=== PATIENT | female | born 1990 | race Hispanic/Latino ===

== ENCOUNTER 2022-02-09 13:13 | Emergency (ER) | payer BC ==
--- OUTSIDE RECORDS SUMMARY | 2022-02-09 13:30 | XMS REPORT | Continuity of Care Document ---
:1990 Author Organization [facility] t Address [address] [place] [address] Care Team Providers Name Role Phone PCP, PATIENT DOES NOT HAVE A Primary Care Physician UnavailNINO Gimenez Attending Clinician Unavailable REGINALD DUKE Attending Clinician Unavailable DANE GARCÍA Attending Clinician Unavailable Bhavya Marsh Attending Clinician Unknown, Attending Attending Clinician Unavailable BHAVYA LINDSEY Attending Clinician Unavailable Doctor Unassigned, [place] Attending Clinician Unavailable Dane Golden Attending Clinician Lab, Ang - Db Attending Clinician Unavailable BRENNEN CHANDLER Attending Clinician Unavailable Brennen Chandler MD Attending Clinician MARLA HOFFMANN Attending Clinician Unavailable Marla Hoffmann DO Attending Clinician PHYLLIS STILES Attending Clinician Unavailable Phyllis Stiles PA-C Attending Clinician CALLI FROST Attending Clinician Unavailable Calli Kelsey Attending Clinician JORDYN ADAMS Attending Clinician Unavailable Drever RESPIRATORY THERAPIST, Jordyn G Attending Clinician LINDA CORREA Attending Clinician Unavailable Linda Bowden Attending Clinician MELLY WILSON Attending Clinician Unavailable Andrea Preston PA-C Attending Clinician Steve RUIZ, Melly Attending Clinician Only, Ilya Db Test Attending Clinician Unavailable Tushar Shah Attending Clinician TUSHAR HIGUERA Attending Clinician Unavailable Gerardo BLANCA, Cass Perez Attending Clinician Unavailable JOHNIE WEST Attending Clinician Unavailable Mohamud Vallejo DO Attending Clinician Nichelle RUIZ, Nino Fuentes Attending Clinician Pob, [facility] Main Attending Clinician Unavailable Only, Adc Test Attending Clinician Unavailable 2, [facility] Attending Clinician Unavailable Johnie West PA-C Attending Clinician Faculty, Ilya [facility] Attending Clinician Unavailable Ger RUIZ, Raymundo Barker Attending Clinician Nayeli Coronado MD Attending Clinician NAYELI CORONADO Attending Clinician Unavailable ANETA ALTMAN Attending Clinician Unavailable 1, [facility] Attending Clinician Unavailable Miles Mojica MD Attending Clinician Alton RUIZ, Lance Anthony Attending Clinician Aneta Altman MD Attending Clinician [facility] Attending Clinician Unavailable Clinic, [facility] Neurology Continuity Attending Clinician Unavail able 5, [facility] Attending Clinician Unavailable Harlan Delaney MD, Tamia Attending Clinician [phone] Minerva Suárez Attending Clinician KEVYN CERVANTES Attending Clinician Unavailable Kevyn Cervantes MD Attending Clinician BRANDON HOFFMANN Attending Clinician Unavailable Risk, Ufb-Pyrjh-Up/High Attending Clinician Unavailable Kimberly Samantha DOUGLAS Attending Clinician SAMANTHA CORREA Attending Clinician Unavailable Remedios Perez Attending Clinician Brandon Peng Attending Clinician NINO STEWARD Admitting Clinician Unavailable MARLA HOFFMANN Admitting Clinician Unavailable Nino Steward MD Admitting Clinician Payers Payer Name Policy Type Policy Number Effective Date Expiration Date [facility] [id number] 2019 CHOICE MEDICAID 00:00:00 [employer] [place] - [id number] 2021 OUT OF STATE 00:00:00 Problems Condition Condition Condition Status Onset Resolution Last Treating Co mments Source Name Details Category Date Date Treatment Clinician Date Fatigue, Fatigue, Disease Active 2021-03 Unive rs unspecifie unspecifie 0-05 it y of d type d type 00:00: [place] [address] Medical Branch Lumbar Lumbar Disease Active 2021-03 Univers pain pain 0-05 ity of 00:00: [address] Branch 39 weeks 39 weeks Disease Active 2020-0 Unive rs gestation gestation 9-14 ity of of of 00:00: [place] 00 [facility] Preoperati Preoperati Disease Active 2020-0 U nivers ve ve 8-24 [place] evaluation [place]al 00 [facility] ligation ligation Branch Excessive Excessive Disease Active 2020- Uni vers weight weight 8-24 ity of gain gain 00:00: [place] during during 00 Medical , , Br anch antepartum antepartum High blood High blood Disease Active 2020-0 U nivers copper copper 7-24 ity of level level 00:00: [place] 00 Medical Branch Round Round Disease Active 2020-0 Univers ligament ligament 6-04 ity of pain pain 00:00: [place] 00 Medical Branch Low-lying Low-lying Disease Active 2020-0 Last Uni vers placenta placenta 5-05 Assessmen ity of 00:00: t & Plan: [place] [address] Resolved Medical on Branch 09/29/2019 [facility] Pain in Pain in Disease Active 2020-0 Univers both upper both upper 3-05 it y of extremitie extremitie 00:[place] Obesity Obesity Disease Active 2020-0 Univers (BMI (BMI 1-30 ity of 30-39.9) 30-39.9) 00:00: [place] [facility] Anxiety Anxiety Disease Active Univers during during 1-30 [place] 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 rs drug drug 1-30 ity of exposure exposure 00:00: Medical Branch Nexplanon Nexplanon Disease Active Uni vers in place in place 7-19 ity of 00:00: [place] [facility] Branch Liveborn Liveborn Disease Active Unive rs infant, of , of 6-06 it y of mark mark 00:[place] , , 00 [place] dical born in born in [facility] hospital by vaginal by vaginal delivery delivery High risk High risk Disease Active Uni vers , , 4-12 it y of antepartum antepartum [place] [facility] Obesity Obesity Disease Active Univers during during 4-12 ity of third third 00:00: [place] trimester, trimester, 00 Me dical antepartum antepartum Br anch Obesity Obesity Disease Active Univers affecting affecting 4-12 it[place] of 00:[place] in first in first 00 Medica l trimester trimester Bran ch Rubella Rubella Disease Active Univers immune immune 3-08 ity of 00:00: [place] [facility] Immune to Immune to Disease Active Uni vers varicella varicella 3-08 ity of 00:00: [place] [facility] Sterilizat Sterilizat Disease Active U nivers ion ion 1-11 ity of consult consult 00:00: [place] [facility] Nausea Nausea Disease Active 2015-03 Univers 1-30 ity of 00:00: [place] [facility] Nausea/vom Nausea/vom Disease Active 2015-03 U nivers iting in iting in 1-30 it[place] of 00:[place] [facility] [place] Multiparit Multiparit Disease Active 2015-03 U nivers y y 0-25 ity of 00:00: [place] [facility] Obesity, Obesity, Disease Active 2015-03 Unive rs unspecifie unspecifie 0-25 it y of d d 00:00: [place] [facility] Needs flu Needs flu Disease Active 2015-03 Uni vers shot shot 0-25 ity of 00:00: [place] 00 [facility] Branch Supervisio Supervisio Disease Active 2015-03 U nivers n of high n of high 0-25 ity of risk risk 00:00: [place] 00 [facility] in third in third Branch trimester trimester Cervical Cervical Disease Active Unive rs high risk high risk 9-22 ity of human human 00:00: [place] papillomav papillomav 00 Me dical irus (HPV) irus (HPV) Br anch DNA test DNA test positive positive History of History of Disease Active U nivers abnormal abnormal 9- ity of cervical cervical 00:00: [place] Pap smear Pap smear 00 [facility] Branch Irregular Irregular Disease Active Uni vers menstrual menstrual 9-22 ity of cycle cycle 00:00: [place] 00 [facility] Overweight Overweight Disease Active Overview : Univers - ICD10 ity of 00:00: Diagnosis [place] [facility] [employer] Branch Utility Allergies, Adverse Reactions, Alerts Allergy Allergy Status Severity Reaction(s) Onset Inactive Treating Comm ents Source Name Type Date Date Clinician NO KNOWN Drug Active Univers ALLERGIE Class ity of S [facility] Social History Social Habit Start Date Stop Date Quantity Comments Source ASSERTION 2019-02-25 University 00:00:00 [facility] Exposure to 2021-12-01 2021-12-11 Not sure [facility] SARS-CoV-2 00:00:00 17:25:00 [facility] (event) Branch Alcohol intake 2021-12-02 2021-12-02 0 /d University 00:00:00 00:00:00 [facility] Tobacco use and 2021-12-02 2021-12-02 Smokeless tobacco Un iversity of exposure 00:00:00 00:00:00 non-user [facility] Tobacco Comment 2014-07-11 2014-07-11 smokes 1 x per Unive rsity of 00:00:00 00:00:00 day-trying to [place] Medic [facility] quit Branch History of 2014-07-09 Cigarette Smoker Universi ty of tobacco use 00:00:00 [facility] [birth year] Universit y of 00:00:00 00:00:00 [facility] Smoking Status Start Date Stop Date Source Ex-smoker 2021-12-02 00:00:00 2021-12-02 00:00:[address] [facility], [facility] [place] [facility] Medications Ordered Filled Start Stop Current Ordering Indication Dosage Frequency Signature Comments Components Source Medication Medication Date Date Medication? Clinician (SIG) Name Name oseltamivir 2021-03- Yes [id number] 75mg Take 1 Univers (TAMIFLU) 0-13 10-19 capsule by ity of 75 mg 00:00: 04:59 mouth in [place] capsule 00 :00 the Medical morning Branch and 1 capsule in the evening. Do all this for 5 days. oseltamivir 2021-03- Yes [id number] 75mg Take 1 Univers (TAMIFLU) 0-13 10-19 capsule by ity of 75 mg 00:00: 04:59 mouth in [place] capsule 00 :00 the Medical morning Branch and 1 capsule in the evening. Do all this for 5 days. ibuprofen 2021-03- Yes [id number] 600mg Take 1 Univers 600 mg 0-04 10-19 tablet by ity of tablet 00:00: 04:59 mouth [place] 00 :00 every 6 Medical (six) Branch hours as needed for Temp > 38.5 C for up to 14 days. ibuprofen 2021-03- Yes [id number] 600mg Take 1 Univers 600 mg 0-04 10-19 tablet by ity of tablet 00:00: 04:59 mouth [place] 00 :00 every 6 Medical (six) Branch hours as needed for Temp > 38.5 C for up to 14 days. ibuprofen 2021-03- Yes [id number] 600mg Take 1 Univers 600 mg 0-04 10-19 tablet by ity of tablet 00:00: 04:59 mouth [place] 00 :00 every 6 Medical (six) Branch hours as needed for Temp > 38.5 C for up to 14 days. ibuprofen 2021-03- Yes [id number] 600mg Take 1 Univers 600 mg 0-04 10-19 tablet by ity of tablet 00:00: 04:59 mouth [place] 00 :00 every 6 Medical (six) Branch hours as needed for Temp > 38.5 C for up to 14 days. ibuprofen 2021-03- Yes [id number] 600mg Take 1 Univers 600 mg 0-04 10-19 tablet by ity of tablet 00:00: 04:59 mouth [place] 00 :00 every 6 Medical (six) Branch hours as needed for Temp > 38.5 C for up to 14 days. ibuprofen 2021-03- Yes [id number] 600mg Take 1 Univers 600 mg 0-04 10-19 tablet by ity of tablet 00:00: 04:59 mouth [place] 00 :00 every 6 Medical (six) Branch hours as needed for Temp > 38.5 C for up to 14 days. ibuprofen 2021-03- Yes [id number] 600mg Take 1 Univers 600 mg 0-04 10-19 tablet by ity of tablet 00:00: 04:59 mouth [place] 00 :00 every 6 Medical (six) Branch hours as needed for Temp > 38.5 C for up to 14 days. ibuprofen 2021-03- Yes [id number] 600mg Take 1 Univers 600 mg 0-04 10-19 tablet by ity of tablet 00:00: 04:59 mouth [place] 00 :00 every 6 Medical (six) Branch hours as needed for Temp > 38.5 C for up to 14 days. ibuprofen 2021-03- Yes [id number] 600mg Take 1 Univers 600 mg 0-04 10-19 tablet by ity of tablet 00:00: 04:59 mouth [place] 00 :00 every 6 Medical (six) Branch hours as needed for Temp > 38.5 C for up to 14 days. ibuprofen 2021-03- Yes [id number] 600mg Take 1 Univers 600 mg 0-04 10-19 tablet by ity of tablet 00:00: 04:59 mouth [place] 00 :00 every 6 Medical (six) Branch hours as needed for Temp > 38.5 C for up to 14 days. ibuprofen 2021-03- Yes [id number] 600mg Take 1 Univers 600 mg 0-04 10-19 tablet by ity of tablet 00:00: 04:59 mouth [place] 00 :00 every 6 Medical (six) Branch hours as needed for Temp > 38.5 C for up to 14 days. ibuprofen 2021-03- Yes [id number] 600mg Take 1 Univers 600 mg 0-04 10-19 tablet by ity of tablet 00:00: 04:59 mouth [place] 00 :00 every 6 Medical (six) Branch hours as needed for Temp > 38.5 C for up to 14 days. ibuprofen 2021-03- Yes [id number] 600mg Take 1 Univers 600 mg 0-04 10-19 tablet by ity of tablet 00:00: 04:59 mouth [place] 00 :00 every 6 Medical (six) Branch hours as needed for Temp > 38.5 C for up to 14 days. ibuprofen 2021-03- Yes [id number] 600mg Take 1 Univers 600 mg 0-04 10-19 tablet by ity of tablet 00:00: 04:59 mouth [place] 00 :00 every 6 Medical (six) Branch hours as needed for Temp > 38.5 C for up to 14 days. ibuprofen 2021-03- Yes [id number] 600mg Take 1 Univers 600 mg 0-04 10-19 tablet by ity of tablet 00:00: 04:59 mouth [place] 00 :00 every 6 Medical (six) Branch hours as needed for Temp > 38.5 C for up to 14 days. FENTanyl PF 2021- No 75ug 75 mcg, Un tj (SUBLIMAZE 08-04-06 Intramuscu it y of (PF)) 06:00: 04:56 lar, ONCE, [place] injection 00 :00 1 dose, On Medi srinivas 75 mcg 08/04/21 Branch at 0100, Routine traMADoL Yes [id number] 50mg Take 1 Univers (ULTRAM) 50 6-06 tablet by ity of mg tablet 00:00: mouth [place] 00 every 6 Medical (six) Branch hours as needed for Pain (scale 7-10). Indication s: acute pain traMADoL Yes [id number] 50mg Take 1 Univers (ULTRAM) 50 6-06 tablet by ity of mg tablet 00:00: mouth [place] 00 every 6 Medical (six) Branch hours as needed for Pain (scale 7-10). Indication s: acute pain traMADoL 0 Yes [id number] 50mg Take 1 Univers (ULTRAM) 50 6-06 tablet by ity of mg tablet 00:00: mouth [place] 00 every 6 Medical (six) Branch hours as needed for Pain (scale 7-10). Indication s: acute pain traMADoL 2021-0 Yes [id number] 50mg Take 1 Univers (ULTRAM) 50 6-06 tablet by ity of mg tablet 00:00: mouth [place] 00 every 6 Medical (six) Branch hours as needed for Pain (scale 7-10). Indication s: acute pain traMADoL 2021-0 Yes [id number] 50mg Take 1 Univers (ULTRAM) 50 6-06 tablet by ity of mg tablet 00:00: mouth [place] 00 every 6 Medical (six) Branch hours as needed for Pain (scale 7-10). Indication s: acute pain traMADoL 2021-0 Yes [id number] 50mg Take 1 Univers (ULTRAM) 50 6-06 tablet by ity of mg tablet 00:00: mouth [place] 00 every 6 Medical (six) Branch hours as needed for Pain (scale 7-10). Indication s: acute pain traMADoL 2021-0 Yes [id number] 50mg Take 1 Univers (ULTRAM) 50 6-06 tablet by ity of mg tablet 00:00: mouth [place] 00 every 6 Medical (six) Branch hours as needed for Pain (scale 7-10). Indication s: acute pain traMADoL 2021-0 Yes [id number] 50mg Take 1 Univers (ULTRAM) 50 6-06 tablet by ity of mg tablet 00:00: mouth [place] 00 every 6 Medical (six) Branch hours as needed for Pain (scale 7-10). Indication s: acute pain traMADoL 2021-0 Yes [id number] 50mg Take 1 Univers (ULTRAM) 50 6-06 tablet by ity of mg tablet 00:00: mouth [place] 00 every 6 Medical (six) Branch hours as needed for Pain (scale 7-10). Indication s: acute pain traMADoL 2021-0 Yes [id number] 50mg Take 1 Univers (ULTRAM) 50 6-06 tablet by ity of mg tablet 00:00: mouth [place] 00 every 6 Medical (six) Branch hours as needed for Pain (scale 7-10). Indication s: acute pain traMADoL 2-0 Yes [id number] 50mg Take 1 Univers (ULTRAM) 50 6-06 tablet by ity of mg tablet 00:00: mouth [place] 00 every 6 Medical (six) Branch hours as needed for Pain (scale 7-10). Indication s: acute pain traMADoL 2-0 Yes [id number] 50mg Take 1 Univers (ULTRAM) 50 6-06 tablet by ity of mg tablet 00:00: mouth [place] 00 every 6 Medical (six) Branch hours as needed for Pain (scale 7-10). Indication s: acute pain traMADoL Yes [id number] 50mg Take 1 Univers (ULTRAM) 50 6-06 tablet by ity of mg tablet 00:00: mouth [place] 00 every 6 Medical (six) Branch hours as needed for Pain (scale 7-10). Indication s: acute pain traMADoL Yes [id number] 50mg Take 1 Univers (ULTRAM) 50 6-06 tablet by ity of mg tablet 00:00: mouth [place] 00 every 6 Medical (six) Branch hours as needed for Pain (scale 7-10). Indication s: acute pain traMADoL Yes [id number] 50mg Take 1 Univers (ULTRAM) 50 6-06 tablet by ity of mg tablet 00:00: mouth [place] 00 every 6 Medical (six) Branch hours as needed for Pain (scale 7-10). Indication s: acute pain traMADoL Yes [id number] 50mg Take 1 Univers (ULTRAM) 50 6-06 tablet by ity of mg tablet 00:00: mouth [place] 00 every 6 Medical (six) Branch hours as needed for Pain (scale 7-10). Indication s: acute pain traMADoL Yes [id number] 50mg Take 1 Univers (ULTRAM) 50 6-06 tablet by ity of mg tablet 00:00: mouth [place] 00 every 6 Medical (six) Branch hours as needed for Pain (scale 7-10). Indication s: acute pain ciprofloxac 2021- No [id number] 3[drp] Place 3 Univers in-hydrocor 08-04 [id number] Drops in it y of tisone 00:00: 04:59 [place] ear 2 [place] (CIPRO HC) 00 :00 (two) Medical otic times Branch suspension daily for 7 days. FENTanyl PF 2021- No 50ug 50 mcg, Un jt (SUBLIMAZE 07-27 Intramuscu it y of (PF)) 22:00: 21:00 lar, ONCE, [place] injection 00 :00 1 dose, On Medi srinivas 50 mcg Sun Branch 07/27/21 at 1700, Routine HYDROcodone 2021- No 1{tbl} 1 tablet, Univers -acetaminop 07-27 Oral, ity of hen (NORCO 19:15: 18:54 ONCE, 1 Nikhil as 5) 5-325 mg 00 :00 dose, On Medi srinivas tablet 1 Sun Branch tablet 07/27/21 at 1415, MIRIAM cefTRIAXone 2021- No [id number] 1000mg Univers (ROCEPHIN) 03-09 ity of injection 23:15: 22:06 [place] 1,000 mg 00 :00 Medical Branch cefTRIAXone 2021- No [id number] 1000mg 1,000 mg, Univers (ROCEPHIN) 03-09 Intramuscu it y of injection 23:15: 22:06 lar, ONCE, [place] 1,000 mg 00 :00 1 dose, On Medic al 03/09/21 Branch at 1715, MIRIAM
Re ason for Anti-Infec tive: Empiric Therapy for Suspected Infection< br>Empiric Therapy Site: HEENT
D uration of therapy: 72 hours dexamethaso 2021- No [id number] 8mg Univers ne 03-09 ity of (DECADRON 23:00: 22:08 [place] PHOSPHATE) 00 :00 Medical injection 8 Branch mg dexamethaso 2021- No [id number] 8mg 8 mg, Univers ne 03-09 Intramuscu ity of (DECADRON 23:00: 22:08 lar, ONCE, [place] PHOSPHATE) 00 :00 1 dose, On Med ical injection 8 03/09/21 Br anch mg at 1700, Routine amoxicillin 2021- No [id number] 1{tbl} Take 1 Univers -clavulanat 03-09 tablet by it y of e 875-125 00:00: 05:59 mouth 2 [place] mg per 00 :00 (two) Medical tablet times Branch daily for 7 days. amoxicillin 2021- No [id number] 1{tbl} Take 1 Univers -clavulanat 03-09 tablet by it y of e 875-125 00:00: 05:59 mouth 2 [place] mg per 00 :00 (two) Medical tablet times Branch daily for 7 days. ondansetron 2021- No 4mg 4 mg, Univ ers (ZOFRAN-ODT 03-08 Oral, ity of ) 22:45: 22:00 ONCE, 1 [place] disintegrat 00 :00 dose, On Medi srinivas ing tablet 03/08/21 Bra nch 4 mg at 1645, Routine HYDROcodone 2021- No 1{tbl} 1 tablet, Univers -acetaminop 03-08 Oral, ity of hen (NORCO) 21:42: 22:00 ONCE, 1 [place] 10-325 mg 00 :00 dose, On Medica l tablet 1 03/08/21 Branc h tablet at 1545, Routine ciprofloxac 2021- No [id number] 750mg Take 1 Univers in HCl 750 03-08 22593 tablet by it y of mg tablet 00:00: 05:59 mouth [place] 00 :00 every 12 Medical (twelve) Branch hours for 7 days. traMADoL 50 2021- No [id number] 50mg Take 1 Uni vers mg tablet 03-08 tablet by ity of 00:00: 05:59 mouth [place] 00 :00 every 6 Medical (six) Branch hours as needed for Pain (scale 4-6) or Pain (scale 7-10) for up to 7 days. Indication s: acute pain ciprofloxac 2021- No [id number] 750mg Take 1 Univers in HCl 750 03-08 23715 tablet by it y of mg tablet 00:00: 05:59 mouth [place] 00 :00 every 12 Medical (twelve) Branch hours for 7 days. traMADoL 50 2021- No [id number] 50mg Take 1 Uni vers mg tablet 03-08 tablet by ity of 00:00: 05:59 mouth [place] 00 :00 every 6 Medical (six) Branch hours as needed for Pain (scale 4-6) or Pain (scale 7-10) for up to 7 days. Indication s: acute pain ciprofloxac No [id number] 750mg Take 1 Univers in HCl 750 03-08 [id number] tablet by it y of mg tablet 00:00: 05:59 mouth [place] 00 :00 every 12 Medical (twelve) Branch hours for 7 days. traMADoL 50 2021- No [id number] 50mg Take 1 Uni vers mg tablet 03-08 01-16 tablet by ity of 00:00: 05:59 mouth [place] 00 :00 every 6 Medical (six) Branch hours as needed for Pain (scale 4-6) or Pain (scale 7-10) for up to 7 days. Indication s: acute pain ibuprofen 2021-0 Yes [id number] 600mg Take 1 Univers 600 mg 1-07 [id number] tablet by ity of tablet 00:00: mouth [place] 00 every 6 Medical (six) Branch hours as needed for Pain (scale 4-6). ibuprofen 2021-0 Yes [id number] 600mg Take 1 Univers 600 mg 1-07 [id number] tablet by ity of tablet 00:00: mouth [place] 00 every 6 Medical (six) Branch hours as needed for Pain (scale 4-6). ibuprofen 2021-0 Yes [id number] 600mg Take 1 Univers 600 mg 1- 32811 tablet by ity of tablet 00:00: mouth [place] 00 every 6 Medical (six) Branch hours as needed for Pain (scale 4-6). ibuprofen 2021-0 Yes [id number] 600mg Take 1 Univers 600 mg 1-07 [id number] tablet by ity of tablet 00:00: mouth [place] 00 every 6 Medical (six) Branch hours as needed for Pain (scale 4-6). ibuprofen 2021-0 Yes [id number] 600mg Take 1 Univers 600 mg 1-07 04345 tablet by ity of tablet 00:00: mouth [place] 00 every 6 Medical (six) Branch hours as needed for Pain (scale 4-6). ibuprofen 2021-0 Yes [id number] 600mg Take 1 Univers 600 mg 1-07 [id number] tablet by ity of tablet 00:00: mouth [place] 00 every 6 Medical (six) Branch hours as needed for Pain (scale 4-6). ibuprofen 2021-0 Yes [id number] 600mg Take 1 Univers 600 mg 1-07 [id number] tablet by ity of tablet 00:00: mouth [place] 00 every 6 Medical (six) Branch hours as needed for Pain (scale 4-6). ibuprofen 2021-0 Yes [id number] 600mg Take 1 Univers 600 mg 1-07 [id number] tablet by ity of tablet 00:00: mouth [place] 00 every 6 Medical (six) Branch hours as needed for Pain (scale 4-6). ibuprofen 2022-0 Yes [id number] 600mg Take 1 Univers 600 mg 1-07 [id number] tablet by ity of tablet 00:00: mouth [place] 00 every 6 Medical (six) Branch hours as needed for Pain (scale 4-6). ibuprofen 2022-0 Yes [id number] 600mg Take 1 Univers 600 mg 1-07 [id number] tablet by ity of tablet 00:00: mouth [place] 00 every 6 Medical (six) Branch hours as needed for Pain (scale 4-6). ibuprofen 2022-0 Yes [id number] 600mg Take 1 Univers 600 mg 1-07 [id number] tablet by ity of tablet 00:00: mouth [place] 00 every 6 Medical (six) Branch hours as needed for Pain (scale 4-6). ibuprofen 2-0 Yes [id number] 600mg Take 1 Univers 600 mg 1-07 [id number] tablet by ity of tablet 00:00: mouth [place] 00 every 6 Medical (six) Branch hours as needed for Pain (scale 4-6). ibuprofen 2-0 Yes [id number] 600mg Take 1 Univers 600 mg 1-07 [id number] tablet by ity of tablet 00:00: mouth [place] 00 every 6 Medical (six) Branch hours as needed for Pain (scale 4-6). ibuprofen 2-0 Yes [id number] 600mg Take 1 Univers 600 mg 1-07 [id number] tablet by ity of tablet 00:00: mouth [place] 00 every 6 Medical (six) Branch hours as needed for Pain (scale 4-6). ibuprofen 2022-0 Yes [id number] 600mg Take 1 Univers 600 mg 1-07 [id number] tablet by ity of tablet 00:00: mouth [place] 00 every 6 Medical (six) Branch hours as needed for Pain (scale 4-6). ibuprofen 2022-0 Yes [id number] 600mg Take 1 Univers 600 mg 1-07 [id number] tablet by ity of tablet 00:00: mouth [place] 00 every 6 Medical (six) Branch hours as needed for Pain (scale 4-6). ibuprofen 2022-0 Yes [id number] 600mg Take 1 Univers 600 mg 1-07 [id number] tablet by ity of tablet 00:00: mouth [place] 00 every 6 Medical (six) Branch hours as needed for Pain (scale 4-6). ibuprofen 2021-0 Yes [id number] 600mg Take 1 Univers 600 mg 1-07 [id number] tablet by ity of tablet 00:00: mouth [place] 00 every 6 Medical (six) Branch hours as needed for Pain (scale 4-6). ibuprofen 2021-0 Yes [id number] 600mg Take 1 Univers 600 mg 1-07 [id number] tablet by ity of tablet 00:00: mouth [place] 00 every 6 Medical (six) Branch hours as needed for Pain (scale 4-6). ibuprofen 2021-0 Yes [id number] 600mg Take 1 Univers 600 mg 1-07 11425 tablet by ity of tablet 00:00: mouth [place] 00 every 6 Medical (six) Branch hours as needed for Pain (scale 4-6). ibuprofen 2021-0 Yes [id number] 600mg Take 1 Univers 600 mg 1-07 [id number] tablet by ity of tablet 00:00: mouth [place] 00 every 6 Medical (six) Branch hours as needed for Pain (scale 4-6). ibuprofen 2021-0 Yes [id number] 600mg Take 1 Univers 600 mg 1- 08215 tablet by ity of tablet 00:00: mouth [place] 00 every 6 Medical (six) Branch hours as needed for Pain (scale 4-6). neomycin-po 2021- No [id number] 3[drp] Place 3 Univers lymyxin-hyd 03-07 [id number] Drops in it y of rocortisone 00:00: 05:59 right ear [place] 3.5-10,000- 00 :00 4 (four) Medi srinivas 1 times Branch mg/mL-unit/ daily for mL-% otic 7 days. susp neomycin-po 2021- No [id number] 3[drp] Place 3 Univers lymyxin-hyd 03-07 [id number] Drops in it y of rocortisone 00:00: 05:59 right ear [place] 3.5-10,000- 00 :00 4 (four) Medi srinivas 1 times Branch mg/mL-unit/ daily for mL-% otic 7 days. susp neomycin-po 2021- No [id number] 3[drp] Place 3 [facility] lymyxin-hyd 03-07 22726 Drops in it y of rocortisone 00:00: 05:59 right ear [place] 3.5-10,000- 00 :00 4 (four) Medi srinivas 1 times Branch mg/mL-unit/ daily for mL-% otic 7 days. susp neomycin-po 2021- No [id number] 3[drp] Place 3 [facility] lymyxin-hyd 03-07 [id number] Drops in it y of rocortisone 00:00: 05:59 right ear [place] 3.5-10,000- 00 :00 4 (four) Medi srinivas 1 times Branch mg/mL-unit/ daily for mL-% otic 7 days. susp bromphenira 2021- No [id number] 10mL Take 10 mL [facility] mine-pseudo 03-03 by mouth 4 i ty of ephedrine-D 00:00: 05:59 (four) Nikhil as M 2-30-10 00 :00 times Medical mg/5 mL daily as Branch syrup needed for Congestion /Allergies for up to 7 days. bromphenira 2021-0 2021- No [id number] 10mL Take 10 mL [facility] mine-pseudo 03-03 by mouth 4 i ty of ephedrine-D 00:00: 05:59 (four) Nikhil as M 2-30-10 00 :00 times Medical mg/5 mL daily as Branch syrup needed for Congestion /Allergies for up to 7 days. bromphenira 2021-0 2021- No [id number] 10mL Take 10 mL [facility] mine-pseudo 03-03 by mouth 4 i ty of ephedrine-D 00:00: 05:59 (four) Nikhil as M 2-30-10 00 :00 times Medical mg/5 mL daily as Branch syrup needed for Congestion /Allergies for up to 7 days. bromphenira 2021-0 2021- No [id number] 10mL Take 10 mL [facility] mine-pseudo 03-03 by mouth 4 i ty of ephedrine-D 00:00: 05:59 (four) Nikhil as M 2-30-10 00 :00 times Medical mg/5 mL daily as Branch syrup needed for Congestion /Allergies for up to 7 days. lactated 2019-03 Yes 1000mL at 75 [facility] s ringers IV 1-03 mL/hr, it[facility] of infusion 17:00: 1,000 [place] 1[place]000 [place] 00 IV Medical Infusion, Branch CONTINUOUS , Starting Wed01/02/20 at 1100, Until Discontinu ed, Routine, PACU FENTanyl PF 2019-03 Yes 25ug 25 mcg, Uni vers (SUBLIMAZE 1-03 Slow IV ity of (PF)) 16:50: Push, [place] injection 26 Q5MIN PRN, Medi srinivas 25 mcg 4 doses, Branch Starting Wed01/02/20 at 1050, Until Discontinu ed, Routine, Pain (scale 4-6), PACU ondansetron 2019-03 Yes 4mg 4 mg, Slow [facility] (ZOFRAN 03-03 IV Push, ity of (PF)) 16:50: PRN, 1 [place] injection 4 26 dose, Medical mg Starting Branch Wed01/02/20 at 1050, Until Discontinu ed, Routine, Nausea and Vomiting (N/V), PACU bupivacaine 2019-03 Yes PRN, [facility] s -epinephrin 03 Starting ity of e-pf 16:10: Wed [place] (SENSORCAIN 01/02/20 at Ia dical E 1010, Branch W/EPINEPHRI Until NE) 0.5 Discontinu %-1:200,000 ed, injection Routine, Intra-op sodium 2019-03 Yes PRN, [facility] chloride -03 Starting ity of 0.9 % 15:35: Wed [place] irrigation 01/02/20 at Med ical solution 0935, Branch Until Discontinu ed, Intra-op lactated 2019-03 2020- No 1000mL at 42 [facility] rs ringers IV 03-03 11-03 mL/hr, ity of infusion 15:30: 15:23 1,000 mL, Nikhil as 1,000 mL 00 :00 IV Medical Infusion, Branch ONCE, 1 dose, Wed01/02/20 at 0930, Routine, DSU Pre-op acetaminoph 2019-03 Yes [id number] 650mg Take 2 [facility] en 1-03 tablets by ity of (TYLENOL) 00:00: mouth [place] 325 mg 00 every 6 Medical tablet (six) Branch hours as needed for Pain (scale 1-3) or Pain (scale 4-6). ibuprofen 2019-03 Yes [id number] 600mg Take 1 [facility] 600 mg 1-03 tablet by ity of tablet 00:00: mouth [place] 00 every 6 Medical (six) Branch hours as needed for Pain (scale 1-3) or Pain (scale 4-6). simethicone 2020- Yes [id number] 80mg Take 1 [facility] 80 mg 1-03 tablet by ity of chewable 00:00: mouth [place] tablet 00 after Medical meals and Branch at bedtime. acetaminoph 2020 Yes [id number] 650mg Take 2 [facility] en 1-03 tablets by ity of (TYLENOL) 00:00: mouth [place] 325 mg 00 every 6 Medical tablet (six) Branch hours as needed for Pain (scale 1-3) or Pain (scale 4-6). ibuprofen 2019-03 Yes [id number] 600mg Take 1 [facility] 600 mg 1-03 tablet by ity of tablet 00:00: mouth [place] 00 every 6 Medical (six) Branch hours as needed for Pain (scale 1-3) or Pain (scale 4-6). simethicone 2019-03 Yes [id number] 80mg Take 1 [facility] 80 mg 1-03 tablet by ity of chewable 00:00: mouth [place] tablet 00 after Medical meals and Branch at bedtime. acetaminoph 2019-03 Yes [id number] 650mg Take 2 [facility] en 1-03 tablets by ity of (TYLENOL) 00:00: mouth [place] 325 mg 00 every 6 Medical tablet (six) Branch hours as needed for Pain (scale 1-3) or Pain (scale 4-6). ibuprofen 2019-03 Yes [id number] 600mg Take 1 [facility] 600 mg 1-03 tablet by ity of tablet 00:00: mouth [place] 00 every 6 Medical (six) Branch hours as needed for Pain (scale 1-3) or Pain (scale 4-6). simethicone 2019-03 Yes [id number] 80mg Take 1 [facility] 80 mg 1-03 tablet by ity of chewable 00:00: mouth [place] tablet 00 after Medical meals and Branch at bedtime. acetaminoph 2020 Yes [id number] 650mg Take 2 [facility] en 1-03 tablets by ity of (TYLENOL) 00:00: mouth [place] 325 mg 00 every 6 Medical tablet (six) Branch hours as needed for Pain (scale 1-3) or Pain (scale 4-6). ibuprofen 2019-03 Yes [id number] 600mg Take 1 [facility] 600 mg 1-03 tablet by ity of tablet 00:00: mouth [place] 00 every 6 Medical (six) Branch hours as needed for Pain (scale 1-3) or Pain (scale 4-6). simethicone 2020- Yes [id number] 80mg Take 1 [facility] 80 mg 1-03 tablet by ity of chewable 00:00: mouth [place] tablet 00 after Medical meals and Branch at bedtime. acetaminoph 2019- Yes [id number] 650mg Take 2 [facility] en 1-03 tablets by ity of (TYLENOL) 00:00: mouth [place] 325 mg 00 every 6 Medical tablet (six) Branch hours as needed for Pain (scale 1-3) or Pain (scale 4-6). ibuprofen 2019-03 Yes [id number] 600mg Take 1 [facility] 600 mg 1-03 tablet by ity of tablet 00:00: mouth [place] 00 every 6 Medical (six) Branch hours as needed for Pain (scale 1-3) or Pain (scale 4-6). simethicone 2019-03 Yes [id number] 80mg Take 1 [facility] 80 mg 1-03 tablet by ity of chewable 00:00: mouth [place] tablet 00 after Medical meals and Branch at bedtime. acetaminoph 2019-03 Yes [id number] 650mg Take 2 [facility] en 1-03 tablets by ity of (TYLENOL) 00:00: mouth [place] 325 mg 00 every 6 Medical tablet (six) Branch hours as needed for Pain (scale 1-3) or Pain (scale 4-6). ibuprofen 2019-03 Yes [id number] 600mg Take 1 [facility] 600 mg 1-03 tablet by ity of tablet 00:00: mouth [place] 00 every 6 Medical (six) Branch hours as needed for Pain (scale 1-3) or Pain (scale 4-6). simethicone 2020 Yes [id number] 80mg Take 1 [facility] 80 mg 1-03 tablet by ity of chewable 00:00: mouth [place] tablet 00 after Medical meals and Branch at bedtime. acetaminoph 2020- Yes [id number] 650mg Take 2 [facility] en 1-03 tablets by ity of (TYLENOL) 00:00: mouth [place] 325 mg 00 every 6 Medical tablet (six) Branch hours as needed for Pain (scale 1-3) or Pain (scale 4-6). ibuprofen 2019-03 Yes [id number] 600mg Take 1 [facility] 600 mg 1-03 tablet by ity of tablet 00:00: mouth [place] 00 every 6 Medical (six) Branch hours as needed for Pain (scale 1-3) or Pain (scale 4-6). simethicone 2020 Yes [id number] 80mg Take 1 [facility] 80 mg 1-03 tablet by ity of chewable 00:00: mouth [place] tablet 00 after Medical meals and Branch at bedtime. acetaminoph 2019-03 Yes [id number] 650mg Take 2 [facility] en 1-03 tablets by ity of (TYLENOL) 00:00: mouth [place] 325 mg 00 every 6 Medical tablet (six) Branch hours as needed for Pain (scale 1-3) or Pain (scale 4-6). ibuprofen 2019-03 Yes [id number] 600mg Take 1 [facility] 600 mg 1-03 tablet by ity of tablet 00:00: mouth [place] 00 every 6 Medical (six) Branch hours as needed for Pain (scale 1-3) or Pain (scale 4-6). simethicone 2019-03 Yes [id number] 80mg Take 1 [facility] 80 mg 1-03 tablet by ity of chewable 00:00: mouth [place] tablet 00 after Medical meals and Branch at bedtime. acetaminoph 2019-03 Yes [id number] 650mg Take 2 [facility] en 1-03 tablets by ity of (TYLENOL) 00:00: mouth [place] 325 mg 00 every 6 Medical tablet (six) Branch hours as needed for Pain (scale 1-3) or Pain (scale 4-6). ibuprofen 2019-03 Yes [id number] 600mg Take 1 [facility] 600 mg 1-03 tablet by ity of tablet 00:00: mouth [place] 00 every 6 Medical (six) Branch hours as needed for Pain (scale 1-3) or Pain (scale 4-6). simethicone 2019-03 Yes [id number] 80mg Take 1 [facility] 80 mg 1-03 tablet by ity of chewable 00:00: mouth [place] tablet 00 after Medical meals and Branch at bedtime. acetaminoph 2019-03 Yes [id number] 650mg Take 2 [facility] en 1-03 tablets by ity of (TYLENOL) 00:00: mouth [place] 325 mg 00 every 6 Medical tablet (six) Branch hours as needed for Pain (scale 1-3) or Pain (scale 4-6). ibuprofen 2019-03 Yes [id number] 600mg Take 1 [facility] 600 mg 1-03 tablet by ity of tablet 00:00: mouth [place] 00 every 6 Medical (six) Branch hours as needed for Pain (scale 1-3) or Pain (scale 4-6). simethicone 2020 Yes [id number] 80mg Take 1 [facility] 80 mg 1-03 tablet by ity of chewable 00:00: mouth [place] tablet 00 after Medical meals and Branch at bedtime. acetaminoph 2019-03 Yes [id number] 650mg Take 2 [facility] en 1-03 tablets by ity of (TYLENOL) 00:00: mouth [place] 325 mg 00 every 6 Medical tablet (six) Branch hours as needed for Pain (scale 1-3) or Pain (scale 4-6). ibuprofen 2019-03 Yes [id number] 600mg Take 1 [facility] 600 mg 1-03 tablet by ity of tablet 00:00: mouth [place] 00 every 6 Medical (six) Branch hours as needed for Pain (scale 1-3) or Pain (scale 4-6). simethicone 2019-03 Yes [id number] 80mg Take 1 [facility] 80 mg 1-03 tablet by ity of chewable 00:00: mouth [place] tablet 00 after Medical meals and Branch at bedtime. acetaminoph 2019-03 Yes [id number] 650mg Take 2 [facility] en 1-03 tablets by ity of (TYLENOL) 00:00: mouth [place] 325 mg 00 every 6 Medical tablet (six) Branch hours as needed for Pain (scale 1-3) or Pain (scale 4-6). ibuprofen 2019-03 Yes [id number] 600mg Take 1 [facility] 600 mg 1-03 tablet by ity of tablet 00:00: mouth [place] 00 every 6 Medical (six) Branch hours as needed for Pain (scale 1-3) or Pain (scale 4-6). simethicone 2019-03 Yes [id number] 80mg Take 1 [facility] 80 mg 1-03 tablet by ity of chewable 00:00: mouth [place] tablet 00 after Medical meals and Branch at bedtime. acetaminoph 2019-03 Yes [id number] 650mg Take 2 [facility] en 1-03 tablets by ity of (TYLENOL) 00:00: mouth [place] 325 mg 00 every 6 Medical tablet (six) Branch hours as needed for Pain (scale 1-3) or Pain (scale 4-6). ibuprofen 2019-03 Yes [id number] 600mg Take 1 [facility] 600 mg 1-03 tablet by ity of tablet 00:00: mouth [place] 00 every 6 Medical (six) Branch hours as needed for Pain (scale 1-3) or Pain (scale 4-6). simethicone 2020- Yes [id number] 80mg Take 1 [facility] 80 mg 1-03 tablet by ity of chewable 00:00: mouth [place] tablet 00 after Medical meals and Branch at bedtime. acetaminoph 2019-03 Yes [id number] 650mg Take 2 [facility] en 1-03 tablets by ity of (TYLENOL) 00:00: mouth [place] 325 mg 00 every 6 Medical tablet (six) Branch hours as needed for Pain (scale 1-3) or Pain (scale 4-6). ibuprofen 2019-03 Yes [id number] 600mg Take 1 [facility] 600 mg 1-03 tablet by ity of tablet 00:00: mouth [place] 00 every 6 Medical (six) Branch hours as needed for Pain (scale 1-3) or Pain (scale 4-6). simethicone 2019-03 Yes [id number] 80mg Take 1 [facility] 80 mg 1-03 tablet by ity of chewable 00:00: mouth [place] tablet 00 after Medical meals and Branch at bedtime. acetaminoph 2019-03 Yes [id number] 650mg Take 2 [facility] en 1-03 tablets by ity of (TYLENOL) 00:00: mouth [place] 325 mg 00 every 6 Medical tablet (six) Branch hours as needed for Pain (scale 1-3) or Pain (scale 4-6). ibuprofen 2019-03 Yes [id number] 600mg Take 1 [facility] 600 mg 1-03 tablet by ity of tablet 00:00: mouth [place] 00 every 6 Medical (six) Branch hours as needed for Pain (scale 1-3) or Pain (scale 4-6). simethicone 2020 Yes [id number] 80mg Take 1 [facility] 80 mg 1-03 tablet by ity of chewable 00:00: mouth [place] tablet 00 after Medical meals and Branch at bedtime. acetaminoph 2020- Yes [id number] 650mg Take 2 [facility] en 1-03 tablets by ity of (TYLENOL) 00:00: mouth [place] 325 mg 00 every 6 Medical tablet (six) Branch hours as needed for Pain (scale 1-3) or Pain (scale 4-6). ibuprofen 2019-03 Yes [id number] 600mg Take 1 [facility] 600 mg 1-03 tablet by ity of tablet 00:00: mouth [place] 00 every 6 Medical (six) Branch hours as needed for Pain (scale 1-3) or Pain (scale 4-6). simethicone 2020 Yes [id number] 80mg Take 1 [facility] 80 mg 1-03 tablet by ity of chewable 00:00: mouth [place] tablet 00 after Medical meals and Branch at bedtime. acetaminoph 2019-03 Yes [id number] 650mg Take 2 [facility] en 1-03 tablets by ity of (TYLENOL) 00:00: mouth [place] 325 mg 00 every 6 Medical tablet (six) Branch hours as needed for Pain (scale 1-3) or Pain (scale 4-6). ibuprofen 2019-03 Yes [id number] 600mg Take 1 [facility] 600 mg 1-03 tablet by ity of tablet 00:00: mouth [place] 00 every 6 Medical (six) Branch hours as needed for Pain (scale 1-3) or Pain (scale 4-6). simethicone 2019-03 Yes [id number] 80mg Take 1 [facility] 80 mg 1-03 tablet by ity of chewable 00:00: mouth [place] tablet 00 after Medical meals and Branch at bedtime. acetaminoph 2019-03 Yes [id number] 650mg Take 2 [facility] en 1-03 tablets by ity of (TYLENOL) 00:00: mouth [place] 325 mg 00 every 6 Medical tablet (six) Branch hours as needed for Pain (scale 1-3) or Pain (scale 4-6). ibuprofen 2019-03 Yes [id number] 600mg Take 1 [facility] 600 mg 1-03 tablet by ity of tablet 00:00: mouth [place] 00 every 6 Medical (six) Branch hours as needed for Pain (scale 1-3) or Pain (scale 4-6). simethicone 2019-03 Yes [id number] 80mg Take 1 [facility] 80 mg 1-03 tablet by ity of chewable 00:00: mouth [place] tablet 00 after Medical meals and Branch at bedtime. acetaminoph 2019-03 Yes [id number] 650mg Take 2 [facility] en 1-03 tablets by ity of (TYLENOL) 00:00: mouth [place] 325 mg 00 every 6 Medical tablet (six) Branch hours as needed for Pain (scale 1-3) or Pain (scale 4-6). ibuprofen 2019-03 Yes [id number] 600mg Take 1 [facility] 600 mg 1-03 tablet by ity of tablet 00:00: mouth [place] 00 every 6 Medical (six) Branch hours as needed for Pain (scale 1-3) or Pain (scale 4-6). simethicone 2020 Yes [id number] 80mg Take 1 [facility] 80 mg 1-03 tablet by ity of chewable 00:00: mouth [place] tablet 00 after Medical meals and Branch at bedtime. acetaminoph 2019-03 Yes [id number] 650mg Take 2 [facility] en 1-03 tablets by ity of (TYLENOL) 00:00: mouth [place] 325 mg 00 every 6 Medical tablet (six) Branch hours as needed for Pain (scale 1-3) or Pain (scale 4-6). ibuprofen 2019-03 Yes [id number] 600mg Take 1 [facility] 600 mg 1-03 tablet by ity of tablet 00:00: mouth [place] 00 every 6 Medical (six) Branch hours as needed for Pain (scale 1-3) or Pain (scale 4-6). simethicone 2019-03 Yes [id number] 80mg Take 1 [facility] 80 mg 1-03 tablet by ity of chewable 00:00: mouth [place] tablet 00 after Medical meals and Branch at bedtime. acetaminoph 2019-03 Yes [id number] 650mg Take 2 [facility] en 1-03 tablets by ity of (TYLENOL) 00:00: mouth [place] 325 mg 00 every 6 Medical tablet (six) Branch hours as needed for Pain (scale 1-3) or Pain (scale 4-6). ibuprofen 2019-03 Yes [id number] 600mg Take 1 [facility] 600 mg 1-03 tablet by ity of tablet 00:00: mouth [place] 00 every 6 Medical (six) Branch hours as needed for Pain (scale 1-3) or Pain (scale 4-6). simethicone 2019-03 Yes [id number] 80mg Take 1 [facility] 80 mg 1-03 tablet by ity of chewable 00:00: mouth [place] tablet 00 after Medical meals and Branch at bedtime. acetaminoph 2019-03 Yes [id number] 650mg Take 2 [facility] en 1-03 tablets by ity of (TYLENOL) 00:00: mouth [place] 325 mg 00 every 6 Medical tablet (six) Branch hours as needed for Pain (scale 1-3) or Pain (scale 4-6). ibuprofen 2019-03 Yes [id number] 600mg Take 1 [facility] 600 mg 1-03 tablet by ity of tablet 00:00: mouth [place] 00 every 6 Medical (six) Branch hours as needed for Pain (scale 1-3) or Pain (scale 4-6). simethicone 2019-03 Yes [id number] 80mg Take 1 [facility] 80 mg 1-03 tablet by ity of chewable 00:00: mouth [place] tablet 00 after Medical meals and Branch at bedtime. acetaminoph 2019-03 Yes [id number] 650mg Take 2 [facility] en 1-03 tablets by ity of (TYLENOL) 00:00: mouth [place] 325 mg 00 every 6 Medical tablet (six) Branch hours as needed for Pain (scale 1-3) or Pain (scale 4-6). ibuprofen 2019-03 Yes [id number] 600mg Take 1 [facility] 600 mg 1-03 tablet by ity of tablet 00:00: mouth [place] 00 every 6 Medical (six) Branch hours as needed for Pain (scale 1-3) or Pain (scale 4-6). simethicone 2019-03 Yes [id number] 80mg Take 1 [facility] 80 mg 1-03 tablet by ity of chewable 00:00: mouth [place] tablet 00 after Medical meals and Branch at bedtime. acetaminoph 2019-03 Yes [id number] 650mg Take 2 [facility] en 1-03 tablets by ity of (TYLENOL) 00:00: mouth [place] 325 mg 00 every 6 Medical tablet (six) Branch hours as needed for Pain (scale 1-3) or Pain (scale 4-6). ibuprofen 2019-03 Yes [id number] 600mg Take 1 [facility] 600 mg 1-03 tablet by ity of tablet 00:00: mouth [place] 00 every 6 Medical (six) Branch hours as needed for Pain (scale 1-3) or Pain (scale 4-6). simethicone 2019-03 Yes [id number] 80mg Take 1 [facility] 80 mg 1-03 tablet by ity of chewable 00:00: mouth [place] tablet 00 after Medical meals and Branch at bedtime. acetaminoph 2019-03 Yes [id number] 650mg Take 2 [facility] en 1-03 tablets by ity of (TYLENOL) 00:00: mouth [place] 325 mg 00 every 6 Medical tablet (six) Branch hours as needed for Pain (scale 1-3) or Pain (scale 4-6). ibuprofen 2019-03 Yes [id number] 600mg Take 1 [facility] 600 mg 1-03 tablet by ity of tablet 00:00: mouth [place] 00 every 6 Medical (six) Branch hours as needed for Pain (scale 1-3) or Pain (scale 4-6). simethicone 2019-03 Yes [id number] 80mg Take 1 [facility] 80 mg 1-03 tablet by ity of chewable 00:00: mouth [place] tablet 00 after Medical meals and Branch at bedtime. acetaminoph 2019-03 Yes [id number] 650mg Take 2 [facility] en 1-03 tablets by ity of (TYLENOL) 00:00: mouth [place] 325 mg 00 every 6 Medical tablet (six) Branch hours as needed for Pain (scale 1-3) or Pain (scale 4-6). ibuprofen 2019-03 Yes [id number] 600mg Take 1 [facility] 600 mg 1-03 tablet by ity of tablet 00:00: mouth [place] 00 every 6 Medical (six) Branch hours as needed for Pain (scale 1-3) or Pain (scale 4-6). simethicone 2019-03 Yes [id number] 80mg Take 1 [facility] 80 mg 1-03 tablet by ity of chewable 00:00: mouth [place] tablet 00 after Medical meals and Branch at bedtime. acetaminoph 2019-03 Yes [id number] 650mg Take 2 [facility] en 1-03 tablets by ity of (TYLENOL) 00:00: mouth [place] 325 mg 00 every 6 Medical tablet (six) Branch hours as needed for Pain (scale 1-3) or Pain (scale 4-6). ibuprofen 2019-03 Yes [id number] 600mg Take 1 [facility] 600 mg 1-03 tablet by ity of tablet 00:00: mouth [place] 00 every 6 Medical (six) Branch hours as needed for Pain (scale 1-3) or Pain (scale 4-6). simethicone 2019-03 Yes [id number] 80mg Take 1 [facility] 80 mg 1-03 tablet by ity of chewable 00:00: mouth [place] tablet 00 after Medical meals and Branch at bedtime. acetaminoph 2019-03 Yes [id number] 650mg Take 2 [facility] en 1-03 tablets by ity of (TYLENOL) 00:00: mouth [place] 325 mg 00 every 6 Medical tablet (six) Branch hours as needed for Pain (scale 1-3) or Pain (scale 4-6). ibuprofen 2019-03 Yes [id number] 600mg Take 1 [facility] 600 mg 1-03 tablet by ity of tablet 00:00: mouth [place] 00 every 6 Medical (six) Branch hours as needed for Pain (scale 1-3) or Pain (scale 4-6). simethicone 2019-03 Yes [id number] 80mg Take 1 [facility] 80 mg 1-03 tablet by ity of chewable 00:00: mouth [place] tablet 00 after Medical meals and Branch at bedtime. HYDROcodone 2019-03- No [id number] 1{tbl} Take 1 U nivers -acetaminop 1-03 11-11 tablet by it y of hen 5-325 00:00: 05:59 mouth [place] mg tablet 00 :00 every 6 Medical (six) Branch hours as needed for Pain (scale 7-10) for up to 7 days. Indication s: acute pain acetaminoph 2019- No 650mg Take 650 [facility] en (TYLENOL 9-15 09-15 mg by ity of ARTHRITIS 13:02: 00:00 mouth [place] PAIN) 650 55 :00 every 8 Medical mg CR (eight) Branch tablet hours as needed for Pain. diphenhydrA 2019- No 25mg Take 25 mg [facility] MINE 9-15 09-15 by mouth ity of (BENADRYL 13:02: 00:00 every 4 [place] ALLERGY) 25 55 :00 (four) Medica l mg tablet hours as Branch needed for Allergies. acetaminoph 2019- No 650mg Take 650 [facility] en (TYLENOL 9-15 09-15 mg by ity of ARTHRITIS 13:02: 00:00 mouth [place] PAIN) 650 55 :00 every 8 Medical mg CR (eight) Branch tablet hours as needed for Pain. diphenhydrA 2020- No 25mg Take 25 mg [facility] MINE 9-15 09-15 by mouth ity of (BENADRYL 13:02: 00:00 every 4 [place] ALLERGY) 25 55 :00 (four) Medica l mg tablet hours as Branch needed for Allergies. acetaminoph 2019- No 650mg Take 650 [facility] en (TYLENOL -15 09-15 mg by ity of ARTHRITIS 13:02: 00:00 mouth [place] PAIN) 650 55 :00 every 8 Medical mg CR (eight) Branch tablet hours as needed for Pain. diphenhydrA 2019- No 25mg Take 25 mg [facility] MINE 15 -15 by mouth ity of (BENADRYL 13:02: 00:00 every 4 [place] ALLERGY) 25 55 :00 (four) Medica l mg tablet hours as Branch needed for Allergies. 2019-0 Yes [id number] 1{tbl} Take 1 U nivers vitamin 9-15 tablet by ity of w/FA tablet 00:00: mouth [place] 00 daily. Medical Branch docusate 2019-0 Yes [id number] 240mg Take 1 Un tj calcium 240 9-15 capsule by it y of mg capsule 00:00: mouth once [place] 00 daily as Medical needed for Branch Constipati on. ferrous 2020-0 Yes [id number] 325mg Take 1 Uni vers sulfate 325 9-15 tablet by ity of mg (65 mg 00:00: mouth 2 [place] iron) 00 (two) Medical tablet times Branch daily. ibuprofen 2019-0 Yes [id number] 600mg Take 1 U nivers 600 mg 9-15 tablet by ity of tablet 00:00: mouth [place] 00 every 6 Medical (six) Branch hours as needed (Pain). Take with food or milk. 2019-0 Yes [id number] 1{tbl} Take 1 U nivers vitamin 9-15 tablet by ity of w/FA tablet 00:00: mouth [place] 00 daily. Medical Branch docusate 2019-0 Yes [id number] 240mg Take 1 Un tj calcium 240 9-15 capsule by it y of mg capsule 00:00: mouth once [place] 00 daily as Medical needed for Branch Constipati on. ferrous 2020-0 Yes [id number] 325mg Take 1 Uni vers sulfate 325 9-15 tablet by ity of mg (65 mg 00:00: mouth 2 [place] iron) 00 (two) Medical tablet times Branch daily. ibuprofen 2020-0 Yes [id number] 600mg Take 1 U nivers 600 mg 9-15 tablet by ity of tablet 00:00: mouth [place] 00 every 6 Medical (six) Branch hours as needed (Pain). Take with food or milk. 2020-0 Yes [id number] 1{tbl} Take 1 U nivers vitamin 9-15 tablet by ity of w/FA tablet 00:00: mouth [place] 00 daily. Medical Branch docusate 2020-0 Yes [id number] 240mg Take 1 Un tj calcium 240 9-15 capsule by it y of mg capsule 00:00: mouth once [place] 00 daily as Medical needed for Branch Constipati on. ferrous 2020-0 Yes [id number] 325mg Take 1 Uni vers sulfate 325 9-15 tablet by ity of mg (65 mg 00:00: mouth 2 [place] iron) 00 (two) Medical tablet times Branch daily. ibuprofen 2020-0 Yes [id number] 600mg Take 1 U nivers 600 mg 9-15 tablet by ity of tablet 00:00: mouth [place] 00 every 6 Medical (six) Branch hours as needed (Pain). Take with food or milk. 2020-0 Yes [id number] 1{tbl} Take 1 U nivers vitamin 9-15 tablet by ity of w/FA tablet 00:00: mouth [place] 00 daily. Medical Branch docusate 2020-0 Yes [id number] 240mg Take 1 Un tj calcium 240 9-15 capsule by it y of mg capsule 00:00: mouth once [place] 00 daily as Medical needed for Branch Constipati on. ferrous 2020-0 Yes [id number] 325mg Take 1 Uni vers sulfate 325 9-15 tablet by ity of mg (65 mg 00:00: mouth 2 [place] iron) 00 (two) Medical tablet times Branch daily. ibuprofen 2020-0 Yes [id number] 600mg Take 1 U nivers 600 mg 9-15 tablet by ity of tablet 00:00: mouth [place] 00 every 6 Medical (six) Branch hours as needed (Pain). Take with food or milk. 2020-0 Yes [id number] 1{tbl} Take 1 U nivers vitamin 9-15 tablet by ity of w/FA tablet 00:00: mouth [place] 00 daily. Medical Branch docusate 2020-0 Yes [id number] 240mg Take 1 Un tj calcium 240 9-15 capsule by it y of mg capsule 00:00: mouth once [place] 00 daily as Medical needed for Branch Constipati on. ferrous 2020-0 Yes [id number] 325mg Take 1 [facility] vers sulfate 325 9-15 tablet by ity of mg (65 mg 00:00: mouth 2 [place] iron) 00 (two) Medical tablet times Branch daily. ibuprofen 2020-0 Yes [id number] 600mg Take 1 U nivers 600 mg 9-15 tablet by ity of tablet 00:00: mouth [place] 00 every 6 Medical (six) Branch hours as needed (Pain). Take with food or milk. 2020-0 Yes [id number] 1{tbl} Take 1 U nivers vitamin 9-15 tablet by ity of w/FA tablet 00:00: mouth [place] 00 daily. Medical Branch docusate 2020-0 Yes [id number] 240mg Take 1 Un tj calcium 240 9-15 capsule by it y of mg capsule 00:00: mouth once [place] daily as Medical needed for Branch Constipati on. ferrous 2020-0 Yes [id number] 325mg Take 1 [facility] vers sulfate 325 9-15 tablet by ity of mg (65 mg 00:00: mouth 2 [place] iron) 00 (two) Medical tablet times Branch daily. ibuprofen 2020-0 Yes [id number] 600mg Take 1 U nivers 600 mg 9-15 tablet by ity of tablet 00:00: mouth [place] 00 every 6 Medical (six) Branch hours as needed (Pain). Take with food or milk. 2020-0 Yes [id number] 1{tbl} Take 1 [facility] nivers vitamin 9-15 tablet by ity of w/FA tablet 00:00: mouth [place] 00 daily. Medical Branch docusate 2020-0 Yes [id number] 240mg Take 1 Un tj calcium 240 9-15 capsule by it y of mg capsule 00:00: mouth once [place] 00 daily as Medical needed for Branch Constipati on. ferrous 2020-0 Yes [id number] 325mg Take 1 [facility] vers sulfate 325 9-15 tablet by ity of mg (65 mg 00:00: mouth 2 [place] iron) 00 (two) Medical tablet times Branch daily. ibuprofen 2020-0 Yes [id number] 600mg Take 1 U nivers 600 mg 9-15 tablet by ity of tablet 00:00: mouth [place] 00 every 6 Medical (six) Branch hours as needed (Pain). Take with food or milk. 2020-0 Yes [id number] 1{tbl} Take 1 [facility] nivers vitamin 9-15 tablet by ity of w/FA tablet 00:00: mouth [place] 00 daily. Medical Branch docusate 2020-0 Yes [id number] 240mg Take 1 Un tj calcium 240 9-15 capsule by it y of mg capsule 00:00: mouth once [place] 00 daily as Medical needed for Branch Constipati on. ferrous 2020-0 Yes [id number] 325mg Take 1 [facility] vers sulfate 325 9-15 tablet by ity of mg (65 mg 00:00: mouth 2 [place] iron) 00 (two) Medical tablet times Branch daily. ibuprofen 2020-0 Yes [id number] 600mg Take 1 U nivers 600 mg 9-15 tablet by ity of tablet 00:00: mouth [place] 00 every 6 Medical (six) Branch hours as needed (Pain). Take with food or milk. 2020-0 Yes [id number] 1{tbl} Take 1 [facility] nivers vitamin 9-15 tablet by ity of w/FA tablet 00:00: mouth [place] 00 daily. Medical Branch docusate 2019-0 Yes [id number] 240mg Take 1 Un tj calcium 240 9-15 capsule by it y of mg capsule 00:00: mouth once [place] 00 daily as Medical needed for Branch Constipati on. ferrous 2020-0 Yes [id number] 325mg Take 1 [facility] vers sulfate 325 9-15 tablet by ity of mg (65 mg 00:00: mouth 2 [place] iron) 00 (two) Medical tablet times Branch daily. ibuprofen 2020-0 Yes [id number] 600mg Take 1 U nivers 600 mg 9-15 tablet by ity of tablet 00:00: mouth [place] 00 every 6 Medical (six) Branch hours as needed (Pain). Take with food or milk. 2020-0 Yes [id number] 1{tbl} Take 1 [facility] nivers vitamin 9-15 tablet by ity of w/FA tablet 00:00: mouth [place] 00 daily. Medical Branch docusate 2020-0 Yes [id number] 240mg Take 1 Un tj calcium 240 9-15 capsule by it y of mg capsule 00:00: mouth once [place] 00 daily as Medical needed for Branch Constipati on. ferrous 2020-0 Yes [id number] 325mg Take 1 [facility] vers sulfate 325 9-15 tablet by ity of mg (65 mg 00:00: mouth 2 [place] iron) 00 (two) Medical tablet times Branch daily. ibuprofen 2020-0 Yes [id number] 600mg Take 1 [facility] nivers 600 mg 9-15 tablet by ity of tablet 00:00: mouth [place] 00 every 6 Medical (six) Branch hours as needed (Pain). Take with food or milk. 2020-0 Yes [id number] 1{tbl} Take 1 U nivers vitamin 9-15 tablet by ity of w/FA tablet 00:00: mouth [place] 00 daily. Medical Branch docusate 2020-0 Yes [id number] 240mg Take 1 Un tj calcium 240 9-15 capsule by it y of mg capsule 00:00: mouth once [place] 00 daily as Medical needed for Branch Constipati on. ferrous 2020-0 Yes [id number] 325mg Take 1 [facility] vers sulfate 325 9-15 tablet by ity of mg (65 mg 00:00: mouth 2 [place] iron) 00 (two) Medical tablet times Branch daily. ibuprofen 2020-0 Yes [id number] 600mg Take 1 U nivers 600 mg 9-15 tablet by ity of tablet 00:00: mouth [place] 00 every 6 Medical (six) Branch hours as needed (Pain). Take with food or milk. 2020-0 Yes [id number] 1{tbl} Take 1 [facility] nivers vitamin 9-15 tablet by ity of w/FA tablet 00:00: mouth [place] 00 daily. Medical Branch docusate 2020-0 Yes [id number] 240mg Take 1 Un tj calcium 240 9-15 capsule by it y of mg capsule 00:00: mouth once [place] 00 daily as Medical needed for Branch Constipati on. ferrous 2020-0 Yes [id number] 325mg Take 1 [facility] vers sulfate 325 9-15 tablet by ity of mg (65 mg 00:00: mouth 2 [place] iron) 00 (two) Medical tablet times Branch daily. ibuprofen 2020-0 Yes [id number] 600mg Take 1 [facility] nivers 600 mg 9-15 tablet by ity of tablet 00:00: mouth [place] 00 every 6 Medical (six) Branch hours as needed (Pain). Take with food or milk. 2020-0 Yes [id number] 1{tbl} Take 1 [facility] nivers vitamin 9-15 tablet by ity of w/FA tablet 00:00: mouth [place] 00 daily. Medical Branch docusate 2020-0 Yes [id number] 240mg Take 1 Un tj calcium 240 9-15 capsule by it y of mg capsule 00:00: mouth once [place] 00 daily as Medical needed for Branch Constipati on. ferrous 2020-0 Yes [id number] 325mg Take 1 [facility] vers sulfate 325 9-15 tablet by ity of mg (65 mg 00:00: mouth 2 [place] iron) 00 (two) Medical tablet times Branch daily. ibuprofen 2020-0 Yes [id number] 600mg Take 1 U nivers 600 mg 9-15 tablet by ity of tablet 00:00: mouth [place] 00 every 6 Medical (six) Branch hours as needed (Pain). Take with food or milk. 2019-0 Yes [id number] 1{tbl} Take 1 [facility] nivers vitamin 9-15 tablet by ity of w/FA tablet 00:00: mouth [place] 00 daily. Medical Branch docusate 2020-0 Yes [id number] 240mg Take 1 Un tj calcium 240 9-15 capsule by it y of mg capsule 00:00: mouth once [place] 00 daily as Medical needed for Branch Constipati on. ferrous 2020-0 Yes [id number] 325mg Take 1 [facility] vers sulfate 325 9-15 tablet by ity of mg (65 mg 00:00: mouth 2 [place] iron) 00 (two) Medical tablet times Branch daily. ibuprofen 2020-0 Yes [id number] 600mg Take 1 [facility] nivers 600 mg 9-15 tablet by ity of tablet 00:00: mouth [place] 00 every 6 Medical (six) Branch hours as needed (Pain). Take with food or milk. 2020-0 Yes [id number] 1{tbl} Take 1 [facility] nivers vitamin 9-15 tablet by ity of w/FA tablet 00:00: mouth [place] 00 daily. Medical Branch docusate 2020-0 Yes [id number] 240mg Take 1 Un tj calcium 240 9-15 capsule by it y of mg capsule 00:00: mouth once [place] 00 daily as Medical needed for Branch Constipati on. ferrous 2020-0 Yes [id number] 325mg Take 1 [facility] vers sulfate 325 9-15 tablet by ity of mg (65 mg 00:00: mouth 2 [place] iron) 00 (two) Medical tablet times Branch daily. ibuprofen 2020-0 Yes [id number] 600mg Take 1 [facility] nivers 600 mg 9-15 tablet by ity of tablet 00:00: mouth [place] 00 every 6 Medical (six) Branch hours as needed (Pain). Take with food or milk. 2020-0 Yes [id number] 1{tbl} Take 1 [facility] nivers vitamin 9-15 tablet by ity of w/FA tablet 00:00: mouth [place] 00 daily. Medical Branch docusate 2020-0 Yes [id number] 240mg Take 1 Un tj calcium 240 9-15 capsule by it y of mg capsule 00:00: mouth once [place] 00 daily as Medical needed for Branch Constipati on. ferrous 2020-0 Yes [id number] 325mg Take 1 [facility] vers sulfate 325 9-15 tablet by ity of mg (65 mg 00:00: mouth 2 [place] iron) 00 (two) Medical tablet times Branch daily. ibuprofen 2020-0 Yes [id number] 600mg Take 1 [facility] nivers 600 mg 9-15 tablet by ity of tablet 00:00: mouth [place] 00 every 6 Medical (six) Branch hours as needed (Pain). Take with food or milk. 2020-0 Yes [id number] 1{tbl} Take 1 [facility] nivers vitamin 9-15 tablet by ity of w/FA tablet 00:00: mouth [place] 00 daily. Medical Branch docusate 2020-0 Yes [id number] 240mg Take 1 Un tj calcium 240 9-15 capsule by it y of mg capsule 00:00: mouth once [place] 00 daily as Medical needed for Branch Constipati on. ferrous 2020-0 Yes [id number] 325mg Take 1 [facility] vers sulfate 325 9-15 tablet by ity of mg (65 mg 00:00: mouth 2 [place] iron) 00 (two) Medical tablet times Branch daily. ibuprofen 2020-0 Yes [id number] 600mg Take 1 [facility] nivers 600 mg 9-15 tablet by ity of tablet 00:00: mouth [place] 00 every 6 Medical (six) Branch hours as needed (Pain). Take with food or milk. 2020-0 Yes [id number] 1{tbl} Take 1 [facility] nivers vitamin 9-15 tablet by ity of w/FA tablet 00:00: mouth [place] 00 daily. Medical Branch docusate 2020-0 Yes [id number] 240mg Take 1 Un tj calcium 240 9-15 capsule by it y of mg capsule 00:00: mouth once [place] 00 daily as Medical needed for Branch Constipati on. ferrous 2020-0 Yes [id number] 325mg Take 1 [facility] vers sulfate 325 9-15 tablet by ity of mg (65 mg 00:00: mouth 2 [place] iron) 00 (two) Medical tablet times Branch daily. ibuprofen 2020-0 Yes [id number] 600mg Take 1 [facility] nivers 600 mg 9-15 tablet by ity of tablet 00:00: mouth [place] 00 every 6 Medical (six) Branch hours as needed (Pain). Take with food or milk. 2019-0 Yes [id number] 1{tbl} Take 1 [facility] nivers vitamin 9-15 tablet by ity of w/FA tablet 00:00: mouth [place] 00 daily. Medical Branch docusate 2020-0 Yes [id number] 240mg Take 1 Un tj calcium 240 9-15 capsule by it y of mg capsule 00:00: mouth once [place] 00 daily as Medical needed for Branch Constipati on. ferrous 2020-0 Yes [id number] 325mg Take 1 [facility] vers sulfate 325 9-15 tablet by ity of mg (65 mg 00:00: mouth 2 [place] iron) 00 (two) Medical tablet times Branch daily. ibuprofen 2020-0 Yes [id number] 600mg Take 1 [facility] nivers 600 mg 9-15 tablet by ity of tablet 00:00: mouth [place] 00 every 6 Medical (six) Branch hours as needed (Pain). Take with food or milk. 2020-0 Yes [id number] 1{tbl} Take 1 [facility] nivers vitamin 9-15 tablet by ity of w/FA tablet 00:00: mouth [place] 00 daily. Medical Branch docusate 2020-0 Yes [id number] 240mg Take 1 Un tj calcium 240 9-15 capsule by it y of mg capsule 00:00: mouth once [place] 00 daily as Medical needed for Branch Constipati on. ferrous 2020-0 Yes [id number] 325mg Take 1 [facility] vers sulfate 325 9-15 tablet by ity of mg (65 mg 00:00: mouth 2 [place] iron) 00 (two) Medical tablet times Branch daily. ibuprofen 2020-0 Yes [id number] 600mg Take 1 U nivers 600 mg 9-15 tablet by ity of tablet 00:00: mouth [place] 00 every 6 Medical (six) Branch hours as needed (Pain). Take with food or milk. 2020-0 Yes [id number] 1{tbl} Take 1 U nivers vitamin 9-15 tablet by ity of w/FA tablet 00:00: mouth [place] 00 daily. Medical Branch docusate 2020-0 Yes [id number] 240mg Take 1 Un tj calcium 240 9-15 capsule by it y of mg capsule 00:00: mouth once [place] 00 daily as Medical needed for Branch Constipati on. ferrous 2020-0 Yes [id number] 325mg Take 1 [facility] vers sulfate 325 9-15 tablet by ity of mg (65 mg 00:00: mouth 2 [place] iron) 00 (two) Medical tablet times Branch daily. ibuprofen 2020-0 Yes [id number] 600mg Take 1 U nivers 600 mg 9-15 tablet by ity of tablet 00:00: mouth [place] 00 every 6 Medical (six) Branch hours as needed (Pain). Take with food or milk. 2020-0 Yes [id number] 1{tbl} Take 1 U nivers vitamin 9-15 tablet by ity of w/FA tablet 00:00: mouth [place] 00 daily. Medical Branch docusate 2020-0 Yes [id number] 240mg Take 1 Un tj calcium 240 9-15 capsule by it y of mg capsule 00:00: mouth once [place] 00 daily as Medical needed for Branch Constipati on. ferrous 2020-0 Yes [id number] 325mg Take 1 [facility] vers sulfate 325 9-15 tablet by ity of mg (65 mg 00:00: mouth 2 [place] iron) 00 (two) Medical tablet times Branch daily. ibuprofen 2020-0 Yes [id number] 600mg Take 1 U nivers 600 mg 9-15 tablet by ity of tablet 00:00: mouth [place] 00 every 6 Medical (six) Branch hours as needed (Pain). Take with food or milk. 2020-0 Yes [id number] 1{tbl} Take 1 U nivers vitamin 9-15 tablet by ity of w/FA tablet 00:00: mouth [place] 00 daily. Medical Branch docusate 2020-0 Yes [id number] 240mg Take 1 Un tj calcium 240 9-15 capsule by it y of mg capsule 00:00: mouth once [place] 00 daily as Medical needed for Branch Constipati on. ferrous 2020-0 Yes [id number] 325mg Take 1 [facility] vers sulfate 325 9-15 tablet by ity of mg (65 mg 00:00: mouth 2 [place] iron) 00 (two) Medical tablet times Branch daily. ibuprofen 2020-0 Yes [id number] 600mg Take 1 U nivers 600 mg 9-15 tablet by ity of tablet 00:00: mouth [place] 00 every 6 Medical (six) Branch hours as needed (Pain). Take with food or milk. 2019-0 Yes [id number] 1{tbl} Take 1 U nivers vitamin 9-15 tablet by ity of w/FA tablet 00:00: mouth [place] 00 daily. Medical Branch docusate 2019-0 Yes [id number] 240mg Take 1 Un tj calcium 240 9-15 capsule by it y of mg capsule 00:00: mouth once [place] 00 daily as Medical needed for Branch Constipati on. ferrous 2020-0 Yes [id number] 325mg Take 1 [facility] vers sulfate 325 9-15 tablet by ity of mg (65 mg 00:00: mouth 2 [place] iron) 00 (two) Medical tablet times Branch daily. 2019-0 Yes [id number] 1{tbl} Take 1 U nivers vitamin 9-15 tablet by ity of w/FA tablet 00:00: mouth [place] 00 daily. Medical Branch docusate 2019-0 Yes [id number] 240mg Take 1 Un tj calcium 240 9-15 capsule by it y of mg capsule 00:00: mouth once [place] 00 daily as Medical needed for Branch Constipati on. ferrous 2020-0 Yes [id number] 325mg Take 1 [facility] vers sulfate 325 9-15 tablet by ity of mg (65 mg 00:00: mouth 2 [place] iron) 00 (two) Medical tablet times Branch daily. 2019-0 Yes [id number] 1{tbl} Take 1 U nivers vitamin 9-15 tablet by ity of w/FA tablet 00:00: mouth [place] 00 daily. Medical Branch docusate 2019-0 Yes [id number] 240mg Take 1 Un tj calcium 240 9-15 capsule by it y of mg capsule 00:00: mouth once [place] 00 daily as Medical needed for Branch Constipati on. ferrous 2020-0 Yes [id number] 325mg Take 1 [facility] vers sulfate 325 9-15 tablet by ity of mg (65 mg 00:00: mouth 2 [place] iron) 00 (two) Medical tablet times Branch daily. 2020-0 Yes [id number] 1{tbl} Take 1 U nivers vitamin 9-15 tablet by ity of w/FA tablet 00:00: mouth [place] 00 daily. Medical Branch docusate 2020-0 Yes [id number] 240mg Take 1 Un tj calcium 240 9-15 capsule by it y of mg capsule 00:00: mouth once [place] 00 daily as Medical needed for Branch Constipati on. ferrous 2020-0 Yes [id number] 325mg Take 1 [facility] vers sulfate 325 9-15 tablet by ity of mg (65 mg 00:00: mouth 2 [place] iron) 00 (two) Medical tablet times Branch daily. 2020-0 Yes [id number] 1{tbl} Take 1 [facility] nivers vitamin 9-15 tablet by ity of w/FA tablet 00:00: mouth [place] 00 daily. Medical Branch docusate 2020-0 Yes [id number] 240mg Take 1 Un tj calcium 240 9-15 capsule by it y of mg capsule 00:00: mouth once [place] 00 daily as Medical needed for Branch Constipati on. ferrous 2020-0 Yes [id number] 325mg Take 1 [facility] vers sulfate 325 9-15 tablet by ity of mg (65 mg 00:00: mouth 2 [place] iron) 00 (two) Medical tablet times Branch daily. 2020-0 Yes [id number] 1{tbl} Take 1 U nivers vitamin 9-15 tablet by ity of w/FA tablet 00:00: mouth [place] 00 daily. Medical Branch docusate 2020-0 Yes [id number] 240mg Take 1 Un tj calcium 240 9-15 capsule by it y of mg capsule 00:00: mouth once [place] 00 daily as Medical needed for Branch Constipati on. ferrous 2020-0 Yes [id number] 325mg Take 1 [facility] vers sulfate 325 9-15 tablet by ity of mg (65 mg 00:00: mouth 2 [place] iron) 00 (two) Medical tablet times Branch daily. 2020-0 Yes [id number] 1{tbl} Take 1 U nivers vitamin 9-15 tablet by ity of w/FA tablet 00:00: mouth [place] 00 daily. Medical Branch docusate 2020-0 Yes [id number] 240mg Take 1 Un tj calcium 240 9-15 capsule by it y of mg capsule 00:00: mouth once [place] 00 daily as Medical needed for Branch Constipati on. ferrous 2020-0 Yes [id number] 325mg Take 1 [facility] vers sulfate 325 9-15 tablet by ity of mg (65 mg 00:00: mouth 2 [place] iron) 00 (two) Medical tablet times Branch daily. 2019-0 Yes [id number] 1{tbl} Take 1 U nivers vitamin 9-15 tablet by ity of w/FA tablet 00:00: mouth [place] 00 daily. Medical Branch docusate 2020-0 Yes [id number] 240mg Take 1 Un tj calcium 240 9-15 capsule by it y of mg capsule 00:00: mouth once [place] 00 daily as Medical needed for Branch Constipati on. ferrous 2020-0 Yes [id number] 325mg Take 1 [facility] vers sulfate 325 9-15 tablet by ity of mg (65 mg 00:00: mouth 2 [place] iron) 00 (two) Medical tablet times Branch daily. 2019-0 Yes [id number] 1{tbl} Take 1 U nivers vitamin 9-15 tablet by ity of w/FA tablet 00:00: mouth [place] 00 daily. Medical Branch docusate 2020-0 Yes [id number] 240mg Take 1 Un tj calcium 240 9-15 capsule by it y of mg capsule 00:00: mouth once [place] 00 daily as Medical needed for Branch Constipati on. ferrous 2020-0 Yes [id number] 325mg Take 1 [facility] vers sulfate 325 9-15 tablet by ity of mg (65 mg 00:00: mouth 2 [place] iron) 00 (two) Medical tablet times Branch daily. 2020-0 Yes [id number] 1{tbl} Take 1 U nivers vitamin 9-15 tablet by ity of w/FA tablet 00:00: mouth [place] 00 daily. Medical Branch docusate 2020-0 Yes [id number] 240mg Take 1 Un tj calcium 240 9-15 capsule by it y of mg capsule 00:00: mouth once [place] 00 daily as Medical needed for Branch Constipati on. ferrous 2020-0 Yes [id number] 325mg Take 1 [facility] vers sulfate 325 9-15 tablet by ity of mg (65 mg 00:00: mouth 2 [place] iron) 00 (two) Medical tablet times Branch daily. 2020-0 Yes [id number] 1{tbl} Take 1 U nivers vitamin 9-15 tablet by ity of w/FA tablet 00:00: mouth [place] 00 daily. Medical Branch docusate 2020-0 Yes [id number] 240mg Take 1 Un tj calcium 240 9-15 capsule by it y of mg capsule 00:00: mouth once [place] 00 daily as Medical needed for Branch Constipati on. ferrous 2020-0 Yes [id number] 325mg Take 1 [facility] vers sulfate 325 9-15 tablet by ity of mg (65 mg 00:00: mouth 2 [place] iron) 00 (two) Medical tablet times Branch daily. 2020-0 Yes [id number] 1{tbl} Take 1 U nivers vitamin 9-15 tablet by ity of w/FA tablet 00:00: mouth [place] 00 daily. Medical Branch docusate 2020-0 Yes [id number] 240mg Take 1 Un tj calcium 240 9-15 capsule by it y of mg capsule 00:00: mouth once [place] 00 daily as Medical needed for Branch Constipati on. ferrous 2020-0 Yes [id number] 325mg Take 1 [facility] vers sulfate 325 9-15 tablet by ity of mg (65 mg 00:00: mouth 2 [place] iron) 00 (two) Medical tablet times Branch daily. 2020-0 Yes [id number] 1{tbl} Take 1 U nivers vitamin 9-15 tablet by ity of w/FA tablet 00:00: mouth [place] 00 daily. Medical Branch docusate 2020-0 Yes [id number] 240mg Take 1 Un tj calcium 240 9-15 capsule by it y of mg capsule 00:00: mouth once [place] 00 daily as Medical needed for Branch Constipati on. ferrous 2020-0 Yes [id number] 325mg Take 1 [facility] vers sulfate 325 9-15 tablet by ity of mg (65 mg 00:00: mouth 2 [place] iron) 00 (two) Medical tablet times Branch daily. 2020-0 Yes [id number] 1{tbl} Take 1 U nivers vitamin 9-15 tablet by ity of w/FA tablet 00:00: mouth [place] 00 daily. Medical Branch docusate Yes [id number] 240mg Take 1 Un tj calcium 240 9-15 capsule by it y of mg capsule 00:00: mouth once [place] 00 daily as Medical needed for Branch Constipati on. ferrous Yes [id number] 325mg Take 1 Uni vers sulfate 325 9-15 tablet by ity of mg (65 mg 00:00: mouth 2 [place] iron) 00 (two) Medical tablet times Branch daily. Yes [id number] 1{tbl} Take 1 U nivers vitamin 9-15 tablet by ity of w/FA tablet 00:00: mouth [place] 00 daily. Medical Branch docusate Yes [id number] 240mg Take 1 Un tj calcium 240 9-15 capsule by it y of mg capsule 00:00: mouth once [place] 00 daily as Medical needed for Branch Constipati on. ferrous Yes [id number] 325mg Take 1 [facility] vers sulfate 325 9-15 tablet by ity of mg (65 mg 00:00: mouth 2 [place] iron) 00 (two) Medical tablet times Branch daily. ibuprofen 2021- No [id number] 600mg Take 1 [facility] 600 mg 9-15 10-04 tablet by ity of tablet 00:00: 00:00 mouth [place] 00 :00 every 6 Medical (six) Branch hours as needed (Pain). Take with food or milk. ibuprofen 2021- No [id number] 600mg Take 1 [facility] 600 mg 9-15 10-04 tablet by ity of tablet 00:00: 00:00 mouth [place] 00 :00 every 6 Medical (six) Branch hours as needed (Pain). Take with food or milk. rho(D) Yes 300ug 300 mcg, Univer s immune -14 Intramuscu ity of globulin 19:35: lar, ONCE, [place] (RHOGAM) 44 For 1 Medical syringe 300 dose, Branch mcg Conditiona l, Routine ondansetron Yes 4mg 4 mg, Slow [facility] (ZOFRAN -14 IV Push, ity of (PF)) 19:35: Q8HPRN, [place] injection 4 38 Starting Medi srinivas mg Mon Branch 11/13/19 at 1435, Until Discontinu ed, Routine, Nausea and Vomiting (N/V) simethicone 2020-0 Yes 160mg 160 mg, Un tj (GAS RELIEF 11-12 Oral, ity of (SIMETHICON 19:35: PC+HSPRN, [place] E)) 38 Starting Medical chewable Mon Branch tablet 160 11/13/19 at mg 1435, Until Discontinu ed, Routine, Gas magnesium 2020-0 Yes 30mL 30 mL, Univer s hydroxide 11-12 Oral, ity of (MILK OF 19:35: QDAILYPRN, [place] MAGNESIA) 38 Starting Medica l 400 mg/5 mL Mon Branch suspension 11/13/19 at 30 mL 1435, Until Discontinu ed, Routine, Constipati on HYDROcodone 2020-0 Yes 1{tbl} 1 tablet, Univers -acetaminop 11-12 Oral, ity of hen (NORCO 19:35: Q6HPRN, [place] 5) 5-325 mg 37 Starting Medi srinivas tablet 1 Mon Branch tablet 11/13/19 at 1435, Until Discontinu ed, Routine, Pain (scale 7-10) ibuprofen 2020-0 Yes 600mg 600 mg, Univ ers (IBU) 11-12 Oral, ity of tablet 600 19:35: Q6HPRN, [place] mg 37 Starting Medical Mon Branch 11/13/19 at 1435, Until Discontinu ed, Routine, Pain (scale 4-6) acetaminoph 2020-0 Yes 650mg 650 mg, Un tj en 11-12 Oral, ity of (TYLENOL) 19:35: Q6HPRN, [place] tablet 650 37 Starting Medic al mg Mon Branch 11/13/19 at 1435, Until Discontinu ed, Routine, Pain (scale 1-3) diphenhydrA 2020-0 Yes 25mg 25 mg, Univ ers MINE 11-12 Oral, ity of (BENADRYL) 19:35: Q6HPRN, [place] tablet 25 37 Starting Medica l mg Mon Branch 11/13/19 at 1435, Until Discontinu ed, Routine, Sleep, Itching docusate 2020-0 Yes 240mg 240 mg, Unive rs calcium 11-12 Oral, ity of (SURFAK) 19:35: QDAILYPRN, [place] capsule 240 37 Starting Medi srinivas mg Mon [place] 11/13/19 at 1435, Until Discontinu ed, Routine, Constipati on benzocaine- 2019-0 Yes Topical, Un tj menthol 11-12 PRN, ity of (DERMOPLAST 19:35: Starting [place] ) 20-0.5 % 37 Mon Medical topical 11/13/19 at Branch spray 1435, Until Discontinu ed, Routine, Perineum discomfort LR 1000 mL 2020- No at 125 Univ ers + oxytocin 11-12 mL/hr, IV ity of 20 units IV 18:45: 19:30 Infusion, [place] Solution 00 :00 ONCE, 1 Medical dose, [facility] 11/13/19 at 1345, Routine D5W-LR IV 2019- No 1000mL at 125 Uni vers infusion 11-12 mL/hr, IV ity o f 1,000 mL 09:30: 19:35 Infusion, [place] 00 :44 CONTINUOUS Medical , Starting Branch [facility] 11/13/19 at 0430, Until [facility] 11/13/19 at 1435, Routine FENTanyl PF 2019- No 100ug 100 mcg, Univers (SUBLIMAZE 11-12 Slow IV ity o f (PF)) 09:24: 19:35 Push, [place] injection 33 :44 Q1HPRN, Medical 100 mcg Starting Branch [facility] 11/13/19 at 0424, Until 11/13/19 at 1435, Routine, contractio n pain without an epidural and SVE < 8 cm and Cat I strip proMETHazin 2019- No 25mg 25 mg, IV Univers e 11-12 Piggyback, ity of (PHENERGAN) 09:24: 19:35 Q4HPRN, [place] 25 mg in 33 :44 Starting Medical NaCl 0.9% [facility] (NS) 50 mL 11/13/19 at IV 0424, piggyback Until [facility] 11/13/19 at 1435, Routine, Nausea and Vomiting (N/V) LR 1000 mL 0 2020- No 2mU/min at 6-120 Univers + oxytocin 11-12 mL/hr, IV ity of 20 units IV 09:24: 19:35 Infusion, [place] Solution 33 :44 TITRATE, Medical Starting Branch 11/13/19 at 0424, Until 11/13/19 at 1435, MIRIAM sodium 2020-0 2020- No 30mL 30 mL, [facility] citrate-cit 11-12 Oral, ity of jaye acid 09:24: 13:42 PRE-PROCED [place] (BICITRA) 33 :00 URE ONCE, Medic al 500-334 1 dose, Branch mg/5 mL Starting solution 30 Mon mL 11/13/19 at 0424, Until Discontinu ed, Routine, Surgery/Pr ocedure lactated 2019-0 2020- No 500mL at 999 Unive rs ringers IV 11-12 mL/hr, 500 it y of infusion 09:24: 19:35 mL, IV [place] 500 mL 33 :44 Infusion, Medical PRN - SEE Branch INSTRUCTIO NS, Starting 11/13/19 at 0424, Until 11/13/19 at 1435, Routine acetaminoph 0 2020- No Take by Un tj en/diphenhy 8-03 08-03 mouth. ity o f dramine 22:39: 00:00 [place] (TYLENOL PM 35 :00 Medical ORAL) Branch acetaminoph 2019-0 2020- No Take by Un tj en/diphenhy 8-03 08-03 mouth. ity o f dramine 22:39: 00:00 [place] (TYLENOL PM 35 :00 Medical ORAL) Branch acetaminoph 2019-0 2020- No Take by Un tj en/diphenhy 8-03 08-03 mouth. ity o f dramine 22:39: 00:00 [place] (TYLENOL PM 35 :00 Medical ORAL) Branch proMETHazin 2020-0 Yes [id number] 25mg Take 1 [facility] e 25 mg 7-16 tablet by ity of tablet 00:00: mouth [place] 00 every 6 Medical (six) Branch hours as needed for Nausea and Vomiting (N/V). proMETHazin 2020-0 Yes [id number] 25mg Take 1 [facility] e 25 mg 7-16 tablet by ity of tablet 00:00: mouth [place] 00 every 6 Medical (six) Branch hours as needed for Nausea and Vomiting (N/V). proMETHazin 2020-0 Yes [id number] 25mg Take 1 Univers e 25 mg 7-16 tablet by ity of tablet 00:00: mouth [place] 00 every 6 Medical (six) Branch hours as needed for Nausea and Vomiting (N/V). proMETHazin 2020-0 Yes [id number] 25mg Take 1 [facility] e 25 mg 7-16 tablet by ity of tablet 00:00: mouth [place] 00 every 6 Medical (six) Branch hours as needed for Nausea and Vomiting (N/V). proMETHazin 2020-0 Yes [id number] 25mg Take 1 [facility] 25 mg 7-16 tablet by [facility] of tablet 00:00: mouth [place] 00 every 6 Medical (six) Branch hours as needed for Nausea and Vomiting (N/V). proMETHazin 2020-0 Yes [id number] 25mg Take 1 [facility] 25 mg 7-16 tablet by [facility] of tablet 00:00: mouth [place] 00 every 6 Medical (six) Branch hours as needed for Nausea and Vomiting (N/V). proMETHazin 2020-0 Yes [id number] 25mg Take 1 [facility] 25 mg 7-16 tablet by [facility] of tablet 00:00: mouth [place] 00 every 6 Medical (six) Branch hours as needed for Nausea and Vomiting (N/V). proMETHazin 2020-0 Yes [id number] 25mg Take 1 [facility] 25 mg 7-16 tablet by [facility] of tablet 00:00: mouth [place] 00 every 6 Medical (six) Branch hours as needed for Nausea and Vomiting (N/V). proMETHazin 2020-0 Yes [id number] 25mg Take 1 [facility] 25 mg 7-16 tablet by [facility] of tablet 00:00: mouth [place] 00 every 6 Medical (six) Branch hours as needed for Nausea and Vomiting (N/V). proMETHazin 2020-0 Yes [id number] 25mg Take 1 [facility] 25 mg 7-16 tablet by [facility] of tablet 00:00: mouth [place] 00 every 6 Medical (six) Branch hours as needed for Nausea and Vomiting (N/V). proMETHazin 2020-0 Yes [id number] 25mg Take 1 [facility] 25 mg 7-16 tablet by [facility] of tablet 00:00: mouth [place] 00 every 6 Medical (six) Branch hours as needed for Nausea and Vomiting (N/V). proMETHazin 2020-0 Yes [id number] 25mg Take 1 [facility] 25 mg 7-16 tablet by [facility] of tablet 00:00: mouth [place] 00 every 6 Medical (six) Branch hours as needed for Nausea and Vomiting (N/V). proMETHazin 2020-0 Yes [id number] 25mg Take 1 [facility] 25 mg 7-16 tablet by [facility] of tablet 00:00: mouth [place] 00 every 6 Medical (six) Branch hours as needed for Nausea and Vomiting (N/V). proMETHazin 2020-0 Yes [id number] 25mg Take 1 [facility] 25 mg 7-16 tablet by [facility] of tablet 00:00: mouth [place] 00 every 6 Medical (six) Branch hours as needed for Nausea and Vomiting (N/V). proMETHazin 2020-0 Yes [id number] 25mg Take 1 [facility] 25 mg 7-16 tablet by [facility] of tablet 00:00: mouth [place] 00 every 6 Medical (six) Branch hours as needed for Nausea and Vomiting (N/V). proMETHazin 2020-0 Yes [id number] 25mg Take 1 [facility] 25 mg 7-16 tablet by [facility] of tablet 00:00: mouth [place] 00 every 6 Medical (six) Branch hours as needed for Nausea and Vomiting (N/V). proMETHazin 2020-0 Yes [id number] 25mg Take 1 [facility] 25 mg 7-16 tablet by [facility] of tablet 00:00: mouth [place] 00 every 6 Medical (six) Branch hours as needed for Nausea and Vomiting (N/V). proMETHazin 2020-0 Yes [id number] 25mg Take 1 [facility] 25 mg 7-16 tablet by [facility] of tablet 00:00: mouth [place] 00 every 6 Medical (six) Branch hours as needed for Nausea and Vomiting (N/V). proMETHazin 2020-0 Yes [id number] 25mg Take 1 [facility] 25 mg 7-16 tablet by [facility] of tablet 00:00: mouth [place] 00 every 6 Medical (six) Branch hours as needed for Nausea and Vomiting (N/V). proMETHazin 2020-0 Yes [id number] 25mg Take 1 [facility] 25 mg 7-16 tablet by it[facility] of tablet 00:00: mouth [place] 00 every 6 Medical (six) Branch hours as needed for Nausea and Vomiting (N/V). proMETHazin 2020-0 2020- No [id number] 25mg Take 1 [facility] 25 mg 7-16 09-15 tablet by it[facility] of tablet 00:00: 00:00 mouth [place] 00 :00 every 6 Medical (six) Branch hours as needed for Nausea and Vomiting (N/V). magnesium 2020-0 Yes [id number] 400mg Take 400 [facility] oxide 400 7-02 mg by ity of mg 00:00: mouth [place] magnesium 00 daily. Medical Tab Branch magnesium 2020-0 Yes [id number] 400mg Take 400 [facility] oxide 400 7-02 mg by ity of mg 00:00: mouth [place] magnesium 00 daily. Medical Tab Branch magnesium 2020-0 Yes [id number] 400mg Take 400 [facility] oxide 400 7-02 mg by ity of mg 00:00: mouth [place] magnesium 00 daily. Medical Tab Branch magnesium 2020-0 Yes [id number] 400mg Take 400 [facility] oxide 400 7-02 mg by ity of mg 00:00: mouth [place] magnesium 00 daily. Medical Tab Branch magnesium 2020-0 Yes [id number] 400mg Take 400 [facility] oxide 400 7-02 mg by ity of mg 00:00: mouth [place] magnesium 00 daily. Medical Tab Branch magnesium 2020-0 Yes [id number] 400mg Take 400 [facility] oxide 400 7-02 mg by ity of mg 00:00: mouth [place] magnesium 00 daily. Medical Tab Branch magnesium 2020-0 Yes [id number] 400mg Take 400 [facility] oxide 400 7-02 mg by ity of mg 00:00: mouth [place] magnesium 00 daily. Medical Tab Branch magnesium 2020-0 Yes [id number] 400mg Take 400 [facility] oxide 400 7-02 mg by ity of mg 00:00: mouth [place] magnesium 00 daily. Medical Tab Branch magnesium 2020-0 Yes [id number] 400mg Take 400 [facility] oxide 400 7-02 mg by ity of mg 00:00: mouth [place] magnesium 00 daily. Medical Tab Branch magnesium 2020-0 Yes [id number] 400mg Take 400 [facility] oxide 400 7-02 mg by ity of mg 00:00: mouth [place] magnesium 00 daily. Medical Tab Branch magnesium 2020-0 Yes [id number] 400mg Take 400 [facility] oxide 400 7-02 mg by ity of mg 00:00: mouth [place] magnesium 00 daily. Medical Tab Branch magnesium 2020-0 Yes [id number] 400mg Take 400 [facility] oxide 400 7-02 mg by ity of mg 00:00: mouth [place] magnesium 00 daily. Medical Tab Branch magnesium 2020-0 Yes [id number] 400mg Take 400 [facility] oxide 400 7-02 mg by ity of mg 00:00: mouth [place] magnesium 00 daily. Medical Tab Branch magnesium 2020-0 Yes [id number] 400mg Take 400 [facility] oxide 400 7-02 mg by ity of mg 00:00: mouth [place] magnesium 00 daily. Medical Tab Branch magnesium 2020-0 Yes [id number] 400mg Take 400 [facility] oxide 400 7-02 mg by ity of mg 00:00: mouth [place] magnesium 00 daily. Medical Tab Branch magnesium 2020-0 Yes [id number] 400mg Take 400 [facility] oxide 400 7-02 mg by ity of mg 00:00: mouth [place] magnesium 00 daily. Medical Tab Branch magnesium 2020-0 Yes [id number] 400mg Take 400 [facility] oxide 400 7-02 mg by ity of mg 00:00: mouth [place] magnesium 00 daily. Medical Tab Branch magnesium 2020-0 Yes [id number] 400mg Take 400 [facility] oxide 400 7-02 mg by ity of mg 00:00: mouth [place] magnesium 00 daily. Medical Tab Branch magnesium 2020-0 Yes [id number] 400mg Take 400 [facility] oxide 400 7-02 mg by ity of mg 00:00: mouth [place] magnesium 00 daily. Medical Tab Branch magnesium 2020-0 Yes [id number] 400mg Take 400 [facility] oxide 400 7-02 mg by ity of mg 00:00: mouth [place] magnesium 00 daily. Medical Tab Branch magnesium 2020-0 Yes [id number] 400mg Take 400 [facility] oxide 400 7-02 mg by ity of mg 00:00: mouth [place] magnesium 00 daily. Medical Tab Branch magnesium 2020-0 Yes [id number] 400mg Take 400 [facility] oxide 400 7-02 mg by ity of mg 00:00: mouth [place] magnesium 00 daily. Medical Tab Branch magnesium 2020-0 Yes [id number] 400mg Take 400 [facility] oxide 400 7-02 mg by ity of mg 00:00: mouth [place] magnesium 00 daily. Medical Tab Branch magnesium 2020-0 Yes [id number] 400mg Take 400 [facility] oxide 400 7-02 mg by ity of mg 00:00: mouth [place] magnesium 00 daily. Medical Tab Branch magnesium 2020-0 Yes [id number] 400mg Take 400 [facility] oxide 400 7-02 mg by ity of mg 00:00: mouth [place] magnesium 00 daily. Medical Tab Branch magnesium 2020-0 Yes [id number] 400mg Take 400 [facility] oxide 400 7-02 mg by ity of mg 00:00: mouth [place] magnesium 00 daily. Medical Tab Branch magnesium 2020-0 Yes [id number] 400mg Take 400 [facility] oxide 400 7-02 mg by ity of mg 00:00: mouth [place] magnesium 00 daily. Medical Tab Branch magnesium 2020-0 Yes [id number] 400mg Take 400 [facility] oxide 400 7-02 mg by ity of mg 00:00: mouth [place] magnesium 00 daily. Medical Tab Branch magnesium 2020-0 Yes [id number] 400mg Take 400 [facility] oxide 400 7-02 mg by ity of mg 00:00: mouth [place] magnesium 00 daily. Medical Tab Branch magnesium 2020-0 Yes [id number] 400mg Take 400 [facility] oxide 400 7-02 mg by ity of mg 00:00: mouth [place] magnesium 00 daily. Medical Tab Branch magnesium 2020-0 Yes [id number] 400mg Take 400 [facility] oxide 400 7-02 mg by ity of mg 00:00: mouth [place] magnesium 00 daily. Medical Tab Branch magnesium 2020-0 Yes [id number] 400mg Take 400 [facility] oxide 400 7-02 mg by ity of mg 00:00: mouth [place] magnesium 00 daily. Medical Tab Branch magnesium 2020-0 Yes [id number] 400mg Take 400 [facility] oxide 400 7-02 mg by ity of mg 00:00: mouth [place] magnesium 00 daily. Medical Tab Branch magnesium 2020-0 Yes [id number] 400mg Take 400 [facility] oxide 400 7-02 mg by ity of mg 00:00: mouth [place] magnesium 00 daily. Medical Tab Branch magnesium 2020-0 Yes [id number] 400mg Take 400 [facility] oxide 400 7-02 mg by ity of mg 00:00: mouth [place] magnesium 00 daily. Medical Tab Branch magnesium 2020-0 Yes [id number] 400mg Take 400 [facility] oxide 400 7-02 mg by ity of mg 00:00: mouth [place] magnesium 00 daily. Medical Tab Branch magnesium 2020-0 Yes [id number] 400mg Take 400 [facility] oxide 400 7-02 mg by ity of mg 00:00: mouth [place] magnesium 00 daily. Medical Tab Branch magnesium 2020-0 Yes [id number] 400mg Take 400 [facility] oxide 400 7-02 mg by ity of mg 00:00: mouth [place] magnesium 00 daily. Medical Tab Branch magnesium 2020-0 Yes [id number] 400mg Take 400 [facility] oxide 400 7-02 mg by ity of mg 00:00: mouth [place] magnesium 00 daily. Medical Tab Branch magnesium 2020-0 2020- No [id number] 400mg Take 400 [facility] oxide 400 7-02 11-03 mg by ity of mg 00:00: 00:00 mouth [place] magnesium 00 :00 daily. Medical Tab Branch magnesium 2020-0 2020- No [id number] 400mg Take 400 [facility] oxide 400 7-02 11-03 mg by ity of mg 00:00: 00:00 mouth [place] magnesium 00 :00 daily. Medical Tab Branch magnesium 2020-0 2020- No [id number] 400mg Take 400 [facility] oxide 400 7-02 11-03 mg by ity of mg 00:00: 00:00 mouth [place] magnesium 00 :00 daily. Medical Tab Branch diphenhydrA 2020-0 Yes 25mg Take 25 mg [facility] MINE 6-04 by mouth ity of (BENADRYL 20:41: every 4 [place] ALLERGY) 25 08 (four) Medica l mg tablet hours as Branch needed for Allergies. diphenhydrA 2020-0 Yes 25mg Take 25 mg [facility] MINE 6-04 by mouth ity of (BENADRYL 20:41: every 4 [place] ALLERGY) 25 08 (four) Medica l mg tablet hours as Branch needed for Allergies. diphenhydrA 2020-0 Yes 25mg Take 25 mg [facility] MINE 6-04 by mouth ity of (BENADRYL 20:41: every 4 [place] ALLERGY) 25 08 (four) Medica l mg tablet hours as Branch needed for Allergies. diphenhydrA 2020-0 Yes 25mg Take 25 mg [facility] MINE 6-04 by mouth ity of (BENADRYL 20:41: every 4 [place] ALLERGY) 25 08 (four) Medica l mg tablet hours as Branch needed for Allergies. diphenhydrA 2020-0 Yes 25mg Take 25 mg [facility] MINE 6-04 by mouth ity of (BENADRYL 20:41: every 4 [place] ALLERGY) 25 08 (four) Medica l mg tablet hours as Branch needed for Allergies. diphenhydrA 2020-0 Yes 25mg Take 25 mg [facility] MINE 6-04 by mouth ity of (BENADRYL 20:41: every 4 [place] ALLERGY) 25 08 (four) Medica l mg tablet hours as Branch needed for Allergies. diphenhydrA 2020-0 Yes 25mg Take 25 mg [facility] MINE 6-04 by mouth ity of (BENADRYL 20:41: every 4 [place] ALLERGY) 25 08 (four) Medica l mg tablet hours as Branch needed for Allergies. diphenhydrA 2020-0 Yes 25mg Take 25 mg [facility] MINE 6-04 by mouth ity of (BENADRYL 20:41: every 4 [place] ALLERGY) 25 08 (four) Medica l mg tablet hours as Branch needed for Allergies. diphenhydrA 2020-0 Yes 25mg Take 25 mg [facility] MINE 6-04 by mouth ity of (BENADRYL 20:41: every 4 [place] ALLERGY) 25 08 (four) Medica l mg tablet hours as Branch needed for Allergies. diphenhydrA 2020-0 Yes 25mg Take 25 mg [facility] MINE 6-04 by mouth ity of (BENADRYL 20:41: every 4 [place] ALLERGY) 25 08 (four) Medica l mg tablet hours as Branch needed for Allergies. diphenhydrA 2020-0 Yes 25mg Take 25 mg [facility] MINE 6-04 by mouth ity of (BENADRYL 20:41: every 4 [place] ALLERGY) 25 08 (four) Medica l mg tablet hours as Branch needed for Allergies. diphenhydrA 2020-0 Yes 25mg Take 25 mg [facility] MINE 6-04 by mouth ity of (BENADRYL 20:41: every 4 [place] ALLERGY) 25 08 (four) Medica l mg tablet hours as Branch needed for Allergies. diphenhydrA 2020-0 Yes 25mg Take 25 mg [facility] MINE 6-04 by mouth ity of (BENADRYL 20:41: every 4 [place] ALLERGY) 25 08 (four) Medica l mg tablet hours as Branch needed for Allergies. diphenhydrA 2020-0 Yes 25mg Take 25 mg [facility] MINE 6-04 by mouth ity of (BENADRYL 20:41: every 4 [place] ALLERGY) 25 08 (four) Medica l mg tablet hours as Branch needed for Allergies. diphenhydrA 2020-0 Yes 25mg Take 25 mg [facility] MINE 6-04 by mouth ity of (BENADRYL 20:41: every 4 [place] ALLERGY) 25 08 (four) Medica l mg tablet hours as Branch needed for Allergies. diphenhydrA 2020-0 Yes 25mg Take 25 mg [facility] MINE 6-04 by mouth ity of (BENADRYL 20:41: every 4 [place] ALLERGY) 25 08 (four) Medica l mg tablet hours as Branch needed for Allergies. diphenhydrA 2020-0 Yes 25mg Take 25 mg [facility] MINE 6-04 by mouth ity of (BENADRYL 20:41: every 4 [place] ALLERGY) 25 08 (four) Medica l mg tablet hours as Branch needed for Allergies. diphenhydrA 2020-0 Yes 25mg Take 25 mg [facility] MINE 6-04 by mouth ity of (BENADRYL 20:41: every 4 [place] ALLERGY) 25 08 (four) Medica l mg tablet hours as Branch needed for Allergies. diphenhydrA 2020-0 Yes 25mg Take 25 mg [facility] MINE 6-04 by mouth ity of (BENADRYL 20:41: every 4 [place] ALLERGY) 25 08 (four) Medica l mg tablet hours as Branch needed for Allergies. diphenhydrA 2020-0 Yes 25mg Take 25 mg [facility] MINE 6-04 by mouth ity of (BENADRYL 20:41: every 4 [place] ALLERGY) 25 08 (four) Medica l mg tablet hours as Branch needed for Allergies. diphenhydrA 2020-0 Yes 25mg Take 25 mg [facility] MINE 6-04 by mouth ity of (BENADRYL 20:41: every 4 [place] ALLERGY) 25 08 (four) Medica l mg tablet hours as Branch needed for Allergies. diphenhydrA 2020-0 Yes 25mg Take 25 mg [facility] MINE 6-04 by mouth ity of (BENADRYL 20:41: every 4 [place] ALLERGY) 25 08 (four) Medica l mg tablet hours as Branch needed for Allergies. diphenhydrA 2020-0 Yes 25mg Take 25 mg [facility] MINE 6-04 by mouth ity of (BENADRYL 20:41: every 4 [place] ALLERGY) 25 08 (four) Medica l mg tablet hours as Branch needed for Allergies. diphenhydrA 2020-0 Yes 25mg Take 25 mg [facility] MINE 6-04 by mouth ity of (BENADRYL 20:41: every 4 [place] ALLERGY) 25 08 (four) Medica l mg tablet hours as Branch needed for Allergies. diphenhydrA 2020-0 Yes 25mg Take 25 mg [facility] MINE 6-04 by mouth ity of (BENADRYL 20:41: every 4 [place] ALLERGY) 25 08 (four) Medica l mg tablet hours as Branch needed for Allergies. diphenhydrA 2020-0 Yes 25mg Take 25 mg [facility] MINE 6-04 by mouth ity of (BENADRYL 20:41: every 4 [place] ALLERGY) 25 08 (four) Medica l mg tablet hours as Branch needed for Allergies. diphenhydrA 2020-0 Yes 25mg Take 25 mg [facility] MINE 6-04 by mouth ity of (BENADRYL 20:41: every 4 [place] ALLERGY) 25 08 (four) Medica l mg tablet hours as Branch needed for Allergies. diphenhydrA 2020-0 Yes 25mg Take 25 mg [facility] MINE 6-04 by mouth ity of (BENADRYL 20:41: every 4 [place] ALLERGY) 25 08 (four) Medica l mg tablet hours as Branch needed for Allergies. diphenhydrA 2020-0 Yes 25mg Take 25 mg [facility] MINE 6-04 by mouth ity of (BENADRYL 20:41: every 4 [place] ALLERGY) 25 08 (four) Medica l mg tablet hours as Branch needed for Allergies. diphenhydrA 2020-0 Yes 25mg Take 25 mg [facility] MINE 6-04 by mouth ity of (BENADRYL 20:41: every 4 [place] ALLERGY) 25 08 (four) Medica l mg tablet hours as Branch needed for Allergies. diphenhydrA 2020-0 Yes 25mg Take 25 mg [facility] MINE 6-04 by mouth ity of (BENADRYL 20:41: every 4 [place] ALLERGY) 25 08 (four) Medica l mg tablet hours as Branch needed for Allergies. diphenhydrA 2020-0 Yes 25mg Take 25 mg [facility] MINE 6-04 by mouth ity of (BENADRYL 20:41: every 4 [place] ALLERGY) 25 08 (four) Medica l mg tablet hours as Branch needed for Allergies. neomycin-po 2020-0 Yes Apply 4 [facility] vers lymyxin-hyd 4-27 drops into it y of rocortisone 00:00: effected [place] 3.5-,000- 00 ear 3 Medical 1 times Branch mg/mL-unit/ daily for mL-% otic 7 days. susp neomycin-po 2020-0 Yes Apply 4 [facility] lymyxin-hyd 4-27 drops into it y of rocortisone 00:00: effected [place] 3.5-10,000- 00 ear 3 Medical 1 times Branch mg/mL-unit/ daily for mL-% otic 7 days. susp neomycin-po 2020-0 Yes Apply 4 [facility] lymyxin-hyd 4-27 drops into it y of rocortisone 00:00: effected [place] 3.5-10,000- 00 ear 3 Medical 1 times Branch mg/mL-unit/ daily for mL-% otic 7 days. susp neomycin-po 2020-0 Yes Apply 4 [facility] lymyxin-hyd 4-27 drops into it y of rocortisone 00:00: effected [place] 3.5-10,000- 00 ear 3 Medical 1 times Branch mg/mL-unit/ daily for mL-% otic 7 days. susp neomycin-po 2020-0 Yes Apply 4 [facility] lymyxin-hyd 4-27 drops into it y of rocortisone 00:00: effected [place] 3.5-10,000- 00 ear 3 Medical 1 times Branch mg/mL-unit/ daily for mL-% otic 7 days. susp neomycin-po 2020-0 Yes Apply 4 [facility] lymyxin-hyd 4-27 drops into it y of rocortisone 00:00: effected [place] 3.5-,000- 00 ear 3 Medical 1 times Branch mg/mL-unit/ daily for mL-% otic 7 days. susp neomycin-po 2020-0 Yes Apply 4 [facility] lymyxin-hyd 4-27 drops into it y of rocortisone 00:00: effected [place] 3.5-10,000- 00 ear 3 Medical 1 times Branch mg/mL-unit/ daily for mL-% otic 7 days. susp neomycin-po 2020-0 Yes Apply 4 [facility] lymyxin-hyd 4-27 drops into it y of rocortisone 00:00: effected [place] 3.5-10,000- 00 ear 3 Medical 1 times Branch mg/mL-unit/ daily for mL-% otic 7 days. susp neomycin-po 2020-0 Yes Apply 4 [facility] lymyxin-hyd 4-27 drops into it y of rocortisone 00:00: effected [place] 3.5-10,000- 00 ear 3 Medical 1 times Branch mg/mL-unit/ daily for mL-% otic 7 days. susp neomycin-po 2020-0 Yes Apply 4 [facility] lymyxin-hyd 4-27 drops into it y of rocortisone 00:00: effected [place] 3.5-10,000- 00 ear 3 Medical 1 times Branch mg/mL-unit/ daily for mL-% otic 7 days. susp neomycin-po 2020-0 Yes Apply 4 [facility] lymyxin-hyd 4-27 drops into it y of rocortisone 00:00: effected [place] 3.5-10,000- 00 ear 3 Medical 1 times Branch mg/mL-unit/ daily for mL-% otic 7 days. susp neomycin-po 2020-0 Yes Apply 4 [facility] lymyxin-hyd 4-27 drops into it y of rocortisone 00:00: effected [place] 3.5-10,000- 00 ear 3 Medical 1 times Branch mg/mL-unit/ daily for mL-% otic 7 days. susp neomycin-po 2020-0 Yes Apply 4 [facility] lymyxin-hyd 4-27 drops into it y of rocortisone 00:00: effected [place] 3.5-10,000- 00 ear 3 Medical 1 times Branch mg/mL-unit/ daily for mL-% otic 7 days. susp neomycin-po 2020-0 Yes Apply 4 [facility] lymyxin-hyd 4-27 drops into it y of rocortisone 00:00: effected [place] 3.5-10,000- 00 ear 3 Medical 1 times Branch mg/mL-unit/ daily for mL-% otic 7 days. susp neomycin-po 2020-0 Yes Apply 4 [facility] vers lymyxin-hyd 4-27 drops into it y of rocortisone 00:00: effected [place] 3.5-10,000- 00 ear 3 Medical 1 times Branch mg/mL-unit/ daily for mL-% otic 7 days. susp neomycin-po 2020-0 Yes Apply 4 [facility] vers lymyxin-hyd 4-27 drops into it y of rocortisone 00:00: effected [place] 3.5-10,000- 00 ear 3 Medical 1 times Branch mg/mL-unit/ daily for mL-% otic 7 days. susp neomycin-po 2020-0 Yes Apply 4 [facility] lymyxin-hyd 4-27 drops into it y of rocortisone 00:00: effected [place] 3.5-10,000- 00 ear 3 Medical 1 times Branch mg/mL-unit/ daily for mL-% otic 7 days. susp neomycin-po 2020-0 Yes Apply 4 [facility] lymyxin-hyd 4-27 drops into it y of rocortisone 00:00: effected [place] 3.5-10,000- 00 ear 3 Medical 1 times Branch mg/mL-unit/ daily for mL-% otic 7 days. susp neomycin-po 2020-0 Yes Apply 4 [facility] vers lymyxin-hyd 4-27 drops into it y of rocortisone 00:00: effected [place] 3.5-10,000- 00 ear 3 Medical 1 times Branch mg/mL-unit/ daily for mL-% otic 7 days. susp neomycin-po 2020-0 Yes Apply 4 [facility] vers lymyxin-hyd 4-27 drops into it y of rocortisone 00:00: effected [place] 3.5-,000- 00 ear 3 Medical 1 times Branch mg/mL-unit/ daily for mL-% otic 7 days. susp neomycin-po 2020-0 Yes Apply 4 [facility] lymyxin-hyd 4-27 drops into it y of rocortisone 00:00: effected [place] 3.5-10,000- 00 ear 3 Medical 1 times Branch mg/mL-unit/ daily for mL-% otic 7 days. susp neomycin-po 2020-0 Yes Apply 4 [facility] lymyxin-hyd 4-27 drops into it y of rocortisone 00:00: effected [place] 3.5-10,000- 00 ear 3 Medical 1 times Branch mg/mL-unit/ daily for mL-% otic 7 days. susp neomycin-po 2020-0 Yes Apply 4 [facility] lymyxin-hyd 4-27 drops into it y of rocortisone 00:00: effected [place] 3.5-10,000- 00 ear 3 Medical 1 times Branch mg/mL-unit/ daily for mL-% otic 7 days. susp neomycin-po 2020-0 Yes Apply 4 [facility] lymyxin-hyd 4-27 drops into it y of rocortisone 00:00: effected [place] 3.5-10,000- 00 ear 3 Medical 1 times Branch mg/mL-unit/ daily for mL-% otic 7 days. susp neomycin-po 2020-0 Yes Apply 4 [facility] vers lymyxin-hyd 4-27 drops into it y of rocortisone 00:00: effected [place] 3.5-10,000- 00 ear 3 Medical 1 times Branch mg/mL-unit/ daily for mL-% otic 7 days. susp neomycin-po 2020-0 Yes Apply 4 [facility] lymyxin-hyd 4-27 drops into it y of rocortisone 00:00: effected [place] 3.5-10,000- 00 ear 3 Medical 1 times Branch mg/mL-unit/ daily for mL-% otic 7 days. susp neomycin-po 2020-0 Yes Apply 4 [facility] vers lymyxin-hyd 4-27 drops into it y of rocortisone 00:00: effected [place] 3.5-10,000- 00 ear 3 Medical 1 times Branch mg/mL-unit/ daily for mL-% otic 7 days. susp neomycin-po 2020-0 Yes Apply 4 [facility] vers lymyxin-hyd 4-27 drops into it y of rocortisone 00:00: effected [place] 3.5-10,000- 00 ear 3 Medical 1 times Branch mg/mL-unit/ daily for mL-% otic 7 days. susp neomycin-po 2020-0 Yes Apply 4 [facility] vers lymyxin-hyd 4-27 drops into it y of rocortisone 00:00: effected [place] 3.5-10,000- 00 ear 3 Medical 1 times Branch mg/mL-unit/ daily for mL-% otic 7 days. susp neomycin-po 2020-0 Yes Apply 4 [facility] vers lymyxin-hyd 4-27 drops into it y of rocortisone 00:00: effected [place] 3.5-10,000- 00 ear 3 Medical 1 times Branch mg/mL-unit/ daily for mL-% otic 7 days. susp neomycin-po 2020-0 Yes Apply 4 [facility] vers lymyxin-hyd 4-27 drops into it y of rocortisone 00:00: effected [place] 3.5-10,000- 00 ear 3 Medical 1 times Branch mg/mL-unit/ daily for mL-% otic 7 days. susp neomycin-po 2020-0 Yes Apply 4 [facility] vers lymyxin-hyd 4-27 drops into it y of rocortisone 00:00: effected [place] 3.5-10,000- 00 ear 3 Medical 1 times Branch mg/mL-unit/ daily for mL-% otic 7 days. susp neomycin-po 2020-0 Yes Apply 4 [facility] vers lymyxin-hyd 4-27 drops into it y of rocortisone 00:00: effected [place] 3.5-10,000- 00 ear 3 Medical 1 times Branch mg/mL-unit/ daily for mL-% otic 7 days. susp neomycin-po 2020-0 Yes Apply 4 [facility] vers lymyxin-hyd 4-27 drops into it y of rocortisone 00:00: effected [place] 3.5-10,000- 00 ear 3 Medical 1 times Branch mg/mL-unit/ daily for mL-% otic 7 days. susp neomycin-po 2020-0 Yes Apply 4 [facility] vers lymyxin-hyd 4-27 drops into it y of rocortisone 00:00: effected [place] 3.5-10,000- 00 ear 3 Medical 1 times Branch mg/mL-unit/ daily for mL-% otic 7 days. susp neomycin-po 2020-0 Yes Apply 4 [facility] vers lymyxin-hyd 4-27 drops into it y of rocortisone 00:00: effected [place] 3.5-10,000- 00 ear 3 Medical 1 times Branch mg/mL-unit/ daily for mL-% otic 7 days. susp neomycin-po 2020-0 Yes Apply 4 [facility] vers lymyxin-hyd 4-27 drops into it y of rocortisone 00:00: effected [place] 3.5-10,000- 00 ear 3 Medical 1 times Branch mg/mL-unit/ daily for mL-% otic 7 days. susp neomycin-po 2020-0 Yes Apply 4 [facility] vers lymyxin-hyd 4-27 drops into it y of rocortisone 00:00: effected [place] 3.5-10,000- 00 ear 3 Medical 1 times Branch mg/mL-unit/ daily for mL-% otic 7 days. susp neomycin-po 2020-0 Yes Apply 4 [facility] vers lymyxin-hyd 4-27 drops into it y of rocortisone 00:00: effected [place] 3.5-10,000- 00 ear 3 Medical 1 times Branch mg/mL-unit/ daily for mL-% otic 7 days. susp neomycin-po 2020-0 Yes Apply 4 [facility] vers lymyxin-hyd 4-27 drops into it y of rocortisone 00:00: effected [place] 3.5-10,000- 00 ear 3 Medical 1 times Branch mg/mL-unit/ daily for mL-% otic 7 days. susp neomycin-po 2020-0 Yes Apply 4 [facility] vers lymyxin-hyd 4-27 drops into it y of rocortisone 00:00: effected [place] 3.5-10,000- 00 ear 3 Medical 1 times Branch mg/mL-unit/ daily for mL-% otic 7 days. susp neomycin-po 2020-0 Yes Apply 4 [facility] vers lymyxin-hyd 4-27 drops into it y of rocortisone 00:00: effected [place] 3.5-10,000- 00 ear 3 Medical 1 times Branch mg/mL-unit/ daily for mL-% otic 7 days. susp neomycin-po 2020-0 Yes Apply 4 [facility] vers lymyxin-hyd 4-27 drops into it y of rocortisone 00:00: effected [place] 3.5-10,000- 00 ear 3 Medical 1 times Branch mg/mL-unit/ daily for mL-% otic 7 days. susp neomycin-po 2020-0 Yes Apply 4 [facility] vers lymyxin-hyd 4-27 drops into it y of rocortisone 00:00: effected [place] 3.5-10,000- 00 ear 3 Medical 1 times Branch mg/mL-unit/ daily for mL-% otic 7 days. susp neomycin-po 2020-0 Yes Apply 4 [facility] vers lymyxin-hyd 4-27 drops into it y of rocortisone 00:00: [place] 3.5-10,000- 00 ear 3 Medical 1 times Branch mg/mL-unit/ daily for mL-% otic 7 days. susp neomycin-po 2020-0 Yes Apply 4 Uni vers lymyxin-hyd 4-27 drops into it y of rocortisone 00:[place]: [place] 3.5-10,000- 00 ear 3 Medical 1 times Branch mg/mL-unit/ daily for mL-% otic 7 days. susp neomycin-po 2020-0 2020- No Apply 4 Un tj lymyxin-hyd 4-27 09-15 drops into i ty of rocortisone 00:00: 00:00 effected [place] 3.5-10,000- 00 :00 ear 3 Medical 1 times Branch mg/mL-unit/ daily for mL-% otic 7 days. susp neomycin-po 2020-0 2020- No Apply 4 Un tj lymyxin-hyd 4-27 09-15 drops into i ty of rocortisone 00:00: 00:00 effected [place] 3.5-10,000- 00 :00 ear 3 Medical 1 times Branch mg/mL-unit/ daily for mL-% otic 7 days. susp diphenhydrA 2020-0 Yes 25mg Take 25 mg [facility] MINE 4-07 by mouth ity of (BENADRYL 18:05: every 4 [place] ALLERGY) 25 58 (four) Medica l mg tablet hours as Branch needed for Allergies. diphenhydrA 2020-0 Yes 25mg Take 25 mg [facility] MINE 4-07 by mouth ity of (BENADRYL 18:05: every 4 [place] ALLERGY) 25 58 (four) Medica l mg tablet hours as Branch needed for Allergies. diphenhydrA 2020-0 Yes 25mg Take 25 mg [facility] MINE 4-07 by mouth ity of (BENADRYL 18:05: every 4 [place] ALLERGY) 25 58 (four) Medica l mg tablet hours as Branch needed for Allergies. diphenhydrA 2020-0 Yes 25mg Take 25 mg [facility] MINE 4-07 by mouth ity of (BENADRYL 18:05: every 4 [place] ALLERGY) 25 58 (four) Medica l mg tablet hours as Branch needed for Allergies. diphenhydrA 2020-0 Yes 25mg Take 25 mg [facility] MINE 4-07 by mouth ity of (BENADRYL 18:05: every 4 [place] ALLERGY) 25 58 (four) Medica l mg tablet hours as Branch needed for Allergies. diphenhydrA 2020-0 Yes 25mg Take 25 mg [facility] MINE 4-07 by mouth ity of (BENADRYL 18:05: every 4 [place] ALLERGY) 25 58 (four) Medica l mg tablet hours as Branch needed for Allergies. diphenhydrA 2020-0 Yes 25mg Take 25 mg [facility] MINE 4-07 by mouth ity of (BENADRYL 18:05: every 4 [place] ALLERGY) 25 58 (four) Medica l mg tablet hours as Branch needed for Allergies. diphenhydrA 2020-0 Yes 25mg Take 25 mg [facility] MINE 4-07 by mouth ity of (BENADRYL 18:05: every 4 [place] ALLERGY) 25 58 (four) Medica l mg tablet hours as Branch needed for Allergies. diphenhydrA 2020-0 Yes 25mg Take 25 mg [facility] MINE 4-07 by mouth ity of (BENADRYL 18:05: every 4 [place] ALLERGY) 25 58 (four) Medica l mg tablet hours as Branch needed for Allergies. diphenhydrA 2020-0 Yes 25mg Take 25 mg [facility] MINE 4-07 by mouth ity of (BENADRYL 18:05: every 4 [place] ALLERGY) 25 58 (four) Medica l mg tablet hours as Branch needed for Allergies. diphenhydrA 2020-0 Yes 25mg Take 25 mg [facility] MINE 4-07 by mouth ity of (BENADRYL 18:05: every 4 [place] ALLERGY) 25 58 (four) Medica l mg tablet hours as Branch needed for Allergies. diphenhydrA 2020-0 Yes 25mg Take 25 mg [facility] MINE 4-07 by mouth ity of (BENADRYL 18:05: every 4 [place] ALLERGY) 25 58 (four) Medica l mg tablet hours as Branch needed for Allergies. diphenhydrA 2020-0 Yes 25mg Take 25 mg [facility] MINE 4-07 by mouth ity of (BENADRYL 18:05: every 4 [place] ALLERGY) 25 58 (four) Medica l mg tablet hours as Branch needed for Allergies. diphenhydrA 2020-0 Yes 25mg Take 25 mg [facility] MINE 4-07 by mouth ity of (BENADRYL 18:05: every 4 [place] ALLERGY) 25 58 (four) Medica l mg tablet hours as Branch needed for Allergies. diphenhydrA 2020-0 Yes 25mg Take 25 mg [facility] MINE 4-07 by mouth ity of (BENADRYL 18:05: every 4 [place] ALLERGY) 25 58 (four) Medica l mg tablet hours as Branch needed for Allergies. diphenhydrA 2020-0 Yes 25mg Take 25 mg [facility] MINE 4-07 by mouth ity of (BENADRYL 18:05: every 4 [place] ALLERGY) 25 58 (four) Medica l mg tablet hours as Branch needed for Allergies. diphenhydrA 2020-0 Yes 25mg Take 25 mg [facility] MINE 4-07 by mouth ity of (BENADRYL 18:05: every 4 [place] ALLERGY) 25 58 (four) Medica l mg tablet hours as Branch needed for Allergies. diphenhydrA 2020-0 Yes 25mg Take 25 mg [facility] MINE 4-07 by mouth ity of (BENADRYL 18:05: every 4 [place] ALLERGY) 25 58 (four) Medica l mg tablet hours as Branch needed for Allergies. diphenhydrA 2020-0 Yes 25mg Take 25 mg [facility] MINE 4-07 by mouth ity of (BENADRYL 18:05: every 4 [place] ALLERGY) 25 58 (four) Medica l mg tablet hours as Branch needed for Allergies. acetaminoph 2020-0 Yes 650mg Take 650 U nivers en (TYLENOL 3-10 mg by ity of ARTHRITIS 20:15: mouth [place] PAIN) 650 23 every 8 Medical mg CR (eight) Branch tablet hours as needed for Pain. acetaminoph 2020-0 Yes 650mg Take 650 U nivers en (TYLENOL 3-10 mg by ity of ARTHRITIS 20:15: mouth [place] PAIN) 650 23 every 8 Medical mg CR (eight) Branch tablet hours as needed for Pain. acetaminoph 2020-0 Yes 650mg Take 650 U nivers en (TYLENOL 3-10 mg by ity of ARTHRITIS 20:15: mouth [place] PAIN) 650 23 every 8 Medical mg CR (eight) Branch tablet hours as needed for Pain. acetaminoph 2020-0 Yes 650mg Take 650 U nivers en (TYLENOL 3-10 mg by ity of ARTHRITIS 20:15: mouth [place] PAIN) 650 23 every 8 Medical mg CR (eight) Branch tablet hours as needed for Pain. acetaminoph 2020-0 Yes 650mg Take 650 U nivers en (TYLENOL 3-10 mg by ity of ARTHRITIS 20:15: mouth [place] PAIN) 650 23 every 8 Medical mg CR (eight) Branch tablet hours as needed for Pain. acetaminoph 2020-0 Yes 650mg Take 650 U nivers en (TYLENOL 3-10 mg by ity of ARTHRITIS 20:15: mouth [place] PAIN) 650 23 every 8 Medical mg CR (eight) Branch tablet hours as needed for Pain. acetaminoph 2020-0 Yes 650mg Take 650 U nivers en (TYLENOL 3-10 mg by ity of ARTHRITIS 20:15: mouth [place] PAIN) 650 23 every 8 Medical mg CR (eight) Branch tablet hours as needed for Pain. acetaminoph 2020-0 Yes 650mg Take 650 U nivers en (TYLENOL 3-10 mg by ity of ARTHRITIS 20:15: mouth [place] PAIN) 650 23 every 8 Medical mg CR (eight) Branch tablet hours as needed for Pain. acetaminoph 2020-0 Yes 650mg Take 650 U nivers en (TYLENOL 3-10 mg by ity of ARTHRITIS 20:15: mouth [place] PAIN) 650 23 every 8 Medical mg CR (eight) Branch tablet hours as needed for Pain. acetaminoph 2020-0 Yes Take by Uni vers en/diphenhy 3-10 mouth. ity of dramine 20:15: [place] (TYLENOL PM 23 Medical ORAL) Branch acetaminoph 2020-0 Yes 650mg Take 650 U nivers en (TYLENOL 3-10 mg by ity of ARTHRITIS 20:15: mouth [place] PAIN) 650 23 every 8 Medical mg CR (eight) Branch tablet hours as needed for Pain. acetaminoph 2020-0 Yes Take by Uni vers en/diphenhy 3-10 mouth. ity of dramine 20:15: [place] (TYLENOL PM 23 Medical ORAL) Branch acetaminoph 2020-0 Yes 650mg Take 650 U nivers en (TYLENOL 3-10 mg by ity of ARTHRITIS 20:15: mouth [place] PAIN) 650 23 every 8 Medical mg CR (eight) Branch tablet hours as needed for Pain. acetaminoph 2020-0 Yes Take by Uni vers en/diphenhy 3-10 mouth. ity of dramine 20:15: [place] (TYLENOL PM 23 Medical ORAL) Branch acetaminoph 2020-0 Yes 650mg Take 650 U nivers en (TYLENOL 3-10 mg by ity of ARTHRITIS 20:15: mouth [place] PAIN) 650 23 every 8 Medical mg CR (eight) Branch tablet hours as needed for Pain. acetaminoph 2020-0 Yes Take by Uni vers en/diphenhy 3-10 mouth. ity of dramine 20:15: [place] (TYLENOL PM 23 Medical ORAL) Branch acetaminoph 2020-0 Yes 650mg Take 650 U nivers en (TYLENOL 3-10 mg by ity of ARTHRITIS 20:15: mouth [place] PAIN) 650 23 every 8 Medical mg CR (eight) Branch tablet hours as needed for Pain. acetaminoph 2020-0 Yes Take by Uni vers en/diphenhy 3-10 mouth. ity of dramine 20:15: [place] (TYLENOL PM 23 Medical ORAL) Branch acetaminoph 2020-0 Yes 650mg Take 650 U nivers en (TYLENOL 3-10 mg by ity of ARTHRITIS 20:15: mouth [place] PAIN) 650 23 every 8 Medical mg CR (eight) Branch tablet hours as needed for Pain. acetaminoph 2020-0 Yes Take by Uni vers en/diphenhy 3-10 mouth. ity of dramine 20:15: [place] (TYLENOL PM 23 Medical ORAL) Branch acetaminoph 2020-0 Yes 650mg Take 650 U nivers en (TYLENOL 3-10 mg by ity of ARTHRITIS 20:15: mouth [place] PAIN) 650 23 every 8 Medical mg CR (eight) Branch tablet hours as needed for Pain. acetaminoph 2020-0 Yes Take by Uni vers en/diphenhy 3-10 mouth. ity of dramine 20:15: [place] (TYLENOL PM 23 Medical ORAL) Branch acetaminoph 2020-0 Yes 650mg Take 650 U nivers en (TYLENOL 3-10 mg by ity of ARTHRITIS 20:15: mouth [place] PAIN) 650 23 every 8 Medical mg CR (eight) Branch tablet hours as needed for Pain. acetaminoph 2020-0 Yes Take by Uni vers en/diphenhy 3-10 mouth. ity of dramine 20:15: [place] (TYLENOL PM 23 Medical ORAL) Branch acetaminoph 2020-0 Yes 650mg Take 650 U nivers en (TYLENOL 3-10 mg by ity of ARTHRITIS 20:15: mouth [place] PAIN) 650 23 every 8 Medical mg CR (eight) Branch tablet hours as needed for Pain. acetaminoph 2020-0 Yes Take by Uni vers en/diphenhy 3-10 mouth. ity of dramine 20:15: [place] (TYLENOL PM 23 Medical ORAL) Branch acetaminoph 2020-0 Yes 650mg Take 650 U nivers en (TYLENOL 3-10 mg by ity of ARTHRITIS 20:15: mouth [place] PAIN) 650 23 every 8 Medical mg CR (eight) Branch tablet hours as needed for Pain. acetaminoph 2020-0 Yes Take by Uni vers en/diphenhy 3-10 mouth. ity of dramine 20:15: [place] (TYLENOL PM 23 Medical ORAL) Branch acetaminoph 2020-0 Yes 650mg Take 650 U nivers en (TYLENOL 3-10 mg by ity of ARTHRITIS 20:15: mouth [place] PAIN) 650 23 every 8 Medical mg CR (eight) Branch tablet hours as needed for Pain. acetaminoph 2020-0 Yes Take by [facility] vers en/diphenhy 3-10 mouth. ity of dramine 20:15: [place] (TYLENOL PM 23 Medical ORAL) Branch acetaminoph 2020-0 Yes 650mg Take 650 U nivers en (TYLENOL 3-10 mg by ity of ARTHRITIS 20:15: mouth [place] PAIN) 650 23 every 8 Medical mg CR (eight) Branch tablet hours as needed for Pain. acetaminoph 2020-0 Yes Take by Uni vers en/diphenhy 3-10 mouth. ity of dramine 20:15: [place] (TYLENOL PM 23 Medical ORAL) Branch acetaminoph 2020-0 Yes 650mg Take 650 U nivers en (TYLENOL 3-10 mg by ity of ARTHRITIS 20:15: mouth [place] PAIN) 650 23 every 8 Medical mg CR (eight) Branch tablet hours as needed for Pain. acetaminoph 2020-0 Yes Take by Uni vers en/diphenhy 3-10 mouth. ity of dramine 20:15: [place] (TYLENOL PM 23 Medical ORAL) Branch acetaminoph 2020-0 Yes 650mg Take 650 U nivers en (TYLENOL 3-10 mg by ity of ARTHRITIS 20:15: mouth [place] PAIN) 650 23 every 8 Medical mg CR (eight) Branch tablet hours as needed for Pain. acetaminoph 2020-0 Yes Take by Uni vers en/diphenhy 3-10 mouth. ity of dramine 20:15: [place] (TYLENOL PM 23 Medical ORAL) Branch acetaminoph 2020-0 Yes 650mg Take 650 U nivers en (TYLENOL 3-10 mg by ity of ARTHRITIS 20:15: mouth [place] PAIN) 650 23 every 8 Medical mg CR (eight) Branch tablet hours as needed for Pain. acetaminoph 2020-0 Yes Take by Uni vers en/diphenhy 3-10 mouth. ity of dramine 20:15: [place] (TYLENOL PM 23 Medical ORAL) Branch acetaminoph 2020-0 Yes 650mg Take 650 U nivers en (TYLENOL 3-10 mg by ity of ARTHRITIS 20:15: mouth [place] PAIN) 650 23 every 8 Medical mg CR (eight) Branch tablet hours as needed for Pain. acetaminoph 2020-0 Yes Take by Uni vers en/diphenhy 3-10 mouth. ity of dramine 20:15: [place] (TYLENOL PM 23 Medical ORAL) Branch acetaminoph 2020-0 Yes 650mg Take 650 U nivers en (TYLENOL 3-10 mg by ity of ARTHRITIS 20:15: mouth [place] PAIN) 650 23 every 8 Medical mg CR (eight) Branch tablet hours as needed for Pain. acetaminoph 2020-0 Yes Take by Uni vers en/diphenhy 3-10 mouth. ity of dramine 20:15: [place] (TYLENOL PM 23 Medical ORAL) Branch acetaminoph 2020-0 Yes 650mg Take 650 U nivers en (TYLENOL 3-10 mg by ity of ARTHRITIS 20:15: mouth [place] PAIN) 650 23 every 8 Medical mg CR (eight) Branch tablet hours as needed for Pain. acetaminoph 2020-0 Yes Take by Uni vers en/diphenhy 3-10 mouth. ity of dramine 20:15: [place] (TYLENOL PM 23 Medical ORAL) Branch acetaminoph 2020-0 Yes 650mg Take 650 U nivers en (TYLENOL 3-10 mg by ity of ARTHRITIS 20:15: mouth [place] PAIN) 650 23 every 8 Medical mg CR (eight) Branch tablet hours as needed for Pain. acetaminoph 2020-0 Yes Take by Uni vers en/diphenhy 3-10 mouth. ity of dramine 20:15: [place] (TYLENOL PM 23 Medical ORAL) Branch acetaminoph 2020-0 Yes 650mg Take 650 U nivers en (TYLENOL 3-10 mg by ity of ARTHRITIS 20:15: mouth [place] PAIN) 650 23 every 8 Medical mg CR (eight) Branch tablet hours as needed for Pain. acetaminoph 2020-0 Yes Take by Uni vers en/diphenhy 3-10 mouth. ity of dramine 20:15: [place] (TYLENOL PM 23 Medical ORAL) Branch acetaminoph 2020-0 Yes 650mg Take 650 U nivers en (TYLENOL 3-10 mg by ity of ARTHRITIS 20:15: mouth [place] PAIN) 650 23 every 8 Medical mg CR (eight) Branch tablet hours as needed for Pain. acetaminoph 2020-0 Yes Take by Uni vers en/diphenhy 3-10 mouth. ity of dramine 20:15: [place] (TYLENOL PM 23 Medical ORAL) Branch acetaminoph 2020-0 Yes 650mg Take 650 U nivers en (TYLENOL 3-10 mg by ity of ARTHRITIS 20:15: mouth [place] PAIN) 650 23 every 8 Medical mg CR (eight) Branch tablet hours as needed for Pain. acetaminoph 2020-0 Yes Take by Uni vers en/diphenhy 3-10 mouth. ity of dramine 20:15: [place] (TYLENOL PM 23 Medical ORAL) Branch acetaminoph 2020-0 Yes 650mg Take 650 U nivers en (TYLENOL 3-10 mg by ity of ARTHRITIS 20:15: mouth [place] PAIN) 650 23 every 8 Medical mg CR (eight) Branch tablet hours as needed for Pain. acetaminoph 2020-0 Yes Take by Uni vers en/diphenhy 3-10 mouth. ity of dramine 20:15: [place] (TYLENOL PM 23 Medical ORAL) Branch acetaminoph 2020-0 Yes 650mg Take 650 U nivers en (TYLENOL 3-10 mg by ity of ARTHRITIS 20:15: mouth [place] PAIN) 650 23 every 8 Medical mg CR (eight) Branch tablet hours as needed for Pain. acetaminoph 2020-0 Yes Take by Uni vers en/diphenhy 3-10 mouth. ity of dramine 20:15: [place] (TYLENOL PM 23 Medical ORAL) Branch acetaminoph 2020-0 Yes 650mg Take 650 U nivers en (TYLENOL 3-10 mg by ity of ARTHRITIS 20:15: mouth [place] PAIN) 650 23 every 8 Medical mg CR (eight) Branch tablet hours as needed for Pain. acetaminoph 2020-0 Yes Take by Uni vers en/diphenhy 3-10 mouth. ity of dramine 20:15: [place] (TYLENOL PM 23 Medical ORAL) Branch acetaminoph 2020-0 Yes 650mg Take 650 U nivers en (TYLENOL 3-10 mg by ity of ARTHRITIS 20:15: mouth [place] PAIN) 650 23 every 8 Medical mg CR (eight) Branch tablet hours as needed for Pain. acetaminoph 2020-0 Yes Take by Uni vers en/diphenhy 3-10 mouth. ity of dramine 20:15: [place] (TYLENOL PM 23 Medical ORAL) Branch acetaminoph 2020-0 Yes 650mg Take 650 U nivers en (TYLENOL 3-10 mg by ity of ARTHRITIS 20:15: mouth [place] PAIN) 650 23 every 8 Medical mg CR (eight) Branch tablet hours as needed for Pain. acetaminoph 2020-0 Yes Take by [facility] vers en/diphenhy 3-10 mouth. ity of dramine 20:15: [place] (TYLENOL PM 23 Medical ORAL) Branch acetaminoph 2020-0 Yes 650mg Take 650 U nivers en (TYLENOL 3-10 mg by ity of ARTHRITIS 20:15: mouth [place] PAIN) 650 23 every 8 Medical mg CR (eight) Branch tablet hours as needed for Pain. acetaminoph 2020-0 Yes Take by [facility] vers en/diphenhy 3-10 mouth. ity of dramine 20:15: [place] (TYLENOL PM 23 Medical ORAL) Branch acetaminoph 2020-0 Yes 650mg Take 650 U nivers en (TYLENOL 3-10 mg by ity of ARTHRITIS 20:15: mouth [place] PAIN) 650 23 every 8 Medical mg CR (eight) Branch tablet hours as needed for Pain. acetaminoph 2020-0 Yes Take by [facility] vers en/diphenhy 3-10 mouth. ity of dramine 20:15: [place] (TYLENOL PM 23 Medical ORAL) Branch acetaminoph 2020-0 Yes 650mg Take 650 U nivers en (TYLENOL 3-10 mg by ity of ARTHRITIS 20:15: mouth [place] PAIN) 650 23 every 8 Medical mg CR (eight) Branch tablet hours as needed for Pain. acetaminoph 2020-0 Yes Take by [facility] vers en/diphenhy 3-10 mouth. ity of dramine 20:15: [place] (TYLENOL PM 23 Medical ORAL) Branch acetaminoph 2020-0 Yes 650mg Take 650 U nivers en (TYLENOL 3-10 mg by ity of ARTHRITIS 20:15: mouth [place] PAIN) 650 23 every 8 Medical mg CR (eight) Branch tablet hours as needed for Pain. acetaminoph 2020-0 Yes Take by [facility] vers en/diphenhy 3-10 mouth. ity of dramine 20:15: [place] (TYLENOL PM 23 Medical ORAL) Branch acetaminoph 2020-0 Yes 650mg Take 650 U nivers en (TYLENOL 3-10 mg by ity of ARTHRITIS 20:15: mouth [place] PAIN) 650 23 every 8 Medical mg CR (eight) Branch tablet hours as needed for Pain. acetaminoph 2020-0 Yes Take by [facility] vers en/diphenhy 3-10 mouth. ity of dramine 20:15: [place] (TYLENOL PM 23 Medical ORAL) Branch acetaminoph 2020-0 Yes 650mg Take 650 U nivers en (TYLENOL 3-10 mg by ity of ARTHRITIS 20:15: mouth [place] PAIN) 650 23 every 8 Medical mg CR (eight) Branch tablet hours as needed for Pain. acetaminoph 2020-0 Yes Take by [facility] vers en/diphenhy 3-10 mouth. ity of dramine 20:15: [place] (TYLENOL PM 23 Medical ORAL) Branch acetaminoph 2020-0 Yes 650mg Take 650 U nivers en (TYLENOL 3-10 mg by ity of ARTHRITIS 20:15: mouth [place] PAIN) 650 23 every 8 Medical mg CR (eight) Branch tablet hours as needed for Pain. acetaminoph 2020-0 Yes Take by [facility] vers en/diphenhy 3-10 mouth. ity of dramine 20:15: [place] (TYLENOL PM 23 Medical ORAL) Branch acetaminoph 2020-0 Yes 650mg Take 650 U nivers en (TYLENOL 3-10 mg by ity of ARTHRITIS 20:15: mouth [place] PAIN) 650 23 every 8 Medical mg CR (eight) Branch tablet hours as needed for Pain. acetaminoph 2020-0 Yes Take by [facility] vers en/diphenhy 3-10 mouth. ity of dramine 20:15: [place] (TYLENOL PM 23 Medical ORAL) Branch acetaminoph 2020-0 Yes 650mg Take 650 U nivers en (TYLENOL 3-10 mg by ity of ARTHRITIS 20:15: mouth [place] PAIN) 650 23 every 8 Medical mg CR (eight) Branch tablet hours as needed for Pain. acetaminoph 2020-0 Yes Take by [facility] vers en/diphenhy 3-10 mouth. ity of dramine 20:15: [place] (TYLENOL PM 23 Medical ORAL) Branch acetaminoph 2020-0 Yes 650mg Take 650 U nivers en (TYLENOL 3-10 mg by ity of ARTHRITIS 20:15: mouth [place] PAIN) 650 23 every 8 Medical mg CR (eight) Branch tablet hours as needed for Pain. acetaminoph 2020-0 Yes Take by [facility] vers en/diphenhy 3-10 mouth. ity of dramine 20:15: [place] (TYLENOL PM 23 Medical ORAL) Branch acetaminoph 2020-0 Yes 650mg Take 650 U nivers en (TYLENOL 3-10 mg by ity of ARTHRITIS 20:15: mouth [place] PAIN) 650 23 every 8 Medical mg CR (eight) Branch tablet hours as needed for Pain. acetaminoph 2020-0 Yes Take by [facility] vers en/diphenhy 3-10 mouth. ity of dramine 20:15: [place] (TYLENOL PM 23 Medical ORAL) Branch acetaminoph 2020-0 Yes 650mg Take 650 U nivers en (TYLENOL 3-10 mg by ity of ARTHRITIS 20:15: mouth [place] PAIN) 650 23 every 8 Medical mg CR (eight) Branch tablet hours as needed for Pain. acetaminoph 2020-0 Yes Take by [facility] vers en/diphenhy 3-10 mouth. ity of dramine 20:15: [place] (TYLENOL PM 23 Medical ORAL) Branch acetaminoph 2020-0 Yes 650mg Take 650 U nivers en (TYLENOL 3-10 mg by ity of ARTHRITIS 20:15: mouth [place] PAIN) 650 23 every 8 Medical mg CR (eight) Branch tablet hours as needed for Pain. acetaminoph 2020-0 Yes Take by [facility] vers en/diphenhy 3-10 mouth. ity of dramine 20:15: [place] (TYLENOL PM 23 Medical ORAL) Branch acetaminoph 2020-0 Yes 650mg Take 650 U nivers en (TYLENOL 3-10 mg by ity of ARTHRITIS 20:15: mouth [place] PAIN) 650 23 every 8 Medical mg CR (eight) Branch tablet hours as needed for Pain. acetaminoph 2020-0 Yes Take by [facility] vers en/diphenhy 3-10 mouth. ity of dramine 20:15: [place] (TYLENOL PM 23 Medical ORAL) Branch acetaminoph 2020-0 Yes 650mg Take 650 U nivers en (TYLENOL 3-10 mg by ity of ARTHRITIS 20:15: mouth [place] PAIN) 650 23 every 8 Medical mg CR (eight) Branch tablet hours as needed for Pain. acetaminoph 2020-0 Yes Take by [facility] vers en/diphenhy 3-10 mouth. ity of dramine 20:15: [place] (TYLENOL PM 23 Medical ORAL) Branch acetaminoph 2020-0 Yes 650mg Take 650 U nivers en (TYLENOL 3-10 mg by ity of ARTHRITIS 20:15: mouth [place] PAIN) 650 23 every 8 Medical mg CR (eight) Branch tablet hours as needed for Pain. acetaminoph 2020-0 Yes Take by [facility] vers en/diphenhy 3-10 mouth. ity of dramine 20:15: [place] (TYLENOL PM 23 Medical ORAL) Branch acetaminoph 2020-0 Yes 650mg Take 650 U nivers en (TYLENOL 3-10 mg by ity of ARTHRITIS 20:15: mouth [place] PAIN) 650 23 every 8 Medical mg CR (eight) Branch tablet hours as needed for Pain. acetaminoph 2020-0 Yes Take by [facility] vers en/diphenhy 3-10 mouth. ity of dramine 20:15: [place] (TYLENOL PM 23 Medical ORAL) Branch acetaminoph 2020-0 Yes 650mg Take 650 U nivers en (TYLENOL 3-10 mg by ity of ARTHRITIS 20:15: mouth [place] PAIN) 650 23 every 8 Medical mg CR (eight) Branch tablet hours as needed for Pain. acetaminoph 2020-0 Yes Take by [facility] vers en/diphenhy 3-10 mouth. ity of [employer] 20:15: [place] (TYLENOL PM 23 Medical ORAL) Branch acetaminoph 2020-0 Yes 650mg Take 650 U nivers en (TYLENOL 3-10 mg by ity of ARTHRITIS 20:15: mouth [place] PAIN) 650 23 every 8 Medical mg CR (eight) Branch tablet hours as needed for Pain. acetaminoph 2020-0 Yes Take by [facility] vers en/diphenhy 3-10 mouth. ity of dramine 20:15: [place] (TYLENOL PM 23 Medical ORAL) Branch acetaminoph 2020-0 Yes 650mg Take 650 U nivers en (TYLENOL 3-10 mg by ity of ARTHRITIS 20:15: mouth [place] PAIN) 650 23 every 8 Medical mg CR (eight) Branch tablet hours as needed for Pain. acetaminoph 2020-0 Yes 650mg Take 650 U nivers en (TYLENOL 3-10 mg by ity of ARTHRITIS 20:15: mouth [place] PAIN) 650 23 every 8 Medical mg CR (eight) Branch tablet hours as needed for Pain. acetaminoph 2020-0 Yes 650mg Take 650 U nivers en (TYLENOL 3-10 mg by ity of ARTHRITIS 20:15: mouth [place] PAIN) 650 23 every 8 Medical mg CR (eight) Branch tablet hours as needed for Pain. acetaminoph 2020-0 Yes 650mg Take 650 U nivers en (TYLENOL 3-10 mg by ity of ARTHRITIS 20:15: mouth [place] PAIN) 650 23 every 8 Medical mg CR (eight) Branch tablet hours as needed for Pain. proMETHazin 2020-0 Yes [id number] 25mg Take 1 [facility] e 25 mg 3-05 tablet by ity of tablet 00:00: mouth [place] 00 every 4 Medical (four) Branch hours as needed for Nausea and Vomiting (N/V). proMETHazin 2020-0 Yes [id number] 25mg Take 1 [facility] e 25 mg 3-05 tablet by ity of tablet 00:00: mouth [place] 00 every 4 Medical (four) Branch hours as needed for Nausea and Vomiting (N/V). proMETHazin 2020-0 Yes [id number] 25mg Take 1 [facility] e 25 mg 3-05 tablet by ity of tablet 00:00: mouth [place] 00 every 4 Medical (four) Branch hours as needed for Nausea and Vomiting (N/V). proMETHazin 2020-0 Yes [id number] 25mg Take 1 [facility] e 25 mg 3-05 tablet by ity of tablet 00:00: mouth [place] 00 every 4 Medical (four) Branch hours as needed for Nausea and Vomiting (N/V). proMETHazin 2020-0 Yes [id number] 25mg Take 1 [facility] e 25 mg 3-05 tablet by ity of tablet 00:00: mouth [place] 00 every 4 Medical (four) Branch hours as needed for Nausea and Vomiting (N/V). proMETHazin 2020-0 Yes [id number] 25mg Take 1 [facility] e 25 mg 3-05 tablet by ity of tablet 00:00: mouth [place] 00 every 4 Medical (four) Branch hours as needed for Nausea and Vomiting (N/V). proMETHazin 2020-0 Yes [id number] 25mg Take 1 [facility] e 25 mg 3-05 tablet by ity of tablet 00:00: mouth [place] 00 every 4 Medical (four) Branch hours as needed for Nausea and Vomiting (N/V). proMETHazin 2020-0 Yes [id number] 25mg Take 1 [facility] e 25 mg 3-05 tablet by ity of tablet 00:00: mouth [place] 00 every 4 Medical (four) Branch hours as needed for Nausea and Vomiting (N/V). proMETHazin 2020-0 Yes [id number] 25mg Take 1 [facility] e 25 mg 3-05 tablet by ity of tablet 00:00: mouth [place] 00 every 4 Medical (four) Branch hours as needed for Nausea and Vomiting (N/V). proMETHazin 2020-0 Yes [id number] 25mg Take 1 [facility] e 25 mg 3-05 tablet by ity of tablet 00:00: mouth [place] 00 every 4 Medical (four) Branch hours as needed for Nausea and Vomiting (N/V). proMETHazin 2020-0 Yes [id number] 25mg Take 1 [facility] e 25 mg 3-05 tablet by ity of tablet 00:00: mouth [place] 00 every 4 Medical (four) Branch hours as needed for Nausea and Vomiting (N/V). proMETHazin 2020-0 Yes [id number] 25mg Take 1 [facility] e 25 mg 3-05 tablet by ity of tablet 00:00: mouth [place] 00 every 4 Medical (four) Branch hours as needed for Nausea and Vomiting (N/V). proMETHazin 2020-0 Yes [id number] 25mg Take 1 [facility] e 25 mg 3-05 tablet by ity of tablet 00:00: mouth [place] 00 every 4 Medical (four) Branch hours as needed for Nausea and Vomiting (N/V). proMETHazin 2020-0 Yes [id number] 25mg Take 1 [facility] e 25 mg 3-05 tablet by ity of tablet 00:00: mouth [place] 00 every 4 Medical (four) Branch hours as needed for Nausea and Vomiting (N/V). proMETHazin 2020-0 Yes [id number] 25mg Take 1 [facility] e 25 mg 3-05 tablet by ity of tablet 00:00: mouth [place] 00 every 4 Medical (four) Branch hours as needed for Nausea and Vomiting (N/V). proMETHazin 2020-0 Yes [id number] 25mg Take 1 [facility] 25 mg 3-05 tablet by [facility] of tablet 00:00: mouth [place] 00 every 4 Medical (four) Branch hours as needed for Nausea and Vomiting (N/V). proMETHazin 2020-0 Yes [id number] 25mg Take 1 [facility] 25 mg 3-05 tablet by [facility] of tablet 00:00: mouth [place] 00 every 4 Medical (four) Branch hours as needed for Nausea and Vomiting (N/V). proMETHazin 2020-0 Yes [id number] 25mg Take 1 [facility] 25 mg 3-05 tablet by [facility] of tablet 00:00: mouth [place] 00 every 4 Medical (four) Branch hours as needed for Nausea and Vomiting (N/V). proMETHazin 2020-0 Yes [id number] 25mg Take 1 [facility] 25 mg 3-05 tablet by [facility] of tablet 00:00: mouth [place] 00 every 4 Medical (four) Branch hours as needed for Nausea and Vomiting (N/V). proMETHazin 2020-0 Yes [id number] 25mg Take 1 [facility] 25 mg 3-05 tablet by [facility] of tablet 00:00: mouth [place] 00 every 4 Medical (four) Branch hours as needed for Nausea and Vomiting (N/V). proMETHazin 2020-0 Yes [id number] 25mg Take 1 [facility] 25 mg 3-05 tablet by [facility] of tablet 00:00: mouth [place] 00 every 4 Medical (four) Branch hours as needed for Nausea and Vomiting (N/V). proMETHazin 2020-0 Yes [id number] 25mg Take 1 [facility] 25 mg 3-05 tablet by [facility] of tablet 00:00: mouth [place] 00 every 4 Medical (four) Branch hours as needed for Nausea and Vomiting (N/V). proMETHazin 2020-0 Yes [id number] 25mg Take 1 [facility] 25 mg 3-05 tablet by [facility] of tablet 00:00: mouth [place] 00 every 4 Medical (four) Branch hours as needed for Nausea and Vomiting (N/V). proMETHazin 2020-0 Yes [id number] 25mg Take 1 [facility] 25 mg 3-05 tablet by [facility] of tablet 00:00: mouth [place] 00 every 4 Medical (four) Branch hours as needed for Nausea and Vomiting (N/V). proMETHazin 2020-0 Yes [id number] 25mg Take 1 [facility] 25 mg 3-05 tablet by [facility] of tablet 00:00: mouth [place] 00 every 4 Medical (four) Branch hours as needed for Nausea and Vomiting (N/V). proMETHazin 2020-0 Yes [id number] 25mg Take 1 [facility] 25 mg 3-05 tablet by [facility] of tablet 00:00: mouth [place] 00 every 4 Medical (four) Branch hours as needed for Nausea and Vomiting (N/V). proMETHazin 2020-0 Yes [id number] 25mg Take 1 [facility] 25 mg 3-05 tablet by [facility] of tablet 00:00: mouth [place] 00 every 4 Medical (four) Branch hours as needed for Nausea and Vomiting (N/V). proMETHazin 2020-0 Yes [id number] 25mg Take 1 [facility] 25 mg 3-05 tablet by [facility] of tablet 00:00: mouth [place] 00 every 4 Medical (four) Branch hours as needed for Nausea and Vomiting (N/V). proMETHazin 2020-0 Yes [id number] 25mg Take 1 [facility] 25 mg 3-05 tablet by [facility] of tablet 00:00: mouth [place] 00 every 4 Medical (four) Branch hours as needed for Nausea and Vomiting (N/V). proMETHazin 2020-0 Yes [id number] 25mg Take 1 [facility] 25 mg 3-05 tablet by [facility] of tablet 00:00: mouth [place] 00 every 4 Medical (four) Branch hours as needed for Nausea and Vomiting (N/V). proMETHazin 2020-0 Yes [id number] 25mg Take 1 [facility] 25 mg 3-05 tablet by [facility] of tablet 00:00: mouth [place] 00 every 4 Medical (four) Branch hours as needed for Nausea and Vomiting (N/V). proMETHazin 2020-0 Yes [id number] 25mg Take 1 [facility] 25 mg 3-05 tablet by [facility]y of tablet 00:00: mouth [place] 00 every 4 Medical (four) Branch hours as needed for Nausea and Vomiting (N/V). proMETHazin 2020-0 Yes [id number] 25mg Take 1 [facility] 25 mg 3-05 tablet by [facility]y of tablet 00:00: mouth [place] 00 every 4 Medical (four) Branch hours as needed for Nausea and Vomiting (N/V). proMETHazin 2020-0 Yes [id number] 25mg Take 1 [facility] 25 mg 3-05 tablet by [facility] of tablet 00:00: mouth [place] 00 every 4 Medical (four) Branch hours as needed for Nausea and Vomiting (N/V). proMETHazin 2020-0 Yes [id number] 25mg Take 1 [facility] 25 mg 3-05 tablet by [facility] of tablet 00:00: mouth [place] 00 every 4 Medical (four) Branch hours as needed for Nausea and Vomiting (N/V). proMETHazin 2020-0 Yes [id number] 25mg Take 1 [facility] 25 mg 3-05 tablet by [facility] of tablet 00:00: mouth [place] 00 every 4 Medical (four) Branch hours as needed for Nausea and Vomiting (N/V). proMETHazin 2020-0 Yes [id number] 25mg Take 1 [facility] 25 mg 3-05 tablet by [facility]y of tablet 00:00: mouth [place] 00 every 4 Medical (four) Branch hours as needed for Nausea and Vomiting (N/V). proMETHazin 2020-0 Yes [id number] 25mg Take 1 [facility] 25 mg 3-05 tablet by [facility]y of tablet 00:00: mouth [place] 00 every 4 Medical (four) Branch hours as needed for Nausea and Vomiting (N/V). proMETHazin 2020-0 Yes [id number] 25mg Take 1 [facility] 25 mg 3-05 tablet by [facility]y of tablet 00:00: mouth [place] 00 every 4 Medical (four) Branch hours as needed for Nausea and Vomiting (N/V). proMETHazin 2020-0 Yes [id number] 25mg Take 1 [facility] 25 mg 3-05 tablet by [facility]y of tablet 00:00: mouth [place] 00 every 4 Medical (four) Branch hours as needed for Nausea and Vomiting (N/V). proMETHazin 2020-0 Yes [id number] 25mg Take 1 [facility] 25 mg 3-05 tablet by ity of tablet 00:00: mouth [place] 00 every 4 Medical (four) Branch hours as needed for Nausea and Vomiting (N/V). proMETHazin 2020-0 Yes [id number] 25mg Take 1 [facility] 25 mg 3-05 tablet by [facility] of tablet 00:00: mouth [place] 00 every 4 Medical (four) Branch hours as needed for Nausea and Vomiting (N/V). proMETHazin 2020-0 Yes [id number] 25mg Take 1 [facility] 25 mg 3-05 tablet by [facility] of tablet 00:00: mouth [place] 00 every 4 Medical (four) Branch hours as needed for Nausea and Vomiting (N/V). proMETHazin 2020-0 Yes [id number] 25mg Take 1 [facility] 25 mg 3-05 tablet by [facility] of tablet 00:00: mouth [place] 00 every 4 Medical (four) Branch hours as needed for Nausea and Vomiting (N/V). proMETHazin 2020-0 Yes [id number] 25mg Take 1 [facility] 25 mg 3-05 tablet by it[facility] of tablet 00:00: mouth [place] 00 every 4 Medical (four) Branch hours as needed for Nausea and Vomiting (N/V). proMETHazin 2020-0 Yes [id number] 25mg Take 1 [facility] 25 mg 3-05 tablet by [facility]y of tablet 00:00: mouth [place] 00 every 4 Medical (four) Branch hours as needed for Nausea and Vomiting (N/V). proMETHazin 2020-0 Yes [id number] 25mg Take 1 [facility] 25 mg 3-05 tablet by [facility] of tablet 00:00: mouth [place] 00 every 4 Medical (four) Branch hours as needed for Nausea and Vomiting (N/V). proMETHazin 2020-0 Yes [id number] 25mg Take 1 [facility] 25 mg 3-05 tablet by [facility] of tablet 00:00: mouth [place] 00 every 4 Medical (four) Branch hours as needed for Nausea and Vomiting (N/V). proMETHazin 2020-0 Yes [id number] 25mg Take 1 [facility] 25 mg 3-05 tablet by [facility] of tablet 00:00: mouth [place] 00 every 4 Medical (four) Branch hours as needed for Nausea and Vomiting (N/V). proMETHazin 2020-0 Yes [id number] 25mg Take 1 [facility] 25 mg 3-05 tablet by [facility] of tablet 00:00: mouth [place] 00 every 4 Medical (four) Branch hours as needed for Nausea and Vomiting (N/V). proMETHazin 2020-0 Yes [id number] 25mg Take 1 [facility] 25 mg 3-05 tablet by ity of tablet 00:00: mouth [place] 00 every 4 Medical (four) Branch hours as needed for Nausea and Vomiting (N/V). proMETHazin 2020-0 Yes [id number] 25mg Take 1 [facility] 25 mg 3-05 tablet by ity of tablet 00:00: mouth [place] 00 every 4 Medical (four) Branch hours as needed for Nausea and Vomiting (N/V). proMETHazin 2020-0 Yes [id number] 25mg Take 1 [facility] 25 mg 3-05 tablet by ity of tablet 00:00: mouth [place] 00 every 4 Medical (four) Branch hours as needed for Nausea and Vomiting (N/V). proMETHazin 2020-0 Yes [id number] 25mg Take 1 [facility] 25 mg 3-05 tablet by ity of tablet 00:00: mouth [place] 00 every 4 Medical (four) Branch hours as needed for Nausea and Vomiting (N/V). proMETHazin 2020-0 Yes [id number] 25mg Take 1 [facility] 25 mg 3-05 tablet by it[facility] of tablet 00:00: mouth [place] 00 every 4 Medical (four) Branch hours as needed for Nausea and Vomiting (N/V). proMETHazin 2020-0 Yes [id number] 25mg Take 1 [facility] 25 mg 3-05 tablet by [facility] of tablet 00:00: mouth [place] 00 every 4 Medical (four) Branch hours as needed for Nausea and Vomiting (N/V). proMETHazin 2020-0 Yes [id number] 25mg Take 1 [facility] 25 mg 3-05 tablet by ity of tablet 00:00: mouth [place] 00 every 4 Medical (four) Branch hours as needed for Nausea and Vomiting (N/V). proMETHazin 2020-0 Yes [id number] 25mg Take 1 [facility] 25 mg 3-05 tablet by ity of tablet 00:00: mouth [place] 00 every 4 Medical (four) Branch hours as needed for Nausea and Vomiting (N/V). proMETHazin 2020-0 Yes [id number] 25mg Take 1 [facility] 25 mg 3-05 tablet by ity of tablet 00:00: mouth [place] 00 every 4 Medical (four) Branch hours as needed for Nausea and Vomiting (N/V). proMETHazin 2019-0 2020- No [id number] 25mg Take 1 [facility] 25 mg 3-05 09-15 tablet by ity of tablet 00:00: 00:00 mouth [place] 00 :00 every 4 Medical (four) Branch hours as needed for Nausea and Vomiting (N/V). proMETHazin 2020-0 2020- No [id number] 25mg Take 1 [facility] 25 mg 3-05 09-15 tablet by ity of tablet 00:00: 00:00 mouth [place] 00 :00 every 4 Medical (four) Branch hours as needed for Nausea and Vomiting (N/V). proMETHazin 2020-0 2020- No [id number] 25mg Take 1 [facility] 25 mg 3-05 09-15 tablet by ity of tablet 00:00: 00:00 mouth [place] 00 :00 every 4 Medical (four) Branch hours as needed for Nausea and Vomiting (N/V). NaCl 0.9% 2019-0 2019- No 1000mL at 999 Uni vers (NS) bolus 2-11 02-11 mL/hr, ity of infusion 22:30: 22:49 1,000 mL, Nikhil as 1,000 mL 00 :00 IV Medical Infusion, Branch ONCE, 1 dose, 04/11/19 at 1630, STAT proMETHazin 2020-0 2020- No 12.5mg 12.5 mg, [facility] e 04-11 IV ity of (PHENERGAN) 22:15: 22:15 Piggyback, [place] 12.5 mg in 00 :00 ONCE, 1 Medica l NaCl 0.9% dose, Tue Branc h (NS) 50 mL 04/11/19 at piggyback 1615, 50 mL NaCl 0.9% 2019-0 2020- No 1000mL at 999 Uni vers (NS) bolus 04-11 mL/hr, ity of infusion 21:15: 21:00 1,000 mL, [place] as 1,000 mL 00 :00 IV Medical Infusion, Branch ONCE, 1 dose, 04/11/19 at 1515, STAT proMETHazin 2020-0 Yes [id number] 25mg Take 1 [facility] 25 mg 2-11 tablet by ity of tablet 00:00: mouth [place] 00 every 6 Medical (six) Branch hours as needed for Nausea and Vomiting (N/V). proMETHazin 2020-0 Yes [id number] 25mg Take 1 [facility] 25 mg 2-11 tablet by ity of tablet 00:00: mouth [place] 00 every 6 Medical (six) Branch hours as needed for Nausea and Vomiting (N/V). proMETHazin 2020-0 Yes [id number] 25mg Take 1 [facility] 25 mg 2-11 tablet by ity of tablet 00:00: mouth [place] 00 every 6 Medical (six) Branch hours as needed for Nausea and Vomiting (N/V). proMETHazin 2020-0 Yes [id number] 25mg Take 1 [facility] 25 mg 2-11 tablet by ity of tablet 00:00: mouth [place] 00 every 6 Medical (six) Branch hours as needed for Nausea and Vomiting (N/V). proMETHazin 2020-0 Yes [id number] 25mg Take 1 [facility] 25 mg 2-11 tablet by ity of tablet 00:00: mouth [place] 00 every 6 Medical (six) Branch hours as needed for Nausea and Vomiting (N/V). proMETHazin 2020-0 Yes [id number] 25mg Take 1 [facility] 25 mg 2-11 tablet by ity of tablet 00:00: mouth [place] 00 every 6 Medical (six) Branch hours as needed for Nausea and Vomiting (N/V). proMETHazin 2020-0 Yes [id number] 25mg Take 1 [facility] 25 mg 2-11 tablet by ity of tablet 00:00: mouth [place] 00 every 6 Medical (six) Branch hours as needed for Nausea and Vomiting (N/V). proMETHazin 2019-0 Yes [id number] 25mg Take 1 [facility] 25 mg 2-11 tablet by ity of tablet 00:00: mouth [place] 00 every 6 Medical (six) Branch hours as needed for Nausea and Vomiting (N/V). proMETHazin 2019-0 2020- No [id number] 25mg Take 1 [facility] 25 mg 2-11 03-25 tablet by ity of tablet 00:00: 00:00 mouth [place] 00 :00 every 6 Medical (six) Branch hours as needed for Nausea and Vomiting (N/V). diphenhydrA 2019-0 Yes [id number] 25mg Take 1 [facility] MINE 25 mg 2-10 capsule by ity of capsule 00:00: mouth at [place] 00 bedtime. Medical Branch 2019-0 Yes [id number] 1{tbl} Take 1 U nivers Vit 2-10 tablet by ity of 15-Iron-FA- 00:00: mouth [facility] 90-1-50 00 daily. Medica l mg per Branch tablet 2019-0 Yes [id number] 1{tbl} Take 1 U nivers Vit 2-10 tablet by ity of 15-Iron-FA- 00:00: mouth [place] [facility] 90-1-50 00 daily. Medica l mg per Branch tablet 2019-0 Yes [id number] 1{tbl} Take 1 U nivers Vit 2-10 tablet by ity of 15-Iron-FA- 00:00: mouth [place] [facility] 90-1-50 00 daily. Medica l mg per Branch tablet 2019-0 Yes [id number] 1{tbl} Take 1 U nivers Vit 2-10 tablet by ity of 15-Iron-FA- 00:00: mouth [place] [facility] 90-1-50 00 daily. Medica l mg per Branch tablet 2019-0 Yes [id number] 1{tbl} Take 1 U nivers Vit 2-10 tablet by ity of 15-Iron-FA- 00:00: mouth [place] [facility] 90-1-50 00 daily. Medica l mg per Branch tablet 2020-0 Yes [id number] 1{tbl} Take 1 U nivers Vit 2-10 tablet by ity of 15-Iron-FA- 00:00: mouth [facility] - daily. Medica l mg per Branch tablet 2020-0 Yes [id number] 1{tbl} Take 1 U nivers Vit 2-10 tablet by ity of 15-Iron-FA- 00:00: mouth [facility] - daily. Medica l mg per Branch tablet 2020-0 Yes [id number] 1{tbl} Take 1 U nivers Vit 2-10 tablet by ity of 15-Iron-FA- 00:00: mouth [facility] - daily. Medica l mg per Branch tablet 2020-0 Yes [id number] 1{tbl} Take 1 U nivers Vit 2-10 tablet by ity of 15-Iron-FA- 00:00: mouth [facility] daily. Medica l mg per Branch tablet diphenhydrA 2020-0 Yes [id number] 25mg Take 1 [facility] MINE 25 mg 2-10 capsule by ity of capsule 00:00: mouth at [place] 00 bedtime. Medical Branch 2020-0 Yes [id number] 1{tbl} Take 1 U nivers Vit 2-10 tablet by ity of 15-Iron-FA- 00:00: mouth [facility] - daily. Medica l mg per Branch tablet diphenhydrA 2020-0 Yes [id number] 25mg Take 1 [facility] MINE 25 mg 2-10 capsule by ity of capsule 00:00: mouth at [place] 00 bedtime. Medical Branch 2020-0 Yes [id number] 1{tbl} Take 1 U nivers Vit 2-10 tablet by ity of 15-Iron-FA- 00:00: mouth [facility] - daily. Medica l mg per Branch tablet diphenhydrA 2020-0 Yes [id number] 25mg Take 1 [facility] MINE 25 mg 2-10 capsule by ity of capsule 00:00: mouth at [place] 00 bedtime. Medical Branch 2020-0 Yes [id number] 1{tbl} Take 1 U nivers Vit 2-10 tablet by ity of 15-Iron-FA- 00:00: mouth [place] [facility] 90- daily. Medica l mg per Branch tablet diphenhydrA 2020-0 Yes [id number] 25mg Take 1 [facility] MINE 25 mg 2-10 capsule by ity of capsule 00:00: mouth at [place] 00 bedtime. Medical Branch 2020-0 Yes [id number] 1{tbl} Take 1 U nivers Vit 2-10 tablet by ity of 15-Iron-FA- 00:00: mouth [facility] - daily. Medica l mg per Branch tablet diphenhydrA 2020-0 Yes [id number] 25mg Take 1 [facility] MINE 25 mg 2-10 capsule by ity of capsule 00:00: mouth at [place] 00 bedtime. Medical Branch 2020-0 Yes [id number] 1{tbl} Take 1 U nivers Vit 2-10 tablet by ity of 15-Iron-FA- 00:00: mouth [facility] - daily. Medica l mg per Branch tablet diphenhydrA 2020-0 Yes [id number] 25mg Take 1 [facility] MINE 25 mg 2-10 capsule by ity of capsule 00:00: mouth at [place] 00 bedtime. Medical Branch 2020-0 Yes [id number] 1{tbl} Take 1 U nivers Vit 2-10 tablet by ity of 15-Iron-FA- 00:00: mouth [facility] - daily. Medica l mg per Branch tablet diphenhydrA 2020-0 Yes [id number] 25mg Take 1 [facility] MINE 25 mg 2-10 capsule by ity of capsule 00:00: mouth at [place] 00 bedtime. Medical Branch 2020-0 Yes [id number] 1{tbl} Take 1 U nivers Vit 2-10 tablet by ity of 15-Iron-FA- 00:00: mouth [facility] - daily. Medica l mg per Branch tablet diphenhydrA 2020-0 Yes [id number] 25mg Take 1 [facility] MINE 25 mg 2-10 capsule by ity of capsule 00:00: mouth at [place] 00 bedtime. Medical Branch 2020-0 Yes [id number] 1{tbl} Take 1 U nivers Vit 2-10 tablet by ity of 15-Iron-FA- 00:00: mouth [facility] - daily. Medica l mg per Branch tablet diphenhydrA 2020-0 Yes [id number] 25mg Take 1 [facility] MINE 25 mg 2-10 capsule by ity of capsule 00:00: mouth at [place] 00 bedtime. Medical Branch 2020-0 Yes [id number] 1{tbl} Take 1 U nivers Vit 2-10 tablet by ity of 15-Iron-FA- 00:00: mouth [place] [facility] 90-1-50 00 daily. Medica l mg per Branch tablet diphenhydrA 2020-0 Yes [id number] 25mg Take 1 [facility] MINE 25 mg 2-10 capsule by ity of capsule 00:00: mouth at [place] 00 bedtime. Medical Branch 2020-0 Yes [id number] 1{tbl} Take 1 U nivers Vit 2-10 tablet by ity of 15-Iron-FA- 00:00: mouth [place] [facility] 90-1-50 00 daily. Medica l mg per Branch tablet 2019-0 Yes [id number] 1{tbl} Take 1 U nivers Vit 2-10 tablet by ity of 15-Iron-FA- 00:00: mouth [place] [facility] 90-1-50 00 daily. Medica l mg per Branch tablet 2020-0 Yes [id number] 1{tbl} Take 1 U nivers Vit 2-10 tablet by ity of 15-Iron-FA- 00:00: mouth [place] [facility] 90-1-50 00 daily. Medica l mg per Branch tablet 2020-0 Yes [id number] 1{tbl} Take 1 U nivers Vit 2-10 tablet by ity of 15-Iron-FA- 00:00: mouth [place] [facility] 90-1-50 00 daily. Medica l mg per Branch tablet 2020-0 Yes [id number] 1{tbl} Take 1 U nivers Vit 2-10 tablet by ity of 15-Iron-FA- 00:00: mouth [place] [facility] 90-1-50 00 daily. Medica l mg per Branch tablet 2020-0 Yes [id number] 1{tbl} Take 1 U nivers Vit 2-10 tablet by ity of 15-Iron-FA- 00:00: mouth [place] [facility] 90-1-50 00 daily. Medica l mg per Branch tablet 2020-0 Yes [id number] 1{tbl} Take 1 U nivers Vit 2-10 tablet by ity of 15-Iron-FA- 00:00: mouth [place] [facility] 90-1-50 00 daily. Medica l mg per Branch tablet 2020-0 Yes [id number] 1{tbl} Take 1 U nivers Vit 2-10 tablet by ity of 15-Iron-FA- 00:00: mouth [place] [facility] 90-1-50 00 daily. Medica l mg per Branch tablet 2020-0 Yes [id number] 1{tbl} Take 1 U nivers Vit 2-10 tablet by ity of 15-Iron-FA- 00:00: mouth [place] [facility] 90-1-50 00 daily. Medica l mg per Branch tablet 2020-0 Yes [id number] 1{tbl} Take 1 U nivers Vit 2-10 tablet by ity of 15-Iron-FA- 00:00: mouth [place] [facility] 90-1-50 00 daily. Medica l mg per Branch tablet 2020-0 Yes [id number] 1{tbl} Take 1 U nivers Vit 2-10 tablet by ity of 15-Iron-FA- 00:00: mouth [place] [facility] 90-1-50 00 daily. Medica l mg per Branch tablet 2020-0 Yes [id number] 1{tbl} Take 1 U nivers Vit 2-10 tablet by ity of 15-Iron-FA- 00:00: mouth [place] [facility] 90-1-50 00 daily. Medica l mg per Branch tablet 2020-0 Yes [id number] 1{tbl} Take 1 U nivers Vit 2-10 tablet by ity of 15-Iron-FA- 00:00: mouth [place] [facility] 90-1-50 00 daily. Medica l mg per Branch tablet 2020-0 Yes [id number] 1{tbl} Take 1 U nivers Vit 2-10 tablet by ity of 15-Iron-FA- 00:00: mouth [place] [facility] 90-1-50 00 daily. Medica l mg per Branch tablet 2020-0 Yes [id number] 1{tbl} Take 1 U nivers Vit 2-10 tablet by ity of 15-Iron-FA- 00:00: mouth [place] [facility] 90-1-50 00 daily. Medica l mg per Branch tablet 2020-0 Yes [id number] 1{tbl} Take 1 U nivers Vit 2-10 tablet by ity of 15-Iron-FA- 00:00: mouth [place] [facility] 90-1-50 00 daily. Medica l mg per Branch tablet 2020-0 Yes [id number] 1{tbl} Take 1 U nivers Vit 2-10 tablet by ity of 15-Iron-FA- 00:00: mouth [place] [facility] 90-1-50 00 daily. Medica l mg per Branch tablet 2020-0 Yes [id number] 1{tbl} Take 1 U nivers Vit 2-10 tablet by ity of 15-Iron-FA- 00:00: mouth [place] [facility] 90-1-50 00 daily. Medica l mg per Branch tablet 2019-0 Yes [id number] 1{tbl} Take 1 U nivers Vit 2-10 tablet by ity of 15-Iron-FA- 00:00: mouth [place] [facility] 90-1-50 00 daily. Medica l mg per Branch tablet 2019-0 Yes [id number] 1{tbl} Take 1 U nivers Vit 2-10 tablet by ity of 15-Iron-FA- 00:00: mouth [place] [facility] 90-150 daily. Medica l mg per Branch tablet 2019-0 Yes [id number] 1{tbl} Take 1 U nivers Vit 2-10 tablet by ity of 15-Iron-FA- 00:00: mouth [place] [facility] 90-1-50 00 daily. Medica l mg per Branch tablet 2019-0 Yes [id number] 1{tbl} Take 1 U nivers Vit 2-10 tablet by ity of 15-Iron-FA- 00:00: mouth [place] [facility] 90-1-50 00 daily. Medica l mg per Branch tablet 2020-0 Yes [id number] 1{tbl} Take 1 U nivers Vit 2-10 tablet by ity of 15-Iron-FA- 00:00: mouth [place] [facility] 90-1-50 00 daily. Medica l mg per Branch tablet 2020-0 Yes [id number] 1{tbl} Take 1 U nivers Vit 2-10 tablet by ity of 15-Iron-FA- 00:00: mouth [place] [facility] 90-1-50 00 daily. Medica l mg per Branch tablet 2020-0 Yes [id number] 1{tbl} Take 1 U nivers Vit 2-10 tablet by ity of 15-Iron-FA- 00:00: mouth [place] [facility] 90-1-50 00 daily. Medica l mg per Branch tablet 2020-0 Yes [id number] 1{tbl} Take 1 U nivers Vit 2-10 tablet by ity of 15-Iron-FA- 00:00: mouth [place] [facility] 90-1-50 00 daily. Medica l mg per Branch tablet 2020-0 Yes [id number] 1{tbl} Take 1 U nivers Vit 2-10 tablet by ity of 15-Iron-FA- 00:00: mouth [place] [facility] 90-1-50 00 daily. Medica l mg per Branch tablet 2020-0 Yes [id number] 1{tbl} Take 1 U nivers Vit 2-10 tablet by ity of 15-Iron-FA- 00:00: mouth [place] [facility] 90-1-50 00 daily. Medica l mg per Branch tablet 2019-0 Yes [id number] 1{tbl} Take 1 U nivers Vit 2-10 tablet by ity of 15-Iron-FA- 00:00: mouth [place] [facility] 90-1-50 00 daily. Medica l mg per Branch tablet 2019-0 Yes [id number] 1{tbl} Take 1 U nivers Vit 2-10 tablet by ity of 15-Iron-FA- 00:00: mouth [place] [facility] 90-1-50 00 daily. Medica l mg per Branch tablet 2019-0 Yes [id number] 1{tbl} Take 1 U nivers Vit 2-10 tablet by ity of 15-Iron-FA- 00:00: mouth [place] [facility] 90-1-50 00 daily. Medica l mg per Branch tablet 2020-0 Yes [id number] 1{tbl} Take 1 U nivers Vit 2-10 tablet by ity of 15-Iron-FA- 00:00: mouth [place] [facility] 90-1-50 00 daily. Medica l mg per Branch tablet 2020-0 Yes [id number] 1{tbl} Take 1 U nivers Vit 2-10 tablet by ity of 15-Iron-FA- 00:00: mouth [place] [facility] 90-1-50 00 daily. Medica l mg per Branch tablet 2020-0 Yes [id number] 1{tbl} Take 1 U nivers Vit 2-10 tablet by ity of 15-Iron-FA- 00:00: mouth [place] [facility] 90-1-50 00 daily. Medica l mg per Branch tablet 2020-0 Yes [id number] 1{tbl} Take 1 U nivers Vit 2-10 tablet by ity of 15-Iron-FA- 00:00: mouth [place] [facility] 90-1-50 00 daily. Medica l mg per Branch tablet 2020-0 Yes [id number] 1{tbl} Take 1 U nivers Vit 2-10 tablet by ity of 15-Iron-FA- 00:00: mouth [place] [facility] 90-1-50 00 daily. Medica l mg per Branch tablet 2020-0 Yes [id number] 1{tbl} Take 1 U nivers Vit 2-10 tablet by ity of 15-Iron-FA- 00:00: mouth [place] [facility] 90-1-50 00 daily. Medica l mg per Branch tablet 2019-0 Yes [id number] 1{tbl} Take 1 U nivers Vit 2-10 tablet by ity of 15-Iron-FA- 00:00: mouth [place] [facility] 90-1-50 00 daily. Medica l mg per Branch tablet 2020-0 Yes [id number] 1{tbl} Take 1 U nivers Vit 2-10 tablet by ity of 15-Iron-FA- 00:00: mouth [place] [facility] 90-1-50 00 daily. Medica l mg per Branch tablet 2020-0 Yes [id number] 1{tbl} Take 1 U nivers Vit 2-10 tablet by ity of 15-Iron-FA- 00:00: mouth [place] [facility] 90-1-50 00 daily. Medica l mg per Branch tablet 2020-0 Yes [id number] 1{tbl} Take 1 U nivers Vit 2-10 tablet by ity of 15-Iron-FA- 00:00: mouth [place] [facility] 90-1-50 00 daily. Medica l mg per Branch tablet 2020-0 Yes [id number] 1{tbl} Take 1 U nivers Vit 2-10 tablet by ity of 15-Iron-FA- 00:00: mouth [place] [facility] 90-1-50 00 daily. Medica l mg per Branch tablet 2020-0 Yes [id number] 1{tbl} Take 1 U nivers Vit 2-10 tablet by ity of 15-Iron-FA- 00:00: mouth [place] [facility] 90-1-50 00 daily. Medica l mg per Branch tablet 2020-0 Yes [id number] 1{tbl} Take 1 U nivers Vit 2-10 tablet by ity of 15-Iron-FA- 00:00: mouth [facility] 00 daily. Medica l mg per Branch tablet Yes [id number] 1{tbl} Take 1 U nivers Vit 2-10 tablet by ity of 15-Iron-FA- 00:00: mouth [facility] 00 daily. Medica l mg per Branch tablet Yes [id number] 1{tbl} Take 1 U nivers Vit 2-10 tablet by ity of 15-Iron-FA- 00:00: mouth [facility] 00 daily. Medica l mg per Branch tablet 2019- No [id number] 1{tbl} Take 1 [facility] Vit 2-10 09-15 tablet by ity of 15-Iron-FA- 00:00: 00:00 mouth [place] [facility] 00 :00 daily. Medica l mg per Branch tablet 2019- No [id number] 1{tbl} Take 1 [facility] Vit 2-10 09-15 tablet by ity of 15-Iron-FA- 00:00: 00:00 mouth [place] [facility] -[facility] [place] :00 daily. Medica l mg per Branch tablet 2019- No [id number] 1{tbl} Take 1 [facility] Vit 2-10 09-15 tablet by ity of 15-Iron-FA- 00:00: 00:00 mouth [place] [facility] 50 00 :00 daily. Medica l mg per Branch tablet diphenhydrA 2019- No [id number] 25mg Take 1 [facility] MINE 25 mg 2-10 03-25 capsule by it y of capsule 00:00: 00:00 mouth at [place] 00 :00 bedtime. Medical Branch acetaminoph 2019- No Take by Un tj en 1-30 01-30 mouth ity of (TYLENOL) 16:54: 00:00 every 6 [place] 325 mg 17 :00 (six) Medical tablet hours as Branch needed. norethindro Yes [id number] 1{tbl} Take 1 Univers ne-e.estrad 8-31 tablet by ity of iol-iron 00:00: mouth [place] 1.5 mg-30 00 daily. Medical mcg (21)/75 Branch mg (7) per tablet norethindro 2020- No [id number] 1{tbl} Take 1 Univers ne-e.estrad 10-29 tablet by it y of iol-iron 00:00: 00:00 mouth [place] 1.5 mg-30 00 :00 daily. Medical mcg (21)/75 Branch mg (7) per tablet acetaminoph Yes Take by Uni vers en 08-05 mouth ity of (TYLENOL) 23:54: every 6 [place] 325 mg 19 (six) Medical tablet hours as Branch needed. No known No [facility] medications [facility] No known No [facility] medications [facility] No known No [facility] medications [facility] No known No Univers medications [facility] Immunizations Ordered Immunization Filled Immunization Date Status Commen ts Source Name Name 2021-07-27 Completed [facility] 00:00:00 [facility] 2021-07-27 Completed [facility] 00:00:00 [facility] Td 2021-07-27 Completed [facility] 00:00:00 [facility] Td 2021-07-27 Completed [facility] 00:00:00 [facility] Td 2021-07-27 Completed [facility] 00:00:00 [facility] Td 2021-07-27 Completed [facility] 00:00:00 [facility] 2021-07-27 Completed [facility] 00:00:00 [facility] 2021-07-27 Completed [facility] of 00:00:00 [facility] Td 2021-07-27 Completed [facility] of 00:00:00 [facility] Td 2021-07-27 Completed [facility] of 00:00:00 [facility] Td 2021-07-27 Completed [facility] of 00:00:00 [facility] Td 2021-07-27 Completed [facility] of 00:00:00 [facility] Td 2021-07-27 Completed [facility] of 00:00:00 [facility] Td 2021-07-27 Completed [facility] of 00:00:00 [facility] Td 2021-07-27 Completed [facility] of 00:00:00 [facility] Td 2021-07-27 Completed [facility] of 00:00:00 [facility] Td 2021-07-27 Completed [facility] 00:00:00 [facility] Td 2021-07-27 Completed [facility] 00:00:00 [facility] Influenza Virus 2019-12-07 Completed [facility] y [facility] .5 mL IM 00:00:00 [facility] Influenza Virus 2019-12-07 Completed [facility] y [facility] .5 mL IM 00:00:00 [facility] Influenza Virus 2019-12-07 Completed [facility] .5 mL IM 00:00:00 [facility] Influenza Virus 2019-12-07 Completed [facility] .5 mL IM 00:00:00 [facility] Influenza Virus 2019-12-07 Completed [facility] .5 mL IM 00:00:00 [facility] Influenza Virus 2019-12-07 Completed [facility] .5 mL IM 00:00:00 [facility] Influenza Virus 2019-12-07 Completed [facility] .5 mL IM 00:00:00 [facility] Influenza Virus 2019-12-07 Completed [facility] .5 mL IM 00:00:00 [facility] Influenza Virus 2019-12-07 Completed [facility] .5 mL IM 00:00:00 [facility] Influenza Virus 2019-12-07 Completed [facility] .5 mL IM 00:00:00 [facility] Influenza Virus 2019-12-07 Completed [facility] .5 mL IM 00:00:00 [facility] Influenza Virus 2019-12-07 Completed [facility] y [facility] .5 mL IM 00:00:00 [facility] Influenza Virus 2019-12-07 Completed [facility] .5 mL IM 00:00:00 [facility] Influenza Virus 2019-12-07 Completed [facility] .5 mL IM 00:00:00 [facility] Influenza Virus 2019-12-07 Completed [facility] .5 mL IM 00:00:00 [facility] Influenza Virus 2019-12-07 Completed [facility] .5 mL IM 00:00:00 [facility] Influenza Virus 2019-12-07 Completed [facility] .5 mL IM 00:00:00 [facility] Influenza Virus 2019-12-07 Completed [facility] .5 mL IM 00:00:00 [facility] Influenza Virus 2019-12-07 Completed [facility] .5 mL IM 00:00:00 [facility] Influenza Virus 2019-12-07 Completed [facility] .5 mL IM 00:00:00 [facility] Influenza Virus 2019-12-07 Completed [facility] .5 mL IM 00:00:00 [facility] Influenza Virus 2019-12-07 Completed [facility] .5 mL IM 00:00:00 [facility] Influenza Virus 2019-12-07 Completed [facility] .5 mL IM 00:00:00 [facility] Influenza Virus 2019-12-07 Completed [facility] .5 mL IM 00:00:00 [facility] Influenza Virus 2019-12-07 Completed [facility] .5 mL IM 00:00:00 [facility] Influenza Virus 2019-12-07 Completed [facility] .5 mL IM 00:00:00 [facility] Influenza Virus 2019-12-07 Completed [facility] .5 mL IM 00:00:00 [facility] Influenza Virus 2019-12-07 Completed [facility] .5 mL IM 00:00:00 [facility] Influenza Virus 2019-12-07 Completed [facility] .5 mL IM 00:00:00 [facility] Influenza Virus 2019-12-07 Completed [facility] y [facility] .5 mL IM 00:00:00 [facility] Influenza Virus 2019-12-07 Completed [facility] .5 mL IM 00:00:00 [facility] Influenza Virus 2019-12-07 Completed [facility] .5 mL IM 00:00:00 [facility] Influenza Virus 2019-12-07 Completed [facility] .5 mL IM 00:00:00 [facility] Influenza Virus 2019-12-07 Completed [facility] y [facility] .5 mL IM 00:00:00 [facility] Influenza Virus 2019-12-07 Completed [facility] y [facility] .5 mL IM 00:00:00 [facility] Influenza Virus 2019-12-07 Completed [facility] .5 mL IM 00:00:00 [facility] TDAP 2019-09-04 Completed [facility] 00:00:00 [facility] TDAP 2019-09-04 Completed [facility] of 00:00:00 [facility] TDAP 2019-09-04 Completed [facility] of 00:00:00 [facility] TDAP 2019-09-04 Completed [facility] of 00:00:00 [facility] TDAP 2019-09-04 Completed [facility] of 00:00:00 [facility] TDAP 2019-09-04 Completed [facility] of 00:00:00 [facility] TDAP 2019-09-04 Completed [facility] of 00:00:00 [facility] TDAP 2019-09-04 Completed [facility] of 00:00:00 [facility] TDAP 2019-09-04 Completed [facility] of 00:00:00 [facility] TDAP 2019-09-04 Completed [facility] of 00:00:00 [facility] TDAP 2019-09-04 Completed [facility] of 00:00:00 [facility] TDAP 2019-09-04 Completed [facility] of 00:00:00 [facility] TDAP 2019-09-04 Completed [facility] of 00:00:00 [facility] TDAP 2019-09-04 Completed [facility] of 00:00:00 [facility] TDAP 2019-09-04 Completed [facility] of 00:00:00 [facility] TDAP 2019-09-04 Completed [facility] of 00:00:00 [facility] TDAP 2019-09-04 Completed [facility] of 00:00:00 [facility] TDAP 2019-09-04 Completed [facility] of 00:00:00 [facility] TDAP 2019-09-04 Completed [facility] of 00:00:00 [facility] TDAP 2019-09-04 Completed [facility] of 00:00:00 [facility] TDAP 2019-09-04 Completed [facility] of 00:00:00 [facility] TDAP 2019-09-04 Completed [facility] of 00:00:00 [facility] TDAP 2019-09-04 Completed [facility] of 00:00:00 [facility] TDAP 2019-09-04 Completed [facility] 00:00:00 [facility] TDAP 2019-09-04 Completed [facility] 00:00:00 [facility] TDAP 2019-09-04 Completed [facility] of 00:00:00 [facility] TDAP 2019-09-04 Completed [facility] 00:00:00 [facility] TDAP 2019-09-04 Completed [facility] 00:00:00 [facility] TDAP 2019-09-04 Completed [facility] of 00:00:00 [facility] TDAP 2019-09-04 Completed [facility] of 00:00:00 [facility] TDAP 2019-09-04 Completed [facility] of 00:00:00 [facility] TDAP 2019-09-04 Completed [facility] of 00:00:00 [facility] TDAP 2019-09-04 Completed [facility] of 00:00:00 [facility] TDAP 2019-09-04 Completed [facility] of 00:00:00 [facility] TDAP 2019-09-04 Completed [facility] of 00:00:00 [facility] TDAP 2019-09-04 Completed [facility] of 00:00:00 [facility] TDAP 2019-09-04 Completed [facility] of 00:00:00 [facility] TDAP 2019-09-04 Completed [facility] of 00:00:00 [facility] TDAP 2019-09-04 Completed [facility] of 00:00:00 [facility] TDAP 2019-09-04 Completed [facility] of 00:00:00 [facility] TDAP 2019-09-04 Completed [facility] of 00:00:00 [facility] TDAP 2019-09-04 Completed [facility] of 00:00:00 [facility] TDAP 2019-09-04 Completed [facility] of 00:00:00 [facility] TDAP 2019-09-04 Completed [facility] of 00:00:00 [facility] TDAP 2019-09-04 Completed [facility] 00:00:00 [facility] TDAP 2019-09-04 Completed [facility] 00:00:00 [facility] TDAP 2019-09-04 Completed [facility] 00:00:00 [facility] TDAP 2019-09-04 Completed [facility] of 00:00:00 [facility] TDAP 2019-09-04 Completed [facility] of 00:00:00 [facility] TDAP 2019-09-04 Completed [facility] 00:00:00 [facility] TDAP 2019-09-04 Completed [facility] 00:00:00 [facility] TDAP 2019-09-04 Completed [facility] 00:00:00 [facility] TDAP 2019-09-04 Completed [facility] 00:00:00 [facility] TDAP 2019-09-04 Completed [facility] 00:00:00 [facility] TDAP 2019-09-04 Completed [facility] 00:00:00 [facility] TDAP 2019-09-04 Completed [facility] 00:00:00 [facility] TDAP 2019-09-04 Completed [facility] 00:00:00 [facility] TDAP 2019-09-04 Completed [facility] 00:00:00 [facility] TDAP 2019-09-04 Completed [facility] 00:00:00 [facility] TDAP 2019-09-04 Completed [facility] 00:00:00 [facility] TDAP 2019-09-04 Completed [facility] 00:00:00 [facility] TDAP 2019-09-04 Completed [facility] 00:00:00 [facility] TDAP 2019-09-04 Completed [facility] 00:00:00 [facility] TDAP 2019-09-04 Completed [facility] 00:00:00 [facility] TDAP 2016-05-06 Completed [facility] 00:00:00 [facility] TDAP 2016-05-06 Completed [facility] 00:00:00 [facility] Tdap 2016-05-06 Completed [facility] 00:00:00 [facility] TDAP 2016-05-06 Completed [facility] 00:00:00 [facility] TDAP 2016-05-06 Completed [facility] 00:00:00 [facility] TDAP 2016-05-06 Completed [facility] 00:00:00 [facility] TDAP 2016-05-06 Completed [facility] 00:00:00 [facility] TDAP 2016-05-06 Completed [facility] 00:00:00 [facility] TDAP 2016-05-06 Completed [facility] 00:00:00 [facility] Tdap 2016-05-06 Completed [facility] 00:00:00 [facility] TDAP 2016-05-06 Completed [facility] 00:00:00 [facility] TDAP 2016-05-06 Completed [facility] 00:00:00 [facility] TDAP 2016-05-06 Completed [facility] 00:00:00 [facility] Tdap 2016-05-06 Completed [facility] 00:00:00 [facility] TDAP 2016-05-06 Completed [facility] 00:00:00 [facility] TDAP 2016-05-06 Completed [facility] 00:00:00 [facility] TDAP 2016-05-06 Completed [facility] 00:00:00 [facility] TDAP 2016-05-06 Completed [facility] 00:00:00 [facility] TDAP 2016-05-06 Completed [facility] 00:00:00 [facility] TDAP 2016-05-06 Completed [facility] 00:00:00 [facility] TDAP 2016-05-06 Completed [facility] 00:00:00 [facility] TDAP 2016-05-06 Completed [facility] 00:00:00 [facility] TDAP 2016-05-06 Completed [facility] 00:00:00 [facility] Tdap 2016-05-06 Completed [facility] 00:00:00 [facility] TDAP 2016-05-06 Completed [facility] 00:00:00 [facility] TDAP 2016-05-06 Completed [facility] 00:00:00 [facility] TDAP 2016-05-06 Completed [facility] 00:00:00 [facility] TDAP 2016-05-06 Completed [facility] 00:00:00 [facility] TDAP 2016-05-06 Completed [facility] 00:00:00 [facility] TDAP 2016-05-06 Completed [facility] 00:00:00 [facility] Tdap 2016-05-06 Completed [facility] 00:00:00 [facility] TDAP 2016-05-06 Completed [facility] 00:00:00 [facility] TDAP 2016-05-06 Completed [facility] 00:00:00 [facility] TDAP 2016-05-06 Completed [facility] 00:00:00 [facility] Tdap 2016-05-06 Completed [facility] 00:00:00 [facility] TDAP 2016-05-06 Completed [facility] 00:00:00 [facility] TDAP 2016-05-06 Completed [facility] 00:00:00 [facility] TDAP 2016-05-06 Completed [facility] 00:00:00 [facility] TDAP 2016-05-06 Completed [facility] 00:00:00 [facility] TDAP 2016-05-06 Completed [facility] 00:00:00 [facility] TDAP 2016-05-06 Completed [facility] 00:00:00 [facility] Tdap 2016-05-06 Completed [facility] 00:00:00 [facility] TDAP 2016-05-06 Completed [facility] 00:00:00 [facility] TDAP 2016-05-06 Completed [facility] 00:00:00 [facility] TDAP 2016-05-06 Completed [facility] 00:00:00 [facility] TDAP 2016-05-06 Completed [facility] 00:00:00 [facility] TDAP 2016-05-06 Completed [facility] 00:00:00 [facility] TDAP 2016-05-06 Completed [facility] 00:00:00 [facility] TDAP 2016-05-06 Completed [facility] 00:00:00 [facility] TDAP 2016-05-06 Completed [facility] 00:00:00 [facility] TDAP 2016-05-06 Completed [facility] 00:00:00 [facility] TDAP 2016-05-06 Completed [facility] 00:00:00 [facility] TDAP 2016-05-06 Completed [facility] 00:00:00 [facility] TDAP 2016-05-06 Completed [facility] 00:00:00 [facility] Tdap 2016-05-06 Completed [facility] 00:00:00 [facility] TDAP 2016-05-06 Completed [facility] 00:00:00 [facility] Tdap 2016-05-06 Completed [facility] 00:00:00 [facility] Tdap 2016-05-06 Completed [facility] 00:00:00 [facility] Tdap 2016-05-06 Completed [facility] 00:00:00 [facility] Tdap 2016-05-06 Completed [facility] 00:00:00 [facility] Tdap 2016-05-06 Completed [facility] 00:00:00 [facility] Tdap 2016-05-06 Completed [facility] 00:00:00 [facility] Tdap 2016-05-06 Completed [facility] 00:00:00 [facility] Tdap 2016-05-06 Completed [facility] 00:00:00 [facility] Tdap 2016-05-06 Completed [facility] 00:00:00 [facility] Tdap 2016-05-06 Completed [facility] 00:00:00 [facility] Tdap 2016-05-06 Completed [facility] 00:00:00 [facility] Tdap 2016-05-06 Completed [facility] 00:00:00 [facility] Tdap 2016-05-06 Completed [facility] 00:00:00 [facility] Tdap 2016-05-06 Completed [facility] 00:00:00 [facility] Tdap 2016-05-06 Completed [facility] 00:00:00 [facility] Tdap 2016-05-06 Completed [facility] 00:00:00 [facility] Tdap 2016-05-06 Completed [facility] 00:00:00 [facility] Tdap 2016-05-06 Completed [facility] 00:00:00 [facility] Tdap 2016-05-06 Completed [facility] 00:00:00 [facility] Tdap 2016-05-06 Completed [facility] 00:00:00 [facility] Tdap 2016-05-06 Completed [facility] 00:00:00 [facility] Tdap 2016-05-06 Completed [facility] 00:00:00 [facility] Tdap 2016-05-06 Completed [facility] 00:00:00 [facility] Tdap 2016-05-06 Completed [facility] 00:00:00 [facility] Tdap 2016-05-06 Completed [facility] 00:00:00 [facility] Tdap 2016-05-06 Completed [facility] 00:00:00 [facility] Tdap 2016-05-06 Completed [facility] 00:00:00 [facility] Tdap 2016-05-06 Completed [facility] 00:00:00 [facility] Tdap 2016-05-06 Completed [facility] 00:00:00 [facility] TDAP 2016-05-06 Completed [facility] 00:00:00 [facility] TDAP 2016-05-06 Completed [facility] 00:00:00 [facility] TDAP 2016-05-06 Completed [facility] 00:00:00 [facility] TDAP 2016-05-06 Completed [facility] 00:00:00 [facility] TDAP 2016-05-06 Completed [facility] 00:00:00 [facility] TDAP 2016-05-06 Completed [facility] 00:00:00 [facility] TDAP 2016-05-06 Completed [facility] 00:00:00 [facility] TDAP 2016-05-06 Completed [facility] 00:00:00 [facility] Tdap 2016-05-06 Completed [facility] 00:00:00 [facility] TDAP 2016-05-06 Completed [facility] 00:00:00 [facility] TDAP 2016-05-06 Completed [facility] 00:00:00 [facility] TDAP 2016-05-06 Completed [facility] 00:00:00 [facility] TDAP 2016-05-06 Completed [facility] 00:00:00 [facility] TDAP 2016-05-06 Completed [facility] 00:00:00 [facility] TDAP 2016-05-06 Completed [facility] 00:00:00 [facility] TDAP 2016-05-06 Completed [facility] of 00:00:00 [facility] TDAP 2016-05-06 Completed [facility] 00:00:00 [facility] Tdap 2016-05-06 Completed [facility] of 00:00:00 [facility] TDAP 2016-05-06 Completed [facility] of 00:00:00 [facility] TDAP 2016-05-06 Completed [facility] of 00:00:00 [facility] TDAP 2016-05-06 Completed [facility] 00:00:00 [facility] TDAP 2016-05-06 Completed [facility] of 00:00:00 [facility] TDAP 2016-05-06 Completed [facility] of 00:00:00 [facility] Tdap 2016-05-06 Completed [facility] of 00:00:00 [facility] TDAP 2016-05-06 Completed [facility] of 00:00:00 [facility] Influenza Virus 2015-12-24 Completed [facility] y [facility] IM 3+ 00:00:00 [facility] Influenza Virus 2015-12-24 Completed [facility] y of Vaccine [facility] IM 3+ 00:00:00 [facility] Influenza Virus 2015-12-24 Completed [facility] y of [facility] IM 3+ 00:00:00 [facility] Influenza Virus 2015-12-24 Completed [facility] y of [facility] IM 3+ 00:00:00 [facility] Influenza Virus 2015-12-24 Completed [facility] y of [facility] IM 3+ 00:00:00 [facility] Influenza Virus 2015-12-24 Completed [facility] y of [facility] IM 3+ 00:00:00 [facility] Influenza Virus 2015-12-24 Completed [facility] y of [facility] IM 3+ 00:00:00 [facility] Influenza Virus 2015-12-24 Completed [facility] y of Vaccine [facility] IM 3+ 00:00:00 [facility] Influenza Virus 2015-12-24 Completed [facility] y of [facility] IM 3+ 00:00:00 [facility] Influenza Virus 2015-12-24 Completed [facility] y of [facility]ine Quad IM 3+ 00:00:00 [facility] Influenza Virus 2015-12-24 Completed [facility] y of [facility] IM 3+ 00:00:00 [facility] Influenza Virus 2015-12-24 Completed [facility] y of [facility] IM 3+ 00:00:00 [facility] Influenza Virus 2015-12-24 Completed [facility] y of [facility] IM 3+ 00:00:00 [facility] Influenza Virus 2015-12-24 Completed [facility] y of [facility]ine [facility] IM 3+ 00:00:00 [facility] Influenza Virus 2015-12-24 Completed [facility] y of [facility] IM 3+ 00:00:00 [facility] Influenza Virus 2015-12-24 Completed [facility] y of [facility] IM 3+ 00:00:00 [facility] Influenza Virus 2015-12-24 Completed [facility] y of [facility] IM 3+ 00:00:00 [facility] Influenza Virus 2015-12-24 Completed [facility] y of [facility] IM 3+ 00:00:00 [facility] Influenza Virus 2015-12-24 Completed [facility] y of [facility] IM 3+ 00:00:00 [facility] Influenza Virus 2015-12-24 Completed [facility] y of [facility] IM 3+ 00:00:00 [facility] Influenza Virus 2015-12-24 Completed [facility] y of [facility] IM 3+ 00:00:00 [facility] Influenza Virus 2015-12-24 Completed [facility] y of [facility] IM 3+ 00:00:00 [facility] Influenza Virus 2015-12-24 Completed [facility] y of [facility] IM 3+ 00:00:00 [facility] Influenza Virus 2015-12-24 Completed [facility] y of [facility] IM 3+ 00:00:00 [facility] Influenza Virus 2015-12-24 Completed [facility] y of [facility] IM 3+ 00:00:00 [facility] Influenza Virus 2015-12-24 Completed [facility] y of [facility] IM 3+ 00:00:00 [facility] Influenza Virus 2015-12-24 Completed [facility] y of [facility] IM 3+ 00:00:00 [facility] Influenza Virus 2015-12-24 Completed [facility] y of [facility] IM 3+ 00:00:00 [facility] Influenza Virus 2015-12-24 Completed [facility] y of [facility] IM 3+ 00:00:00 [facility] Influenza Virus 2015-12-24 Completed [facility] y of [facility] IM 3+ 00:00:00 [facility] Influenza Virus 2015-12-24 Completed [facility] y of [facility] IM 3+ 00:00:00 [facility] Influenza Virus 2015-12-24 Completed [facility] y of [facility] IM 3+ 00:00:00 [facility] Influenza Virus 2015-12-24 Completed [facility] y of [facility] IM 3+ 00:00:00 [facility] Influenza Virus 2015-12-24 Completed [facility] y of [facility] IM 3+ 00:00:00 [facility] Influenza Virus 2015-12-24 Completed [facility] y of [facility] IM 3+ 00:00:00 [facility] Influenza Virus 2015-12-24 Completed [facility] y of [facility] IM 3+ 00:00:00 [facility] Influenza Virus 2015-12-24 Completed [facility] y of [facility] IM 3+ 00:00:00 [facility] Influenza Virus 2015-12-24 Completed [facility] y of [facility] IM 3+ 00:00:00 [facility] Influenza Virus 2015-12-24 Completed [facility] y of [facility] IM 3+ 00:00:00 [facility] Influenza Virus 2015-12-24 Completed [facility] y of [facility] IM 3+ 00:00:00 [facility] Influenza Virus 2015-12-24 Completed [facility] of [facility] IM 3+ 00:00:00 [facility] Influenza Virus 2015-12-24 Completed [facility] y of [facility] IM 3+ 00:00:00 [facility] Influenza Virus 2015-12-24 Completed [facility] y of [facility] IM 3+ 00:00:00 [facility] Influenza Virus 2015-12-24 Completed [facility] of [facility] IM 3+ 00:00:00 [facility] Influenza Virus 2015-12-24 Completed [facility] of [facility] IM 3+ 00:00:00 [facility] Influenza Virus 2015-12-24 Completed [facility] IM 3+ 00:00:00 [facility] Influenza Virus 2015-12-24 Completed [facility] of [facility] IM 3+ 00:00:00 [facility] Influenza Virus 2015-12-24 Completed [facility] of [facility] IM 3+ 00:00:00 [facility] Influenza Virus 2015-12-24 Completed [facility] of [facility] IM 3+ 00:00:00 [facility] Influenza Virus 2015-12-24 Completed [facility] IM 3+ 00:00:00 [facility] [facility] Influenza Virus 2015-12-24 Completed [facility] 3+ 00:00:00 [facility] Influenza Virus 2015-12-24 Completed [facility] IM 3+ 00:00:00 [facility] Influenza Virus 2015-12-24 Completed [facility] IM 3+ 00:00:00 [facility] Influenza Virus 2015-12-24 Completed [facility]ine [facility] IM 3+ 00:00:00 [facility] Influenza Virus 2015-12-24 Completed [facility]ine [facility] IM 3+ 00:00:00 [facility] Influenza Virus 2015-12-24 Completed [facility] Vaccine [facility] IM 3+ 00:00:00 [facility] Influenza Virus 2015-12-24 Completed [facility] IM 3+ 00:00:00 [facility] Influenza Virus 2015-12-24 Completed [facility] Vaccine [facility] IM 3+ 00:00:00 [facility] Influenza Virus 2015-12-24 Completed [facility] Vaccine [facility] IM 3+ 00:00:00 [facility] Influenza Virus 2015-12-24 Completed [facility] Vaccine Quad IM 3+ 00:00:00 [facility] Influenza Virus 2015-12-24 Completed [facility] Vaccine Quad IM 3+ 00:00:00 [facility] Influenza Virus 2015-12-24 Completed [facility] Vaccine Quad IM 3+ 00:00:00 [facility] Influenza Virus 2015-12-24 Completed [facility] Vaccine Quad IM 3+ 00:00:00 [facility] Influenza Virus 2015-12-24 Completed [facility] Vaccine Quad IM 3+ 00:00:00 [facility] Influenza Virus 2015-12-24 Completed [facility] Vaccine [facility] IM 3+ 00:00:00 [facility] Influenza Virus 2015-12-24 Completed [facility] Vaccine Quad IM 3+ 00:00:00 [facility] Influenza Virus 2015-12-24 Completed [facility] Vaccine [facility] IM 3+ 00:00:00 [facility] Influenza Virus 2015-12-24 Completed [facility] Vaccine Quad IM 3+ 00:00:00 [facility] Influenza Virus 2015-12-24 Completed [facility] Vaccine [facility] IM 3+ 00:00:00 [facility] Influenza Virus 2015-12-24 Completed [facility] Vaccine [facility] IM 3+ 00:00:00 [facility] Influenza Virus 2015-12-24 Completed [facility] Vaccine [facility] IM 3+ 00:00:00 [facility] Influenza Virus 2015-12-24 Completed [facility] Vaccine [facility] IM 3+ 00:00:00 [facility] Influenza Virus 2015-12-24 Completed [facility] Vaccine [facility] IM 3+ 00:00:00 [facility] Influenza Virus 2015-12-24 Completed [facility] Vaccine [facility] IM 3+ 00:00:00 [facility] Influenza Virus 2015-12-24 Completed [facility] Vaccine [facility] IM 3+ 00:00:00 [facility] Influenza Virus 2015-12-24 Completed [facility] Vaccine [facility] IM 3+ 00:00:00 [facility] Influenza Virus 2015-12-24 Completed [facility] Vaccine [facility] IM 3+ 00:00:00 [facility] Influenza Virus 2015-12-24 Completed [facility] Vaccine [facility] IM 3+ 00:00:00 [facility] Influenza Virus 2015-12-24 Completed [facility] Vaccine Quad IM 3+ 00:00:00 [facility] Influenza Virus 2015-12-24 Completed [facility] Vaccine [facility] IM 3+ 00:00:00 [facility] Influenza Virus 2015-12-24 Completed [facility] Vaccine [facility] IM 3+ 00:00:00 [facility] Influenza Virus 2015-12-24 Completed [facility] Vaccine [facility] IM 3+ 00:00:00 [facility] Influenza Virus 2015-12-24 Completed [facility] Vaccine [facility] IM 3+ 00:00:00 [facility] Influenza Virus 2015-12-24 Completed [facility] Vaccine Quad IM 3+ 00:00:00 [facility] Influenza Virus 2015-12-24 Completed [facility] Vaccine [facility] IM 3+ 00:00:00 [facility] Influenza Virus 2015-12-24 Completed [facility] Vaccine [facility] IM 3+ 00:00:00 [facility] Influenza Virus 2015-12-24 Completed [facility] Vaccine [facility] IM 3+ 00:00:00 [facility] Influenza Virus 2015-12-24 Completed [facility] Vaccine [facility] IM 3+ 00:00:00 [facility] Influenza Virus 2015-12-24 Completed [facility] Vaccine [facility] IM 3+ 00:00:00 [facility] Influenza Virus 2015-12-24 Completed [facility] Vaccine [facility] IM 3+ 00:00:00 [facility] Influenza Virus 2015-12-24 Completed [facility] Vaccine [facility] IM 3+ 00:00:00 [facility] Influenza Virus 2015-12-24 Completed [facility] Vaccine [facility] IM 3+ 00:00:00 [facility] Influenza Virus 2015-12-24 Completed [facility] Vaccine [facility] IM 3+ 00:00:00 [facility] Influenza Virus 2015-12-24 Completed [facility] Vaccine [facility] IM 3+ 00:00:00 [facility] Influenza Virus 2015-12-24 Completed [facility] Vaccine Quad IM 3+ 00:00:00 [facility] Influenza Virus 2015-12-24 Completed [facility] Vaccine Quad IM 3+ 00:00:00 [facility] Influenza Virus 2015-12-24 Completed [facility] Vaccine Quad IM 3+ 00:00:00 [facility] Influenza Virus 2015-12-24 Completed [facility] Vaccine [facility] IM 3+ 00:00:00 [facility] Influenza Virus 2015-12-24 Completed [facility] Vaccine [facility] IM 3+ 00:00:00 [facility] Influenza Virus 2015-12-24 Completed [facility] Vaccine [facility] IM 3+ 00:00:00 [facility] Influenza Virus 2015-12-24 Completed [facility] Vaccine [facility] IM 3+ 00:00:00 [facility] Influenza Virus 2015-12-24 Completed [facility] Vaccine [facility] IM 3+ 00:00:00 [facility] Influenza Virus 2015-12-24 Completed [facility] Vaccine [facility] IM 3+ 00:00:00 [facility] Influenza Virus 2015-12-24 Completed [facility] Vaccine [facility] IM 3+ 00:00:00 [facility] Influenza Virus 2015-12-24 Completed [facility] Vaccine [facility] IM 3+ 00:00:00 [facility] Influenza Virus 2015-12-24 Completed [facility] Vaccine [facility] IM 3+ 00:00:00 [facility] Influenza Virus 2015-12-24 Completed [facility] Vaccine [facility] IM 3+ 00:00:00 [facility] Influenza Virus 2015-12-24 Completed [facility] Vaccine [facility] IM 3+ 00:00:00 [facility] Influenza Virus 2015-12-24 Completed [facility] Vaccine [facility] IM 3+ 00:00:00 [facility] Influenza Virus 2015-12-24 Completed [facility] Vaccine [facility] IM 3+ 00:00:00 [facility] Meningococcal 2012-07-29 Completed [facility] 00:[facility]:00 [facility]groups A, C, Y and Branc h W-135) conjugate vaccine (MCV4P) Meningococcal 2012-07-29 Completed [facility] Polysaccharide 00:00:00 [facility] (groups A, C, Y and Branc h W-135) conjugate vaccine (MCV4P) Meningococcal 2012-07-29 Completed [facility] Polysaccharide 00:00:00 [facility] (groups A, C, Y and Branc h W-135) conjugate vaccine (MCV4P) Meningococcal 2012-07-29 Completed [facility] Polysaccharide 00:00:00 [facility] (groups A, C, Y and Branc h W-135) conjugate vaccine (MCV4P) Meningococcal 2012-07-29 Completed [facility] Polysaccharide 00:00:00 [facility] (groups A, C, Y and Branc h W-135) conjugate vaccine (MCV4P) Meningococcal 2012-07-29 Completed [facility] Polysaccharide 00:00:00 [facility] (groups A, C, Y and Branc h W-135) conjugate vaccine (MCV4P) Meningococcal 2012-07-29 Completed [facility] Polysaccharide 00:00:00 [facility] (groups A, C, Y and Branc h W-135) conjugate vaccine (MCV4P) Meningococcal 2012-07-29 Completed [facility] Polysaccharide 00:00:00 [facility] (groups A, C, Y and Branc h W-135) conjugate vaccine (MCV4P) Meningococcal 2012-07-29 Completed [facility] Polysaccharide 00:00:00 [facility] (groups A, C, Y and Branc h W-135) conjugate vaccine (MCV4P) Meningococcal 2012-07-29 Completed [facility] Polysaccharide 00:00:00 [facility] (groups A, C, Y and Branc h W-135) conjugate vaccine (MCV4P) Meningococcal 2012-07-29 Completed [facility] Polysaccharide 00:00:00 [facility] (groups A, C, Y and Branc h W-135) conjugate vaccine (MCV4P) Meningococcal 2012-07-29 Completed [facility] Polysaccharide 00:00:00 [facility] (groups A, C, Y and Branc h W-135) conjugate vaccine (MCV4P) Meningococcal 2012-07-29 Completed [facility] Polysaccharide 00:00:00 [facility] (groups A, C, Y and Branc h W-135) conjugate vaccine (MCV4P) Meningococcal 2012-07-29 Completed [facility] Polysaccharide 00:00:00 [facility] (groups A, C, Y and Branc h W-135) conjugate vaccine (MCV4P) Meningococcal 2012-07-29 Completed [facility] Polysaccharide 00:00:00 [facility] (groups A, C, Y and Branc h W-135) conjugate vaccine (MCV4P) Meningococcal 2012-07-29 Completed [facility] Polysaccharide 00:00:00 [facility] (groups A, C, Y and Branc h W-135) conjugate vaccine (MCV4P) Meningococcal 2012-07-29 Completed [facility] Polysaccharide 00:00:00 [facility] (groups A, C, Y and Branc h W-135) conjugate vaccine (MCV4P) Meningococcal 2012-07-29 Completed [facility] Polysaccharide 00:00:00 [facility] (groups A, C, Y and Branc h W-135) conjugate vaccine (MCV4P) Meningococcal 2012-07-29 Completed [facility] Polysaccharide 00:00:00 [facility] (groups A, C, Y and Branc h W-135) conjugate vaccine (MCV4P) Meningococcal 2012-07-29 Completed [facility] Polysaccharide 00:00:00 [facility] (groups A, C, Y and Branc h W-135) conjugate vaccine (MCV4P) Meningococcal 2012-07-29 Completed [facility] Polysaccharide 00:00:00 [facility] (groups A, C, Y and Branc h W-135) conjugate vaccine (MCV4P) Meningococcal 2012-07-29 Completed [facility] Polysaccharide 00:00:00 [facility] (groups A, C, Y and Branc h W-135) conjugate vaccine (MCV4P) Meningococcal 2012-07-29 Completed [facility] Polysaccharide 00:00:00 [facility] (groups A, C, Y and Branc h W-135) conjugate vaccine (MCV4P) Meningococcal 2012-07-29 Completed [facility] Polysaccharide 00:00:00 [facility] (groups A, C, Y and Branc h W-135) conjugate vaccine (MCV4P) Meningococcal 2012-07-29 Completed [facility] Polysaccharide 00:00:00 [facility] (groups A, C, Y and Branc h W-135) conjugate vaccine (MCV4P) Meningococcal 2012-07-29 Completed [facility] Polysaccharide 00:00:00 [facility] (groups A, C, Y and Branc h W-135) conjugate vaccine (MCV4P) Meningococcal 2012-07-29 Completed [facility] Polysaccharide 00:00:00 [facility] (groups A, C, Y and Branc h W-135) conjugate vaccine (MCV4P) Meningococcal 2012-07-29 Completed [facility] Polysaccharide 00:00:00 [facility] (groups A, C, Y and Branc h W-135) conjugate vaccine (MCV4P) Meningococcal 2012-07-29 Completed [facility] Polysaccharide 00:00:00 [facility] (groups A, C, Y and Branc h W-135) conjugate vaccine (MCV4P) Meningococcal 2012-07-29 Completed [facility] Polysaccharide 00:00:00 [facility] (groups A, C, Y and Branc h W-135) conjugate vaccine (MCV4P) Meningococcal 2012-07-29 Completed [facility] Polysaccharide 00:00:00 [facility] (groups A, C, Y and Branc h W-135) conjugate vaccine (MCV4P) Meningococcal 2012-07-29 Completed [facility] Polysaccharide 00:00:00 [facility] (groups A, C, Y and Branc h W-135) conjugate vaccine (MCV4P) Meningococcal 2012-07-29 Completed [facility] Polysaccharide 00:00:00 [facility] (groups A, C, Y and Branc h W-135) conjugate vaccine (MCV4P) Meningococcal 2012-07-29 Completed [facility] Polysaccharide 00:00:00 [facility] (groups A, C, Y and Branc h W-135) conjugate vaccine (MCV4P) Meningococcal 2012-07-29 Completed [facility] Polysaccharide 00:00:00 [facility] (groups A, C, Y and Branc h W-135) conjugate vaccine (MCV4P) Meningococcal 2012-07-29 Completed [facility] Polysaccharide 00:00:00 [facility] (groups A, C, Y and Branc h W-135) conjugate vaccine (MCV4P) Meningococcal 2012-07-29 Completed [facility] Polysaccharide 00:00:00 [facility] (groups A, C, Y and Branc h W-135) conjugate vaccine (MCV4P) Meningococcal 2012-07-29 Completed [facility] Polysaccharide 00:00:00 [facility] (groups A, C, Y and Branc h W-135) conjugate vaccine (MCV4P) Meningococcal 2012-07-29 Completed [facility] Polysaccharide 00:00:00 [facility] (groups A, C, Y and Branc h W-135) conjugate vaccine (MCV4P) Meningococcal 2012-07-29 Completed [facility] Polysaccharide 00:00:00 [facility] (groups A, C, Y and Branc h W-135) conjugate vaccine (MCV4P) Meningococcal 2012-07-29 Completed [facility] Polysaccharide 00:00:00 [facility] (groups A, C, Y and Branc h W-135) conjugate vaccine (MCV4P) Meningococcal 2012-07-29 Completed [facility] Polysaccharide 00:00:00 [facility] (groups A, C, Y and Branc h W-135) conjugate vaccine (MCV4P) Meningococcal 2012-07-29 Completed [facility] Polysaccharide 00:00:00 [facility] (groups A, C, Y and Branc h W-135) conjugate vaccine (MCV4P) Meningococcal 2012-07-29 Completed [facility] Polysaccharide 00:00:00 [facility] (groups A, C, Y and Branc h W-135) conjugate vaccine (MCV4P) Meningococcal 2012-07-29 Completed [facility] Polysaccharide 00:00:00 [facility] (groups A, C, Y and Branc h W-135) conjugate vaccine (MCV4P) Meningococcal 2012-07-29 Completed [facility] Polysaccharide 00:00:00 [facility] (groups A, C, Y and Branc h W-135) conjugate vaccine (MCV4P) Meningococcal 2012-07-29 Completed [facility] Polysaccharide 00:00:00 [facility] (groups A, C, Y and Branc h W-135) conjugate vaccine (MCV4P) Meningococcal 2012-07-29 Completed [facility] Polysaccharide 00:00:00 [facility] (groups A, C, Y and Branc h W-135) conjugate vaccine (MCV4P) Meningococcal 2012-07-29 Completed [facility] Polysaccharide 00:00:00 [facility] (groups A, C, Y and Branc h W-135) conjugate vaccine (MCV4P) Meningococcal 2012-07-29 Completed [facility] Polysaccharide 00:00:00 [facility] (groups A, C, Y and Branc h W-135) conjugate vaccine (MCV4P) Meningococcal 2012-07-29 Completed [facility] Polysaccharide 00:00:00 [facility] (groups A, C, Y and Branc h W-135) conjugate vaccine (MCV4P) Meningococcal 2012-07-29 Completed [facility] Polysaccharide 00:00:00 [facility] (groups A, C, Y and Branc h W-135) conjugate vaccine (MCV4P) Meningococcal 2012-07-29 Completed [facility] Polysaccharide 00:00:00 [facility] (groups A, C, Y and Branc h W-135) conjugate vaccine (MCV4P) Meningococcal 2012-07-29 Completed [facility] Polysaccharide 00:00:00 [facility] (groups A, C, Y and Branc h W-135) conjugate vaccine (MCV4P) Meningococcal 2012-07-29 Completed [facility] Polysaccharide 00:00:00 [facility] (groups A, C, Y and Branc h W-135) conjugate vaccine (MCV4P) Meningococcal 2012-07-29 Completed [facility] Polysaccharide 00:00:00 [facility] (groups A, C, Y and Branc h W-135) conjugate vaccine (MCV4P) Meningococcal 2012-07-29 Completed [facility] Polysaccharide 00:00:00 [facility] (groups A, C, Y and Branc h W-135) conjugate vaccine (MCV4P) Meningococcal 2012-07-29 Completed [facility] Polysaccharide 00:00:00 [facility] (groups A, C, Y and Branc h W-135) conjugate vaccine (MCV4P) Meningococcal 2012-07-29 Completed [facility] Polysaccharide 00:00:00 [facility] (groups A, C, Y and Branc h W-135) conjugate vaccine (MCV4P) Meningococcal 2012-07-29 Completed [facility] Polysaccharide 00:00:00 [facility] (groups A, C, Y and Branc h W-135) conjugate vaccine (MCV4P) Meningococcal 2012-07-29 Completed [facility] Polysaccharide 00:00:00 [facility] (groups A, C, Y and Branc h W-135) conjugate vaccine (MCV4P) Meningococcal 2012-07-29 Completed [facility] Polysaccharide 00:00:00 [facility] (groups A, C, Y and Branc h W-135) conjugate vaccine (MCV4P) Meningococcal 2012-07-29 Completed [facility] Polysaccharide 00:00:00 [facility] (groups A, C, Y and Branc h W-135) conjugate vaccine (MCV4P) Meningococcal 2012-07-29 Completed [facility] Polysaccharide 00:00:00 [facility] (groups A, C, Y and Branc h W-135) conjugate vaccine (MCV4P) Meningococcal 2012-07-29 Completed [facility] Polysaccharide 00:00:00 [facility] (groups A, C, Y and Branc h W-135) conjugate vaccine (MCV4P) Meningococcal 2012-07-29 Completed [facility] Polysaccharide 00:00:00 [facility] (groups A, C, Y and Branc h W-135) conjugate vaccine (MCV4P) Meningococcal 2012-07-29 Completed [facility] Polysaccharide 00:00:00 [facility] (groups A, C, Y and Branc h W-135) conjugate vaccine (MCV4P) Meningococcal 2012-07-29 Completed [facility] Polysaccharide 00:00:00 [facility] (groups A, C, Y and Branc h W-135) conjugate vaccine (MCV4P) Meningococcal 2012-07-29 Completed [facility] Polysaccharide 00:00:00 [facility] (groups A, C, Y and Branc h W-135) conjugate vaccine (MCV4P) Meningococcal 2012-07-29 Completed [facility] Polysaccharide 00:00:00 [facility] (groups A, C, Y and Branc h W-135) conjugate vaccine (MCV4P) Meningococcal 2012-07-29 Completed [facility] Polysaccharide 00:00:00 [facility] (groups A, C, Y and Branc h W-135) conjugate vaccine (MCV4P) Meningococcal 2012-07-29 Completed [facility] Polysaccharide 00:00:00 [facility] (groups A, C, Y and Branc h W-135) conjugate vaccine (MCV4P) Meningococcal 2012-07-29 Completed [facility] Polysaccharide 00:00:00 [facility] (groups A, C, Y and Branc h W-135) conjugate vaccine (MCV4P) Meningococcal 2012-07-29 Completed [facility] Polysaccharide 00:00:00 [facility] (groups A, C, Y and Branc h W-135) conjugate vaccine (MCV4P) Meningococcal 2012-07-29 Completed [facility] Polysaccharide 00:00:00 [facility] (groups A, C, Y and Branc h W-135) conjugate vaccine (MCV4P) Meningococcal 2012-07-29 Completed [facility] Polysaccharide 00:00:00 [facility] (groups A, C, Y and Branc h W-135) conjugate vaccine (MCV4P) Meningococcal 2012-07-29 Completed [facility] Polysaccharide 00:00:00 [facility] (groups A, C, Y and Branc h W-135) conjugate vaccine (MCV4P) Meningococcal 2012-07-29 Completed [facility] Polysaccharide 00:00:00 [facility] (groups A, C, Y and Branc h W-135) conjugate vaccine (MCV4P) Meningococcal 2012-07-29 Completed [facility] Polysaccharide 00:00:00 [facility] (groups A, C, Y and Branc h W-135) conjugate vaccine (MCV4P) Meningococcal 2012-07-29 Completed [facility] Polysaccharide 00:00:00 [facility] (groups A, C, Y and Branc h W-135) conjugate vaccine (MCV4P) Meningococcal 2012-07-29 Completed [facility] Polysaccharide 00:00:00 [facility] (groups A, C, Y and Branc h W-135) conjugate vaccine (MCV4P) Meningococcal 2012-07-29 Completed [facility] Polysaccharide 00:00:00 [facility] (groups A, C, Y and Branc h W-135) conjugate vaccine (MCV4P) Meningococcal 2012-07-29 Completed [facility] Polysaccharide 00:00:00 [facility] (groups A, C, Y and Branc h W-135) conjugate vaccine (MCV4P) Meningococcal 2012-07-29 Completed [facility] Polysaccharide 00:00:00 [facility] (groups A, C, Y and Branc h W-135) conjugate vaccine (MCV4P) Meningococcal 2012-07-29 Completed [facility] Polysaccharide 00:00:00 [facility] (groups A, C, Y and Branc h W-135) conjugate vaccine (MCV4P) Meningococcal 2012-07-29 Completed [facility] Polysaccharide 00:00:00 [place] [facility] (groups A, C, Y and Branc h W-135) conjugate vaccine (MCV4P) Meningococcal 2012-07-29 Completed [facility] Polysaccharide 00:00:00 [facility] (groups A, C, Y and Branc h W-135) conjugate vaccine (MCV4P) Meningococcal 2012-07-29 Completed [facility] Polysaccharide 00:00:00 [place] [facility] (groups A, C, Y and Branc h W-135) conjugate vaccine (MCV4P) Meningococcal 2012-07-29 Completed [facility] Polysaccharide 00:00:00 [facility] (groups A, C, Y and Branc h W-135) conjugate vaccine (MCV4P) Meningococcal 2012-07-29 Completed [facility] Polysaccharide 00:00:00 [facility] (groups A, C, Y and Branc h W-135) conjugate vaccine (MCV4P) Meningococcal 2012-07-29 Completed [facility] Polysaccharide 00:00:00 [facility] (groups A, C, Y and Branc h W-135) conjugate vaccine (MCV4P) Meningococcal 2012-07-29 Completed [facility] Polysaccharide 00:00:00 [facility] (groups A, C, Y and Branc h W-135) conjugate vaccine (MCV4P) Meningococcal 2012-07-29 Completed [facility] Polysaccharide 00:00:00 [facility] (groups A, C, Y and Branc h W-135) conjugate vaccine (MCV4P) Meningococcal 2012-07-29 Completed [facility] Polysaccharide 00:00:00 [facility] (groups A, C, Y and Branc h W-135) conjugate vaccine (MCV4P) Meningococcal 2012-07-29 Completed [facility] Polysaccharide 00:00:00 [facility] (groups A, C, Y and Branc h W-135) conjugate vaccine (MCV4P) Meningococcal 2012-07-29 Completed [facility] Polysaccharide 00:00:00 [facility] (groups A, C, Y and Branc h W-135) conjugate vaccine (MCV4P) Meningococcal 2012-07-29 Completed [facility] Polysaccharide 00:00:00 [facility] (groups A, C, Y and Branc h W-135) conjugate vaccine (MCV4P) Meningococcal 2012-07-29 Completed [facility] Polysaccharide 00:00:00 [facility] (groups A, C, Y and Branc h W-135) conjugate vaccine (MCV4P) Meningococcal 2012-07-29 Completed [facility] Polysaccharide 00:00:00 [facility] (groups A, C, Y and Branc h W-135) conjugate vaccine (MCV4P) Meningococcal 2012-07-29 Completed [facility] Polysaccharide 00:00:00 [facility] (groups A, C, Y and Branc h W-135) conjugate vaccine (MCV4P) Meningococcal 2012-07-29 Completed [facility] Polysaccharide 00:00:00 [facility] (groups A, C, Y and Branc h W-135) conjugate vaccine (MCV4P) Meningococcal 2012-07-29 Completed [facility] Polysaccharide 00:00:00 [facility] (groups A, C, Y and Branc h W-135) conjugate vaccine (MCV4P) Meningococcal 2012-07-29 Completed [facility] Polysaccharide 00:00:00 [facility] (groups A, C, Y and Branc h W-135) conjugate vaccine (MCV4P) Meningococcal 2012-07-29 Completed [facility] Polysaccharide 00:00:00 [facility] (groups A, C, Y and Branc h W-135) conjugate vaccine (MCV4P) Meningococcal 2012-07-29 Completed [facility] Polysaccharide 00:00:00 [facility] (groups A, C, Y and Branc h W-135) conjugate vaccine (MCV4P) Meningococcal 2012-07-29 Completed [facility] Polysaccharide 00:00:00 [facility] (groups A, C, Y and Branc h W-135) conjugate vaccine (MCV4P) Meningococcal 2012-07-29 Completed [facility] Polysaccharide 00:00:00 [facility] (groups A, C, Y and Branc h W-135) conjugate vaccine (MCV4P) Meningococcal 2012-07-29 Completed [facility] Polysaccharide 00:00:00 [facility] (groups A, C, Y and Branc h W-135) conjugate vaccine (MCV4P) Meningococcal 2012-07-29 Completed [facility] Polysaccharide 00:00:00 [facility] (groups A, C, Y and Branc h W-135) conjugate vaccine (MCV4P) Meningococcal 2012-07-29 Completed [facility] Polysaccharide 00:00:00 [facility] (groups A, C, Y and Branc h W-135) conjugate vaccine (MCV4P) Td 2008 Completed [facility] 00:00:00 [facility] Td 2008 Completed [facility] 00:00:00 [facility] Td 2008 Completed [facility] 00:00:00 [facility] Td 2008 Completed [facility] 00[facility]00:00 [facility] Td 2008 Completed [facility] 00:00:00 [facility] Td 2008 Completed [facility] 00:00:00 [facility] Td 2008 Completed [facility] 00:00:00 [facility] Td 2008 Completed [facility] 00:00:00 [facility] Td 2008 Completed [facility] 00:00:00 [facility] Td 2008 Completed [facility] 00[facility]00:00 [facility] Td 2008 Completed [facility] 00:00:00 [facility] Td 2008 Completed [facility] 00:00:00 [facility] Td 2008 Completed [facility] 00:00:00 [facility] Td 2008 Completed [facility] 00:00:00 [facility] Td 2008 Completed [facility] 00:00:00 [facility] Td 2008 Completed [facility] 00:00:00 [facility] Td 2008 Completed [facility] 00[facility]00:00 [facility] Td 2008 Completed [facility] 00:00:00 [facility] Td 2008 Completed [facility] 00:00:00 [facility] Td 2008 Completed [facility] 00:00:00 [facility] Td 2008 Completed [facility] 00[facility]00:00 [facility] Td 2008 Completed [facility] 00:00:00 [facility] Td 2008 Completed [facility] 00:00:00 [facility] Td 2008 Completed [facility] 00:00:00 [facility] Td 2008 Completed [facility] 00:00:00 [facility] Td 2008 Completed [facility] 00[facility]00:00 [facility] Td 2008 Completed [facility] 00:00:00 [facility] Td 2008 Completed [facility] 00:00:00 [facility] Td 2008 Completed [facility] 00:00:00 [facility] Td 2008 Completed [facility] 00:00:00 [facility] Td 2008 Completed [facility] 00[facility]00:00 [facility] Td 2008 Completed [facility] 00[facility]00:00 [facility] Td 2008 Completed [facility] 00[facility]00:00 [facility] Td 2008 Completed [facility] 00:00:00 [facility] Td 2008 Completed [facility] 00[facility]00:00 [facility] Td 2008 Completed [facility] 00[facility]00:00 [facility] Td 2008 Completed [facility] 00:00:00 [facility] Td 2008 Completed [facility] 00[facility]00:00 [facility] Td 2008 Completed [facility] 00:00:00 [facility] Td 2008 Completed [facility] 00[facility]00:00 [facility] Td 2008 Completed [facility] 00:00:00 [facility] Td 2008 Completed [facility] 00:00:00 [facility] Td 2008 Completed [facility] 00[facility]00:00 [facility] Td 2008 Completed [facility] 00[facility]00:00 [facility] Td 2008 Completed [facility] 00:00:00 [facility] Td 2008 Completed [facility] 00:00:00 [facility] Td 2008 Completed [facility] 00:00:00 [facility] Td 2008 Completed [facility] 00:00:00 [facility] Td 2008 Completed [facility] 00:00:00 [facility] Td 2008 Completed [facility] 00[facility]00:00 [facility] Td 2008 Completed [facility] 00:00:00 [facility] Td 2008 Completed [facility] 00:00:00 [facility] Td 2008 Completed [facility] 00:00:00 [facility] Td 2008 Completed [facility] 00:00:00 [facility] Td 2008 Completed [facility] 00:00:00 [facility] Td 2008 Completed [facility] 00[facility]00:00 [facility] Td 2008 Completed [facility] 00[facility]00:00 [facility] Td 2008 Completed [facility] 00[facility]00:00 [facility] Td 2008 Completed [facility] 00[facility]00:00 [facility] Td 2008 Completed [facility] 00:00:00 [facility] Td 2008 Completed [facility] 00:00:00 [facility] Td 2008 Completed [facility] 00:00:00 [facility] Td 2008 Completed [facility] 00[facility]00:00 [facility] Td 2008 Completed [facility] 00[facility]00:00 [facility] Td 2008 Completed [facility] 00[facility]00:00 [facility] Td 2008 Completed [facility] 00:00:00 [facility] Td 2008 Completed [facility] 00[facility]00:00 [facility] Td 2008 Completed [facility] 00:00:00 [facility] Td 2008 Completed [facility] 00:00:00 [facility] Td 2008 Completed [facility] 00:00:00 [facility] Td 2008 Completed [facility] 00:00:00 [facility] Td 2008 Completed [facility] 00:00:00 [facility] Td 2008 Completed [facility] 00:00:00 [facility] Td 2008 Completed [facility] 00:00:00 [facility] Td 2008 Completed [facility] 00:00:00 [facility] Td 2008 Completed [facility] 00:00:00 [facility] Td 2008 Completed [facility] 00:00:00 [facility] Td 2008 Completed [facility] 00[facility]00:00 [facility] Td 2008 Completed [facility] 00[facility]00:00 [facility] Td 2008 Completed [facility] 00:00:00 [facility] Td 2008 Completed [facility] 00:00:00 [facility] Td 2008 Completed [facility] 00:00:00 [facility] Td 2008 Completed [facility] 00[facility]00:00 [facility] Td 2008 Completed [facility] 00:00:00 [facility] Td 2008 Completed [facility] 00:00:00 [facility] Td 2008 Completed [facility] 00:00:00 [facility] Td 2008 Completed [facility] 00:00:00 [facility] Td 2008 Completed [facility] 00:00:00 [facility] Td 2008 Completed [facility] 00:00:00 [facility] Td 2008 Completed [facility] 00:00:00 [facility] Td 2008 Completed [facility] 00:00:00 [facility] Td 2008 Completed [facility] 00:00:00 [facility] Td 2008 Completed [facility] 00:00:00 [facility] Td 2008 Completed [facility] 00:00:00 [facility] Td 2008 Completed [facility] 00:00:00 [facility] Td 2008 Completed [facility] 00:00:00 [facility] Td 2008 Completed [facility] 00[facility]00:00 [facility] Td 2008 Completed [facility] 00:00:00 [facility] Td 2008 Completed [facility] 00:00:00 [facility] Td 2008 Completed [facility] 00:00:00 [facility] Td 2008 Completed [facility] 00:00:00 [facility] Td 2008 Completed [facility] 00:00:00 [facility] Td 2008 Completed [facility] 00[facility]00:00 [facility] Td 2008 Completed [facility] 00:00:00 [facility] Td 2008 Completed [facility] 00:00:00 [facility] Td 2008 Completed [facility] 00:00:00 [facility] Td 2008 Completed [facility] 00[facility]00:00 [facility] Td 2008 Completed [facility] 00:00:00 [facility] Td 2008 Completed [facility] 00:00:00 [facility] Td 2008 Completed [facility] 00:00:00 [facility] Vital Signs Vital Name Observation Time Observation Value Comments Source Systolic blood 2021-12-11 22:27:00 113 mm[Hg] Univer sity of pressure [facility] Diastolic blood 2021-12-11 22:27:00 78 mm[Hg] Unive rsity of pressure [facility] Heart rate 2021-12-11 22:27:00 88 /min [facility] Body temperature 2021-12-11 22:27:00 36.83 Roshni [facility] Respiratory rate 2021-12-11 22:27:00 16 /min [facility] Body weight 2021-12-11 22:27:00 70.943 kg [facility] BMI 2021-12-11 22:27:00 27.71 kg/m2 [facility] Oxygen saturation in 2021-12-11 22:27:00 97 /min [facility] of Arterial blood by [facility]rinivas [facility] oxim[facility] Systolic blood 2021-12-02 21:19:00 99 mm[Hg] Univer sity of pressure [facility] Diastolic blood 2021-12-02 21:19:00 65 mm[Hg] Unive rsity of pressure [facility] Heart rate 2021-12-02 21:19:00 87 /min [facility] Body temperature 2021-12-02 21:19:00 37.44 Roshni [facility] Body height 2021-12-02 21:19:00 160 cm [facility] Body weight 2021-12-02 21:19:00 69.854 kg [facility] BMI 2021-12-02 21:19:00 27.28 kg/m2 [facility] Oxygen saturation in 2021-12-02 21:19:00 100 /min [facility] Arterial blood by [facility]rinivas [facility] Systolic blood 2021-08-04 05:00:00 123 mm[Hg] Univer sity of pressure [facility] Diastolic blood 2021-08-04 05:00:00 88 mm[Hg] Unive rsity of pressure [facility] Heart rate 2021-08-04 05:00:00 82 /min [facility] Respiratory rate 2021-08-04 05:00:00 20 /min [facility] Oxygen saturation in 2021-08-04 05:00:00 98 /min [facility] Arterial blood by [place] [employer] srinivas [facility] Body temperature 2021-08-04 04:11:00 35.89 Roshni [facility] Body height 2021-08-04 04:11:00 157.5 cm [facility] Body weight 2021-08-04 04:11:00 68.04 kg [facility] BMI 2021-08-04 04:11:00 27.44 kg/m2 [facility] Systolic blood 2021-07-27 21:00:00 120 mm[Hg] Univer sity of pressure [facility] Diastolic blood 2021-07-27 21:00:00 67 mm[Hg] Unive rsity of pressure [facility] Heart rate 2021-07-27 21:00:00 84 /min [facility] Respiratory rate 2021-07-27 21:00:00 16 /min [facility] Oxygen saturation in 2021-07-27 21:00:00 98 /min [facility] Body temperature 2021-07-27 17:34:00 36.61 Roshni [facility] Body height 2021-07-27 17:34:00 162.6 cm [facility] Body weight 2021-07-27 17:34:00 71.215 kg [facility] BMI 2021-07-27 17:34:00 26.95 kg/m2 [facility] Systolic blood 2021-03-09 21:11:00 112 mm[Hg] Univer sity of pressure [facility] Diastolic blood 2021-03-09 21:11:00 77 mm[Hg] Unive rsity of pressure [facility] Heart rate 2021-03-09 21:11:00 94 /min [facility] Body temperature 2021-03-09 21:11:00 36.94 Roshni [facility] Respiratory rate 2021-03-09 21:11:00 18 /min [facility] Body height 2021-03-09 21:11:00 162.6 cm [facility] Body weight 2021-03-09 21:11:00 71.578 kg [facility] BMI 2021-03-09 21:11:00 27.09 kg/m2 [facility] Oxygen saturation in 2021-03-09 21:11:00 98 /min [facility] Systolic blood 2021-03-08 23:22:00 113 mm[Hg] Univer sity of pressure [facility] Diastolic blood 2021-03-08 23:22:00 66 mm[Hg] Unive rsity of pressure [facility] Heart rate 2021-03-08 23:22:00 90 /min [facility] Body temperature 2021-03-08 23:22:00 37.06 Roshni [facility] Respiratory rate 2021-03-08 23:22:00 18 /min [facility] Oxygen saturation in 2021-03-08 23:22:00 100 /min [facility] Arterial blood by [facility] srinivas [facility] Body weight 2021-03-08 20:58:00 71.215 kg [facility] BMI 2021-03-08 20:58:00 26.95 kg/m2 [facility] Systolic blood 2021-03-07 15:55:00 131 mm[Hg] Univer [facility]ity of pressure [facility] Diastolic blood 2021-03-07 15:55:00 93 mm[Hg] Unive rsity of pressure [facility] Heart rate 2021-03-07 15:55:00 77 /min [facility] Body temperature 2021-03-07 15:55:00 37.17 Roshni [facility] Respiratory rate 2021-03-07 15:55:00 18 /min [facility] Body weight 2021-03-07 15:55:00 71.215 kg [facility] BMI 2021-03-07 15:55:00 26.95 kg/m2 [facility] Oxygen saturation in 2021-03-07 15:55:00 99 /min [facility] Arterial blood by [facility] Pulse oxim[facility] Systolic blood 2021-03-04 01:40:00 119 mm[Hg] Univer sity of pressure [facility] Diastolic blood 2021-03-04 01:40:00 84 mm[Hg] Unive rsity of pressure [facility] Heart rate 2021-03-04 01:40:00 84 /min [facility] Body temperature 2021-03-04 01:40:00 36.89 Roshni [facility] Respiratory rate 2021-03-04 01:40:00 17 /min [facility] Body height 2021-03-04 01:40:00 162.6 cm [facility] Body weight 2021-03-04 01:40:00 71.215 kg [facility] BMI 2021-03-04 01:40:00 26.95 kg/m2 [facility] Oxygen saturation in 2021-03-04 01:40:00 100 /min [facility] Arterial blood by [place] [employer] [facility]rinivas [facility] Systolic blood 2020-01-02 17:40:00 128 mm[Hg] Univer sity of pressure [facility] Diastolic blood 2020-01-02 17:40:00 84 mm[Hg] Unive rsity of pressure [facility] Heart rate 2020-01-02 17:40:00 63 /min [facility] Body temperature 2020-01-02 17:40:00 36.28 Roshni [facility] Oxygen saturation in 2020-01-02 17:40:00 96 /min [facility] Arterial blood by [place] [employer] [facility]rinivas [facility] Respiratory rate 2020-01-02 17:30:00 22 /min [facility] Body height 2019-12-26 17:06:00 160 cm [facility] Body weight 2019-12-26 17:06:00 87.5 kg [facility] BMI 2019-12-26 17:06:00 34.18 kg/m2 [facility] Systolic blood 2019-12-25 18:37:00 132 mm[Hg] Univer sity of pressure [facility] Diastolic blood 2019-12-25 18:37:00 90 mm[Hg] Unive rsity of pressure [facility] Heart rate 2019-12-25 18:35:00 69 /min [facility] Body temperature 2019-12-25 18:35:00 36.78 Roshni [facility] Respiratory rate 2019-12-25 18:35:00 18 /min [facility] Body height 2019-12-25 18:35:00 160 cm [facility] Body weight 2019-12-25 18:35:00 87.544 kg [facility] BMI 2019-12-25 18:35:00 34.19 kg/m2 [facility] Systolic blood 2019-12-07 19:35:00 111 mm[Hg] Univer sity of pressure [facility] Diastolic blood 2019-12-07 19:35:00 72 mm[Hg] Unive rsity of pressure [facility] Heart rate 2019-12-07 19:35:00 68 /min [facility] Body temperature 2019-12-07 19:35:00 36.83 Roshni [facility] Respiratory rate 2019-12-07 19:35:00 16 /min [facility] Body height 2019-12-07 19:35:00 160 cm [facility] Body weight 2019-12-07 19:35:00 85.004 kg [facility] BMI 2019-12-07 19:35:00 33.20 kg/m2 [facility] Systolic blood 2019-11-14 19:00:00 121 mm[Hg] Univer sity of pressure [facility] Diastolic blood 2019-11-14 19:00:00 79 mm[Hg] Unive rsity of pressure [facility] Heart rate 2019-11-14 19:00:00 86 /min [facility] Body temperature 2019-11-14 19:00:00 36.72 Roshni [facility] Respiratory rate 2019-11-14 19:00:00 16 /min Univ [facility] of [facility] Oxygen saturation in 2019-11-14 19:00:00 96 /min [facility] Arterial blood by [facility] P[facility] Body height 2019-11-13 09:53:00 160 cm [facility] Body weight 2019-11-13 09:53:00 96.163 kg [facility] BMI 2019-11-13 09:53:00 37.55 kg/m2 [facility] Systolic blood 2019-11-09 18:32:00 104 mm[Hg] Univer sity of pressure [facility] Diastolic blood 2019-11-09 18:32:00 68 mm[Hg] Unive rsity of pressure [facility] Heart rate 2019-11-09 18:32:00 98 /min [facility] Body temperature 2019-11-09 18:32:00 36.89 Roshni [facility] Respiratory rate 2019-11-09 18:32:00 18 /min [facility] Body height 2019-11-09 18:32:00 160 cm [facility] Body weight 2019-11-09 18:32:00 96.163 kg [facility] BMI 2019-11-09 18:32:00 37.55 kg/m2 [facility] Systolic blood 2019-10-30 19:55:00 104 mm[Hg] Univer sity of pressure [facility] Diastolic blood 2019-10-30 19:55:00 67 mm[Hg] Unive rsity of pressure [facility] Heart rate 2019-10-30 19:55:00 95 /min [facility] Body temperature 2019-10-30 19:55:00 36.78 Roshni [facility] Respiratory rate 2019-10-30 19:55:00 18 /min [facility] Body height 2019-10-30 19:55:00 160 cm [facility] Body weight 2019-10-30 19:55:00 94.802 kg [facility] BMI 2019-10-30 19:55:00 37.02 kg/m2 [facility] Systolic blood 2019-10-23 18:59:00 104 mm[Hg] Univer sity of pressure [facility] Diastolic blood 2019-10-23 18:59:00 73 mm[Hg] Unive rsity of pressure [facility] Heart rate 2019-10-23 18:59:00 91 /min [facility] Body temperature 2019-10-23 18:59:00 36.72 Roshni [facility] Respiratory rate 2019-10-23 18:59:00 18 /min [facility] Body height 2019-10-23 18:59:00 160 cm [facility] Body weight 2019-10-23 18:59:00 93.895 kg [facility] BMI 2019-10-23 18:59:00 36.67 kg/m2 [facility] Systolic blood 2019-10-02 20:56:00 98 mm[Hg] Univer sity of pressure [facility] Diastolic blood 2019-10-02 20:56:00 67 mm[Hg] Unive rsity of pressure [facility] Heart rate 2019-10-02 20:56:00 113 /min [facility] Body temperature 2019-10-02 20:56:00 36.67 Roshni [facility] Respiratory rate 2019-10-02 20:56:00 18 /min [facility] Body height 2019-10-02 20:56:00 160 cm [facility] Body weight 2019-10-02 20:56:00 92.08 kg [facility] BMI 2019-10-02 20:56:00 35.96 kg/m2 [facility] Systolic blood 2019-09-18 18:40:00 99 mm[Hg] Univer sity of pressure [facility] Diastolic blood 2019-09-18 18:40:00 71 mm[Hg] Unive rsity of pressure [facility] Heart rate 2019-09-18 18:40:00 99 /min [facility] Body temperature 2019-09-18 18:40:00 36.61 Roshni [facility] Respiratory rate 2019-09-18 18:40:00 18 /min [facility] Body height 2019-09-18 18:40:00 160 cm [facility] Body weight 2019-09-18 18:40:00 91.173 kg [facility] BMI 2019-09-18 18:40:00 35.61 kg/m2 [facility] Systolic blood 2019-09-11 18:19:00 111 mm[Hg] Univer sity of pressure [facility] Diastolic blood 2019-09-11 18:19:00 76 mm[Hg] Unive rsity of pressure [facility] Heart rate 2019-09-11 18:19:00 102 /min [facility] Body temperature 2019-09-11 18:19:00 36.56 Roshni [facility] Respiratory rate 2019-09-11 18:19:00 18 /min [facility] Body height 2019-09-11 18:19:00 160 cm [facility] Body weight 2019-09-11 18:19:00 91.173 kg [facility] BMI 2019-09-11 18:19:00 35.61 kg/m2 [facility] Oxygen saturation in 2019-09-11 18:19:00 97 /min [facility] Arterial blood by [facility] Branch Systolic blood 2019-09-04 18:16:00 99 mm[Hg] Univer sity of pressure [facility] Diastolic blood 2019-09-04 18:16:00 64 mm[Hg] Unive rsity of pressure [facility] Heart rate 2019-09-04 18:16:00 105 /min [facility] Body temperature 2019-09-04 18:16:00 37.06 Roshni [facility] Respiratory rate 2019-09-04 18:16:00 18 /min [facility] Body height 2019-09-04 18:16:00 160 cm [facility] Body weight 2019-09-04 18:16:00 89.812 kg [facility] BMI 2019-09-04 18:16:00 35.07 kg/m2 [facility] Systolic blood 2019-08-31 20:09:00 99 mm[Hg] Univer [facility]ity of [facility] Diastolic blood 2019-08-31 20:09:00 66 mm[Hg] Unive rsity of pressure [facility] Heart rate 2019-08-31 20:09:00 102 /min [facility] Body temperature 2019-08-31 20:09:00 36.72 Roshni [facility] Respiratory rate 2019-08-31 20:09:00 16 /min [facility] Body height 2019-08-31 20:09:00 157.5 cm [facility] Body weight 2019-08-31 20:09:00 89.495 kg [facility] BMI 2019-08-31 20:09:00 36.09 kg/m2 [facility] Systolic blood 2019-08-03 20:40:00 110 mm[Hg] Univer sity of pressure [facility] Diastolic blood 2019-08-03 20:40:00 70 mm[Hg] Unive rsity of pressure [facility] Heart rate 2019-08-03 20:40:00 112 /min [facility] Body temperature 2019-08-03 20:40:00 37.11 Roshni [facility] Respiratory rate 2019-08-03 20:40:00 18 /min [facility] Body height 2019-08-03 20:40:00 157.5 cm [facility] Body weight 2019-08-03 20:40:00 88.905 kg [facility] BMI 2019-08-03 20:40:00 35.85 kg/m2 [facility] Body height 2019-06-06 17:59:00 157.5 cm [facility] Systolic blood 2019-05-09 20:13:00 105 mm[Hg] Univer sity of pressure [facility] Diastolic blood 2019-05-09 20:13:00 61 mm[Hg] Unive rsity of pressure [facility] Heart rate 2019-05-09 20:13:00 83 /min [facility] Body temperature 2019-05-09 20:13:00 36.94 Roshni [facility] Respiratory rate 2019-05-09 20:13:00 18 /min [facility] Body height 2019-05-09 20:13:00 157.5 cm [facility] Body weight 2019-05-09 20:13:00 81.647 kg [facility] BMI 2019-05-09 20:13:00 32.92 kg/m2 [facility] Systolic blood 2019-05-04 16:15:00 124 mm[Hg] Univer sity of pressure [facility] Diastolic blood 2019-05-04 16:15:00 74 mm[Hg] Unive rsity of pressure [facility] Heart rate 2019-05-04 16:15:00 94 /min [facility] Body temperature 2019-05-04 16:15:00 36.67 Roshni [facility] Respiratory rate 2019-05-04 16:15:00 16 /min [facility] Body height 2019-05-04 16:15:00 157.5 cm [facility] Body weight 2019-05-04 16:15:00 81.846 kg [facility] BMI 2019-05-04 16:15:00 33.00 kg/m2 [facility] Systolic blood 2019-04-06 15:49:00 119 mm[Hg] Univer sity of pressure [facility] Diastolic blood 2019-04-06 15:49:00 65 mm[Hg] Unive rsity of pressure [facility] Heart rate 2019-04-06 15:49:00 88 /min [facility] Body temperature 2019-04-06 15:49:00 36.39 Roshni [facility] Respiratory rate 2019-04-06 15:49:00 16 /min [facility] [place] [facility] Body height 2019-04-06 15:49:00 160 cm [facility] Body weight 2019-04-06 15:49:00 81.449 kg [facility] BMI 2019-04-06 15:49:00 31.81 kg/m2 [facility] Systolic blood 2019-04-11 22:00:00 118 mm[Hg] Univer sity of [facility] Diastolic blood 2019-04-11 22:00:00 70 mm[Hg] Unive rsity of pressure [facility] Heart rate 2019-04-11 22:00:00 100 /min [facility] Respiratory rate 2019-04-11 22:00:00 18 /min Univ ersity of [facility] Oxygen saturation in 2019-04-11 22:00:00 98 /min University of Arterial blood by [facility] Pulse oximetry Branch Body temperature 2019-04-11 19:50:58 37.28 Roshni Univ [facility] Body weight 2019-04-11 19:24:00 79.833 kg [facility] [place] [facility] BMI 2019-04-11 19:24:00 31.18 kg/m2 [facility] Systolic blood 2019-03-30 16:33:00 109 mm[Hg] Univer sity of [facility] Diastolic blood 2019-03-30 16:33:00 71 mm[Hg] Unive rsity of pressure [facility] Heart rate 2019-03-30 16:33:00 84 /min [facility] Body temperature 2019-03-30 16:33:00 36.94 Roshni [facility] Respiratory rate 2019-03-30 16:33:00 16 /min [facility] Body height 2019-03-30 16:33:[address] [facility] Body weight 2019-03-30 16:33:[address] [facility] BMI 2019-03-30 16:33:00 32.57 kg/m2 [facility] Procedures Procedure Date / Time Performing Clinician Source Performed POCT MOLECULAR FLU 2021-12-11 22:27:00 Unknown, Attending [facility] ASSIGNMENT OF BENEFITS 2021-12-11 22:05:12 Doctor Unassigned, No [facility] POCT TEST 2021-12-02 22:10:[address] [facility] AUTHORIZATION FOR 2021-08-27 05:01:00 Doctor Unassigned, No [facility] RELEASE OF PHI Name [facility] CT 2021-08-04 05:11:06 Brennen Chandler [facility] MAXILLOFACIAL/MANDIBLE Medical [place] ranch WO CONTRAST CONSENT/REFUSAL FOR 2021-08-04 03:59:04 Doctor Unassigned, No [facility] DIAGNOSIS AND TREATMENT Name [facility] CT 2021-07-27 18:46:31 Marla Hoffmann [facility] MAXILLOFACIAL/MANDIBLE Medical B ran WO CONTRAST CT TRAUMA HEAD WO 2021-07-27 18:46:31 Marla Hoffmann [facility] CONTRAST [facility] CT TRAUMA CERVICAL SPINE 2021-07-27 18:46:31 Marla Hoffmann [facility] WO CONTRAST [facility] CONSENT/REFUSAL FOR 2021-07-27 17:23:23 Doctor Unassigned, No [facility] DIAGNOSIS AND TREATMENT Name [facility] POCT GLUCOSE(AGE 2021-03-08 23:56:00 Jordyn Adams [facility] >30DAYS) [facility] POCT GLUCOSE (AUTOMATED) 2021-03-08 23:20:00 [facility] 2021-03-08 21:58:00 Jordyn Adams [facility] RAPID STREP SCREEN FOR 2021-03-08 21:57:00 Jordyn Adams [facility] GROUP A Medical Branch RAPID INFLUENZA A/B 2021-03-08 21:57:00 Jordyn Adams [facility] COVID-19 (ID NOW RAPID 2021-03-08 21:57:00 Jordyn Adams [facility] TESTING) Medical Branch CONSENT/REFUSAL FOR 2021-03-08 20:36:19 Doctor Unassigned, No [facility] [place] DIAGNOSIS AND TREATMENT Name Medical Branch CONSENT/REFUSAL FOR 2021-03-07 15:51:29 Doctor Unassigned, No [facility] DIAGNOSIS AND TREATMENT [facility] Medical Branch NOTICE OF PRIVACY 2021-03-07 15:51:15 Doctor Unassigned, No [facility] PRACTICES [facility] Medical [place] POCT MOLECULAR FLU 2021-03-04 01:53:00 Melly Wilson [facility] ASSIGNMENT OF BENEFITS 2020-10-18 01:21:38 Doctor Unassigned, No [facility] TOTAL BETA HCG ASSAY 2020-01-01 21:48:00 Nino Steward [facility] HB ABO GROUPING 2020-01-01 21:40:00 Nichelle [facility] COVID-19 (ID NOW RAPID 2020-01-01 21:28:00 Nino Steward [facility] TESTING) Medical Branch CONSENT/REFUSAL FOR 2020-01-01 21:20:55 Doctor Unassigned, No [facility] DIAGNOSIS AND TREATMENT [facility] ASSIGNMENT OF BENEFITS 2020-01-01 21:20:43 Doctor Unassigned, No [facility] DISCLOSURE AND CONSENT 2019-12-25 05:01:00 Doctor Unassigned, No [facility] MEDICAL & SURGICAL [facility] Bran h PROCEDURES - FEMALM FLU VACC ([id number]), 6+ 2019-12-07 19:53:54 Johnie [facility] MONTHS, IM, QUAD Medical Branch CBC WITH DIFF 2019-11-14 08:47:00 Nichelle [facility] VENOUS CORD GAS 2019-11-13 18:21:00 Nichelle [facility] CBC WITH DIFF 2019-11-13 10:02:00 Nino Steward [place] [facility] HEPATITIS B SURFACE 2019-11-13 10:02:00 Nino tSeward [facility] ANTIGEN Medical Branch ADC OR NIKOLE ONLY - 2019-11-13 10:02:00 [facility] Branch HIV 1/2 AG-AB WITH 2019-11-13 10:02:00 Nino Steward [facility] [place] REFLEX Medical Branch HB ABO GROUPING 2019-11-13 09:55:00 Nino Steward [place] [facility] RHO (D) IMMUNE GLOBULIN 2019-11-13 09:55:00 Nino Steward [facility] HOSPITAL ADMISSION 2019-11-13 05:01:00 Doctor Unassigned, No [facility] ASSIGNMENT OF BENEFITS 2019-11-10 19:47:27 Doctor Unassigned, No [facility] CONSENT/REFUSAL FOR 2019-11-09 19:31:44 Doctor Unassigned, [facility] DIAGNOSIS AND TREATMENT [facility] ASSIGNMENT OF BENEFITS 2019-11-09 19:31:29 Doctor Unassigned, No [facility] POCT URINALYSIS W/O 2019-11-09 00:00:00 Nino Steward [facility] SPECIFIC GRAVITY [facility] POCT URINALYSIS W/O 2019-10-30 00:00:00 Johnie [facility] SPECIFIC GRAVITY [facility] >14 WEEKS US 2019-10-23 20:17:[address] [facility] DSU PRE-OP 2019-10-23 05:01:00 Doctor Unassigned, No [facility] POCT URINALYSIS W/O 2019-10-23 00:00:00 Nino Steward [facility] SPECIFIC GRAVITY Medical [place] POCT URINALYSIS W/O 2019-10-02 00:00:00 Nino Steward [facility] SPECIFIC GRAVITY Medical [place] SECOND AND THIRD 2019-09-29 18:37:00 Nino Steward [facility] TRIMESTER ULTRASOUND Medical Bra nch POCT URINALYSIS W/O 2019-09-18 00:00:00 Steward, Nino [facility] HEPATIC FUNCTION PANEL 2019-09-15 20:00:00 Nino Steward [facility] ([id number]) (ALB,T.PRO,[facility] Medical Branch T,BU/BC,ALT,AST,ALK PHOS) TDAP VACCINE, >11 YRS, 2019-09-04 18:23:20 Nino Steward [facility] Medical Branch STERILIZATION CONSENT 2019-09-04 05:01:00 Doctor Unassigned, No [facility] POCT URINALYSIS W/O 2019-09-04 00:00:[address] [facility] POCT URINALYSIS W/O 2019-08-03 00:00:00 [facility] TEST IN QUESTION- 2019-07-14 18:43:00 Nichelle [facility] MISSING REQUIRED INFO-Q Medical Branch SECOND AND THIRD 2019-06-30 20:43:00 Steward [facility] TRIMESTER ULTRASOUND Medical [facility] SECOND AND THIRD 2019-06-30 20:36:00 Nichelle [facility] TRIMESTER ULTRASOUND Medical [facility] SCANNED LAB RESULTS 2019-05-11 05:01:00 Doctor Unassigned, No [facility] POCT URINALYSIS W/O 2019-05-04 16:17:00 Brandon Hoffmann [facility] EKG-12 LEAD 2019-04-11 20:40:53 Remedios Lomax [facility] RAPID STREP SCREEN FOR 2019-04-11 20:07:00 Remedios Lomax [facility] GROUP A Medical Branch ADC,CLC OR LCC ONLY - 2019-04-11 20:07:00 Remedios Lomax Britt [facility] INFLUENZA A & B DIRECT Medical [place] [facility] ANTIGEN LIPASE 2019-04-11 19:43:[address] [facility] MAGNESIUM 2019-04-11 19:43:[address] [facility] COMP. METABOLIC PANEL 2019-04-11 19:43:00 Michael Folres [facility] ([id number]) [facility] CBC WITH DIFFERENTIAL 2019-04-11 19:43:00 Michael Flores [facility] URINALYSIS 2019-04-11 19:43:00 Michael Flores [place] [facility] POCT TEST 2019-04-11 19:43:[address] [facility] CONSENT/REFUSAL FOR 2019-04-11 19:10:19 Doctor Unassigned, No [facility] DIAGNOSIS AND TREATMENT Name [facility] FREE T4 2019-04-06 16:30:00 Minerva Knight [facility] THYROID STIMULATING 2019-04-06 16:30:00 Minerva Knight [facility] HORMONE [facility] BASIC METABOLIC PANEL 2019-04-06 16:30:00 Minerva Knight [facility] (NA, K, CL, CO2, Medical Branch GLUCOSE, BUN, CREATININE, CA) POCT URINALYSIS W/O 2019-04-06 15:57:00 Brandon Hoffmann [facility] SPECIFIC GRAVITY [facility] POCT TEST 2019-03-30 19:19:00 Brandon Hoffmann [facility] POCT URINALYSIS W/O 2019-03-30 16:33:00 Brandon Hoffmann [facility] SPECIFIC GRAVITY [facility] ASSIGNMENT OF BENEFITS 2019-03-30 15:47:07 Doctor Unassigned, No [facility] Encounters Start End Encounter Admission Attending Care Care Encounter Source Date/Time Date/Time Type Type Clinicians Facility Department ID 2020-12-28 Outpatient R NINO STEWARD [facility] GLORIA [id number] Univers 01:25:[address] [facility] 2020-12-27 Outpatient P [facility] DEL [id number] Univers 16:54:[address] [facility] 2021-12-30 2021-12-[address] [facility] [id number] Univers 09:00:00 09:00:[address] [facility] 2021-12-12 2021-12-[address] [facility] [id number] Univers 15:30:00 15:30:[address] [facility] 2021-12-11 2021-12-11 Urgent Bhavya Lindsey [facility] [id number] Univers 16:40:00 17:00:00 Care Unknown, [facility] HEALTH [id number] ity of [place] [id number] Nikhil as BERNARDO?BLEA [phone] [address] MEDICAL OFFICE [facility] 2021-12-11 2021-12-[address] [facility] [id number] Univers 16:40:00 16:40:00 RANMI ity [facility] 2021-12-11 2021-12-11 Orders Doctor ANDREA 1.2.840.114 [id number] Univers 00:00:00 00:00:00 Only Unassigned, ZEESHAN [id number] ity of [place] [facility] [id number] Nikhil as [phone] [address] 2021-12-11 2021-12-11 Letter [facility] 1.2.840.114 [id number] Univers 00:00:00 00:00:00 (Out) [facility] [id number] it y of [place] [id number] Nikhil as BERNARDO?BLEA [phone] [address] OFFICE [facility] 2021-12-09 2021-12-09 Patient Raquel [facility] 1.2.840.114 [id number] Univers 00:00:00 00:00:00 Secure Msg [facility] [id number] ity of [place] [id number] Nikhil as BERNARDO?BLEA [phone] [address] OFFICE [facility] 2021-12-05 2021-12-05 Telephone Raquel [facility] [id number] Univers 00:00:00 00:00:00 Dane LADD [id number] i ty of [facility] [id number] [phone] [address] 2021-12-03 2021-12-[address] 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 [id number] Univers 15:00:00 15:00:00 DANE castro [facility] 2021-12-02 2021-12-[address] [facility] [id number] Univers 16:30:00 17:09:36 DANE castro [facility] 2021-12-02 2021-12-02 [facility] 1.2.840.114 [id number] Univers 16:30:00 17:09:36 Visit Dane ELLIOTT [id number] it y of [place] [id number] Nikhil as BERNARDO?BLEA [phone] Ia harpreeteduardo [address] OFFICE [facility] 2021-08-27 2021-08-27 Orders Doctor ANDREA 1.2.840.114 [id number] Univers 00:00:00 00:00:00 Only Unassigned, ZEESHAN [id number] ity of [place] [facility] [id number] Nikhil as [phone] [address] 2021-08-03 2021-08-04 Emergency X [facility] E[facility] [id number] Univers 23:08:00 01:15:00 ULISESHENRIETTA matthew [facility] 2021-08-03 2021-08-04 [facility] [id number] Univers 23:08:00 01:15:00 Brennen Anthony [place] [id number] ity of [place] [id number] [place] [phone] [place] [address] [place] 2021-07-27 2021-07-27 Emergency [facility] [id number] Univers 12:39:00 16:27:[address] [facility] 2021-07-27 2021-07-27 Emergency [facility] 1.2.840.114 [id number] Univers 12:39:00 16:27:00 Marla LADD [id number] ity mallika GANDARA [id number] [facility] [phone] [address] 2021-03-19 2021-03-19 [facility] [id number] Univers 10:30:00 10:30:[address] [facility] 2021-03-12 2021-03-12 Outpatient [facility] [id number] Univers 13:00:00 13:00:[address] [facility] 2021-03-10 2021-03-10 Telephone [facility] [id number] Univers 00:00:00 00:00:00 Phyllis FINLEY [id number] i ty of [facility] [id number] [phone] [facility] [address] [place] 2021-03-09 2021-03-[address] [facility] [id number] Univers 15:00:00 20:35:[address] [facility] 2021-03-09 2021-03-09 Urgent Calli Frost [facility] 1.2.840.114 [id number] Univers 15:00:00 15:20:00 Care Unknown, Attending HEALTH [id number] ity mallika LADD [id number] Nikhil as BERNARDO?BLEA [phone] Ia kiesha [address] MEDICAL OFFICE BUILDING 2021-03-08 2021-03-08 Emergency [facility] ERT [id number] Univers 14:59:00 18:11:00 JORDYN michael [facility] 2021-03-08 2021-03-08 Emergency [facility] [id number] Univers 14:59:00 18:11:00 Jordyn LADD [id number] ity of [facility] [id number] [facility] [phone] [address] 2021-03-07 2021-03-07 Emergency X [facility] ERT [id number] Univers 09:56:00 10:35:00 LINDA ity of [facility] 2021-03-07 2021-03-07 Emergency [facility] 1.2.057.708 [id number] Univers 09:56:00 10:35:00 Linda R JULEE 350.1.13.10 i ty of [facility] [id number] [facility] [id number] [address] 2021-03-03 2021-03-[address] [facility] [id number] Univers 19:40:00 20:05:34 MELLY castro [facility] 2021-03-03 2021-03-03 Urgent Andrea Preston [facility] 1.2.840.114 [id number] Univers 19:40:00 20:05:34 Kev [facility] [id number] ity of [facility] [id number] Nikhil as BERNARDO?BLEA [phone] [address] MEDICAL OFFICE [facility] 2021-02-24 2021-02-24 Laboratory Only, Ang Db Test [facility] 1.2.8 40.114 [id number] Univers 14:45:00 15:00:00 Only Tushar Higuera [facility] [id number] ity of [place] 4.2.7.2.686 Nikhil as BERNARDO?BLEA [phone] [address] MEDICAL OFFICE [facility] 2021-02-24 2021-02-[address] [facility] [id number] Univers 14:45:00 14:45:00 TUSHAR castro o f [facility] 2020-10-19 2020-10-19 Letter ANDREA Carrillo 1.2.840.114 [id number] Univers 00:00:00 00:00:00 (Out) Cass BYERS 350.1.13.10 it y of HOSPITAL 4.2.7.2.686 Nikhil as [phone] [facility] 019 Branch 2020-10-17 2020-10-[address] [facility] [id number] Univers 20:30:00 20:30:00 CALLI ity of [facility] 2020-10-17 2020-10-17 Orders Doctor ANDREA 1.2.840.114 [id number] Univers 00:00:00 00:00:00 Only Unassigned, ZEESHAN 350.1.13.10 ity of [place] [facility] 4.2.7.2.686 Nikhil as [phone] [facility] [address] [place] 2020-06-06 2020-06-[address] [facility] [id number] Univers 14:00:00 14:00:00 JOHNIE ity of [facility] 2020-05-21 2020-05-21 Patient [facility] 1.2.840.114 [id number] Univers 00:00:00 00:00:00 Outreach Mohamud PRIMARY 350.1.13.10 i ty of [facility] 4.2.7.2.686 [place] [id number] Ia dic[address] 2020-01-16 2020-01-16 Outpatient R NINO STEWARD [facility] [id number] Univers 15:00:00 15:00:00 ity of [facility] 2020-01-02 2020-01-02 Hospital [facility] 1.2.840.114 [id number] Univers 09:07:00 11:53:00 Encounter Alfreod Ladd 350.1.13.10 ity of [place]2.7.2.[place] [phone] [facility] 071 [place] 2020-01-01 2020-01-01 Trim Installer Ameena Noonan Lab Main [facility] 1.2.8 40.114 [id number] Univers 15:23:24 15:38:24 Visit Nichelle Ninoteressa Ladd 350.1.13.10 ity of [place] 4.2.7.2.686 [place] Profess[place] [phone] Ia dical [address] 2020-01-01 2020-01-01 Laboratory Only, Adc Test [facility] 1.2.840. 114 [id number] Univers 15:19:55 15:34:55 Only Nino Steward 350.1.13.10 ity [facility] [id number] [place] [id number] [address] 2020-01-01 2020-01-[address] [facility] [id number] Univers 15:00:00 15:00:00 ity [facility] 2019-12-25 2019-12-26 Office Nino Steward [facility] [id number] Univers 13:07:29 11:28:31 Visit Alfredo Ladd 350.1.13.10 i ty of [place] 4.2.7.2.686 [place] [phone] [address] 2019-12-25 2019-12-25 Outpatient R NINO [facility] [facility] [id number] Univers 13:00:00 13:00:00 ity [facility] 2019-12-25 2019-12-25 Prep For Nino Steward [facility] 1.2.840.114 [id number] Univers 00:00:00 00:00:00 Surgery Alfredo Julee 350.1.13.10 i ty [facility] 4.2.7.2.686 [place] [phone] [address] 2019-12-20 2019-12-20 Outpatient R NINO [facility] [facility] [id number] Univers 15:15:00 15:15:00 ity [facility] 2019-12-07 2019-12-07 Trim Installer 2, Adc Lab [facility] 1.2.840.114 [id number] Univers 15:10:26 15:25:26 Visit Johnie West 350.1.13.10 ity [facility] 4.2.7.2.686 [place] [phone] [address] 2019-12-07 2019-12-07 Routine Jenna [facility] 1.2.417.983 [id number] Univers 14:20:08 14:35:08 Johnie Ladd 350.1.13.10 ity of [place] 4.2.7.2.686 [phone] Ia dical pending [facility] to [facility] 2019-12-07 2019-12-[address] [facility] [id number] Univers 14:30:00 14:30:00 JOHNIE ity of [facility] 2019-11-13 2019-11-14 Hospital Nino Steward [facility] 1.2.840.114 [id number] Univers 04:21:00 17:00:00 Encounter Alfredo Ladd 350.1.13.10 ity of [place] 4.2.7.2.686 [facility] [phone] [facility] [address] [place] 2019-11-13 2019-11-13 Orders Doctor ANDREA 1.2.840.114 [id number] Univers 00:00:00 00:00:00 Only Unassigned, ZEESHAN 350.1.13.10 ity of [place] [facility] 4.2.7.2.686 Nikhil as [phone] [facility] 009 [place] 2019-11-10 2019-11-10 Laboratory Only, Adc Test [facility] 1.2.840. 114 [id number] Univers 14:47:13 15:02:13 Only Nino Steward Alfredo Ladd 350.1.13.10 ity of [place] 4.2.7.2.686 [facility] [phone] [facility] [address] [place] 2019-11-10 2019-11-[address] [facility] [id number] Univers 14:30:00 14:30:00 ity of [facility] 2019-11-10 2019-11-10 Orders Doctor ANDREA 1.2.840.114 [id number] Univers 00:00:00 00:00:00 Only Unassigned, ZEESHAN 350.1.13.10 ity of [place] [facility] 4.2.7.2.686 Nikhil as [phone] [address] 2019-11-09 2019-11-09 Routine Nino Steward [facility] 1.2.036.646 [id number] Univers 13:21:53 13:36:53 Alfredo Ladd 350.1.13.10 ity of [place].7.2.[place] [phone] Ia dical nal [address] [facility] 2019-11-09 2019-11-09 Outpatient R NINO [facility] [id number] Univers 13:15:00 13:15:00 ity of [facility] 2019-11-09 2019-11-09 Orders Doctor ANDREA 1.2.840.114 [id number] Univers 00:00:00 00:00:00 Only Unassigned, ZEESHAN 350.1.13.10 ity of [place] [facility] 4.2.7.2.686 Nikhil as [phone] [address] 2019-10-30 2019-10-30 Routine Jenna [facility] [id number] Univers 14:35:36 15:18:08 Johnie Julee 350.1.13.10 ity of [place] 4.2.7.2.[place] [phone] [address] 2019-10-30 2019-10-[address] [facility] [id number] Univers 14:30:00 14:30:00 JOHNIE itmichael [facility] 2019-10-23 2019-10-23 Trim Installer 2, Adc Lab [facility] 1.2.840.114 [id number] Univers 14:42:21 14:57:21 Visit StewardNino Alfredo Ladd 350.1.13.10 ity of [place] 4.2.7.2.[place] [phone] Ia dical pending sale to [facility] [address] [facility] 2019-10-23 2019-10-23 Routine Nino Steward [facility] 1.2.189.060 [id number] Univers 13:40:06 14:36:23 Alfredo Christineton 350.1.13.10 ity of [place] 4.2.7.2.686 [place] [phone] Ia dical nal [address] [facility] 2019-10-23 2019-10-23 Outpatient R [address] [facility] [facility] [id number] Univers 13:45:00 13:45:00 ity of [facility] 2019-10-23 2019-10-23 Orders Doctor ANDREA 1.2.840.114 [id number] Univers 00:00:00 00:00:00 Only Unassigned, ZEESHAN [id number] ity of [place] [facility] [id number] Nikhil as [phone] [facility] 009 [place] 2019-10-16 2019-10-[address] [facility] [id number] Univers 14:30:00 14:30:00 ity of [facility] 2019-10-16 2019-10-16 [facility], [facility] 1.2.840.114 [id number] Univers 07:37:52 08:07:52 ne Visit Raymundo Cyr [employer] 350.1.13.10 ity [facility] [id number] Nikhil as MATERNAL [phone] Med ical & CHILD 107 [facility] 2019-10-11 2019-10-11 Office KIKI [place] 1.2.840.114 [id number] Univers 15:19:57 16:52:13 Visit Nayeli Wilburn 350.1.13.10 it y of [facility] [id number] Nikhil as ABRAZO [facility] [phone] [facility] BLDG. [address] 2019-10-11 2019-10-[address] [facility] [id number] Univers 15:00:00 15:00:00 NAYELI ity of [facility] 2019-10-05 2019-10-[address] [facility] [id number] Univers 11:30:00 11:30:00 KAMAKSHI ity o f [facility] 2019-10-02 2019-10-02 Routine Nino Steward [facility] 1.2.322.361 [id number] Univers 15:31:41 16:12:49 [place] 350.1.13.10 ity [place] [phone] Ia dical nal 134 [facility] 2019-10-02 2019-10-02 [address] [facility] [id number] Univers 15:45:00 15:45:00 ity of [facility] 2019-09-29 2019-09-29 Trim Installer 1, [facility] Mf Usg Room UNIVERSIT 1 .2.840.114 [id number] Univers 12:42:55 13:43:57 Visit Miles Mojica Y HEALTH 350.1.13. 10 it[place] CL[place] [phone] [facility] [address] 2019-09-29 2019-09-[address] [facility] [id number] Univers 13:00:00 13:00:00 ity of [facility] 2019-09-26 2019-09-26 Telephone Lance Dang [facility] 1.2.840.11 [id number] Univers 00:00:00 00:00:00 S Y HEALTH 350.1.13.10 i ty [place] [phone] [address] 2019-09-25 2019-09-25 Telephone Agapito [facility] 1.2.440.002 [id number] Univers 00:00:00 00:00:00 [facility] 350.1.13.10 i ty of [place] [phone] [address] Office Building 2019-09-18 2019-09-22 Routine Johnie West [facility] 1.2.840.11 4 [id number] Univers 13:26:49 12:44:17 Nino Steward 350.1.13.10 ity [place] [phone] Ia dical nal [address] [place] [address] Building 2019-09-22 2019-09-22 Case Nino Steward [facility] 1.2.217.283 [id number] Univers 00:00:00 00:00:00 Management Alfredo Ladd 350.1.13.10 ity of [place] [phone] Ia dical nal [address] 2019-09-18 2019-09-18 Outpatient R [address]INO [facility] [facility] [id number] Univers 13:15:00 13:15:00 ity of [facility] 2019-09-15 2019-09-15 Trim Installer 2, Adc Lab [facility] 1.2.840.114 [id number] Univers 14:49:05 15:04:05 Visit Nino Steward 350.1.13.10 it[place] of [place] [phone] Ia dical nal 353 [facility] 2019-09-15 2019-09-[address] [facility] [id number] Univers 14:30:00 14:30:00 ity of [facility] 2019-09-14 2019-09-14 Telephone Nichelle Nino [facility] 1.2.840.114 [id number] Univers 00:00:00 00:00:00 Alfredo Ladd 350.1.13.10 i ty of [place] [phone] Ia dical nal 134 [facility] 2019-09-11 2019-09-11 Office [facility] 1.2.840.114 [id number] Univers 12:51:47 15:14:27 Visit [facility] 350.1.13.10 i [place] [phone] [address] Office [facility] 2019-09-11 2019-09-11 [facility] [id number] Univers 13:00:00 13:00:00 [facility] ity o f [facility] 2019-09-11 2019-09-11 Letter [facility] 1.2.840.114 [id number] Univers 00:00:00 00:00:00 (Out) [employer] 350.1.13.10 i [place] [phone] [address] Office [facility] 2019-09-04 2019-09-04 Trim Installer 2, Adc Lab [facility] 1.2.840.114 [id number] Univers 14:18:40 14:33:40 Visit Cielo Stewardteressa Ladd 350.1.13.10 it[place] of [place] [phone] Ia dical nal 353 [facility] 2019-09-04 2019-09-04 Routine Johnie West [facility] 1.2.840.11 [id number] Univers 13:01:09 13:55:21 Nino Steward 350.1.13.10 ity of [place] [phone] Ia dical nal 134 [facility] 2019-09-04 2019-09-04 Outpatient [address]INO [facility] [facility] [id number] Univers 13:00:00 13:00:00 ity of [facility] 2019-09-04 2019-09-04 Orders Doctor ANDREA 1.2.840.114 [id number] Univers 00:00:00 00:00:00 Only Unassigned, ZEESHAN 350.1.13.10 ity of [place] [facility] 4.2.7.2.686 Nikhil as [phone] [facility] [address] 2019-08-31 2019-08-31 Trim Installer [facility] UNIVERSIT 1.2.840.114 [id number] Univers 16:35:13 16:50:13 Visit Lanec Dang S HEALTH 350.1.13.10 ity of CL[place]ICS [place] [phone] [facility] [address] 2019-08-31 2019-08-31 Office Clinic, [facility] Neurology Contin uity UNIVERSIT 1.2.840.114 [id number] Univers 15:03:21 16:38:13 Visit Lance Dang S Y HEALTH 350.1.13.10 ity of CLIN[place] [phone] [facility] [address] 2019-08-31 2019-08-[address] [facility] [id number] Univers 15:00:00 15:00:00 ity of [facility] 2019-08-16 2019-08-[address] [facility] [id number] Univers 14:00:00 14:00:00 ity of [facility] 2019-08-09 2019-08-09 Case Nino Steward [facility] 1.2.922.431 [id number] Univers 00:00:00 00:00:00 Management Cam [place] 350.1.13.10 it[place] of [place] [phone] [address] 2019-08-03 2019-08-03 Routine Nino Steward [facility] 1.2.552.649 [id number] Univers 15:30:22 16:13:20 Cam [place] 350.1.13.10 ity [place] [phone] [address] 2019-08-03 2019-08-03 Outpatient [address] [facility]INO [facility] [facility] [id number] Univers 15:30:00 15:30:00 ity of [facility] 2019-07-18 2019-07-18 [facility] 1.2.840.114 [id number] Univers 00:00:00 00:00:00 Cam [place] 350.1.13.10 i ty of [place] [phone] [address] 2019-07-17 2019-07-17 Telephone Cielo Stewarden [facility] 1.2.840.114 [id number] Univers 00:00:00 00:00:00 Cam [place] 350.1.13.10 i ty of [place] [phone] [address] 2019-07-17 2019-07-17 Telephone Nino Steward [facility] 1.2.840.114 [id number] Univers 00:00:00 00:00:00 Cam [place] 350.1.13.10 i ty of [place] [phone] [address] 2019-07-14 2019-07-[address] [facility] [id number] Univers 13:30:00 13:30:00 ity of [facility] 2019-07-14 2019-07-14 Orders Nino Steward ANDREA 1.2.186.053 [id number] Univers 00:00:00 00:00:00 Only Cam ZEESHAN 350.1.13.10 it y of HOSPITAL 4.2.7.2.686 Nikhil as [phone] [facility] [address] 2019-07-13 2019-07-13 Telephone Nino Steward [facility] 1.2.840.114 [id number] Univers 00:00:00 00:00:00 Cam [place] 350.1.13.10 i ty of [place] [phone] Ia dical nal [address] [place] [address] 2019-07-12 2019-07-12 Patient [facility] 1.2.673.675 [id number] Univers 00:00:00 00:00:00 Secure Msg Cam [place] 350.1.13.10 ity of [place] [phone] Ia dical nal [address] [place] [address] 2019-07-06 2019-07-[address] [facility] [id number] Univers 14:30:00 14:30:00 ity of [facility] 2019-07-06 2019-07-06 Telemedici Clinic, [facility] Neurology Kalpana nuity UNIVERSIT 1.2.840.114 [id number] Univers 08:22:33 09:22:33 ne Visit Lance Dang [facility] 350.1.13.10 ity of [facility] 4.2.7.2.[place] [phone] [facility] [address] 2019-07-06 2019-07-06 Telephone [facility] 1.2.840.114 [id number] Univers 00:00:00 00:00:00 Cam [place] 350.1.13.10 i ty of [place] [phone] Ia dical nal [address] [place] [address] 2019-07-04 2019-07-04 Telemedici [facility] 1.2.840.114 [id number] Univers 15:44:34 16:59:27 ne Visit Cam [place] 350.1.13.10 ity of [place] [phone] Ia dical nal 134 [facility] 2019-07-04 2019-07-04 Outpatient [address]INO [facility] [facility] [id number] Univers 16:00:00 16:00:00 ity of [facility] 2019-07-04 2019-07-04 Telephone Nino Steward [facility] 1.2.840.114 [id number] Univers 00:00:00 00:00:00 Alfredo [place] 350.1.13.10 i ty of [place] [phone] Ia dical nal 134 [facility] 2019-06-30 2019-07-03 Trim Installer 5, [facility] Us Room UNIVERSIT 1 .2.840.114 [id number] Univers 13:53:53 15:00:16 Visit Harlan [facility] 350.1 .13.10 ity of [facility] 4.2.7.2.[place] [phone] [address] 2019-07-03 2019-07-[address] [facility] [id number] Univers 14:45:00 14:45:00 ity of [facility] 2019-06-30 2019-06-[address] [facility] [id number] Univers 14:00:00 14:00:00 ity of [facility] 2019-06-26 2019-06-26 Telephone [facility] 1.2.840.114 [id number] Univers 00:00:00 00:00:00 Alfredo [place] 350.1.13.10 i ty of [place] [phone] Ia dical nal 134 [facility] 2019-06-13 2019-06-13 Refill Eugene [facility] 1.2.840.114 [id number] Univers 00:00:00 00:00:00 Minerva Henry [employer] 350.1.13.10 it y of [facility] 4.2.7.2.686 Nikhil as MATERNAL [phone] Med ical & CHILD 107 [facility] 2019-06-07 2019-06-[address] [facility] [id number] Univers 15:40:00 15:40:00 KEVYN mcknighty o f [facility] 2019-06-07 2019-06-07 [facility] 1.2.840.114 [id number] Univers 08:27:48 08:47:48 ne Visit Kevyn [place] 350.1.13.10 it[place] of [place] [phone] [facility] 059 [facility] 2019-06-06 2019-06-06 Telemedici [facility] 1..840.114 7 [id number] Univers 08:12:59 13:52:45 ne Visit Alfredo [place] 350.1.13.10 ity of [place] [phone] [facility] 134 [facility] 2019-06-06 2019-06-06 Outpatient [address]ICHELLE NINO [facility] [id number] Univers 13:15:00 13:15:00 ity [facility] 2019-06-06 2019-06-06 Telephone Lance Dang [facility] ..840.11 4 [id number] Univers 00:00:00 00:00:00 S HEALTH 350.1.13.10 i ty of CLINICS [place] [phone] [facility] [address] 2019-06-02 2019-06-[address] [facility] [id number] Univers 10:00:00 10:00:00 BRANDON itmichael [facility] 2019-05-19 2019-05-19 Telephone [facility] 1..840.114 74 [id number] Univers 00:00:00 00:00:00 Cam [place] 350.1.13.10 i ty of [place] [phone] [address] 2019-05-18 2019-05-18 Telephone [facility] 1.2.840.114 [id number] Univers 00:00:00 00:00:00 Cam [place] 350.1.13.10 i ty of [place] [phone] Ia dical nal 134 [facility] 2019-05-17 2019-05-17 Telephone Nino Steward [facility] 1.2.840.114 [id number] Univers 00:00:00 00:00:00 Cam [place] 350.1.13.10 i ty of [place] [phone] Ia dical nal 134 [facility] 2019-05-11 2019-05-11 Trim Installer Ameena Noonan Lab Main [facility] 1.2.8 40.114 [id number] Univers 12:17:33 12:32:33 Visit Nino Steward Alfredo Ladd 350.1.13.10 ity of [place].2.[place] [phone] Ia dicnd nal 353 [facility] 2019-05-11 2019-05-11 Outpatient R STEWARD NINO [facility] [id number] Univers 12:30:00 12:30:00 ity of [facility] 2019-05-11 2019-05-11 Case Nino Steward [facility] 1.2.630.417 [id number] Univers 00:00:00 00:00:00 Management Cam [place] 350.1.13.10 it[place] of [place] [phone] Ia dical nal 134 [facility] 2019-05-11 2019-05-11 Orders Doctor ANDREA 1.2.840.114 [id number] Univers 00:00:00 00:00:00 Only Unassigned, ZEESHAN 350.1.13.10 ity of [place] [facility] 4.2.7.2.686 Nikhil as [phone] [address] 2019-05-09 2019-05-09 Initial Nino Steward [facility] 1.2.690.015 [id number] Univers 14:41:30 16:11:44 Cam [place] 350.1.13.10 ity of [place].2.[place] [phone] Ia dical nal 134 [facility] 2019-05-09 2019-05-09 Outpatient [address]LE NINO [facility] [id number] Univers 14:30:00 14:30:00 ity [facility] 2019-05-04 2019-05-04 Routine Risk, Hbu-Fswrk-Yw/High [facility] 1. 2.840.114 [id number] Univers 10:10:06 10:48:19 Samantha Correa [employer] 350.1.13.10 ity of Visit REGIONAL 4.2.7.2.686 Nikhil as MATERNAL [phone] [facility] ical & CHILD [address] [place] [address] 2019-05-04 2019-05-[address] [facility] [id number] Univers 10:00:00 10:00:00 SAMANTHA roxannamichael [facility] 2019-04-14 2019-04-14 Telephone [facility], [facility] 1.2.962.938 [id number] Univers 00:00:00 00:00:00 Ang-Rmchp-N [employer] [place] [employer] 350.1.13.10 ity of p/High REGIONAL 4.2.7.2.686 Nikhil as MATERNAL [phone] [facility] ical & CHILD [address] [place] [address] 2019-04-06 2019-04-13 Routine Risk, Sbx-Depzz-Xk/High [facility] 1. 2.840.114 [id number] Univers 09:44:45 10:09:18 SavannahirajmelodyMinerva [employer] 350.1.13.1 0 ity of Visit REGIONAL 4.2.7.2.686 Nikhil as MATERNAL [phone] [facility] ical & CHILD [address] [place] [address] 2019-04-11 2019-04-11 Emergency Remedios Lomax [facility] 1.2.840.114 [id number] Univers 13:25:41 16:54:00 Britt [place] 350.1.13.10 i ty of [place]2.7.2.[place] [phone] [address] 2019-04-11 2019-04-11 Telephone Shun, [facility] 1.2.840.114 [id number] Univers 00:00:00 00:00:00 Brandon Reid [employer] 350.1.13.10 it y of REGIONAL 4.2.7.2.686 Nikhil as MATERNAL [phone] [facility] [address] [place] [address] 2019-04-07 2019-04-07 Telephone Risk, [facility] 1.2.997.773 [id number] Univers 00:00:00 00:00:00 Ang-Rmchp-N [place] [place] 350.1.13.10 ity of p/High REGIONAL 4.2.7.2.686 Nikhil as MATERNAL [phone] [facility] [address] [place] [address] 2019-04-06 2019-04-06 Telephone Risk, [facility] 1.2.286.141 [id number] Univers 00:00:00 00:00:00 Ang-Rmchp-N [place] [place] 350.1.13.10 ity of p/High [facility] 4.2.7.2.686 Nikhil as MATERNAL [phone] [facility] & [address] 2019-03-30 2019-03-30 Initial Shun, [facility] 1.2.018.276 [id number] Univers 10:12:30 11:22:12 Brandon N [employer] 350.1.13.10 i ty of Visit REGIONAL 4.2.7.2.686 Nikhil as MATERNAL [phone] [facility] & CHILD [address] [place] [address] 2019-03-30 2019-03-30 Orders Doctor ANDREA 1.2.840.114 [id number] Univers 00:00:00 00:00:00 Only Unassigned, ZEESHAN 350.1.13.10 ity of [place] [facility] 4.2.7.2.686 Nikhil as [phone] [address] Results Test Description Test Time Test Comments Results Result Comments Source POCT MOLECULAR FLU 2021-12-11 22:33:27 Test Item Value Reference Range Interpretation Comme nts POCT Molecular FluA (test code = 99278-5) Positive Negative A Lab Interpretation (test code = 17456-2) Abnormal [facility] [id number] 22:10:00 Test Item Value Reference Range Interpretation Comments POCT PREG (test code = 1605) Negative On board controls acceptable with C Yes Line (test code = 3574) POCT PREG LOT # (test code = 3575) POCT PREG TEST DATE (test code = 3576) [facility] [id number] 22:10:00 Test Item Value Reference Range Interpretation Comments POCT PREG (test code = 1605) Negative On board controls acceptable with C Yes Line (test code = 3574) POCT PREG LOT # (test code = 3575) POCT PREG TEST DATE (test code = 3576) [facility] GLUCOSE(AGE >30DAYS)2021-03-08 23:56:00 Test Item Value Reference Range Interpretation Comments POCT Glu (age>30days) (test code = 87 mg/dL 70-110 3342) Lab Interpretation (test code = Normal 22858-1) [facility] GLUCOSE (AUTOMATED)2021-03-08 23:25:29 Test Item Value Reference Range Interpretation Comments POCT GLU (test code = 8239297102) 87 mg/dL 70-110 Lab Interpretation (test code = Normal 11084-2) [facility] [id number] 21:58:00 Test Item Value Reference Range Interpretation Comments POCT PREG (test code = 1605) negative On board controls acceptable with present C Line (test code = 3574) POCT PREG LOT # (test code = 3575) [id number] POCT PREG TEST DATE (test code = 357) Lab Interpretation (test code = Normal 35165-1) [facility] MOLECULAR [id number] 02:06:02 Test Item Value Reference Range Interpretation Comments POCT Molecular FluA (test code = Negative Negative 81285-5) POCT Molecular FluB (test code = Negative Negative 40100-2) Lab Interpretation (test code = Normal 18470-4) [facility] - The Type and Screen expires at midnight on the 3rd day after it was drawn. A current Type and Screen is required when RBCs are requested. For all other blood products, a Type and Scree n performed during the current hospitalizati...2020-01-02 00:20:51 Test Item Value Reference Range Interpretation Comments ABO & RH (test code A Positive Performe d at [facility] = 20) Laboratory Serv [facility] Blood Bank1 [address] [place] [phone] Free: [phone] A No. [id number] IAT (test code = Negative Performed a t [facility] 1185) Laboratory Serv [facility] Blood Bank1 [address] [place] [address]Wfyi Free: [phone] A No. [id number] [facility] Antonio[facility] BETA HCG [id number] 23:02:00 Test Item Value Reference Range Interpretation Comments BETA HCG (test <2.39 See_Comment [Automated m essage] code = The system [employer] h [id number]) generated this result transmit keisha reference range : Non- fe male and male patien ts: <5 mIU/mL. The reference range was not used to interpret this result as normal/abnormal . KATHY (test code Gestational Age ? ? = KATHY) ?Range (mIU/mL) 1-10 ?Weeks ?77-50150885-59 Weeks ?02798-77953832-79 Weeks ?7904-24094461-14 Weeks ?2402-937126 Biotin has been reported to cause a negative bias, interpret results relative to patient's use of biotin. [facility] (ID NOW RAPID TESTING)2020-01-01 22:43:00 Test Item Value Reference Range Interpretation Comments SARS-CoV-2 Rapid ID NOW Not Detected Not Detected (test code = 64867-9) KATHY (test code = KATHY) ID NOW COVID-19 Assay is an isothermal nucleic acid amplification test intended for the qualitative detection of nucleic acid from SARS-CoV-2 viral RNA in nasopharyngeal (RESPIRATORY THERAPIST) specimens. It is used under Emergency Use Authorization (EUA) by FDA. The limit of detection (LOD) of the assay is 125 Genome Equivalents/mL. A positive result is indicative of the presence of SARS-CoV-2 RNA. ?Clinical correlation with patient history and other diagnostic information is necessary to determine patient infection status. A negative (Not Detected) result does not preclude SARS-CoV-2 infection. In patients with clinical symptoms and other tests that are consistent with SARS-CoV-2 infection, negative results should be treated as presumptive negative and a new specimen should be tested with alternative PCR molecular test. Invalid: Please collect a new specimen for repeat patient testing if clinically indicated. Lab Interpretation Normal (test code = 05013-7) [facility] with [id number] 10:00:00 Test Item Value Reference Range Interpretation Comments WBC (test code = See_Comment [Automated 6690-2) message] The sy stem which generated this result transmitted reference range : 4.30 - 11.10 10*3/?L. The reference range was not used to interpret this result as normal/abnormal . RBC (test code = See_Comment L [Automated 789-8) message] The sy stem which generated this result transmitted reference range : 3.93 - 5.25 10*6/?L. The reference range was not used to interpret this result as normal/abnormal . HGB (test code = 11.3 g/dL 11.6-15 L 718-7) HCT (test code = 32.8 % 35.7-45.2 L 4544-3) MCV (test code = 89.4 fL 80.6-95.5 787-2) MCH (test code = 30.8 pg 25.9-32.8 785-6) MCHC (test code = 34.5 g/dL 31.6-35.1 786-4) RDW-SD (test code = 45.1 fL 39-49.9 80695-1) RDW-CV (test code = 13.8 % 12-15.5 788-0) PLT (test code = See_Comment [Automated 777-3) message] The sy stem which generated this result transmitted reference range : 166 - 358 10*3/ ?L. The reference r ebony was not used to interpret this result as normal/abnormal . MPV (test code = 11.3 fL 9.5-12.9 29662-5) NRBC/100 WBC (test See_Comment [Automat ed code = 7588071535) message] The system which generated this result transmitted reference range : 0.0 - 10.0 /100 WBCs. The refer ence range was not u sed to interpret th is result as normal/abnormal . NRBC x10^3 (test code <0.01 See_Comment [Auto mated = [id number]) message] The s ystem which generated this result transmitted reference range : 10*3/?L. The reference range was not used to interpret this result as normal/abnormal . GRAN MAT (NEUT) % 67.3 % (test code = 770-8) IMM GRAN % (test code 0.40 % = 2157313968) LYMPH % (test code = 25.8 % 736-9) MONO % (test code = 5.0 % 5905-5) EOS % (test code = 1.2 % 713-8) BASO % (test code = 0.3 % 706-2) GRAN MAT x10^3(ANC) 7.22 10*3/uL 1.88-7.09 H (test code = 5256624023) IMM GRAN x10^3 (test 0.04 10*3/uL 0-0.06 code = 4006064539) LYMPH x10^3 (test code 2.77 10*3/uL 1.32-3.29 = 731-0) MONO x10^3 (test code 0.54 10*3/uL 0.33-0.92 = 742-7) EOS x10^3 (test code = 0.13 10*3/uL 0.03-0.39 711-2) BASO x10^3 (test code 0.03 10*3/uL 0.01-0.07 = 704-7) Lab Interpretation Abnormal (test code = 55237-4) [facility] OR [place] ONLY - [id number] 05:42:00 Test Item Value Reference Range Interpretation Comments RPR (Qualitative) (test code = Nonreactive Nonreactive 48783-3) Lab Interpretation (test code = Normal 65320-3) [facility] IMM[facility]E [id number] 20:12:19 Test Item Value Reference Range Interpretation Comments RHIG CANDIDATE? No- see comment Patient i s not a (test code = candidate for R hIg- 5055) Patient is Rh Positive.Perfor med at [facility] Laboratory Services - [facility] Blood [id number] [place] [id number] Free: [phone] A No. [id number] [facility] [id number] 18:31:00 Test Item Value Reference Range Interpretation Comments VENOUS BASE EXCESS, mEq/L CORD (test code = 8218441274) VENOUS PH, CORD (test 7.25-7.45 code = 6832453850) VENOUS PC02, CORD See_Comment [Automate d message] The (test code = system which ge nerated 7782622348) this result tra nsmitted reference range : 27 - 49 mmHg. The refer ence range was not used to interpret this result as normal/abnormal . VENOUS PO2, CORD (test See_Comment [Aut omated message] The code = 5877533176) system [facility] generated this result tra nsmitted reference range : 17 - 41 mmHg. The refer ence range was not used to interpret this result as normal/abnormal . VENOUS BICARBONATE, See_Comment [Automa keisha message] The CORD (test code = system [facility] generated 5772441533) this result tra nsmitted reference range : 12 - 29 mEq/L. The refe rence range was not used to interpret this result as normal/abnormal . [facility] Antonio[facility] Cord [id number] 18:29:00 Test Item Value Reference Range Interpretation Comments BASE EXCESS, CORD mEq/L (test code = 9265876116) AC PH, CORD (BEAKER) 7.18-7.38 (test code = 9472963743) PC02, CORD (test code See_Comment [Auto mated message] The = 4675307290) system which g enerated this result transmit keisha reference range : 32 - 66 mmHg. The refer ence range was not used to interpret this result as normal/abnormal . PO2, CORD (test code See_Comment [Autom ated message] The = 5258000322) system which g enerated this result transmit keisha reference range : 10 - 30 mmHg. The refer ence range was not used to interpret this result as normal/abnormal . BICARBONATE, CORD See_Comment [Automate d message] The (test code = system which ge nerated this 7038760380) result transmit keisha reference range : 17 - 27 mEq/L. The refe rence range was not used to interpret this result as normal/abnormal . [facility] AntonioHepatitis B Surface [id number] 16:09:00 Test Item Value Reference Range Interpretation Comments HBsAg Semi-Quantitative (test code = Negative Negative 5195-3) [facility] AntonioHIV [facility]/2 AG-AB WITH [id number] 11:53:00 Test Item Value Reference Range Interpretation Comments HIV Negative Negative Semi-quantitative (test code = 03817-4) KATHY (test code = Non-reactive for HIV-1 KATHY) antigen and HIV-1/HIV-2 antibodies. ?No laboratory evidence of HIV infection. ?Repeat in 2-4 weeks if acute HIV infection is suspected. [facility] AntonioType and Screen - ONCE [id number] 11:45:14 Test Item Value Reference Range Interpretation Comments ABO & RH (test code A Positive Performe d at [facility] = 20) Laboratory Serv [facility] [place], [place] [address]Toll Free: [phone] A No. [id number] IAT (test code = Negative Performed a t [facility] 1185) Laboratory Serv [facility] [place], [place] [address]Toll Free: [phone] A No. [id number] [facility] AntonioCBC with [id number] 11:01:00 Test Item Value Reference Range Interpretation Comments WBC (test code = See_Comment [Automated 6590-2) message] The sy stem which generated this result transmitted reference range : 4.30 - 11.10 10*3/?L. The reference range was not used to interpret this result as normal/abnormal . RBC (test code = See_Comment [Automated 531-8) message] The sy stem which generated this result transmitted reference range : 3.93 - 5.25 10*6/?L. The reference range was not used to interpret this result as normal/abnormal . HGB (test code = 12.3 g/dL 11.6-15 718-7) HCT (test code = 35.1 % 35.7-45.2 L 4544-3) MCV (test code = 88.4 fL 80.6-95.5 787-2) MCH (test code = 31.0 pg 25.9-32.8 785-6) MCHC (test code = 35.0 g/dL 31.6-35.1 786-4) RDW-SD (test code = 44.3 fL 39-49.9 52845-1) RDW-CV (test code = 13.7 % 12-15.5 788-0) PLT (test code = See_Comment [Automated 777-3) message] The sy stem which generated this result transmitted reference range : 166 - 358 10*3/ ?L. The reference r ebony was not used to interpret this result as normal/abnormal . MPV (test code = 11.3 fL 9.5-12.9 23774-9) NRBC/100 WBC (test See_Comment [Automat ed code = 2458255424) message] The system which generated this result transmitted reference range : 0.0 - 10.0 /100 WBCs. The refer ence range was not u sed to interpret th is result as normal/abnormal . NRBC x10^3 (test code <0.01 See_Comment [Auto mated = 6932272013) message] The s ystem which generated this result transmitted reference range : 10*3/?L. The reference range was not used to interpret this result as normal/abnormal . GRAN MAT (NEUT) % 61.9 % (test code = 770-8) IMM GRAN % (test code 0.40 % = 4390406621) LYMPH % (test code = 27.4 % 736-9) MONO % (test code = 8.7 % 5905-5) EOS % (test code = 1.3 % 713-8) BASO % (test code = 0.3 % 706-2) GRAN MAT x10^3(ANC) 5.63 10*3/uL 1.88-7.09 (test code = 3747795505) IMM GRAN x10^3 (test 0.04 10*3/uL 0-0.06 code = 9468028333) LYMPH x10^3 (test code 2.50 10*3/uL 1.32-3.29 = 731-0) MONO x10^3 (test code 0.79 10*3/uL 0.33-0.92 = 742-7) EOS x10^3 (test code = 0.12 10*3/uL 0.03-0.39 711-2) BASO x10^3 (test code 0.03 10*3/uL 0.01-0.07 = 704-7) Lab Interpretation Abnormal (test code = 42332-9) [facility] URINALYSIS W/O SPECIFIC [id number] 18:36:00 Test Item Value Reference Range Interpretation Comments POCT PH U (test code = 3254) 6 mg/dl 5-8 POCT U LEUK EST (test code = + Negative - Negative 3263) POCT U NIT (test code = 3262) neg Negative - Negative POCT U PROT (test code = 3259) neg Negative - Negative POCT U GLU (test code = 3256) neg Negative - Negative POCT U KETONE (test code = 3258) neg Negative - Negative POCT U BLD (test code = 3257) neg Negative - Negative [facility] URINALYSIS W/O SPECIFIC [id number] 20:54:00 Test Item Value Reference Range Interpretation Comments POCT PH U (test code = 3254) N/A 5-8 POCT U LEUK EST (test code = N/A Negative - Negative 3263) POCT U NIT (test code = 3262) N/A Negative - Negative POCT U PROT (test code = 3259) Negative Negative - Negative POCT U GLU (test code = 3256) Negative Negative - Negative POCT U KETONE (test code = 3258) N/A Negative - Negative POCT U BLD (test code = 3257) N/A Negative - Negative [facility]>14 WEEKS US [id number] 20:17:59Limited USG for Presentation: ?Cephalic Nino Steward MD ?10/23/2019 ?3:17 [facility] SPECIFIC GRAVITY 2019-10-23 19:02:00 Test Item Value Reference Range Interpretation Comments POCT PH U (test code = 3254) N/A 5-8 POCT U LEUK EST (test code = 3263) N/A Negative - Negative POCT U NIT (test code = 3262) N/A Negative - Negative POCT U PROT (test code = 3259) NEG Negative - Negative POCT U GLU (test code = 3256) NEG Negative - Negative POCT U KETONE (test code = 3258) N/A Negative - Negative POCT U BLD (test code = 3257) N/A Negative - Negative [facility] AntonioPOCT URINALYSIS W/O SPECIFIC [id number] 20:57:00 Test Item Value Reference Range Interpretation Comments POCT PH U (test code = 3254) n/a 5-8 POCT U LEUK EST (test code = 3263) n/a Negative - Negative POCT U NIT (test code = 3262) n/a Negative - Negative POCT U PROT (test code = 3259) neg Negative - Negative POCT U GLU (test code = 3256) neg Negative - Negative POCT U KETONE (test code = 3258) n/a Negative - Negative POCT U BLD (test code = 3257) n/a Negative - Negative Lab Interpretation (test code = Normal 24321-5) [facility] AntonioPO[facility] URINALYSIS W/O SPECIFIC [id number] 18:45:00 Test Item Value Reference Range Interpretation Comments POCT PH U (test code = 3254) n/a 5-8 POCT U LEUK EST (test code = 3263) n/a Negative - Negative POCT U NIT (test code = 3262) n/a Negative - Negative POCT U PROT (test code = 3259) neg Negative - Negative POCT U GLU (test code = 3256) neg Negative - Negative POCT U KETONE (test code = 3258) n/a Negative - Negative POCT U BLD (test code = 3257) n/a Negative - Negative [facility] AntonioPOCT URINALYSIS W/O SPECIFIC [id number] 18:45:00 Test Item Value Reference Range Interpretation Comments POCT PH U (test code = 3254) n/a 5-8 POCT U LEUK EST (test code = 3263) n/a Negative - Negative POCT U NIT (test code = 3262) n/a Negative - Negative POCT U PROT (test code = 3259) neg Negative - Negative POCT U GLU (test code = 3256) neg Negative - Negative POCT U KETONE (test code = 3258) n/a Negative - Negative POCT U BLD (test code = 3257) n/a Negative - Negative [facility] AntonioHEPATIC FUNCTION PANEL (06795) (ALB,T.PRO,BILI T,BU/BC,ALT,AST,ALK PHOS)2019-09-15 21:56:00 Test Item Value Reference Range Interpretation Comments TOTAL BILI (test code = 5694650105) 0.3 mg/dL 0.1-1.1 BILI UNCON (test code = 8385760370) 0.5 mg/dL 0.1-1.1 BILI CONJ (test code = 6515987975) 0.0 mg/dL 0-0.3 T PROTEIN (test code = 7096881973) 7.1 g/dL 6.3-8.2 ALBUMIN (test code = 6593770331) 3.8 g/dL 3.5-5 ALK PHOS (test code = 8297245503) 71 U/L 34-122 ALTv (test code = 1742-6) 10 U/L 5-35 AST(SGOT) (test code = 7407175087) 17 U/L 13-40 Lab Interpretation (test code = Normal 22414-4) [facility] AntonioPO[facility] URINALYSIS W/O SPECIFIC [id number] 18:23:00 Test Item Value Reference Range Interpretation Comments POCT PH U (test code = 3254) n/a 5-8 POCT U LEUK EST (test code = 3263) n/a Negative - Negative POCT U NIT (test code = 3262) n/a Negative - Negative POCT U PROT (test code = 3259) neg Negative - Negative POCT U GLU (test code = 3256) neg Negative - Negative POCT U KETONE (test code = 3258) n/a Negative - Negative POCT U BLD (test code = 3257) n/a Negative - Negative Lab Interpretation (test code = Normal 85750-3) [facility] AntonioPOCT URINALYSIS W/O SPECIFIC [id number] 20:42:00 Test Item Value Reference Range Interpretation Comments POCT PH U (test code = 3254) n/a 5-8 POCT U LEUK EST (test code = 3263) n/a Negative - Negative POCT U NIT (test code = 3262) n/a Negative - Negative POCT U PROT (test code = 3259) neg Negative - Negative POCT U GLU (test code = 3256) neg Negative - Negative POCT U KETONE (test code = 3258) n/a Negative - Negative POCT U BLD (test code = 3257) n/a Negative - Negative Lab Interpretation (test code = Normal 94822-1) [facility] AntonioTEST IN QUESTION- MISSING REQUIRED INFO-Q 2019-07-17 12:00:00 Test Item Value Reference Range Interpretation Comments -Q (test code = [place] [address]) complete the test(s) noted below due to missing require d information. MISSING INFO:-Q NG 5059-MATERNA L (test code = SERUM AFPEthnic 08664) Origin:Maternal Weight:5059-MAT DELTA AL SERUM AFPEth ronald Origin:Maternal Weight:REPORT COMMENT:MATERNA L WEIGHT 190.2LBS KATHY (test code = PERFORMED BY [facility] KATHY) [facility]; [address] [place] [phone]; ELIECER REYES MD [facility] AntonioPOCT URINALYSIS W/O SPECIFIC [id number] 16:17:00 Test Item Value Reference Range Interpretation Comments POCT PH U (test code = 3254) 7 mg/dl 5-8 POCT U LEUK EST (test code = trace Negative - Negative 3263) POCT U NIT (test code = 3262) neg Negative - Negative POCT U PROT (test code = 3259) trace Negative - Negative POCT U GLU (test code = 3256) neg Negative - Negative POCT U KETONE (test code = 3258) neg Negative - Negative POCT U BLD (test code = 3257) neg Negative - Negative Lab Interpretation (test code = Abnormal 59493-8) [facility] AntonioUrinalysis2020-02-11 20:55:00 Test Item Value Reference Range Interpretation Comments APPEARANCE (test code = Turbid Clear A 2336222563) COLOR (test code = Yellow Yellow 7661909427) PH (test code = 4.8-8.0 4295428508) SP GRAVITY (test code = 1.003-1.030 4688367825) GLU U QUAL (test code = Normal Normal 3600099908) BLOOD (test code = 1+ Negative A 9123989456) KETONES (test code = Negative Negative 7303976853) PROTEIN (test code = Negative Negative 2887-8) UROBILIN (test code = Normal Normal 9078178968) BILIRUBIN (test code = Negative Negative 1134024268) NITRITE (test code = Negative Negative 0829655297) LEUK MARIN (test code = 25/uL Negative A 3097469275) RBC/HPF (test code = See_Comment [Autom ated message] 1109425369) The system [employer] generated this result transmitted ref erence range: 0 - 3 HP F. The reference range was not used to int erpret this result as normal/abnormal . WBC/HPF (test code = See_Comment [Autom ated message] 5717655571) The system [employer] generated this result transmitted ref erence range: 0 - 5 HP F. The reference range was not used to int erpret this result as normal/abnormal . BACTERIA (test code = Negative Negative 0515487571) MUCOUS (test code = Marked Negative LPF A 5058679369) AMORPHOUS (test code = Many Rare HPF A 6902496482) SQ EPITH (test code = HPF 7429611114) Lab Interpretation (test Abnormal code = 74902-0) [facility] AntonioMAGNESIUM2020-02-11 20:40:00 Test Item Value Reference Range Interpretation Comments MAGNESIUM (test code = 1.8 mg/dL 1.7-2.4 Sligh t hemolysis 4254418082) Lab Interpretation (test Normal code = 84951-3) [facility] AntonioADC,CLC OR LCC ONLY - INFLUENZA A & B DIRECT [id number] 20:39:00 Test Item Value Reference Range Interpretation Comments Influenza A (test code = 41162-5) Negative Negative Influenza B (test code = 70552-5) Negative Negative Lab Interpretation (test code = Normal 41143-5) [facility] AntonioRAP[facility] [id number] 20:39:00 Test Item Value Reference Range Interpretation Comments Streptococcus pyogenes (group A) Negative Negative antigen (test code = 93801-1) Lab Interpretation (test code = Normal 68810-5) [facility] AntonioComplete Metabolic [id number] 20:04:00 Test Item Value Reference Range Interpretation Comments NA (test code = 135 mmol/L 135-145 5575137086) K (test code = 4.1 mmol/L 3.5-5 9064601703) CL (test code = 102 mmol/L 98-108 9948685049) CO2 TOTAL (test code = 21 mmol/L 23-31 L 8226476713) AGAP (test code = 2-16 0908200384) BUN (test code = 11 mg/dL 7-23 6544660134) GLUCOSE (test code = 99 mg/dL 70-110 7375869002) CREATININE (test code = 0.33 mg/dL 0.5-1.04 L 5298941952) TOTAL BILI (test code = 0.6 mg/dL 0.1-1.1 1041044918) CALCIUM (test code = 8.8 mg/dL 8.6-10.6 1916927551) T PROTEIN (test code = 8.1 g/dL 6.3-8.2 3567517635) ALBUMIN (test code = 4.9 g/dL 3.5-5 5763565363) ALK PHOS (test code = 48 U/L 34-122 7530154462) ALTv (test code = 19 U/L 5-35 1742-6) AST(SGOT) (test code = 34 U/L 13-40 0375717089) eGFR Calculation mL/min/1.73m2 (Non-) (test code = 4852072272) eGFR Calculation mL/min/1.73m2 () (test code = 7599841860) KATHY (test code = KAHTY) Association of Glomerular Filtration Rate (GFR) and Staging of Kidney Disease* + --+ --+ ------+| GFR (mL/min/1.73 m2) ?| With Kidney Damage ?| ?Without Kidney Damage+ --------+ --------+ +| ?>90 ?| ?Stage one ?| ? Normal ?+ ---+ ---+ -------+| ?60-89 ?| ?Stage two ?| ? Decreased GFR ? + --+ --+ ------+| ?30-59 ?| ?Stage three ?| ? Stage three ? + --+ --+ ------+| ?15-29 ?| ?Stage four ? | ? Stage four ?+ ---+ ---+ -------+| ?<15 (or dialysis) ? ?| ?Stage five ? | ? Stage five ?+ ---+ ---+ -------+ *Each stage assumes the associated GFR level has been in effect for at least three months. ?Stages 1 to 5, with or without kidney disease, indicate chronic kidney disease. Notes: Determination of stages one and two (with eGFR >59mL/min/1.73 m2) requires estimation of kidney damage for at least three months as defined by structural or functional abnormalities of the kidney, manifested by either:Pathological abnormalities or Markers of kidney damage (including abnormalities in the composition of the blood or urine or abnormalities in imaging tests). Lab Interpretation Abnormal (test code = 79929-1) [facility] AntonioLipase, [id number] 20:04:00 Test Item Value Reference Range Interpretation Comments LIPASE (test code = 1003457078) 29 U/L 0-220 Lab Interpretation (test code = Normal 30745-9) [facility] AntonioCB WITH [id number] 19:58:00 Test Item Value Reference Range Interpretation Comments WBC (test code = See_Comment [Automated 7490-2) message] The sy stem which generated this result transmitted reference range : 4.30 - 11.10 10*3/?L. The reference range was not used to interpret this result as normal/abnormal . RBC (test code = See_Comment [Automated 199-8) message] The sy stem which generated this result transmitted reference range : 3.93 - 5.25 10*6/?L. The reference range was not used to interpret this result as normal/abnormal . HGB (test code = 15.1 g/dL 11.6-15 H 718-7) HCT (test code = 42.2 % 35.7-45.2 4544-3) MCV (test code = 84.9 fL 80.6-95.5 787-2) MCH (test code = 30.4 pg 25.9-32.8 785-6) MCHC (test code = 35.8 g/dL 31.6-35.1 H 786-4) RDW-SD (test code = 37.8 fL 39-49.9 L 58692-7) RDW-CV (test code = 12.3 % 12-15.5 788-0) PLT (test code = See_Comment [Automated 777-3) message] The sy stem which generated this result transmitted reference range : 166 - 358 10*3/ ?L. The reference r ebony was not used to interpret this result as normal/abnormal . MPV (test code = 10.7 fL 9.5-12.9 79942-2) NRBC/100 WBC (test See_Comment [Automat ed code = 6625575363) message] The system which generated this result transmitted reference range : 0.0 - 10.0 /100 WBCs. The refer ence range was not u sed to interpret th is result as normal/abnormal . NRBC x10^3 (test code <0.01 See_Comment [Auto mated = 3938838700) message] The s ystem which generated this result transmitted reference range : 10*3/?L. The reference range was not used to interpret this result as normal/abnormal . GRAN MAT (NEUT) % 94.0 % (test code = 770-8) IMM GRAN % (test code 0.30 % = 8376869323) LYMPH % (test code = 3.5 % 736-9) MONO % (test code = 2.1 % 5905-5) EOS % (test code = 0.0 % 713-8) BASO % (test code = 0.1 % 706-2) GRAN MAT x10^3(ANC) 9.31 10*3/uL 1.88-7.09 H (test code = 3186332668) IMM GRAN x10^3 (test 0.03 10*3/uL 0-0.06 code = 8935697895) LYMPH x10^3 (test code 0.35 10*3/uL 1.32-3.29 L = 731-0) MONO x10^3 (test code 0.21 10*3/uL 0.33-0.92 L = 742-7) EOS x10^3 (test code = <0.03 0.03-0.39 L 711-2) BASO x10^3 (test code <0.03 0.01-0.07 = 704-7) Lab Interpretation Abnormal (test code = 24968-3) [facility] [id number] 19:43:00 Test Item Value Reference Range Interpretation Comments POCT PREG (test code = 1605) positive On board controls acceptable with present C Line (test code = 3574) POCT PREG LOT # (test code = 3575) [id number] POCT PREG TEST DATE (test code = 3576) Lab Interpretation (test code = Normal 39867-7) [facility] AntonioTHYROID STIMULATING [id number] 07:17:00 Test Item Value Reference Range Interpretation Comments TSH (test code = See_Comment [Automated message] 6305618063) The system [employer] generated this result transmitted ref erence range: 0.45 - 4 .70 mIU/L. The refe rence range was not u sed to interpret this result as normal/abnor mal. Lab Interpretation (test Normal code = 24302-4) [facility] AntonioTHYROID STIMULATING [id number] 07:17:00 Test Item Value Reference Range Interpretation Comments TSH (test code = See_Comment [Automated message] 7582415356) The system [employer] generated this result transmitted ref erence range: 0.45 - 4 .70 mIU/L. The refe rence range was not u sed to interpret this result as normal/abnor mal. Lab Interpretation (test Normal code = 80773-9) [facility] [id number] 07:03:00 Test Item Value Reference Range Interpretation Comments FREE T4 (test code = See_Comment [Autom ated message] 0788977973) The system [employer] generated this result transmitted ref erence range: 0.78 - 2 .20 ng/dL:. The ref erence range was not u sed to interpret this result as normal/abnor mal. Lab Interpretation (test Normal code = 81571-9) [facility] [id number] 07:03:00 Test Item Value Reference Range Interpretation Comments FREE T4 (test code = See_Comment [Autom ated message] 2360824521) The system [employer] generated this result transmitted ref erence range: 0.78 - 2 .20 ng/dL:. The ref erence range was not u sed to interpret this result as normal/abnor mal. Lab Interpretation (test Normal code = 87768-5) [facility] METABOLIC PANEL (NA, K, CL, CO2, GLUCOSE, BUN, CREATININE, CA)2019-04-07 06:45:00 Test Item Value Reference Range Interpretation Comments NA (test code = 136 mmol/L 135-145 1385513076) K (test code = 4.3 mmol/L 3.5-5 6898167308) CL (test code = 100 mmol/L 98-108 8927910250) CO2 TOTAL (test code = 28 mmol/L 23-31 4922726169) AGAP (test code = 2-16 5945354745) BUN (test code = 12 mg/dL 7-23 3069982588) GLUCOSE (test code = 76 mg/dL 70-110 1843680617) CREATININE (test code = 0.37 mg/dL 0.5-1.04 L 4592444863) CALCIUM (test code = 9.8 mg/dL 8.6-10.6 9408725675) eGFR Calculation mL/min/1.73m2 (Non-) (test code = 3489761669) eGFR Calculation mL/min/1.73m2 () (test code = 4062965235) KATHY (test code = KATHY) Association of Glomerular Filtration Rate (GFR) and Staging of Kidney Disease* + --+ --+ ------+| GFR (mL/min/1.73 m2) ?| With Kidney Damage ?| ?Without Kidney Damage+ --------+ --------+ +| ?>90 ?| ?Stage one ?| ? Normal ?+ ---+ ---+ -------+| ?60-89 ?| ?Stage two ?| ? Decreased GFR ? + --+ --+ ------+| ?30-59 ?| ?Stage three ?| ? Stage three ? + --+ --+ ------+| ?15-29 ?| ?Stage four ? | ? Stage four ?+ ---+ ---+ -------+| ?<15 (or dialysis) ? ?| ?Stage five ? | ? Stage five ?+ ---+ ---+ -------+ *Each stage assumes the associated GFR level has been in effect for at least three months. ?Stages 1 to 5, with or without kidney disease, indicate chronic kidney disease. Notes: Determination of stages one and two (with eGFR >59mL/min/1.73 m2) requires estimation of kidney damage for at least three months as defined by structural or functional abnormalities of the kidney, manifested by either:Pathological abnormalities or Markers of kidney damage (including abnormalities in the composition of the blood or urine or abnormalities in imaging tests). Lab Interpretation Abnormal (test code = 10227-0) [facility] METABOLIC PANEL (NA, K, CL, CO2, GLUCOSE, BUN, CREATININE, CA)2019-04-07 06:45:00 Test Item Value Reference Range Interpretation Comments NA (test code = 136 mmol/L 135-145 9590313007) K (test code = 4.3 mmol/L 3.5-5 3042168108) CL (test code = 100 mmol/L 98-108 1684641482) CO2 TOTAL (test code = 28 mmol/L 23-31 7674793508) AGAP (test code = 2-16 2234038512) BUN (test code = 12 mg/dL 7-23 9960438125) GLUCOSE (test code = 76 mg/dL 70-110 2600203245) CREATININE (test code = 0.37 mg/dL 0.5-1.04 L 8020191127) CALCIUM (test code = 9.8 mg/dL 8.6-10.6 9524271717) eGFR Calculation mL/min/1.73m2 (Non-) (test code = 3336199262) eGFR Calculation mL/min/1.73m2 () (test code = 5670908636) KATHY (test code = KATHY) Association of Glomerular Filtration Rate (GFR) and Staging of Kidney Disease* + --+ --+ ------+| GFR (mL/min/1.73 m2) ?| With Kidney Damage ?| ?Without Kidney Damage+ --------+ --------+ +| ?>90 ?| ?Stage one ?| ? Normal ?+ ---+ ---+ -------+| ?60-89 ?| ?Stage two ?| ? Decreased GFR ? + --+ --+ ------+| ?30-59 ?| ?Stage three ?| ? Stage three ? + --+ --+ ------+| ?15-29 ?| ?Stage four ? | ? Stage four ?+ ---+ ---+ -------+| ?<15 (or dialysis) ? ?| ?Stage five ? | ? Stage five ?+ ---+ ---+ -------+ *Each stage assumes the associated GFR level has been in effect for at least three months. ?Stages 1 to 5, with or without kidney disease, indicate chronic kidney disease. Notes: Determination of stages one and two (with eGFR >59mL/min/1.73 m2) requires estimation of kidney damage for at least three months as defined by structural or functional abnormalities of the kidney, manifested by either:Pathological abnormalities or Markers of kidney damage (including abnormalities in the composition of the blood or urine or abnormalities in imaging tests). Lab Interpretation Abnormal (test code = 35341-1) [facility] URINALYSIS W/O SPECIFIC [id number] 15:57:00 Test Item Value Reference Range Interpretation Comments POCT PH U (test code = 3254) 8 mg/dl 5-8 POCT U LEUK EST (test code = trace Negative - Negative 3263) POCT U NIT (test code = 3262) negative Negative - Negative POCT U PROT (test code = 3259) 1+ Negative - Negative POCT U GLU (test code = 3256) negative Negative - Negative POCT U KETONE (test code = 3258) negative Negative - Negative POCT U BLD (test code = 3257) trace Negative - Negative [facility] [id number] 15:57:00 Test Item Value Reference Range Interpretation Comments POCT PH U (test code = 3254) 8 mg/dl 5-8 POCT U LEUK EST (test code = trace Negative - Negative 3263) POCT U NIT (test code = 3262) negative Negative - Negative POCT U PROT (test code = 3259) 1+ Negative - Negative POCT U GLU (test code = 3256) negative Negative - Negative POCT U KETONE (test code = 3258) negative Negative - Negative POCT U BLD (test code = 3257) trace Negative - Negative [facility] [id number] 15:57:00 Test Item Value Reference Range Interpretation Comments POCT PH U (test code = 3254) 8 mg/dl 5-8 POCT U LEUK EST (test code = trace Negative - Negative 3263) POCT U NIT (test code = 3262) negative Negative - Negative POCT U PROT (test code = 3259) 1+ Negative - Negative POCT U GLU (test code = 3256) negative Negative - Negative POCT U KETONE (test code = 3258) negative Negative - Negative POCT U BLD (test code = 3257) trace Negative - Negative [facility] [id number] 15:57:00 Test Item Value Reference Range Interpretation Comments POCT PH U (test code = 3254) 8 mg/dl 5-8 POCT U LEUK EST (test code = trace Negative - Negative 3263) POCT U NIT (test code = 3262) negative Negative - Negative POCT U PROT (test code = 3259) 1+ Negative - Negative POCT U GLU (test code = 3256) negative Negative - Negative POCT U KETONE (test code = 3258) negative Negative - Negative POCT U BLD (test code = 3257) trace Negative - Negative [facility] [id number] 19:19:00 Test Item Value Reference Range Interpretation Comments POCT PREG (test code = 1605) Positive On board controls acceptable with C Yes Line (test code = 3574) POCT PREG LOT # (test code = 3575) POCT PREG TEST DATE (test code = 3576) [facility]CIFIC [id number] 16:33:00 Test Item Value Reference Range Interpretation Comments POCT PH U (test code = 3254) 6 mg/dl 5-8 POCT U LEUK EST (test code = neg Negative - Negative 3263) POCT U NIT (test code = 3262) neg Negative - Negative POCT U PROT (test code = 3259) trace Negative - Negative POCT U GLU (test code = 3256) neg Negative - Negative POCT U KETONE (test code = 3258) neg Negative - Negative POCT U BLD (test code = 3257) neg Negative - Negative Lab Interpretation (test code = Abnormal 55618-8) [facility]"
[2022-02-09] MEDS ORDERED: KETOROLAC 30 MG/ML INJ ONE (13:47)
[2022-02-09] MEDS ORDERED: ONDANSETRON 4 MG/2 ML VIAL ONE (13:47)
[2022-02-09 13:50] LABS: Absolute Lymphocytes (CBC) 2.9 K/uL (0.7-4.9); Hematocrit 41.4 % (36.0-45.0); Lymphocytes % 37.1 % (15.3-44.8); MCV 88.1 fL (80-100); MPV 8.8 fL (7.6-11.3)
[2022-02-09 14:10] LABS: Albumin 3.9 g/dL (3.4-5.0); Bilirubin Total 0.3 mg/dL (0.2-1.0); Potassium 4.1 mmol/L (3.5-5.1); Protein, Total 7.6 g/dL (6.4-8.2)
--- NOTE | 2022-02-09 14:25 | RAD REPORT ---
EXAM DESCRIPTION: CTAbdomen Pelvis Wo Contrast - 02/09/2022 2:10 pm CLINICAL HISTORY: Flank pain, abdominal pain COMPARISON: No comparisons TECHNIQUE: CT of the abdomen and pelvis was performed without contrast. All CT scans are performed using dose optimization technique as appropriate and may include automated exposure control or mA/KV adjustment according to patient size. FINDINGS: Lower chest: No acute abnormality. Liver: No acute abnormality or suspicious lesions. Biliary: No biliary ductal dilatation. Stomach: No significant focal abnormality. Duodenum: No significant focal abnormality. Pancreas: No significant abnormality. Spleen: No significant abnormality. Adrenal: No suspicious lesions. Kidney/ureter: No hydronephrosis. No renal calculi. Retroperitoneum: No retroperitoneal adenopathy. Vascular: No aneurysm. Bowel: No significant focal abnormality. Appendectomy. Peritoneum: No ascites or free air. Bladder: Grossly unremarkable. Reproductive: No adnexal masses. Bones: No acute fracture. Other: n/a IMPRESSION: No acute intra-abdominal or pelvic finding. No urinary tract calculi.
--- NOTE | 2022-02-09 15:33 | EDPHYS ---
Physician Documentation [facility] Name: Melly Elliott Age: 31 yrs Sex: Female : 1990 Arrival Date: 02/09/2022 Time: 13:18 Bed IW2 Private MD: ED Physician Ethan Richards HPI: 02/09 14:16 This 31 yrs old Female presents to ER via Ambulatory with complaints of jr8 Abdominal Pain, Back Pain. 14:16 Onset: The symptoms/episode began/occurred gradually, 3 day(s) ago. Associated signs jr8 and symptoms: none. The symptoms are described as stabbing. Modifying factors: The symptoms are alleviated by nothing, the symptoms are aggravated by movement. Severity of pain: At its worst the pain was moderate in the emergency department the pain is unchanged. The patient has not experienced similar symptoms in the past. The patient has not recently seen a physician. 31-year-old female patient presented emergency room with ongoing complaints of right-sided back pain which has now radiated to the abdominal region. Patient denies any recent trauma or heavy lifting. Patient did say that she has 5 children at home and that she is extremely active at work but again does not recall any acute trauma. Patient stated that she is normally able to tolerate pain if she does have back pain secondary work it usually subsides after medication in a days worth of rest. At this time it is not going away.. 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 - Social history:: Smoking status: Reported history of juuling and/or vaping. Patient uses alcohol, occasionally. ROS: 15:24 Eyes: Negative for injury, pain, redness, and discharge, ENT: Negative for injury, jr8 pain, and discharge, Neck: Negative for injury, pain, and swelling, Cardiovascular: Negative for chest pain, palpitations, and edema, Respiratory: Negative for shortness of breath, cough, wheezing, and pleuritic chest pain, MS/Extremity: Negative for injury and deformity, Skin: Negative for injury, rash, and discoloration, Neuro: Negative for headache, weakness, numbness, tingling, and seizure. 15:24 Abdomen/GI: Positive for abdominal pain, Negative for nausea, vomiting, and diarrhea. 15:24 Back: Positive for pain at rest, pain with movement, of the right mid back and right low back. Exam: 15:24 Neck: Trachea midline, no thyromegaly or masses palpated, and no cervical jr8 lymphadenopathy. Supple, full range of motion without nuchal rigidity, or vertebral point tenderness. No Meningismus. Cardiovascular: Regular rate and rhythm with a normal S1 and S2. No gallops, murmurs, or rubs. Normal PMI, no JVD. No pulse deficits. Respiratory: Lungs have equal breath sounds bilaterally, clear to auscultation and percussion. No rales, rhonchi or wheezes noted. No increased work of breathing, no retractions or nasal flaring. Skin: Warm, dry with normal turgor. Normal color with no rashes, no lesions, and no evidence of cellulitis. MS/ Extremity: Pulses equal, no cyanosis. Neurovascular intact. Full, normal range of motion. Neuro: Awake and alert, GCS 15, oriented to person, place, time, and situation. Cranial nerves II-XII grossly intact. Motor strength 5/5 in all extremities. Sensory grossly intact. 15:24 Constitutional: The patient appears alert, awake, in obvious pain. 15:24 Abdomen/GI: Inspection: abdomen appears normal, Bowel sounds: active, all quadrants, Palpation: soft, in all quadrants, moderate abdominal tenderness, in the anterior aspect of right lateral abdomen, Indicators: McBurney's point is not tender, Trevino's sign is negative, Rovsing's sign is negative. 15:24 Back: pain, that is moderate, of the right mid back and right low back, CVA tenderness, that is mild, is noted on the right, muscle spasm, is appreciated in the left mid back and right mid back. Vital Signs: 13:23 BP 113 / 87; Pulse 82; Resp 17; Temp 97.9; Pulse Ox 100% ; Weight 71.67 kg; Height 5 ap3 ft. 4 in. (162.56 cm); 15:38 BP 119 / 82; Pulse 86; Resp 18; Pulse Ox 100% on R/A; Pain 8/10; ld1 13:23 Body Mass Index 27.12 (71.67 kg, 162.56 cm) ap3 MDM: 13:37 Patient medically screened. jr8 15:24 Data reviewed: vital signs, nurses notes, lab test result(s), radiologic studies, CT jr8 scan, and as a result, I will discharge patient. Data interpreted: Pulse oximetry: on room air is 100 %. Interpretation: normal. Counseling: I had a detailed discussion with the patient and/or guardian regarding: the historical points, exam findings, and any diagnostic results supporting the discharge/admit diagnosis, lab results, radiology results, the need for outpatient follow up, a family practitioner, to return to the emergency department if symptoms worsen or persist or if there are any questions or concerns that arise at home. Response to treatment: the patient's symptoms have markedly improved after treatment. 15:35 ED course: Discussed with patient no acute lab findings or CT findings. Most likely jr8 muscle spasm of the back. We will start her on anti-inflammatory and muscle relaxant. If she gets worse to come back for further evaluation otherwise we will have her off work for the next few days and have her follow-up with her primary care physician. Patient overall has improved.. 02/09 13:36 Order name: CBC with Diff; Complete Time: 14:01 02/09 13:36 Order name: CMP; Complete Time: 14:11 02/09 13:36 Order name: Lipase; Complete Time: 14:11 02/09 13:37 Order name: CT Abd/Pelvis - Without Contrast; Complete Time: 14:31 02/09 13:36 Order name: IV Saline Lock; Complete Time: 13:41 02/09 13:36 Order name: Labs collected and sent; Complete Time: 13:41 Administered Medications: 13:48 Drug: Zofran (Ondansetron) 4 mg Route: IVP; Site: right antecubital; ap3 13:48 Drug: Ketorolac 15 mg Route: IVP; Site: right antecubital; ap3 15:38 Drug: [place] (HYDROcodone-acetaminophen) (7.5 mg-325 mg) 1 tabs Route: PO; ld1 15:39 Follow up: Response: No adverse reaction; RASS: Alert and Calm (0) ld1 Disposition: 18:26 Co-signature as Attending Physician, Ethan Richards DO I was immediately available onsite ms3 in the emergency department for consultation in the care of the patient. Disposition Summary: 02/09/22 15:33 Discharge Ordered Location: Home jr8 Problem: new jr8 Symptoms: have improved jr8 Condition: Stable jr8 Diagnosis - Low back pain jr8 - Muscle spasm of back jr8 Followup: jr8 - With: Private Physician - When: 5 - 6 days - Reason: Recheck today's complaints, Continuance of care, Re-evaluation by your physician Discharge Instructions: - Discharge Summary Sheet jr8 - Acute Back Pain, Adult jr8 - Heat Therapy jr8 Forms: - Work release form jr8 - Medication Reconciliation Form jr8 - Thank You Letter jr8 - Antibiotic Education jr8 - Prescription Opioid Use jr8 Prescriptions: - Ibuprofen 800 mg Oral Tablet - take 1 tablet by ORAL route every 12 hours As needed take with food; 20 tablet; jr8 Refills: 0, Product Selection Permitted - Cyclobenzaprine 10 mg Oral Tablet - take 1 tablet by ORAL route every 8 hours As needed; 30 tablet; Refills: 0, jr8 Product Selection Permitted Signatures: Dispatcher [employer] Gautam Barber PA PA jr8 Melly Chun, RN RN ap3 Ethan Richards DO DO ms3 Hannah Maddox RN RN ld1
--- NOTE | 2022-02-09 15:33 | ER ---
Nurse's Notes [facility] Name: Melly Elliott Age: 31 yrs Sex: Female : 1990 Arrival Date: 02/09/2022 Time: 13:18 Bed IW2 Private MD: Diagnosis: Low back pain;Muscle spasm of back Presentation: 02/09 13:23 Chief complaint: Patient states: she started having back pain a few days ago, but it ap3 hasn't gotten any better. Coronavirus screen: At this time, the client does not indicate any symptoms associated with coronavirus-19. Ebola Screen: No symptoms or risks identified at this time. Initial Sepsis Screen: Does the patient meet any 2 criteria? No. Patient's initial sepsis screen is negative. Does the patient have a suspected source of infection? No. Patient's initial sepsis screen is negative. Risk Assessment: Do you want to hurt yourself or someone else? Patient reports no desire to harm self or others. Onset of symptoms was February 05, 2022. 13:23 Method Of Arrival: Ambulatory ap3 13:23 Acuity: ELSIE 4 ap3 14:05 Acuity: ELSIE 3 ap3 Triage Assessment: 13:27 General: Appears uncomfortable, Behavior is calm, cooperative, appropriate for age. ap3 Pain: Complains of pain in back. Neuro: Level of Consciousness is awake, alert, obeys commands, Oriented to person, place, time, situation. Cardiovascular: Patient's skin is warm and dry. Respiratory: Airway is patent Respiratory effort is even, unlabored, Respiratory pattern is regular, symmetrical. GI: Patient currently denies diarrhea, nausea. 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 - Social history:: Smoking status: Reported history of juuling and/or vaping. Patient uses alcohol, occasionally. Screenin:27 Abuse screen: Denies threats or abuse. Nutritional screening: No deficits noted. ap3 Tuberculosis screening: No symptoms or risk factors identified. Fall Risk No fall in past 12 months (0 pts). Assessment: 15:38 Reassessment: See triage assessment. ld1 Vital Signs: 13:23 BP 113 / 87; Pulse 82; Resp 17; Temp 97.9; Pulse Ox 100% ; Weight 71.67 kg; Height 5 ap3 ft. 4 in. (162.56 cm); 15:38 BP 119 / 82; Pulse 86; Resp 18; Pulse Ox 100% on R/A; Pain 8/10; ld1 13:23 Body Mass Index 27.12 (71.67 kg, 162.56 cm) ap3 ED Course: 13:18 Patient arrived in ED. mr 13:26 Triage completed. ap3 13:27 Arm band placed on left wrist. ap3 13:28 Patient has correct armband on for positive identification. ap3 13:33 ED physician to see patient. ap3 13:36 Gautam Carpenter PA is PHCP. jr8 13:36 Ethan Richards DO is Attending Physician. jr8 13:40 Inserted saline lock: 20 gauge in right antecubital area, using aseptic technique. ap3 Blood collected. 14:11 CT Abd/Pelvis - Without Contrast In Process Unspecified. EDMS 15:38 No provider procedures requiring assistance completed. IV discontinued, intact, ld1 bleeding controlled, No redness/swelling at site. Administered Medications: 13:48 Drug: Zofran (Ondansetron) 4 mg Route: IVP; Site: right antecubital; ap3 13:48 Drug: Ketorolac 15 mg Route: IVP; Site: right antecubital; ap3 15:38 Drug: [place] (HYDROcodone-acetaminophen) (7.5 mg-325 mg) 1 tabs Route: PO; ld1 15:39 Follow up: Response: No adverse reaction; RASS: Alert and Calm (0) ld1 Medication: 15:38 VIS not applicable for this client. ld1 Outcome: 15:33 Discharge ordered by . jr8 15:38 Discharged to home ambulatory. ld1 15:38 Condition: stable 15:38 Discharge instructions given to patient, Instructed on discharge instructions, follow up and referral plans. medication usage, Demonstrated understanding of instructions, follow-up care, medications, Prescriptions given X 2. 15:39 Patient left the ED. ld1 Signatures: Dispatcher [employer] GREER LopezMedina mr Gautam Carpenter PA PA jr8 Melly Chun RN RN ap3 Hannah Maddox RN RN ld1
[2022-02-09] MEDS ORDERED: HYDROCODONE/APAP 7.5/325 MG TAB ONE (15:35)
[2022-02-09 15:52] VITALS: TEMP 97.9; O2SAT 100
[2022-02-09 15:57] VITALS: BP 119/82
== END 2022-02-09 15:39 | disposition home or self-care (01) ==
LOC: ER 13:13
DX: M62.830 Muscle spasm of back (principal)
CPT/HCPCS: 85025; 36415; 83690; 80053; 74176; J2405; 96374; 96375; 99284

== ENCOUNTER 2024-10-09 01:27 | Emergency (ER) | payer BC, OTHER ==
--- OUTSIDE RECORDS SUMMARY | 2024-10-09 01:51 | XMS REPORT | Continuity of Care Document ---
Author Name Unknown Address [address] [facility] [place] [address] Organization [facility] [place] Address [address] [facility] [place] [address] Care Team Providers Care Manager Core Name Role Phone Jaylan Palafox Primary Care Physician [phone] Jaylan Palafox Attending Clinician Unavailable NINO STEWARD Attending Clinician Unavailable Yaima Golden Attending Clinician [phone] Polo CREW MANAGER, Lycia Attending Clinician [phone] Sacha RUIZ, Eve Ott Attending Clinician + Marcel Trevino PA-C Attending Clinician [phone] Jimbo Jerome Attending Clinician [phone] Doctor Unassigned, [place] Attending Clinician U navailable TYRONE, JIMBO C. Attending Clinician Unavailbernardo e JIMBO HANSEN C. Attending Clinician Unavailabl e Jocy Mercer Attending Clinician Unavailable Jatinder Espitia Attending Clinician Unavailable Adan BLANCA, Dalia Walls Attending Clinician Unavailab susan Jo MD, Crispin Attending Clinician [phone] DANIEL CANTU Attending Clinician Unavailable Cyndi APONTE, Daniel Attending Clinician [phone] GABRIEL PELAYO Attending Clinician Unavailab YAIMA Navarro Attending Clinician Unavailable HUMPHREY CAO Attending Clinician Unavailable HUMPHREY CAO Attending Clinician Unavailable Nash CREW MANAGER, Humphrey Attending Clinician [phone] Doctor Unassigned, [place] Attending Clinician U navailYaima Sol Attending Clinician [phone] Jaylan Palafox Attending Clinician [phone] Crispin Jo MD Attending Clinician [phone] CRISPIN JO Attending Clinician Unavailable MEEK CHANDLER Attending Clinician Unavailable MEEK CHANDLER Attending Clinician Unavailable Preet Monroe DO Attending Clinician [phone] Avila Garcia RN Attending Clinician Unavailable BALAJI CUELLAR Attending Clinician Unavailable Alma Ceja MD Attending Clinician [phone] Bandar BLANCA, Angie S Attending Clinician Unavail able Nataliia Smith Attending Clinician Unavailable Karissa Conn Attending Clinician Unavailable ALMA CEJA Attending Clinician Unavailable Sacha RUIZ, Eve Ott Attending Clinician + Polo CASSIDYP, Balaji Attending Clinician [phone] PEACE, FNU Attending Clinician Unavailable PEACE, RAJIV Attending Clinician Unavailable Dayna Munoz Attending Clinician UnavailMedina Staley RN Attending Clinician [phone] EVE GONCALVES Attending Clinician Unamarc Escalante LBSWYaquelin Attending Clinician Unashreya Marx, Clc-Bls Lab Attending Clinician Unavailbernardo bonilla Pcp-Lab Attending Clinician Unavailable Marcel Trevino PA-C Attending Clinician [phone] MARCEL TREVINO Attending Clinician Unavailable Gabriel Pelayo DO Attending Clinician +[phone] JEAN MARIE JOHNSON Attending Clinician UnavailJEAN MARIE Yates Attending Clinician UnavailBALTA Cedeño Attending Clinician Unavailable Balta Crabtree MD Attending Clinician [phone] Allen HODGESWMarcel Attending Clinician [phone] Jordyn Adams NP Attending Clinician [phone] ЕЛЕНА RAYMOND Attending Clinician Unavailab ALICIA Weslh Attending Clinician Unavail KATARZYNA Talbot Attending Clinician KATARZYNA Dumont Attending Clinician Genesis Grayson [facility] Attending Clinician UnaNERI Bundy Attending Clinician Unavail NERI Montejo Attending Clinician Unavail Neri Montejo MD Attending Clinician +[phone] JORDYN ADAMS Attending Clinician Unavailable GAGE BAER Attending Clinician Unavailable GAGE BAER Attending Clinician Unavailable Bhanu Gallardo MD Attending Clinician [phone] DARA CASE Attending Clinician Unavailable Lab, Ang - Db Attending Clinician Unavailable BRYAN FLORES Attending Clinician Unavailable Bryan Flores MD Attending Clinician [phone] MELYSSA CONTRERAS Attending Clinician Unavailable Lab, Lcc Attending Clinician Unavailable Vtc-Lab Attending Clinician Unavailable JYOTI ESTEBAN Attending Clinician Unavailable Dixon RUIZ, Sandip Attending Clinician + [phone] Airam Bueno LVN Attending Clinician UnaCHARLES Baker Attending Clinician Unavailable Charles Desouza DO Attending Clinician + [phone] REGINALD DUKE Attending Clinician Unavailabl irene APONTE, Bhavya Attending Clinician [phone] Unknown, Attending Attending Clinician Unavailab BHAVYA Yusuf Attending Clinician Unavailable MARLA HOFFMANN Attending Clinician Unavailab Marla Monae DO Attending Clinician [phone] BURKE STILES Attending Clinician Unavailable Go IBARRA, Burke Attending Clinician [phone] CALLI FROST Attending Clinician Unavailable Santosh CREW MANAGER, Calli Attending Clinician [phone] LINDA CORREA Attending Clinician Unavailable Linda Bowden Attending Clinician +[phone] FELICITAS WILSON Attending Clinician Unavailable Raciel Preston PA-C Attending Clinician [phone] Felicitas Wilson MD Attending Clinician [phone] Only, Ang Db Test Attending Clinician Unavailabl Tushar Avila Attending Clinician +[phone] TUSHAR HIGUERA Attending Clinician Unavailabl irene Carrillo RN, Cass Perez Attending Clinician Unavailab JOHNIE Perry Attending Clinician Unavailable Mohamud Vallejo DO Attending Clinician [phone] Nino Steward MD Attending Clinician [phone] Pob, Ad[facility] Lab Main Attending Clinician Unavailbernardo e Only, Adc Test Attending Clinician Unavailable 2, [facility] Attending Clinician Unavailable Johnie West PA-C Attending Clinician [phone] Faculty, Ilya Rmradhika [facility] Attending Clinician Tea Cyr MD, Raymundo Barker Attending Clinician +[phone] Nayeli Coronado MD Attending Clinician [phone] NAYELI CORONADO Attending Clinician Unavailable ANETA ALTMAN Attending Clinician Unavailable 1, [facility] Us Room Attending Clinician Unavaila fatmata Mojica MD, Miles Hendrix Attending Clinician +[phone] Lance Dang MD Attending Clinician [phone] Aneta Altman MD Attending Clinician +[phone] [facility] Attending Clinician Unavailable Clinic, [facility] Neurology Continuity Attending Eamon trujillo Unavailable 5, [facility] Usg Room Attending Clinician Unavailvalerie Delaney MD, Cantrell Attending Clinician + Eugene WHCNP, Laureen Attending Clinician +- [phone] KEVYN CERVANTES Attending Clinician Unavailable Billy RUIZ, Kevyn Attending Clinician [phone] BRANDON HOFFMANN Attending Clinician Unavailabl e Risk, Fqm-Oifzs-Qz/High Attending Clinician Unav ailable Madeline WHJOHNATHANPMaría Elena Attending Clinician [phone] MARÍA ELENA CORREA Attending Clinician Unavailbernardo Lomax PAC, K Britt Attending Clinician [phone] Brandon Peng Attending Clinician [phone] NINO STEWARD Admitting Clinician Unavailable JIMBO HANSEN Admitting Clinician Unavailabl DANIEL German Admitting Clinician Unavailable HUMPHREY CAO Admitting Clinician Unavailable PREET MONROE Admitting Clinician Unavailable Akshat RUIZ, Alma Admitting Clinician +[phone] EVE GONCALVES Admitting Clinician Unav ailable BALAJI CUELLAR Admitting Clinician Unavailable JORDNY ADAMS Admitting Clinician Unavailable ЕЛЕНА RAYMOND Admitting Clinician Unavailab NERI Owen Admitting Clinician Unavail able BRYAN FLORES Admitting Clinician Unavailable CHARLES DESOUZA Admitting Clinician Unavailable MARLA HOFFMANN Admitting Clinician Unavailab susan Steward MD, Nino Fuentes Admitting Clinician [phone] Payers Payer Name Policy Type Policy Number Effective Date Expirati on Date Source [facility] [id number] 2019 00:00:00 2022 00:00:00 [facility] MEDICAID [id number] 2019 00:00:00 Problems Condition Name Condition Details Condition Category Status Onset Date Resolution Date Last Treatment Date Treating Clinician Comments Source Aneurysm Aneurysm Disease Active 2024-0 6-13 00:00: 00 [facility] 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 Disease Active 0 3-29 00:00: 00 [facility] Dizziness Dizziness Disease Active 0 8-24 00:00: 00 [facility] Migraine headache without aura Migraine headache without aura Disease Active 0 8-24 00:00: 00 [facility] Cerebral aneurysm without rupture Cerebral aneurysm without rupture Disease Active 0 8-14 00:00: 00 [facility] Chronic pain syndrome Chronic pain syndrome Disease Active 4-12 00:00: 00 [facility] Allergy, initial encounter Allergy, initial encounter Disease Active 3-31 00:00: 00 [facility] Vaginal dryness Vaginal dryness Disease Active 3- 00:00: 00 [facility] Positive CALOS (antinucle ar antibody) Positive CALOS (antinucle ar antibody) Disease Active 0 2-21 00:00: 00 [facility] Acute pain of both knees Acute pain of both knees Disease Active 0 2-21 00:00: 00 [facility] Diarrhea, unspecifie d type Diarrhea, unspecifie d type Disease Active 2-21 00:00: 00 [facility] Early satiety Early satiety Disease Active 0 2-21 00:00: 00 [facility] Anxiety Anxiety Disease Active 0 1-23 00:00: 00 [facility] Depression , unspecifie d depression type Depression , unspecifie d depression type Disease Active 1-23 00:00: 00 [facility] Fatigue, unspecifie d type Fatigue, unspecifie d type Disease Active 2021-03 0-05 00:00: 00 [facility] Lumbar pain Lumbar pain Disease Active 2021-03 0-05 00:00: 00 [facility] Preoperati ve evaluation for tubal ligation Preoperati ve evaluation for tubal ligation Disease Active 0 8-24 00:00: 00 [facility] Excessive weight gain during , antepartum Excessive weight gain during , antepartum Disease Active 8-24 00:00: 00 [facility] Pain in both upper extremitie s Pain in both upper extremitie s Disease Active 3-05 00:00: 00 [facility] Obesity during third trimester, antepartum Obesity during third trimester, antepartum Disease Active 4-12 00:00: 00 [facility] Nausea/vom iting in Nausea/vom iting in Disease Active 2015-03 130 00:00: 00 [facility] Multiparit y Multiparit y Disease Active 2015-03 0 00:00: 00 [facility] Cervical high risk human papillomav irus (HPV) DNA test positive Cervical high risk human papillomav irus (HPV) DNA test positive Disease Active 11-20 00:00: 00 [facility] History of abnormal cervical Pap smear History of abnormal cervical Pap smear Disease Active 11-20 00:00: 00 [facility] Overweight Overweight Disease Active 03-29 00:00: 00 Overview: ICD10 Diagnosis Term Teacher 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 ICD10 Diagnosis Term Teacher Associate Utility [facility] [id number] Severe episode of recurrent major depressive disorder, without psychotic features Problem [facility] [id number] Brain aneurysm Problem [facility] 39 weeks gestation of 39 weeks gestation of Disease Resolve d 9-14 00:00: 00 2019-12-25 00:00:00 2019-12-25 14:13:05 [facility] Excessive weight gain during , antepartum Excessive weight gain during , antepartum Disease Resolve d 2019- 8-24 00:00: 00 2019-12-25 00:00:00 2019-12-25 14:13:04 [facility] High blood copper level High blood copper level Disease Resolve d 7-24 00:00: 00 2019-12-25 00:00:00 2019-12-25 14:14:02 [facility] Anxiety during Anxiety during Disease Resolve d 1-30 00:00: 00 2019-12-25 00:00:00 2019-12-25 14:12:59 [facility] 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 Disease Resolve d 1-30 00:00: 00 2019-12-25 00:00:00 2019-12-25 14:12:56 [facility] Anxiety during Anxiety during Disease Resolve d 130 00:00: 00 2019-12-25 00:00:00 2019-12-25 14:12:59 [facility] Liveborn , of mark , born in hospital by vaginal delivery Liveborn infant, of mark , born in hospital by vaginal delivery Disease Resolve d 6-06 00:00: 00 2019-12-25 00:00:00 2019-12-25 14:12:55 [facility] High risk , antepartum High risk , antepartum Disease Resolve d 4-12 00:00: 00 2019-12-25 00:00:00 2019-12-25 14:12:54 [facility] Obesity (BMI 30-39.9) Obesity (BMI 30-39.9) Disease Resolve d 30 00:00: 00 2019-12-07 00:00:00 2019-12-07 14:25:45 [facility] Supervisio n of high risk in third trimester Supervisio n of high risk in third trimester Disease Resolve d 2015-03 0-25 00:00: 00 2019-12-07 00:00:00 2019-12-07 14:25:45 [facility] Low-lying placenta Low-lying placenta Disease Resolve d 5-05 00:00: 00 2019-11-13 00:00:00 2019-11-13 07:32:48 Last Assessmen t & Plan: Resolved on 09/29/2019 [facility] Nausea Nausea Disease Resolve d 2015-03 00:00: 2019-11-13 00:00:00 2019-11-13 07:32:54 [facility] Round ligament pain Round ligament pain Disease Resolve d 2019- 6-04 00:00: 00 2019-10-16 00:00:00 2019-10-16 08:55:41 [facility] Obesity affecting in first trimester Obesity affecting in first trimester Disease Resolve d 2016-0 4-12 00:00: 00 2019-05-24 00:00:00 2019-05-24 08:22:36 [facility] Irregular menstrual cycle Irregular menstrual cycle Disease Resolve d 9-22 00:00: 00 2019-05-24 00:00:00 2019-05-24 08:22:08 [facility] Nexplanon in place Nexplanon in place Disease Resolve d 7-19 00:00: 00 2019-03-30 00:00:00 2019-03-30 10:55:22 [facility] Rubella immune Rubella immune Disease Resolve d 3-08 00:00: 00 2019-03-30 00:00:00 2019-03-30 10:55:04 [facility] Immune to varicella Immune to varicella Disease Resolve d 2016- 3-08 00:00: 00 2019-03-30 00:00:00 2019-03-30 10:55:27 [facility] Sterilizat ion consult Sterilizat ion consult Disease Resolve d 1-11 00:00: 00 2019-03-30 00:00:00 2019-03-30 10:55:03 [facility] Obesity, unspecifie d Obesity, unspecifie d Disease Resolve d 2015-03 0-25 00:00: 00 2019-03-30 00:00:00 2019-03-30 10:55:06 [facility] Needs flu shot Needs flu shot Disease Resolve d 2015-03 0-25 00:00: 00 2019-03-30 00:00:00 2019-03-30 10:55:23 [facility] Needs flu shot Needs flu shot Disease Resolve d 2015-03 0-25 00:00: 00 2019-03-30 00:00:00 2019-03-30 10:55:23 [facility] (spontaneo us vaginal delivery) (spontaneo us vaginal delivery) Disease Resolve d 08-04 00:00: 00 2016-08-31 00:00:00 2016-08-31 16:35:23 [facility] Third-stag e hemorrhage Third-stag e hemorrhage Disease Resolve d 08-04 00:00: 00 2016-08-31 00:00:00 2016-08-31 16:35:23 [facility] Uterine atony, , current hospitaliz ation Uterine atony, , current hospitaliz ation Disease Resolve d 08-04 00:00: 00 2016-08-31 00:00:00 2016-08-31 16:35:23 [facility] 40 weeks gestation of 40 weeks gestation of Disease Resolve d 05 00:00: 00 2016-08-31 00:00:00 2016-08-31 16:35:23 [facility] High-risk , second trimester High-risk , second trimester Disease Resolve d 1-11 00:00: 00 2016-06-24 00:00:00 2016-06-24 17:13:49 [facility] , high-risk, second trimester , high-risk, second trimester Disease Resolve d 2015-03 2-14 00:00: 00 2016-06-24 00:00:00 2016-06-24 17:13:46 [facility] Obesity complicati ng , second trimester Obesity complicati ng , second trimester Disease Resolve d 2015-03 2-14 00:00: 00 2016-06-24 00:00:00 2016-06-24 17:13:42 [facility] Absence of menstruati on Absence of menstruati on Disease Resolve d 2015-03 0-25 00:00: 00 2016-04-08 00:00:00 2016-04-08 16:12:56 [facility] Contracept joana management Contracept joana management Disease Resolve d 9-22 00:00: 00 2016-04-08 00:00:00 2016-04-08 16:13:00 [facility] Immunizati ons up to date Immunizati ons up to date Disease Resolve d 03-29 00:00: 00 2015-11-21 00:00:00 2015-11-21 10:42:14 [facility] Pain pelvic Pain pelvic Disease Resolve d 03-29 00:00: 00 2015-11-21 00:00:00 2015-11-21 10:42:16 [facility] Allergies, Adverse Reactions, Alerts Allergy Name Allergy Type Status Severity Reaction(s) Onset Date Inactive Date Treating Clinician Comments Source NO KNOWN ALLERGIE S Drug Class Active [facility] Family History Family Member Diagnosis Comments Start Date Stop Date Sourc e Natural father Arthritis Unive [facility] Hy[facility] Maternal grandfather [facility] Maternal grandmother [facility] Natural mother Arthritis Unive [facility] Natural mother Diabetes Unive [facility] Natural [facility] Hy[facility] Paternal grandfather [facility] Paternal grandmother [facility] Social History Social Habit Start Date Stop Date Quantity Comments Source ASSERTION 2019-02-25 00:00:00 Not [facility] Gender identity [facility] Sexual orientation [facility] History of Occupation [facility] Sex Assigned [facility] [employer] [facility] Alcoholic beverage intake 2024-04-26 00:00:00 2024-04-26 00:00:00 0 /d [facility] Tobacco use and exposure 2023-08-11 00:00:00 2023-08-11 00:00:00 Former smokeless tobacco user [facility] Alcohol intake 2023-06-11 00:00:00 2023-06-11 00:00:00 0 /d [facility] History of Social function 2023-05-27 00:00:00 2023-05-27 00:00:00 [facility] History of Tobacco Use 2018-02-28 00:00:00 2023-02-28 00:00:00 [facility] Exposure to SARS-CoV-2 (event) 2022-06-30 00:00:00 2022-07-10 08:10:00 Not sure [facility] Tobacco Comment 2022-07-10 00:00:00 2022-07-10 00:00:00 Vapes x 2 years [facility] Smoking Status Start Date Stop Date Source Never Smoker [facility] Ex-smoker 2023-08-11 00:00:00 2023-08-11 00:00:00 [facility] Medications Ordered Medication Name Filled Medication Name Start Date Stop Date Current Medication? Ordering Clinician Indication Dosage Frequency Signature (SIG) Comments Components Source pantoprazol e 40 mg EC tablet 04-26 00:00: 00 Yes [id number] 40mg TAKE 1 TABLET BY MOUTH ONCE DAILY IN THE MORNING [facility] clopidogreL 75 mg tablet clopidogreL 75 mg tablet 04-26 00:00: 00 10-24 04:59 :00 No [id number] 75mg Take 1 tablet by mouth in the morning for 180 days. [facility] iopamidol (ISOVUE 300-100 mL) injection 60 mL 03-23 18:15: 00 03-23 18:46 :00 No [id number] 60mL 60 mL, Intravenou s, ONCE, 1 dose, On Johnna 03/23/24 at 1215, Routine [facility] ceFAZolin (ANCEF) injection 03-23 18:13: 55 03-23 18:13 :55 No Slow IV Push, PRN, Starting on Johnna 03/23/24 at 1213, Until Johnna 03/23/24 at 1213, MIRIAM, Intra-op [facility] lidocaine 1% (PF) (XYLOCAINE) injection 03-23 17:50: 11 03-23 17:50 :11 No PRN, Starting on Johnna 03/23/24 at 1150, Until Johnna 03/23/24 at 1150, Routine, Intra-op [facility] midazolam (VERSED) injection 03-23 17:47: 00 03-23 18:10 :00 No IV Push, PRN, Starting on Johnna 03/23/24 at 1147, Until Johnna 03/23/24 at 1210, Routine, Intra-op [facility] fentanyl PF (SUBLIMAZE (PF)) injection 03-23 17:05: 00 03-23 18:10 :00 No Slow IV Push, PRN, Starting on Johnna 03/23/24 at 1105, Until Johnna 03/23/24 at 1210, Routine, Intra-op [facility] aspirin 325 mg Cap 03-23 09:10: 47 Yes Take by mouth. [facility] clopidogreL 75 mg tablet 03-23 09:10: 47 04-26 00:00 :00 No 75mg Take 1 tablet by mouth in the morning. [facility] methocarbam oL (ROBAXIN) tablet 1,000 mg 2023-03 16:00: 00 02-07 17:01 :00 No 1000mg 1,000 mg, Oral, ONCE, 1 dose, On Wed02/08/24 at 1000, [facility] ketorolac (TORADOL) injection 30 mg 2023-03 16:00: 00 02-07 17:01 :00 No 30mg 30 mg, Intramuscu lar, ONCE, 1 dose, On Wed02/08/24 at 1000, [facility] methocarbam oL 750 mg tablet 2023-03 00:00: 00 Yes [id number] 750mg Take 1 tablet by mouth 4 (four) times daily as needed for Pain (scale 1-3), Pain (scale 4-6) or Pain (scale 7-10). [facility] meloxicam 7.5 mg tablet 2023-03 00:00: 00 Yes [id number] 7.5mg Take 1 tablet by mouth once daily as needed for Pain (scale 4-6) or Pain (scale 7-10). [facility] fentanyl PF (SUBLIMAZE (PF)) injection 25 mcg 2024-0 8-23 04:00: 00 10-21 04:09 :00 No 25ug 25 mcg, Slow IV Push, ONCE, 1 dose, On Wed10/21/23 at 2300, STAT [facility] dicyclomine (BENTYL) injection 20 mg 10-21 03:50: 00 10-21 04:10 :00 No 20mg 20 mg, Intramuscu lar, ONCE, 1 dose, On Wed10/21/23 at 2300, [facility] (ISOVUE 370-500 mL) injection 90 mL 10-21 03:45: 00 10-21 03:45 :00 No [id number] 90mL 90 mL, Intravenou s, ONCE, 1 dose, On Wed10/21/23 at 2245, Routine [facility] ondansetron (ZOFRAN (PF)) injection 4 mg 10-21 00:45: 00 10-21 01:20 :00 No 4mg 4 mg, Slow IV Push, ONCE, 1 dose, On Wed10/21/23 at 1945, [facility] pantopraz[facility] e (PROTONIX) injection 40 mg 10-21 00:37: 00 10-21 01:22 :00 No 40mg 40 mg, Slow IV Push, ONCE, 1 dose, On Wed10/21/23 at 1945 [facility] NaCl 0.9% (NS) IV infusion 1,000 mL 10-21 00:37: 00 10-21 04:18 :00 No 1000mL at 999 mL/hr, Intravenou s, ONCE, 1 dose, On Wed10/21/23 at 1945, [facility] sodium chloride (NS) injection 5 mL 10-21 00:16: 21 Yes 5mL 5 mL, Intravenou s, PRN, Starting on Wed10/21/23 at 1916, Until Discontinu ed, Routine, IV line flushing [facility] ondansetron 4 mg disintegrat ing tablet 10-20 00:00: 00 Yes [id number] 4mg Take 1 tablet by mouth every 8 (eight) hours as needed for Nausea and Vomiting (N/V). [facility] dicyclomine 10 mg capsule 10-20 00:00: 00 Yes [id number] 10mg Take 1 capsule by mouth 3 (three) times daily as needed for Abdominal pain. [facility] Nitrofurant oin&Nit. Macrocryst 100 mg capsule 10-20 00:00: 00 10-28 04:59 :00 No [id number] 100mg Take 1 capsule by mouth in the morning and 1 capsule in the evening. Do all this for 7 days. [facility] DULoxetine 30 mg CDRS 08-25 12:42: 26 Yes 30mg Take 30 mg by mouth in the morning. [facility] DULoxetine HCl 30 MG DULoxetine HCl 30 MG 08-19 00:00: 00 No 1{capsu le} QD DULoxetine HCl 30 MG Nitrofurant oin Monohyd Macro 100 MG Nitrofurant oin Monohyd Macro 100 MG 08-19 00:00: 00 No 1{capsu le_with _food} BID Nitrofuran toin Monohyd Macro 100 MG KCL (KLOR-CON M20) tablet 40 mEq 08-11 15:30: 00 08-11 14:59 :00 No 40meq 40 mEq, Oral, ONCE, 1 dose, On Johnna 08/12/23 at 1030, Routine [facility] clopidogreL (PLAVIX) 75 mg tablet 75 mg 08-11 14:00: 00 08-11 20:30 :54 No 75mg 75 mg, Oral, DAILY, First dose on Johnna 08/12/23 at 0900, Until Discontinu ed, Routine [facility] pantoprazol e (PROTONIX) EC tablet 40 mg 08-11 14:00: 00 08-11 20:30 :54 No 40mg 40 mg, Oral, QAM, First dose on Johnna 08/12/23 at 0900, Until Discontinu ed, Routine [facility] ergocalcife rol, vitamin D2, (VITAMIN D ORAL) 08-11 13:30: 44 Yes Take by mouth. [facility] Vitamin C 100 mg tablet 08-11 13:30: 44 Yes 100mg Take 1 tablet by mouth in the morning. [facility] morpHINE (2 mg/mL) injection 2 mg 08-11 08:40: 43 08-11 20:30 :54 No 2mg 2 mg, Slow IV Push, Q4HPRN, Starting on Wed08/12/23 at 0340, Until Wed08/12/23 at 1530, Routine, Pain (scale 7-10) [facility] HYDROcodone -acetaminop hen (NORCO) 10-325 mg tablet 1 tablet 08-11 02:58: 12 08-11 20:30 :54 No 1{tbl} 1 tablet, Oral, Q6HPRN, Starting on Wed08/11/23 at 2158, Until Wed08/12/23 at 1530, Routine, Pain (scale 4-6) [facility] amitriptyli ne (ELAVIL) tablet 10 mg 08-11 02:00: 00 08-11 20:30 :54 No 10mg [facility] acetaminoph en (TYLENOL) tablet 650 mg 08-11 01:31: 45 08-11 20:30 :54 No 650mg 650 mg, Oral, Q6HPRN, Starting on Wed08/11/23 at 2031, Until Wed08/12/23 at 1530, Routine, Alternate with [place] for pain scale 4-6 [facility] niCARdipine (CARDENE I.V.) 40 mg in NaCL 200 mL (RTU) infusion 08-11 01:12: 26 08-11 20:30 :54 No 2.5mg/h 2.5-15 mg/hr (12.5-75 mL/hr), IV Infusion, TITRATE, SBP > 160 mmHg, Starting on Wed08/11/23 at 2011, Initiate infusion at 2.5 mg/hr. Titrate by 2.5 mg/hr every 5 minutes to 15 minutes as needed to achieve and maintain goal blood pressure. Maximum dose = 15 mg/hr. If goal not maintained at maximum allowed dose, contact prescriber . [facility] busPIRone (BUSPAR) tablet 10 mg 08-11 01:00: 00 08-11 20:30 :54 No 10mg 10 mg, Oral, BID, First dose on Wed08/11/23 at 2000, Until Discontinu ed [facility] acetaminoph en-codeine 300-30 mg tablet acetaminoph en-codeine 300-30 mg tablet 08-11 00:00: 00 Yes [id number] 1{tbl} Take 1 tablet by mouth every 8 (eight) hours as needed for Pain (scale 4-6) for up to 10 doses. Indication s: acute pain [facility] iopamidol (ISOVUE 300-500 mL) injection 300 mL 08-10 22:00: 00 08-10 21:06 :00 No [id number] 300mL 300 mL, Intravenou s, ONCE, 1 dose, On Wed08/11/23 at 1700, Routine [facility] lactated ringers IV infusion 1,000 mL 08-10 21:15: 00 08-11 14:35 :55 No 1000mL at 75 mL/hr, 1,000 mL, IV Infusion, CONTINUOUS , Starting on Wed08/11/23 at 1615, Until Johnna 08/12/23 at 0935, Routine [facility] HYDROcodone -acetaminop hen (NORCO 5) 5-325 mg tablet 1 tablet 08-10 21:15: 00 08-10 21:34 :00 No 1{tbl} 1 tablet, Oral, ONCE, 1 dose, On Wed08/11/23 at 1615, Routine [facility] ondansetron (ZOFRAN (PF)) injection 4 mg 08-10 21:02: 00 08-11 20:30 :54 No 4mg 4 mg, Slow IV Push, PRN, 1 dose, Starting on Wed08/11/23 at 1602, Until Johnna 08/12/23 at 1530, Routine, Nausea and Vomiting (N/V) [facility] buspirone HCl (BUSPIRONE ORAL) 08-10 16:42: 59 Yes Take by mouth. [facility] ergocalcife rol, vitamin D2, (VITAMIN D ORAL) 08-10 16:19: 44 Yes Take by mouth. [facility] Vitamin C 100 mg tablet 08-10 16:19: 44 Yes 100mg Take 1 tablet by mouth in the morning. [facility] aspirin 325 mg Cap 07-26 00:00: 00 01-23 05:59 :00 No [id number] 325mg Take 325 mg by mouth in the morning for 180 days. [facility] clopidogreL (PLAVIX) 75 mg tablet 07-26 00:00: 00 01-23 05:59 :00 No [id number] 75mg Take 1 tablet by mouth in the morning for 180 days. [facility] pantoprazol e 40 mg EC tablet 07-04 00:00: 00 04-26 00:00 :00 No [id number] 40mg Take 1 tablet by mouth every morning. [facility] HYDROcodone -acetaminop hen (NORCO 5) 5-325 mg tablet 06-23 17:45: 15 06-24 09:10 :27 No Oral, PRN, Starting on Wed06/24/23 at 1245, Until Wed06/25/23 at 0410, Routine, Intra-op [facility] ceFAZolin (ANCEF) injection 06-23 16:47: 54 06-24 09:10 :27 No Slow IV Push, PRN, Starting on Wed06/24/23 at 1147, Until Wed06/25/23 at 0410, MIRIAM, Intra-op [facility] FENTanyl PF (SUBLIMAZE (PF)) injection 06-23 16:03: 04 06-24 09:10 :27 No Slow IV Push, PRN, Starting on Johnna 06/24/23 at 1103, Until Wed06/25/23 at 0410, Routine, Intra-op [facility] lidocaine 1% (PF) (XYLOCAINE) injection 06-23 16:03: 00 06-24 09:10 :27 No PRN, Starting on Johnna 06/24/23 at 1103, Until Wed06/25/23 at 0410, Routine, Intra-op [facility] midazolam (VERSED) injection 06-23 16:00: 00 06-24 09:10 :27 No IV Push, PRN, Starting on Johnna 06/24/23 at 1100, Until Wed06/25/23 at 0410, Routine, Intra-op [facility] iopamidol (ISOVUE 300-100 mL) injection 200 mL 06-23 15:30: 00 06-23 17:09 :00 No [id number] 200mL 200 mL, Intravenou s, ONCE, 1 dose, On Johnna 06/24/23 at 1030, Routine [facility] buspirone HCl (BUSPIRONE ORAL) 06-10 09:39: 42 Yes Take by mouth. [facility] amitriptyli ne 10 mg tablet 06-10 00:00: 00 Yes [id number] 10mg Take 1 tablet by mouth at bedtime. [facility] cyclobenzap rine 10 mg tablet 06-07 00:00: 00 Yes [id number] 10mg Take 1 tablet by mouth in the morning and 1 tablet at noon and 1 tablet in the evening. [facility] topiramate 50 mg tablet 05-26 00:00: 00 Yes [id number] 25mg Take 0.5 tablets by mouth at bedtime. [facility] magnesium oxide 400 mg magnesium Tab 05-26 00:00: 00 Yes [id number] 400mg Take 400 mg by mouth in the morning. [facility] divalproex (DEPAKOTE) 250 mg delayed release tablet 05-26 00:00: 00 06-10 00:00 :00 No 250mg Take 1 tablet by mouth every 12 (twelve) hours. [facility] cefTRIAXone (ROCEPHIN) 1,000 mg in NaCl 0.9% (NS) 100 mL MINI-BAG 04-26 20:00: 00 04-26 20:34 :00 No 1000mg 1,000 mg, IV Piggyback, ONCE, 1 dose, On Wed04/26/23 at 1400, Administer over 30 Minutes, 100 mL
Reas on for Anti-Infec tive: Documented Infection< br>Documen keisha Infection Site: Urine
D uration of Therapy: Other (see Comments) [facility] proCHLORper azine (COMPAZINE) 10 mg in NaCl 0.9% (NS) piggyback 04-26 19:00: 00 04-26 19:37 :00 No 10mg 10 mg, IV Piggyback, at 100 mL/hr Administer over 30 Minutes, ONCE, 1 dose, On Wed04/26/23 at 1300, [facility] ketorolac (TORADOL) injection 30 mg 04-26 19:00: 00 04-26 19:39 :00 No 30mg 30 mg, Slow IV Push, ONCE NOW, 1 dose, [facility] Wed04/26/23 at 1300, [facility] 0.9% (NS) bolus infusion 1,000 mL 04-26 19:00: 00 04-26 20:30 :00 No 1000mL at 999 mL/hr, 1,000 mL, IV Piggyback, ONCE, 1 dose, On Wed04/26/23 at 1300, STAT [facility] diazePAM (VALIUM) tablet 5 mg 04-26 18:30: 00 04-26 19:44 :00 No 5mg 5 mg, Oral, ONCE, 1 dose, On Wed04/26/23 at 1230, [facility] dexamethaso ne sod phos PF injection 10 mg 04-26 18:15: 04-26 19:38 :00 No 10mg 10 mg, Slow IV Push, ONCE, 1 dose, On Wed04/26/23 at 1215, 1 mL [facility] acetaminoph en (TYLENOL ARTHRITIS PAIN) 650 mg CR tablet 04-26 00:00: 00 Yes [id number] 650mg Take 1 tablet by mouth every 8 (eight) hours as needed for Pain (MIGRAINE) . [facility] proCHLORper azine 10 mg tablet 04-26 00:00: 00 07-04 00:00 :00 No [id number] 10mg Take 1 tablet by mouth every 6 (six) hours as needed for Nausea and Vomiting (N/V) (Migraine, to take together with TORADOL). [facility] cefpodoxime 100 mg tablet 04-26 00:00: 00 06-10 00:00 :00 No [id number] 100mg Take 1 tablet by mouth in the morning and 1 tablet in the evening. [facility] ketorolac 10 mg tablet 04-26 00:00: 00 06-10 00:00 :00 No [id number] 10mg Take 1 tablet by mouth every 6 (six) hours as needed for Pain (scale 4-6) or Pain (scale 7-10). [facility] benztropine 1 mg tablet 04-26 00:00: 00 06-10 00:00 :00 No [id number] 1mg Take 1 tablet by mouth in the morning and 1 tablet in the evening. TAKE ONLY FOR MIGRAINE NOT RESPONDING TO THE COMBINED USE OF TORADOL+CO MPAZINE+MA GNESIUM+TY LENOL 650 [facility] magnesium glycinate 100 mg magnesium Cap 04-26 00:00: 00 05-26 00:00 :00 No [id number] 200{cap king} Take 200 capsules by mouth in the morning. [facility] topiramate (TOPAMAX) tablet 25 mg 04-13 04:15: 00 04-13 03:42 :00 No 25mg 25 mg, Oral, ONCE NOW, 1 dose, On Wed04/12/23 at 2215, [facility] iopamidol (ISOVUE 370-500 mL) injection 100 mL 04-13 03:15: 00 04-13 03:15 :00 No [id number] 100mL 100 mL, Intravenou s, ONCE, 1 dose, On Wed04/12/23 at 2115, Routine [facility] ketorolac (TORADOL) injection 30 mg 04-13 00:00: 00 04-12 23:04 :00 No 30mg 30 mg, Slow IV Push, ONCE, 1 dose, On Wed04/12/23 at 1800, Routine [facility] NaCl 0.9% (NS) bolus infusion 1,000 mL 04-12 23:45: 00 04-13 00:00 :00 No 1000mL at 999 mL/hr, 1,000 mL, IV Infusion, ONCE, 1 dose, On Wed04/12/23 at 1745, [facility] magnesium sulfate in D5W 1 gram/100 mL RTU IV Piggyback 1 g 04-12 23:45: 00 04-12 23:41 :00 No 1g 1 g, IV Piggyback, ONCE, 1 dose, On Wed04/12/23 at 1745, Administer over 20 Minutes, 100 mL [facility] dexamethaso ne sod phos PF injection 10 mg 04-12 23:00: 00 04-12 23:04 :00 No 10mg 10 mg, Slow IV Push, ONCE, 1 dose, On Wed04/12/23 at 1700, 1 mL [facility] metoclopram geo HCl (REGLAN) injection 10 mg 04-12 23:00: 00 04-12 23:05 :00 No 10mg 10 mg, Slow IV Push, ONCE, 1 dose, On Wed04/12/23 at 1700, [facility] diphenhydrA MINE (BENADRYL) injection 25 mg 04-12 23:00: 00 04-12 23:04 :00 No 25mg 25 mg, Slow IV Push, ONCE, 1 dose, On 04/12/23 at 1700, STAT [facility] butalbital- acetaminoph en-caff 50-325-40 mg tablet 04-12 00:00: 00 05-26 00:00 :00 No [id number] 1{tbl} Take 1 tablet by mouth every 6 (six) hours as needed (Headache) . [facility] topiramate 25 mg tablet 04-12 00:00: 00 05-26 00:00 :00 No [id number] 25mg Take 1 tablet by mouth in the morning. [facility] NaCl 0.9% (NS) bolus infusion 1,000 mL 03-07 22:45: 00 03-07 23:43 :00 No 1000mL at 999 mL/hr, 1,000 mL, IV Infusion, ONCE, 1 dose, On 03/07/23 at 1645, MIRIAM [facility] iopamidol (ISOVUE 370-500 mL) injection 90 mL 03-07 22:30: 00 03-07 22:45 :00 No [id number] 90mL 90 mL, Intravenou s, ONCE, 1 dose, On 03/07/23 at 1645, Routine [facility] hydrocortis one 25 mg suppository 03-07 00:00: 00 06-10 00:00 :00 No [id number] 25mg Insert 1 Suppositor y into rectum 2 (two) times daily as needed for Rectal itching/pa in. [facility] Vitamin C 100 mg tablet 10-22 13:06: 40 Yes 100mg Take 1 tablet by mouth in the morning. [facility] buspirone HCl (BUSPIRONE ORAL) 10-22 13:06: 40 Yes Take by mouth. [facility] topiramate (TOPAMAX) 25 mg tablet 10-22 00:00: 00 11-29 04:59 :00 No Take 1 tablet by mouth 2 (two) times daily for 7 days, THEN 2 tablets 2 (two) times daily for 30 days. [facility] ergocalcife rol, vitamin D2, (VITAMIN D ORAL) 10-12 15:58: 52 Yes Take by mouth. [facility] Vitamin C 100 mg tablet 10-12 15:58: 52 Yes 100mg Take 1 tablet by mouth in the morning. [facility] gadobenate dimeglumine (MULTIHANCE -15 mL) injection 14.78 mL 10-06 19:45: 00 10-06 19:34 :00 No [id number] .2mL/kg 14.78 mL (0.2 mL/kg ?73.9 kg), Intravenou s, ONCE, 1 dose, On Wed10/06/22 at 1445, Routine [facility] dexamethaso ne sod phos PF injection 10 mg 09-30 01:30: 00 09-30 00:57 :00 No 10mg 10 mg, Intramuscu lar, ONCE, 1 dose, On Wed09/29/22 at 2030, Routine [facility] ketorolac (TORADOL) injection 30 mg 09-30 01:00: 00 09-30 00:51 :00 No 30mg 30 mg, Intramuscu lar, ONCE, 1 dose, On Wed09/29/22 at 2000, MIRIAM [facility] methylPREDN ISolone 4 mg tablets 09-30 00:00: 00 06-10 00:00 :00 No [id number] Take by mouth SEE-INSTRU CTIONS. follow package directions [facility] naproxen 500 mg tablet 09-29 00:00: 00 10-07 04:59 :00 No [id number] 500mg Take 1 tablet by mouth in the morning and 1 tablet in the evening. Take with meals. Do all this for 7 days. [facility] buspirone HCl (BUSPIRONE ORAL) 07-10 08:21: 48 Yes Take by mouth. [facility] Vitamin C 100 mg tablet 12 08:21: 48 Yes 100mg Take 1 tablet by mouth in the morning. [facility] DULoxetine 60 mg capsule 12 00:00: 00 07-04 00:00 :00 No [id number] 60mg Take 1 capsule by mouth in the morning. [facility] DULoxetine 30 mg capsule 06-10 00:00: 00 07-10 00:00 :00 No [id number] 30mg Take 1 capsule by mouth in the morning. [facility] benzonatate 100 mg capsule -10 00:00: 00 09-29 00:00 :00 No [id number] 100mg Take 1 capsule by mouth 3 (three) times daily as needed for Cough. [facility] azithromyci n (ZITHROMAX Z-ROCK) 250 mg tablet 06-08 00:00: 00 09-29 00:00 :00 No [id number] 250mg Take 1 tablet by mouth SEE-INSTRU CTIONS. Take 500 mg day 1, then 250 mg days 2 to 5. [facility] predniSONE 20 mg tablet 10 00:00: 00 06-14 04:59 :00 No [id number] 20mg Take 1 tablet by mouth in the morning for 5 days. [facility] baclofen 5 mg tablet -31 00:00: 00 09-29 00:00 :00 No [id number] 5mg Take 1 tablet by mouth in the morning and 1 tablet at noon and 1 tablet in the evening. [facility] metroNIDAZO LE 0.75 % cream 05-26 00:00: 00 09-29 00:00 :00 No [id number] Apply to area(s) daily. [facility] tacrolimus 0.1 % ointment 05-26 00:00: 00 09-29 00:00 :00 No [id number] Apply to area(s) daily. [facility] ibuprofen 600 mg tablet 2- 00:00: 00 07-04 00:00 :00 No [id number] 600mg Take 1 tablet by mouth every 6 (six) hours as needed for Pain (scale 1-3) or Pain (scale 4-6). [facility] pantoprazol e 40 mg EC tablet 04-21 00:00: 00 05-18 00:00 :00 No [id number] 40mg Take 1 tablet by mouth in the morning for 30 days. [facility] LORazepam (ATIVAN) injection 1 mg 03-26 01:30: 00 03-26 01:51 :00 No 1mg 1 mg, Slow IV Push, ONCE, 1 dose, On Wed03/25/22 at 1930, STAT [facility] SERTraline (ZOLOFT) 50 mg tablet 03-23 00:00: 00 06-10 00:00 :00 No [id number] 50mg Take 1 tablet by mouth in the morning. [facility] busPIRone 10 mg tablet 03-23 00:00: 00 04-23 05:59 :00 No [id number] 10mg Take 1 tablet by mouth 2 (two) times daily as needed (anxiety) for up to 30 days. [facility] ibuprofen 800 mg tablet 2021-0312 00:00: 00 04-30 00:00 :00 No [facility] oseltamivir (TAMIFLU) 75 mg capsule 2021-03 0-13 00:00: 00 12-17 04:59 :00 No [id number] 75mg Take 1 capsule by mouth in the morning and 1 capsule in the evening. Do all this for 5 days. [facility] ibuprofen 600 mg tablet 2021-03 0-04 00:00: 00 12-17 04:59 :00 No [id number] 600mg Take 1 tablet by mouth every 6 (six) hours as needed for Temp > 38.5 C for up to 14 days. [facility] FENTanyl PF (SUBLIMAZE (PF)) injection 75 mcg 08-04 06:00: 00 08-04 04:56 :00 No 75ug 75 mcg, Intramuscu lar, ONCE, 1 dose, On Wed08/04/21 at 0100, Routine [facility] traMADoL (ULTRAM) 50 mg tablet 08-04 00:00: 00 06-04 00:00 :00 No [id number] 50mg Take 1 tablet by mouth every 6 (six) hours as needed for Pain (scale 7-10). Indication s: acute pain [facility] ciprofloxac in-hydrocor tisone (CIPRO HC) otic suspension 08-04 00:00: 00 08-12 04:59 :00 No [id number] 3[drp] Place 3 Drops in left ear 2 (two) times daily for 7 days. [facility] FENTanyl PF (SUBLIMAZE (PF)) injection 50 mcg 07-27 22:00: 00 07-27 21:00 :00 No 50ug 50 mcg, Intramuscu lar, ONCE, 1 dose, On Wed07/27/21 at 1700, Routine [facility] HYDROcodone -acetaminop hen (NORCO 5) 5-325 mg tablet 1 tablet 07-27 19:15: 00 07-27 18:54 :00 No 1{tbl} 1 tablet, Oral, ONCE, 1 dose, On Wed07/27/21 at 1415, MIRIAM [facility] cefTRIAXone (ROCEPHIN) injection 1,000 mg 03-09 23:15: 00 03-09 22:06 :00 No [id number] 1000mg [facility] dexamethaso ne (DECADRON PHOSPHATE) injection 8 mg 03-09 23:00: 00 03-09 22:08 :00 No [id number] 8mg [facility] amoxicillin -clavulanat e 875-125 mg per tablet 03-09 00:00: 00 03-17 05:59 :00 No [id number] 1{tbl} Take 1 tablet by mouth 2 (two) times daily for 7 days. [facility] ondansetron (ZOFRAN-ODT ) disintegrat ing tablet 4 mg 03-08 22:45: 00 03-08 22:00 :00 No 4mg 4 mg, Oral, ONCE, 1 dose, On 03/08/21 at 1645, Routine [facility] HYDROcodone -acetaminop hen (NORCO) 10-325 mg tablet 1 tablet 03-08 21:42: 00 03-08 22:00 :00 No 1{tbl} 1 tablet, Oral, ONCE, 1 dose, On 03/08/21 at 1545, Routine [facility] ciprofloxac in HCl 750 mg tablet 03-08 00:00: 00 03-16 05:59 :00 No [id number] 750mg Take 1 tablet by mouth every 12 (twelve) hours for 7 days. [facility] traMADoL 50 mg tablet 03-08 00:00: 00 03-16 05:59 :00 No [id number] 50mg Take 1 tablet by mouth every 6 (six) hours as needed for Pain (scale 4-6) or Pain (scale 7-10) for up to 7 days. Indication s: acute pain [facility] ibuprofen 600 mg tablet 03-07 00:00: 00 04-21 00:00 :00 No [id number] 600mg Take 1 tablet by mouth every 6 (six) hours as needed for Pain (scale 4-6). [facility] neomycin-po lymyxin-hyd rocortisone 3.5-10,000- 1 mg/mL-unit/ mL-% otic susp 03-07 00:00: 00 03-15 05:59 :00 No [id number] 3[drp] Place 3 Drops in right ear 4 (four) times daily for 7 days. [facility] bromphenira mine-pseudo ephedrine-D M 2-30-10 mg/5 mL syrup 03-03 00:00: 00 03-11 05:59 :00 No [id number] 10mL Take 10 mL by mouth 4 (four) times daily as needed for Congestion /Allergies for up to 7 days. [facility] lactated ringers IV infusion 1,000 mL 2019-03 17:00: 00 Yes 1000mL at 75 mL/hr, 1,000 mL, IV Infusion, CONTINUOUS , Starting Wed01/02/20 at 1100, Until Discontinu ed, Routine, PACU [facility] FENTanyl PF (SUBLIMAZE (PF)) injection 25 mcg 2019-03 16:50: 26 Yes 25ug 25 mcg, Slow IV Push, Q5MIN PRN, 4 doses, Starting e 01/02/20 at 1050, Until Discontinu ed, Routine, Pain (scale 4-6), PACU [facility] ondansetron (ZOFRAN (PF)) injection 4 mg 2019-03 16:50: 26 Yes 4mg 4 mg, Slow IV Push, PRN, 1 dose, Starting e 01/02/20 at 1050, Until Discontinu ed, Routine, Nausea and Vomiting (N/V), PACU [facility] bupivacaine -epinephrin e-pf (SENSORCAIN E W/EPINEPHRI NE) 0.5 %-1:200,000 injection 2019-03 16:10: 00 Yes PRN, Starting 01/02/20 at 1010, Until Discontinu ed, Routine, Intra-op [facility] sodium chloride 0.9 % irrigation solution 2019-03 15:35: 00 Yes PRN, Starting 01/02/20 at 0935, Until Discontinu ed, Intra-op [facility] lactated ringers IV infusion 1,000 mL 2019-03 15:30: 00 01-01 15:23 :00 No 1000mL at 42 mL/hr, 1,000 mL, IV Infusion, ONCE, 1 dose, Tu01/02/20 at 0930, Routine, DSU Pre-op [facility] simethicone 80 mg chewable tablet 2019-03 00:00: 04-29 00:00 :00 No [id number] 80mg Take 1 tablet by mouth after meals and at bedtime. [facility] acetaminoph en (TYLENOL) 325 mg tablet 2019-03 00:00: 00 04-29 00:00 :00 No [id number] 650mg Take 2 tablets by mouth every 6 (six) hours as needed for Pain (scale 1-3) or Pain (scale 4-6). [facility] ibuprofen 600 mg tablet 2019-03 00:00: 00 04-21 00:00 :00 No [id number] 600mg Take 1 tablet by mouth every 6 (six) hours as needed for Pain (scale 1-3) or Pain (scale 4-6). [facility] HYDROcodone -acetaminop hen 5-325 mg tablet 2019-03 00:00: 00 01-09 05:59 :00 No [id number] 1{tbl} Take 1 tablet by mouth every 6 (six) hours as needed for Pain (scale 7-10) for up to 7 days. Indication s: acute pain [facility] acetaminoph en (TYLENOL ARTHRITIS PAIN) 650 mg CR tablet 11-13 13:02: 11-13 00:00 :00 No 650mg Take 650 mg by mouth every 8 (eight) hours as needed for Pain. [facility] diphenhydrA MINE (BENADRYL ALLERGY) 25 mg tablet 11-13 13:02: 11-13 00:00 :00 No 25mg Take 25 mg by mouth every 4 (four) hours as needed for Allergies. [facility] acetaminoph en (TYLENOL ARTHRITIS PAIN) 650 mg CR tablet 11-13 08:02: 11-13 00:00 :00 No 650mg Take 650 mg by mouth every 8 (eight) hours as needed for Pain. [facility] diphenhydrA MINE (BENADRYL ALLERGY) 25 mg tablet 11-13 08:02: 11-13 00:00 :00 No 25mg Take 25 mg by mouth every 4 (four) hours as needed for Allergies. [facility] vitamin w/FA tablet 11-13 00:00: 04-29 00:00 :00 No [id number] 1{tbl} Take 1 tablet by mouth daily. [facility] docusate calcium 240 mg capsule 11-13 00:00: 04-29 00:00 :00 No [id number] 240mg Take 1 capsule by mouth once daily as needed for Constipati on. [facility] ferrous sulfate 325 mg (65 mg iron) tablet 11-13 00:00: 04-29 00:00 :00 No [id number] 325mg Take 1 tablet by mouth 2 (two) times daily. [facility] vitamin w/FA tablet 11-13 00:00: 04-29 00:00 :00 No [id number] 1{tbl} Take 1 tablet by mouth daily. [facility] ibuprofen 600 mg tablet 11-13 00:0012-02 00:00 :00 No [id number] 600mg Take 1 tablet by mouth every 6 (six) hours as needed (Pain). Take with food or milk. [facility] rho(D) immune globulin (RHOGAM) syringe 300 mcg 11-12 19:35: 44 Yes 300ug 300 mcg, Intramuscu lar, ONCE, For 1 dose, Conditiona l, Routine [facility] ondansetron (ZOFRAN (PF)) injection 4 mg 11-12 19:35: 38 Yes 4mg 4 mg, Slow IV Push, Q8HPRN, Starting 11/13/19 at 1435, Until Discontinu ed, Routine, Nausea and Vomiting (N/V) [facility] simethicone (GAS RELIEF (SIMETHICON E)) chewable tablet 160 mg 11-12 19:35: 38 Yes 160mg 160 mg, Oral, PC+HSPRN, Starting 11/13/19 at 1435, Until Discontinu ed, Routine, Gas [facility] magnesium hydroxide (MILK OF MAGNESIA) 400 mg/5 mL suspension 30 mL 11-12 19:35: 38 Yes 30mL 30 mL, Oral, QDAILYPRN, Starting Wed11/13/19 at 1435, Until Discontinu ed, Routine, Constipati on [facility] HYDROcodone -acetaminop hen (NORCO 5) 5-325 mg tablet 1 tablet 11-12 19:35: 37 Yes 1{tbl} 1 tablet, Oral, Q6HPRN, Starting Wed11/13/19 at 1435, Until Discontinu ed, Routine, Pain (scale 7-10) [facility] ibuprofen (IBU) tablet 600 mg 11-12 19:35: 37 Yes 600mg 600 mg, Oral, Q6HPRN, Starting Wed11/13/19 at 1435, Until Discontinu ed, Routine, Pain (scale 4-6) [facility] acetaminoph en (TYLENOL) tablet 650 mg 11-12 19:35: 37 Yes 650mg 650 mg, Oral, Q6HPRN, Starting Wed11/13/19 at 1435, Until Discontinu ed, Routine, Pain (scale 1-3) [facility] diphenhydrA MINE (BENADRYL) tablet 25 mg 11-12 19:35: 37 Yes 25mg 25 mg, Oral, Q6HPRN, Starting Wed11/13/19 at 1435, Until Discontinu ed, Routine, Sleep, Itching [facility] docusate calcium (SURFAK) capsule 240 mg 11-12 19:35: 37 Yes 240mg 240 mg, Oral, QDAILYPRN, Starting Wed11/13/19 at 1435, Until Discontinu ed, Routine, Constipati on [facility] benzocaine- menthol (DERMOPLAST ) 20-0.5 % topical spray 11-12 19:35: 37 Yes Topical, PRN, Starting Wed11/13/19 at 1435, Until Discontinu ed, Routine, Perineum discomfort [facility] LR 1000 mL + oxytocin 20 units IV Solution 11-12 18:45: 00 11-12 19:30 :00 No at 125 mL/hr, IV Infusion, ONCE, 1 dose, Wed11/13/19 at 1345, Routine [facility] D5W-LR IV infusion 1,000 mL 11-12 09:30: 00 11-12 19:35 :44 No 1000mL at 125 mL/hr, IV Infusion, CONTINUOUS , Starting Wed11/13/19 at 0430, Until Wed11/13/19 at 1435, Routine [facility] FENTanyl PF (SUBLIMAZE (PF)) injection 100 mcg 11-12 09:24: 33 11-12 19:35 :44 No 100ug 100 mcg, Slow IV Push, Q1HPRN, Starting Wed11/13/19 at 0424, Until Wed11/13/19 at 1435, Routine, contractio n pain without an epidural and SVE < 8 cm and Cat I strip [facility] proMETHazin e (PHENERGAN) 25 mg in NaCl 0.9% (NS) 50 mL IV piggyback 11-12 09:24: 33 11-12 19:35 :44 No 25mg 25 mg, IV Piggyback, Q4HPRN, Starting Wed11/13/19 at 0424, Until Wed11/13/19 at 1435, Routine, Nausea and Vomiting (N/V) [facility] LR 1000 mL + oxytocin 20 units IV Solution 11-12 09:24: 11-12 19:35 :44 No 2mU/min at 6-120 mL/hr, IV Infusion, TITRATE, Starting Wed11/13/19 at 0424, Until Wed11/13/19 at 1435, MIRIAM [facility] sodium citrate-cit jaye acid (BICITRA) 500-334 mg/5 mL solution 30 mL 11-12 09:24: 11-12 13:42 :00 No 30mL 30 mL, Oral, PRE-PROCED URE ONCE, 1 dose, Starting Wed11/13/19 at 0424, Until Discontinu ed, Routine, Surgery/Pr ocedure [facility] lactated ringers IV infusion 500 mL 11-12 09:24: 11-12 19:35 :44 No 500mL at 999 mL/hr, 500 mL, IV Infusion, PRN - SEE INSTRUCTIO NS, Starting Wed11/13/19 at 0424, Until Wed11/13/19 at 1435, Routine [facility] acetaminoph en/diphenhy dramine (TYLENOL PM ORAL) 10-01 22:39: 35 10-01 00:00 :00 No Take by mouth. [facility] acetaminoph en/diphenhy dramine (TYLENOL PM ORAL) 10-01 17:39: 35 10-01 00:00 :00 No Take by mouth. [facility] proMETHazin e 25 mg tablet 09-13 00:00: 00 11-13 00:00 :00 No [id number] 25mg Take 1 tablet by mouth every 6 (six) hours as needed for Nausea and Vomiting (N/V). [facility] magnesium oxide 400 mg magnesium Tab 08-30 00:00: 00 01-01 00:00 :00 No [id number] 400mg Take 400 mg by mouth daily. [facility] diphenhydrA MINE (BENADRYL ALLERGY) 25 mg tablet 6-04 20:41: 08 Yes 25mg Take 25 mg by mouth every 4 (four) hours as needed for Allergies. [facility] neomycin-po lymyxin-hyd rocortisone 3.5-10,000- 1 mg/mL-unit/ mL-% otic susp 4-27 00:00: 00 11-13 00:00 :00 No Apply 4 drops into effected ear 3 times daily for 7 days. [facility] diphenhydrA MINE (BENADRYL ALLERGY) 25 mg tablet 4-07 18:05: 58 Yes 25mg Take 25 mg by mouth every 4 (four) hours as needed for Allergies. [facility] acetaminoph en (TYLENOL ARTHRITIS PAIN) 650 mg CR tablet 3-10 20:15: 23 Yes 650mg Take 650 mg by mouth every 8 (eight) hours as needed for Pain. [facility] acetaminoph en/diphenhy dramine (TYLENOL PM ORAL) 3-10 20:15: 23 Yes Take by mouth. [facility] proMETHazin e 25 mg tablet 05-03 00:00: 00 11-13 00:00 :00 No [id number] 25mg Take 1 tablet by mouth every 4 (four) hours as needed for Nausea and Vomiting (N/V). [facility] NaCl 0.9% (NS) bolus infusion 1,000 mL 04-11 22:30: 00 04-11 22:49 :00 No 1000mL at 999 mL/hr, 1,000 mL, IV Infusion, ONCE, 1 dose, 04/11/19 at 1630, STAT [facility] proMETHazin e (PHENERGAN) 12.5 mg in NaCl 0.9% (NS) 50 mL piggyback 04-11 22:15: 04-11 22:15 :00 No 12.5mg 12.5 mg, IV Piggyback, ONCE, 1 dose, 04/11/19 at 1615, 50 mL [facility] NaCl 0.9% (NS) bolus infusion 1,000 mL 04-11 21:15: 04-11 21:00 :00 No 1000mL at 999 mL/hr, 1,000 mL, IV Infusion, ONCE, 1 dose, 04/11/19 at 1515, STAT [facility] proMETHazin e 25 mg tablet 04-11 00:00: 00 05-23 00:00 :00 No [id number] 25mg Take 1 tablet by mouth every 6 (six) hours as needed for Nausea and Vomiting (N/V). [facility] Vit 15-Iron-FA- DSS 90-1-50 mg per tablet 04-10 00:00: 00 11-13 00:00 :00 No [id number] 1{tbl} Take 1 tablet by mouth daily. [facility] Vit 15-Iron-FA- DSS 90-1-50 mg per tablet 04-10 00:00: 00 11-13 00:00 :00 No [id number] 1{tbl} Take 1 tablet by mouth daily. [facility] diphenhydrA MINE 25 mg capsule 04-10 00:00: 00 05-23 00:00 :00 No [id number] 25mg Take 1 capsule by mouth at bedtime. [facility] acetaminoph en (TYLENOL) 325 mg tablet 03-30 16:54: 17 03-30 00:00 :00 No Take by mouth every 6 (six) hours as needed. [facility] norethindro ne-e.estrad iol-iron 1.5 mg-30 mcg (21)/75 mg (7) per tablet 10-29 00:00: 00 Yes [id number] 1{tbl} Take 1 tablet by mouth daily. [facility] acetaminoph en (TYLENOL) 325 mg tablet 08-05 23:54: 19 Yes Take by mouth every 6 (six) hours as needed. [facility] No known medications No Un tj [facility] No known medications No Un tj [facility] No known medications No Un tj [facility] busPIRone HCl 10 MG busPIRone HCl 10 MG No 1{table t} BID busPIRone HCl 10 MG Aspirin 325 MG Aspirin 325 MG No Aspirin 325 MG Vitamin C Vitamin C No Vitamin C Cyclobenzap rine HCl 10 MG Cyclobenzap rine HCl 10 MG No 1{table t_at_be dtime_a s_neede d} QD Cyclobenza alyson HCl 10 MG Pantoprazol e Sodium 40 MG Pantoprazol e Sodium 40 MG No 1{table t} QD Pantoprazo le Sodium 40 MG Immunizations Ordered Immunization Name Filled Immunization Name Date Status Comments Source Meningococcal Polysaccharide (groups A, C, Y and W-135) conjugate vaccine (MCV4P) 2023-10-21 19:15:00 Completed [facility] TD, NOS 2023-10-21 19:15:00 Completed [facility] Influenza Virus Vaccine Quad IM 3+ YRS 2023-10-21 19:15:00 Completed [facility] TDAP 2023-10-21 19:15:00 Completed [facility] Meningococcal Polysaccharide (groups A, C, Y and W-135) conjugate vaccine (MCV4P) 2023-08-12 00:00:00 Completed [facility] TD, NOS 2023-08-12 00:00:00 Completed [facility] Influenza Virus Vaccine Quad IM 3+ YRS 2023-08-12 00:00:00 Completed [facility] TDAP 2023-08-12 00:00:00 Completed [facility] Meningococcal Polysaccharide (groups A, C, Y and W-135) conjugate vaccine (MCV4P) 2023-08-11 16:19:00 Completed [facility] TD, NOS 2023-08-11 16:19:00 Completed [facility] Influenza Virus Vaccine Quad IM 3+ YRS 2023-08-11 16:19:00 Completed [facility] TDAP 2023-08-11 16:19:00 Completed [facility] Meningococcal Polysaccharide (groups A, C, Y and W-135) conjugate vaccine (MCV4P) 2023-07-27 12:00:00 Completed [facility] TD, NOS 2023-07-27 12:00:00 Completed [facility] Influenza Virus Vaccine Quad IM 3+ YRS 2023-07-27 12:00:00 Completed [facility] TDAP 2023-07-27 12:00:00 Completed [facility] Meningococcal Polysaccharide (groups A, C, Y and W-135) conjugate vaccine (MCV4P) 2023-07-23 00:00:00 Completed [facility] TD, NOS 2023-07-23 00:00:00 Completed [facility] Influenza Virus Vaccine Quad IM 3+ YRS 2023-07-23 00:00:00 Completed [facility] TDAP 2023-07-23 00:00:00 Completed [facility] Meningococcal Polysaccharide (groups A, C, Y and W-135) conjugate vaccine (MCV4P) 2023-07-06 00:00:00 Completed [facility] TD, NOS 2023-07-06 00:00:00 Completed [facility] Influenza Virus Vaccine Quad IM 3+ YRS 2023-07-06 00:00:00 Completed [facility] TDAP 2023-07-06 00:00:00 Completed [facility] Meningococcal Polysaccharide (groups A, C, Y and W-135) conjugate vaccine (MCV4P) 2023-07-05 08:30:00 Completed [facility] TD, NOS 2023-07-05 08:30:00 Completed [facility] Influenza Virus Vaccine Quad IM 3+ YRS 2023-07-05 08:30:00 Completed [facility] TDAP 2023-07-05 08:30:00 Completed [facility] Meningococcal Polysaccharide (groups A, C, Y and W-135) conjugate vaccine (MCV4P) 2023-06-29 00:00:00 Completed [facility] TD, NOS 2023-06-29 00:00:00 Completed [facility] Influenza Virus Vaccine Quad IM 3+ YRS 2023-06-29 00:00:00 Completed [facility] TDAP 2023-06-29 00:00:00 Completed [facility] Meningococcal Polysaccharide (groups A, C, Y and W-135) conjugate vaccine (MCV4P) 2023-06-24 08:36:43 Completed [facility] TD, NOS 2023-06-24 08:36:43 Completed [facility] Influenza Virus Vaccine Quad IM 3+ YRS 2023-06-24 08:36:43 Completed [facility] TDAP 2023-06-24 08:36:43 Completed [facility] Meningococcal Polysaccharide (groups A, C, Y and W-135) conjugate vaccine (MCV4P) 2023-06-22 00:00:00 Completed [facility] TD, NOS 2023-06-22 00:00:00 Completed [facility] Influenza Virus Vaccine Quad IM 3+ YRS 2023-06-22 00:00:00 Completed [facility] TDAP 2023-06-22 00:00:00 Completed [facility] Meningococcal Polysaccharide (groups A, C, Y and W-135) conjugate vaccine (MCV4P) 2023-06-21 15:31:36 Completed [facility] TD, NOS 2023-06-21 15:31:36 Completed [facility] Influenza Virus Vaccine Quad IM 3+ YRS 2023-06-21 15:31:36 Completed [facility] TDAP 2023-06-21 15:31:36 Completed [facility] Meningococcal Polysaccharide (groups A, C, Y and W-135) conjugate vaccine (MCV4P) 2023-06-15 00:00:00 Completed [facility] TD, NOS 2023-06-15 00:00:00 Completed [facility] Influenza Virus Vaccine Quad IM 3+ YRS 2023-06-15 00:00:00 Completed [facility] TDAP 2023-06-15 00:00:00 Completed [facility] Meningococcal Polysaccharide (groups A, C, Y and W-135) conjugate vaccine (MCV4P) 2023-06-11 11:15:00 Completed [facility] TD, NOS 2023-06-11 11:15:00 Completed [facility] Influenza Virus Vaccine Quad IM 3+ YRS 2023-06-11 11:15:00 Completed [facility] TDAP 2023-06-11 11:15:00 Completed [facility] Meningococcal Polysaccharide (groups A, C, Y and W-135) conjugate vaccine (MCV4P) 2023-06-11 09:30:00 Completed [facility] TD, NOS 2023-06-11 09:30:00 Completed [facility] Influenza Virus Vaccine Quad IM 3+ YRS 2023-06-11 09:30:00 Completed [facility] TDAP 2023-06-11 09:30:00 Completed [facility] Meningococcal Polysaccharide (groups A, C, Y and W-135) conjugate vaccine (MCV4P) 2023-06-08 09:45:00 Completed [facility] TD, NOS 2023-06-08 09:45:00 Completed [facility] Influenza Virus Vaccine Quad IM 3+ YRS 2023-06-08 09:45:00 Completed [facility] TDAP 2023-06-08 09:45:00 Completed [facility] Meningococcal Polysaccharide (groups A, C, Y and W-135) conjugate vaccine (MCV4P) 2023-06-08 09:15:00 Completed [facility] TD, NOS 2023-06-08 09:15:00 Completed [facility] Influenza Virus Vaccine Quad IM 3+ YRS 2023-06-08 09:15:00 Completed [facility] TDAP 2023-06-08 09:15:00 Completed [facility] Meningococcal Polysaccharide (groups A, C, Y and W-135) conjugate vaccine (MCV4P) 2023-06-08 00:00:00 Completed [facility] TD, NOS 2023-06-08 00:00:00 Completed [facility] Influenza Virus Vaccine Quad IM 3+ YRS 2023-06-08 00:00:00 Completed [facility] TDAP 2023-06-08 00:00:00 Completed [facility] Meningococcal Polysaccharide (groups A, C, Y and W-135) conjugate vaccine (MCV4P) 2023-06-08 00:00:00 Completed [facility] TD, NOS 2023-06-08 00:00:00 Completed [facility] Influenza Virus Vaccine Quad IM 3+ YRS 2023-06-08 00:00:00 Completed [facility] TDAP 2023-06-08 00:00:00 Completed [facility] Meningococcal Polysaccharide (groups A, C, Y and W-135) conjugate vaccine (MCV4P) 2023-06-01 00:00:00 Completed [facility] TD, NOS 2023-06-01 00:00:00 Completed [facility] Influenza Virus Vaccine Quad IM 3+ YRS 2023-06-01 00:00:00 Completed [facility] TDAP 2023-06-01 00:00:00 Completed [facility] Meningococcal Polysaccharide (groups A, C, Y and W-135) conjugate vaccine (MCV4P) 2023-06-01 00:00:00 Completed [facility] TD, NOS 2023-06-01 00:00:00 Completed [facility] Influenza Virus Vaccine Quad IM 3+ YRS 2023-06-01 00:00:00 Completed [facility] TDAP 2023-06-01 00:00:00 Completed [facility] Meningococcal Polysaccharide (groups A, C, Y and W-135) conjugate vaccine (MCV4P) 2023-05-27 15:00:00 Completed [facility] TD, NOS 2023-05-27 15:00:00 Completed [facility] Influenza Virus Vaccine Quad IM 3+ YRS 2023-05-27 15:00:00 Completed [facility] TDAP 2023-05-27 15:00:00 Completed [facility] Meningococcal Polysaccharide (groups A, C, Y and W-135) conjugate vaccine (MCV4P) 2023-05-27 10:00:00 Completed [facility] TD, NOS 2023-05-27 10:00:00 Completed [facility] Influenza Virus Vaccine Quad IM 3+ YRS 2023-05-27 10:00:00 Completed [facility] TDAP 2023-05-27 10:00:00 Completed [facility] Meningococcal Polysaccharide (groups A, C, Y and W-135) conjugate vaccine (MCV4P) 2023-05-27 00:00:00 Completed [facility] TD, NOS 2023-05-27 00:00:00 Completed [facility] Influenza Virus Vaccine Quad IM + 2023-05-27 00:00:00 Completed [facility] TDAP 2023-05-27 00:00:00 Completed [facility] Meningococcal Polysaccharide (groups A, C, Y and W-135) conjugate vaccine (MCV4P) 2023-05-12 00:00:00 Completed [facility] TD, NOS 2023-05-12 00:00:00 Completed [facility] Influenza Virus Vaccine Quad IM 3+ 2023-05-12 00:00:00 Completed [facility] TDAP 2023-05-12 00:00:00 Completed [facility] Meningococcal Polysaccharide (groups A, C, Y and W-135) conjugate vaccine (MCV4P) 2023-05-07 00:00:00 Completed [facility] TD, NOS 2023-05-07 00:00:00 Completed [facility] Influenza Virus Vaccine Quad IM 3+ YRS 2023-05-07 00:00:00 Completed [facility] TDAP 2023-05-07 00:00:00 Completed [facility] Meningococcal Polysaccharide (groups A, C, Y and W-135) conjugate vaccine (MCV4P) 2023-04-26 11:36:00 Completed [facility] TD, NOS 2023-04-26 11:36:00 Completed [facility] Influenza Virus Vaccine Quad IM 3+ 2023-04-26 11:36:00 Completed [facility] TDAP 2023-04-26 11:36:00 Completed [facility] Meningococcal Polysaccharide (groups A, C, Y and W-135) conjugate vaccine (MCV4P) 2023-04-19 00:00:00 Completed [facility] TD, NOS 2023-04-19 00:00:00 Completed [facility] Influenza Virus Vaccine Quad IM 3+ 2023-04-19 00:00:00 Completed [facility] TDAP 2023-04-19 00:00:00 Completed [facility] Meningococcal Polysaccharide (groups A, C, Y and W-135) conjugate vaccine (MCV4P) 2023-04-13 00:00:00 Completed [facility] TD, NOS 2023-04-13 00:00:00 Completed [facility] Influenza Virus Vaccine Quad IM 2023-04-13 00:00:00 Completed [facility] TDAP 2023-04-13 00:00:00 Completed [facility] Meningococcal Polysaccharide (groups A, C, Y and W-135) conjugate vaccine (MCV4P) 2023-04-12 14:44:00 Completed [facility] TD, NOS 2023-04-12 14:44:00 Completed [facility] Influenza Virus Vaccine Quad IM 2023-04-12 14:44:00 Completed [facility] TDAP 2023-04-12 14:44:00 Completed [facility] Meningococcal Polysaccharide (groups A, C, Y and W-135) conjugate vaccine (MCV4P) 2023-03-07 15:31:00 Completed [facility] TD, NOS 2023-03-07 15:31:00 Completed [facility] Influenza Virus Vaccine Quad IM 3+ 2023-03-07 15:31:00 Completed [facility] TDAP 2023-03-07 15:31:00 Completed [facility] Meningococcal Polysaccharide (groups A, C, Y and W-135) conjugate vaccine (MCV4P) 2022-10-12 00:00:00 Completed [facility] TD, NOS 2022-10-12 00:00:00 Completed [facility] Influenza Virus Vaccine Quad IM 3+ YRS 2022-10-12 00:00:00 Completed [facility] TDAP 2022-10-12 00:00:00 Completed [facility] Meningococcal Polysaccharide (groups A, C, Y and W-135) conjugate vaccine (MCV4P) 2022-07-17 00:00:00 Completed [facility] TD, NOS 2022-07-17 00:00:00 Completed [facility] Influenza Virus Vaccine Quad IM 3+ YRS 2022-07-17 00:00:00 Completed [facility] TDAP 2022-07-17 00:00:00 Completed [facility] Meningococcal Polysaccharide (groups A, C, Y and W-135) conjugate vaccine (MCV4P) 2022-06-11 00:00:00 Completed [facility] TD, NOS 2022-06-11 00:00:00 Completed [facility] Influenza Virus Vaccine Quad IM 3+ YRS 2022-06-11 00:00:00 Completed [facility] TDAP 2022-06-11 00:00:00 Completed [facility] Meningococcal Polysaccharide (groups A, C, Y and W-135) conjugate vaccine (MCV4P) 2022-05-03 00:00:00 Completed [facility] TD, NOS 2022-05-03 00:00:00 Completed [facility] Influenza Virus Vaccine Quad IM 3+ YRS 2022-05-03 00:00:00 Completed [facility] TDAP 2022-05-03 00:00:00 Completed [facility] Meningococcal Polysaccharide (groups A, C, Y and W-135) conjugate vaccine (MCV4P) 2022-03-31 00:00:00 Completed [facility] TD, NOS 2022-03-31 00:00:00 Completed [facility] Influenza Virus Vaccine Quad IM 3+ YRS 2022-03-31 00:00:00 Completed [facility] TDAP 2022-03-31 00:00:00 Completed [facility] Td 2021-07-27 00:00:00 Completed [facility] Td 2021-07-27 00:00:00 Completed [facility] Td 2021-07-27 00:00:00 Completed [facility] Td 2021-07-27 00:00:00 Completed [facility] Td 2021-07-27 00:00:00 Completed [facility] Td 2021-07-27 00:00:00 Completed [facility] Td 2021-07-27 00:00:00 Completed [facility] Td 2021-07-27 00:00:00 Completed [facility] Td 2021-07-27 00:00:00 Completed [facility] Td 2021-07-27 00:00:00 Completed [facility] TD, NOS 2021-07-27 00:00:00 Completed [facility] TD, NOS 2021-07-27 00:00:00 Completed [facility] TD, NOS 2021-07-27 00:00:00 Completed [facility] TD, NOS 2021-07-27 00:00:00 Completed [facility] TD, NOS 2021-07-27 00:00:00 Completed [facility] TD, NOS 2021-07-27 00:00:00 Completed [facility] TD, NOS 2021-07-27 00:00:00 Completed [facility] TD, NOS 2021-07-27 00:00:00 Completed [facility] TD, NOS 2021-07-27 00:00:00 Completed [facility] TD, NOS 2021-07-27 00:00:00 Completed [facility] TD, NOS 2021-07-27 00:00:00 Completed [facility] TD, NOS 2021-07-27 00:00:00 Completed [facility] TD, NOS 2021-07-27 00:00:00 Completed [facility] TD, NOS 2021-07-27 00:00:00 Completed [facility] TD, NOS 2021-07-27 00:00:00 Completed [facility] TD, NOS 2021-07-27 00:00:00 Completed [facility] TD, NOS 2021-07-27 00:00:00 Completed [facility] TD, NOS 2021-07-27 00:00:00 Completed [facility] TD, NOS 2021-07-27 00:00:00 Completed [facility] TD, NOS 2021-07-27 00:00:00 Completed [facility] TD, NOS 2021-07-27 00:00:00 Completed [facility] TD, NOS 2021-07-27 00:00:00 Completed [facility] TD, NOS 2021-07-27 00:00:00 Completed [facility] TD, NOS 2021-07-27 00:00:00 Completed [facility] TD, NOS 2021-07-27 00:00:00 Completed [facility] TD, NOS 2021-07-27 00:00:00 Completed [facility] TD, NOS 2021-07-27 00:00:00 Completed [facility] TD, NOS 2021-07-27 00:00:00 Completed [facility] TD, NOS 2021-07-27 00:00:00 Completed [facility] TD, NOS 2021-07-27 00:00:00 Completed [facility] TD, NOS 2021-07-27 00:00:00 Completed [facility] TD, NOS 2021-07-27 00:00:00 Completed [facility] TD, NOS 2021-07-27 00:00:00 Completed [facility] TD, NOS 2021-07-27 00:00:00 Completed [facility] TD, NOS 2021-07-27 00:00:00 Completed [facility] TD, NOS 2021-07-27 00:00:00 Completed [facility] TD, NOS 2021-07-27 00:00:00 Completed [facility] TD, NOS 2021-07-27 00:00:00 Completed [facility] TD, NOS 2021-07-27 00:00:00 Completed [facility] TD, NOS 2021-07-27 00:00:00 Completed [facility] TD, NOS 2021-07-27 00:00:00 Completed [facility] TD, NOS 2021-07-27 00:00:00 [facility]pleted [facility] TD, NOS 2021-07-27 00:00:00 Completed [facility] TD, NOS 2021-07-27 00:00:00 Completed [facility] TD, NOS 2021-07-27 00:00:00 Completed [facility] TD, NOS 2021-07-27 00:00:00 Completed [facility] Meningococcal Polysaccharide (groups A, C, Y and W-135) conjugate vaccine (MCV4P) 2021-03-12 00:00:00 Completed [facility] TD, NOS 2021-03-12 00:00:00 Completed [facility] Influenza Virus Vaccine Quad IM 3+ YRS 2021-03-12 00:00:00 Completed [facility] TDAP 2021-03-12 00:00:00 Completed [facility] Meningococcal Polysaccharide (groups A, C, Y and W-135) conjugate vaccine (MCV4P) 2021-03-10 00:00:00 Completed [facility] TD, NOS 2021-03-10 00:00:00 Completed [facility] Influenza Virus Vaccine Quad IM 3+ YRS 2021-03-10 00:00:00 Completed [facility] TDAP 2021-03-10 00:00:00 Completed [facility] Influenza Virus Vaccine Quad .5 mL IM 6+ MO 2019-12-07 00:00:00 Completed [facility] Influenza Virus Vaccine Quad .5 mL IM 6+ MO 2019-12-07 00:00:00 Completed [facility] Influenza Virus Vaccine Quad .5 mL IM 6+ MO 2019-12-07 00:00:00 Completed [facility] Influenza Virus Vaccine Quad .5 mL IM 6+ MO 2019-12-07 00:00:00 Completed [facility] Influenza Virus Vaccine Quad .5 mL IM 6+ MO 2019-12-07 00:00:00 Completed [facility] Influenza Virus Vaccine Quad .5 mL IM 6+ MO 2019-12-07 00:00:00 Completed [facility] Influenza Virus Vaccine Quad .5 mL IM 6+ MO 2019-12-07 00:00:00 Completed [facility] Influenza Virus Vaccine Quad .5 mL IM 6+ MO 2019-12-07 00:00:00 Completed [facility] Influenza Virus Vaccine Quad .5 mL IM 6+ MO 2019-12-07 00:00:00 Completed [facility] Influenza Virus Vaccine Quad .5 mL IM 6+ MO 2019-12-07 00:00:00 Completed [facility] Influenza Virus Vaccine Quad .5 mL IM 6+ MO 2019-12-07 00:00:00 Completed [facility] Influenza Virus Vaccine Quad .5 mL IM 6+ MO 2019-12-07 00:00:00 Completed [facility] Influenza Virus Vaccine Quad .5 mL IM 6+ MO 2019-12-07 00:00:00 Completed [facility] Influenza Virus Vaccine Quad .5 mL IM 6+ MO 2019-12-07 00:00:00 Completed [facility] Influenza Virus Vaccine Quad .5 mL IM 6+ MO 2019-12-07 00:00:00 Completed [facility] Influenza Virus Vaccine Quad .5 mL IM 6+ MO 2019-12-07 00:00:00 Completed [facility] Influenza Virus Vaccine Quad .5 mL IM 6+ MO 2019-12-07 00:00:00 Completed [facility] Influenza Virus Vaccine Quad .5 mL IM 6+ MO 2019-12-07 00:00:00 Completed [facility] Influenza Virus Vaccine Quad .5 mL IM 6+ MO 2019-12-07 00:00:00 Completed [facility] Influenza Virus Vaccine Quad .5 mL IM 6+ MO 2019-12-07 00:00:00 Completed [facility] Influenza Virus Vaccine Quad .5 mL IM 6+ MO 2019-12-07 00:00:00 Completed [facility] Influenza Virus Vaccine Quad .5 mL IM 6+ MO 2019-12-07 00:00:00 Completed [facility] Influenza Virus Vaccine Quad .5 mL IM 6+ MO 2019-12-07 00:00:00 Completed [facility] Influenza Virus Vaccine Quad .5 mL IM 6+ MO 2019-12-07 00:00:00 Completed [facility] Influenza Virus Vaccine Quad .5 mL IM 6+ MO 2019-12-07 00:00:00 Completed [facility] Influenza Virus Vaccine Quad .5 mL IM 6+ MO 2019-12-07 00:00:00 Completed [facility] Influenza Virus Vaccine Quad .5 mL IM 6+ MO 2019-12-07 00:00:00 Completed [facility] Influenza Virus Vaccine Quad .5 mL IM 6+ MO 2019-12-07 00:00:00 Completed [facility] Influenza Virus Vaccine Quad .5 mL IM 6+ MO 2019-12-07 00:00:00 Completed [facility] Influenza Virus Vaccine Quad .5 mL IM 6+ MO 2019-12-07 00:00:00 Completed [facility] Influenza Virus Vaccine Quad .5 mL IM 6+ MO 2019-12-07 00:00:00 Completed [facility] Influenza Virus Vaccine Quad .5 mL IM 6+ MO 2019-12-07 00:00:00 Completed [facility] Influenza Virus Vaccine Quad .5 mL IM 6+ MO 2019-12-07 00:00:00 Completed [facility] Influenza Virus Vaccine Quad .5 mL IM 6+ MO 2019-12-07 00:00:00 Completed [facility] Influenza Virus Vaccine Quad .5 mL IM 6+ MO 2019-12-07 00:00:00 Completed [facility] Influenza Virus Vaccine Quad .5 mL IM 6+ MO 2019-12-07 00:00:00 Completed [facility] Influenza Virus Vaccine Quad .5 mL IM 6+ MO 2019-12-07 00:00:00 Completed [facility] Influenza Virus Vaccine Quad .5 mL IM 6+ MO 2019-12-07 00:00:00 Completed [facility] Influenza Virus Vaccine Quad .5 mL IM 6+ MO 2019-12-07 00:00:00 Completed [facility] Influenza Virus Vaccine Quad .5 mL IM 6+ MO 2019-12-07 00:00:00 Completed [facility] Influenza Virus Vaccine Quad .5 mL IM 6+ MO 2019-12-07 00:00:00 Completed [facility] Influenza Virus Vaccine Quad .5 mL IM 6+ MO 2019-12-07 00:00:00 Completed [facility] Influenza Virus Vaccine Quad .5 mL IM 6+ MO 2019-12-07 00:00:00 Completed [facility] Influenza Virus Vaccine Quad .5 mL IM 6+ MO 2019-12-07 00:00:00 Completed [facility] Influenza Virus Vaccine Quad .5 mL IM 6+ MO 2019-12-07 00:00:00 Completed [facility] Influenza Virus Vaccine Quad .5 mL IM 6+ MO 2019-12-07 00:00:00 Completed [facility] Influenza Virus Vaccine Quad .5 mL IM 6+ MO 2019-12-07 00:00:00 Completed [facility] Influenza Virus Vaccine Quad .5 mL IM 6+ MO 2019-12-07 00:00:00 Completed [facility] Influenza Virus Vaccine Quad .5 mL IM 6+ MO 2019-12-07 00:00:00 Completed [facility] Influenza Virus Vaccine Quad .5 mL IM 6+ MO 2019-12-07 00:00:00 Completed [facility] Influenza Virus Vaccine Quad .5 mL IM 6+ MO 2019-12-07 00:00:00 Completed [facility] Influenza Virus Vaccine Quad .5 mL IM 6+ MO 2019-12-07 00:00:00 Completed [facility] Influenza Virus Vaccine Quad .5 mL IM 6+ MO 2019-12-07 00:00:00 Completed [facility] Influenza Virus Vaccine Quad .5 mL IM 6+ MO 2019-12-07 00:00:00 Completed [facility] Influenza Virus Vaccine Quad .5 mL IM 6+ MO 2019-12-07 00:00:00 Completed [facility] Influenza Virus Vaccine Quad .5 mL IM 6+ MO 2019-12-07 00:00:00 Completed [facility] Influenza Virus Vaccine Quad .5 mL IM 6+ MO 2019-12-07 00:00:00 Completed [facility] Influenza Virus Vaccine Quad .5 mL IM 6+ MO 2019-12-07 00:00:00 Completed [facility] Influenza Virus Vaccine Quad .5 mL IM 6+ MO 2019-12-07 00:00:00 Completed [facility] Influenza Virus Vaccine Quad .5 mL IM 6+ MO 2019-12-07 00:00:00 Completed [facility] Influenza Virus Vaccine Quad .5 mL IM 6+ MO 2019-12-07 00:00:00 Completed [facility] Influenza Virus Vaccine Quad .5 mL IM 6+ MO 2019-12-07 00:00:00 Completed [facility] Influenza Virus Vaccine Quad .5 mL IM 6+ MO 2019-12-07 00:00:00 Completed [facility] Influenza Virus Vaccine Quad .5 mL IM 6+ MO 2019-12-07 00:00:00 Completed [facility] Influenza Virus Vaccine Quad .5 mL IM 6+ MO 2019-12-07 00:00:00 Completed [facility] Influenza Virus Vaccine Quad .5 mL IM 6+ MO 2019-12-07 00:00:00 Completed [facility] Influenza Virus Vaccine Quad .5 mL IM 6+ MO 2019-12-07 00:00:00 Completed [facility] Influenza Virus Vaccine Quad .5 mL IM 6+ MO 2019-12-07 00:00:00 Completed [facility] Influenza Virus Vaccine Quad .5 mL IM 6+ MO (FLUZONE/FLULAVAL/FLU ARIX) 2019-12-07 00:00:00 Completed [facility] Influenza Virus Vaccine Quad .5 mL IM 6+ MO (FLUZONE/FLULAVAL/FLU ARIX) 2019-12-07 00:00:00 Completed [facility] Influenza Virus Vaccine Quad .5 mL IM 6+ MO (FLUZONE/FLULAVAL/FLU ARIX) 2019-12-07 00:00:00 Completed [facility] Influenza Virus Vaccine Quad .5 mL IM 6+ MO (FLUZONE/FLULAVAL/FLU ARIX) 2019-12-07 00:00:00 Completed Meningococcal Polysaccharide (groups A, C, Y and W-135) conjugate vaccine (MCV4P) 2019-09-25 00:00:00 Completed [facility] TD, NOS 2019-09-25 00:00:00 Completed [facility] Influenza Virus Vaccine Quad IM 3+ YRS 2019-09-25 00:00:00 Completed [facility] TDAP 2019-09-25 00:00:00 Completed [facility] Meningococcal Polysaccharide (groups A, C, Y and W-135) conjugate vaccine (MCV4P) 2019-09-25 00:00:00 Completed [facility] TD, NOS 2019-09-25 00:00:00 Completed [facility] Influenza Virus Vaccine Quad IM 3+ YRS 2019-09-25 00:00:00 Completed [facility] TDAP 2019-09-25 00:00:00 Completed [facility] TDAP 2019-09-04 00:00:00 Completed [facility] TDAP 2019-09-04 00:00:00 Completed [facility] TDAP 2019-09-04 00:00:00 Completed [facility] TDAP 2019-09-04 00:00:00 Completed [facility] TDAP 2019-09-04 00:00:00 Completed [facility] TDAP 2019-09-04 00:00:00 Completed [facility] TDAP 2019-09-04 00:00:00 Completed [facility] TDAP 2019-09-04 00:00:00 Completed [facility] TDAP 2019-09-04 00:00:00 Completed [facility] TDAP 2019-09-04 00:00:00 Completed [facility] TDAP 2019-09-04 00:00:00 Completed [facility] TDAP 2019-09-04 00:00:00 Completed [facility] TDAP 2019-09-04 00:00:00 Completed [facility] TDAP 2019-09-04 00:00:00 Completed [facility] TDAP 2019-09-04 00:00:00 Completed [facility] TDAP 2019-09-04 00:00:00 Completed [facility] TDAP 2019-09-04 00:00:00 Completed [facility] TDAP 2019-09-04 00:00:00 Completed [facility] TDAP 2019-09-04 00:00:00 Completed [facility] TDAP 2019-09-04 00:00:00 Completed [facility] TDAP 2019-09-04 00:00:00 Completed [facility] TDAP 2019-09-04 00:00:00 Completed [facility] TDAP 2019-09-04 00:00:00 Completed [facility] TDAP 2019-09-04 00:00:00 Completed [facility] TDAP 2019-09-04 00:00:00 Completed [facility] TDAP 2019-09-04 00:00:00 Completed [facility] TDAP 2019-09-04 00:00:00 Completed [facility] TDAP 2019-09-04 00:00:00 Completed [facility] TDAP 2019-09-04 00:00:00 Completed [facility] TDAP 2019-09-04 00:00:00 Completed [facility] TDAP 2019-09-04 00:00:00 Completed [facility] TDAP 2019-09-04 00:00:00 Completed [facility] TDAP 2019-09-04 00:00:00 Completed [facility] TDAP 2019-09-04 00:00:00 Completed [facility] TDAP 2019-09-04 00:00:00 Completed [facility] TDAP 2019-09-04 00:00:00 Completed [facility] TDAP 2019-09-04 00:00:00 Completed [facility] TDAP 2019-09-04 00:00:00 Completed [facility] TDAP 2019-09-04 00:00:00 Completed [facility] TDAP 2019-09-04 00:00:00 Completed [facility] TDAP 2019-09-04 00:00:00 Completed [facility] TDAP 2019-09-04 00:00:00 Completed [facility] TDAP 2019-09-04 00:00:00 Completed [facility] TDAP 2019-09-04 00:00:00 Completed [facility] TDAP 2019-09-04 00:00:00 Completed [facility] TDAP 2019-09-04 00:00:00 Completed [facility] TDAP 2019-09-04 00:00:00 Completed [facility] TDAP 2019-09-04 00:00:00 Completed [facility] TDAP 2019-09-04 00:00:00 Completed [facility] TDAP 2019-09-04 00:00:00 Completed [facility] TDAP 2019-09-04 00:00:00 Completed [facility] TDAP 2019-09-04 00:00:00 Completed [facility] TDAP 2019-09-04 00:00:00 Completed [facility] TDAP 2019-09-04 00:00:00 Completed [facility] TDAP 2019-09-04 00:00:00 Completed [facility] TDAP 2019-09-04 00:00:00 Completed [facility] TDAP 2019-09-04 00:00:00 Completed [facility] TDAP 2019-09-04 00:00:00 Completed [facility] TDAP 2019-09-04 00:00:00 Completed [facility] TDAP 2019-09-04 00:00:00 Completed [facility] TDAP 2019-09-04 00:00:00 Completed [facility] TDAP 2019-09-04 00:00:00 Completed [facility] TDAP 2019-09-04 00:00:00 Completed [facility] TDAP 2019-09-04 00:00:00 Completed [facility] TDAP 2019-09-04 00:00:00 Completed [facility] TDAP 2019-09-04 00:00:00 Completed [facility] TDAP 2019-09-04 00:00:00 Completed [facility] TDAP 2019-09-04 00:00:00 Completed [facility] TDAP 2019-09-04 00:00:00 Completed [facility] TDAP 2019-09-04 00:00:00 Completed [facility] TDAP 2019-09-04 00:00:00 Completed [facility] TDAP 2019-09-04 00:00:00 Completed [facility] TDAP 2019-09-04 00:00:00 Completed [facility] TDAP 2019-09-04 00:00:00 Completed [facility] TDAP 2019-09-04 00:00:00 Completed [facility] TDAP 2019-09-04 00:00:00 Completed [facility] TDAP 2019-09-04 00:00:00 Completed [facility] TDAP 2019-09-04 00:00:00 Completed [facility] TDAP 2019-09-04 00:00:00 Completed [facility] TDAP 2019-09-04 00:00:00 Completed [facility] TDAP 2019-09-04 00:00:00 Completed [facility] TDAP 2019-09-04 00:00:00 Completed [facility] TDAP 2019-09-04 00:00:00 Completed TDAP 2019-09-04 00:00:00 Completed [facility] TDAP 2019-09-04 00:00:00 Completed [facility] TDAP 2019-09-04 00:00:00 Completed [facility] TDAP 2019-09-04 00:00:00 Completed [facility] TDAP 2019-09-04 00:00:00 Completed [facility] TDAP 2019-09-04 00:00:00 Completed [facility] TDAP 2019-09-04 00:00:00 Completed [facility] TDAP 2019-09-04 00:00:00 Completed [facility] TDAP 2019-09-04 00:00:00 Completed [facility] TDAP 2019-09-04 00:00:00 Completed [facility] TDAP 2019-09-04 00:00:00 Completed [facility] TDAP 2019-09-04 00:00:00 Completed [facility] TDAP 2019-09-04 00:00:00 Completed [facility] TDAP 2019-09-04 00:00:00 Completed [facility] Meningococcal Polysaccharide (groups A, C, Y and W-135) conjugate vaccine (MCV4P) 2019-08-31 00:00:00 Completed [facility] TD, NOS 2019-08-31 00:00:00 Completed [facility] Influenza Virus Vaccine Quad IM 3+ YRS 2019-08-31 00:00:00 Completed [facility] TDAP 2019-08-31 00:00:00 Completed [facility] TDAP 2016-05-06 00:00:00 Completed [facility] TDAP 2016-05-06 00:00:00 Completed [facility] Tdap 2016-05-06 00:00:00 Completed [facility] TDAP 2016-05-06 00:00:00 Completed [facility] TDAP 2016-05-06 00:00:00 Completed [facility] TDAP 2016-05-06 00:00:00 Completed [facility] TDAP 2016-05-06 00:00:00 Completed [facility] TDAP 2016-05-06 00:00:00 Completed [facility] TDAP 2016-05-06 00:00:00 Completed [facility] Tdap 2016-05-06 00:00:00 Completed [facility] TDAP 2016-05-06 00:00:00 Completed [facility] TDAP 2016-05-06 00:00:00 Completed [facility] TDAP 2016-05-06 00:00:00 Completed [facility] Tdap 2016-05-06 00:00:00 Completed [facility] TDAP 2016-05-06 00:00:00 Completed [facility] TDAP 2016-05-06 00:00:00 Completed [facility] TDAP 2016-05-06 00:00:00 Completed [facility] TDAP 2016-05-06 00:00:00 Completed [facility] TDAP 2016-05-06 00:00:00 Completed [facility] TDAP 2016-05-06 00:00:00 Completed [facility] TDAP 2016-05-06 00:00:00 Completed [facility] Tdap 2016-05-06 00:00:00 Completed [facility] TDAP 2016-05-06 00:00:00 Completed [facility] TDAP 2016-05-06 00:00:00 Completed [facility] TDAP 2016-05-06 00:00:00 Completed [facility] TDAP 2016-05-06 00:00:00 Completed [facility] TDAP 2016-05-06 00:00:00 Completed [facility] TDAP 2016-05-06 00:00:00 Completed [facility] TDAP 2016-05-06 00:00:00 Completed [facility] TDAP 2016-05-06 00:00:00 Completed [facility] TDAP 2016-05-06 00:00:00 Completed [facility] Tdap 2016-05-06 00:00:00 Completed [facility] TDAP 2016-05-06 00:00:00 Completed [facility] TDAP 2016-05-06 00:00:00 Completed [facility] TDAP 2016-05-06 00:00:00 Completed [facility] TDAP 2016-05-06 00:00:00 Completed [facility] TDAP 2016-05-06 00:00:00 Completed [facility] Tdap 2016-05-06 00:00:00 Completed [facility] TDAP 2016-05-06 00:00:00 Completed [facility] TDAP 2016-05-06 00:00:00 Completed [facility] TDAP 2016-05-06 00:00:00 Completed [facility] TDAP 2016-05-06 00:00:00 Completed [facility] TDAP 2016-05-06 00:00:00 Completed [facility] TDAP 2016-05-06 00:00:00 Completed [facility] Tdap 2016-05-06 00:00:00 Completed [facility] TDAP 2016-05-06 00:00:00 Completed [facility] TDAP 2016-05-06 00:00:00 Completed [facility] TDAP 2016-05-06 00:00:00 Completed [facility] Tdap 2016-05-06 00:00:00 Completed [facility] TDAP 2016-05-06 00:00:00 Completed [facility] TDAP 2016-05-06 00:00:00 Completed [facility] TDAP 2016-05-06 00:00:00 Completed [facility] TDAP 2016-05-06 00:00:00 Completed [facility] Tdap 2016-05-06 00:00:00 Completed [facility] TDAP 2016-05-06 00:00:00 Completed [facility] TDAP 2016-05-06 00:00:00 Completed [facility] TDAP 2016-05-06 00:00:00 Completed [facility] Tdap 2016-05-06 00:00:00 Completed [facility] TDAP 2016-05-06 00:00:00 Completed [facility] TDAP 2016-05-06 00:00:00 Completed [facility] TDAP 2016-05-06 00:00:00 Completed [facility] Tdap 2016-05-06 00:00:00 Completed [facility] TDAP 2016-05-06 00:00:00 Completed [facility] TDAP 2016-05-06 00:00:00 Completed [facility] TDAP 2016-05-06 00:00:00 Completed [facility] TDAP 2016-05-06 00:00:00 Completed [facility] TDAP 2016-05-06 00:00:00 Completed [facility] Tdap 2016-05-06 00:00:00 Completed [facility] TDAP 2016-05-06 00:00:00 Completed [facility] TDAP 2016-05-06 00:00:00 Completed [facility] TDAP 2016-05-06 00:00:00 Completed [facility] TDAP 2016-05-06 00:00:00 Completed [facility] Tdap 2016-05-06 00:00:00 Completed [facility] TDAP 2016-05-06 00:00:00 Completed [facility] TDAP 2016-05-06 00:00:00 Completed [facility] Tdap 2016-05-06 00:00:00 Completed [facility] TDAP 2016-05-06 00:00:00 Completed [facility] TDAP 2016-05-06 00:00:00 Completed [facility] Tdap 2016-05-06 00:00:00 Completed [facility] TDAP 2016-05-06 00:00:00 Completed [facility] TDAP 2016-05-06 00:00:00 Completed [facility] TDAP 2016-05-06 00:00:00 Completed [facility] Tdap 2016-05-06 00:00:00 Completed [facility] TDAP 2016-05-06 00:00:00 Completed [facility] TDAP 2016-05-06 00:00:00 Completed [facility] TDAP 2016-05-06 00:00:00 Completed [facility] Tdap 2016-05-06 00:00:00 Completed [facility] TDAP 2016-05-06 00:00:00 Completed [facility] TDAP 2016-05-06 00:00:00 Completed [facility] TDAP 2016-05-06 00:00:00 Completed [facility] TDAP 2016-05-06 00:00:00 Completed [facility] TDAP 2016-05-06 00:00:00 Completed [facility] TDAP 2016-05-06 00:00:00 Completed [facility] TDAP 2016-05-06 00:00:00 Completed [facility] TDAP 2016-05-06 00:00:00 Completed [facility] TDAP 2016-05-06 00:00:00 Completed [facility] TDAP 2016-05-06 00:00:00 Completed [facility] Tdap 2016-05-06 00:00:00 Completed [facility] TDAP 2016-05-06 00:00:00 Completed [facility] TDAP 2016-05-06 00:00:00 Completed [facility] TDAP 2016-05-06 00:00:00 Completed [facility] Tdap 2016-05-06 00:00:00 Completed [facility] Tdap 2016-05-06 00:00:00 Completed [facility] Tdap 2016-05-06 00:00:00 Completed [facility] Tdap 2016-05-06 00:00:00 Completed [facility] Tdap 2016-05-06 00:00:00 Completed [facility] Tdap 2016-05-06 00:00:00 Completed [facility] Tdap 2016-05-06 00:00:00 Completed [facility] Tdap 2016-05-06 00:00:00 Completed [facility] Tdap 2016-05-06 00:00:00 Completed [facility] Tdap 2016-05-06 00:00:00 Completed [facility] Tdap 2016-05-06 00:00:00 Completed [facility] Tdap 2016-05-06 00:00:00 Completed [facility] Tdap 2016-05-06 00:00:00 Completed [facility] Tdap 2016-05-06 00:00:00 Completed [facility] TDAP 2016-05-06 00:00:00 Completed [facility] TDAP 2016-05-06 00:00:00 Completed [facility] TDAP 2016-05-06 00:00:00 Completed [facility] TDAP 2016-05-06 00:00:00 Completed [facility] TDAP 2016-05-06 00:00:00 Completed [facility] TDAP 2016-05-06 00:00:00 Completed [facility] TDAP 2016-05-06 00:00:00 Completed [facility] TDAP 2016-05-06 00:00:00 Completed [facility] TDAP 2016-05-06 00:00:00 Completed [facility] TDAP 2016-05-06 00:00:00 Completed [facility] TDAP 2016-05-06 00:00:00 Completed [facility] TDAP 2016-05-06 00:00:00 Completed [facility] TDAP 2016-05-06 00:00:00 Completed [facility] TDAP 2016-05-06 00:00:00 Completed [facility] TDAP 2016-05-06 00:00:00 Completed [facility] Tdap 2016-05-06 00:00:00 Completed [facility] TDAP 2016-05-06 00:00:00 Completed [facility] Influenza Virus Vaccine Quad IM 3+ YRS 2015-12-24 00:00:00 Completed [facility] Influenza Virus Vaccine Quad IM 3+ YRS 2015-12-24 00:00:00 Completed [facility] Influenza Virus Vaccine Quad IM 3+ YRS 2015-12-24 00:00:00 Completed [facility] Influenza Virus Vaccine Quad IM 3+ YRS 2015-12-24 00:00:00 Completed [facility] Influenza Virus Vaccine Quad IM 3+ YRS 2015-12-24 00:00:00 Completed [facility] Influenza Virus Vaccine Quad IM 3+ YRS 2015-12-24 00:00:00 Completed [facility] Influenza Virus Vaccine Quad IM 3+ YRS 2015-12-24 00:00:00 Completed [facility] Influenza Virus Vaccine Quad IM 3+ YRS 2015-12-24 00:00:00 Completed [facility] Influenza Virus Vaccine Quad IM 3+ YRS 2015-12-24 00:00:00 Completed [facility] Influenza Virus Vaccine Quad IM 3+ YRS 2015-12-24 00:00:00 Completed [facility] Influenza Virus Vaccine Quad IM 3+ YRS 2015-12-24 00:00:00 Completed [facility] Influenza Virus Vaccine Quad IM 3+ YRS 2015-12-24 00:00:00 Completed [facility] Influenza Virus Vaccine Quad IM 3+ YRS 2015-12-24 00:00:00 Completed [facility] Influenza Virus Vaccine Quad IM 3+ YRS 2015-12-24 00:00:00 Completed [facility] Influenza Virus Vaccine Quad IM 3+ YRS 2015-12-24 00:00:00 Completed [facility] Influenza Virus Vaccine Quad IM 3+ YRS 2015-12-24 00:00:00 Completed [facility] Influenza Virus Vaccine Quad IM 3+ YRS 2015-12-24 00:00:00 Completed [facility] Influenza Virus Vaccine Quad IM 3+ YRS 2015-12-24 00:00:00 Completed [facility] Influenza Virus Vaccine Quad IM 3+ YRS 2015-12-24 00:00:00 Completed [facility] Influenza Virus Vaccine Quad IM 3+ YRS 2015-12-24 00:00:00 Completed [facility] Influenza Virus Vaccine Quad IM 3+ YRS 2015-12-24 00:00:00 Completed [facility] Influenza Virus Vaccine Quad IM 3+ YRS 2015-12-24 00:00:00 Completed [facility] Influenza Virus Vaccine Quad IM 3+ YRS 2015-12-24 00:00:00 Completed [facility] Influenza Virus Vaccine Quad IM 3+ YRS 2015-12-24 00:00:00 Completed [facility] Influenza Virus Vaccine Quad IM 3+ YRS 2015-12-24 00:00:00 Completed [facility] Influenza Virus Vaccine Quad IM 3+ YRS 2015-12-24 00:00:00 Completed [facility] Influenza Virus Vaccine Quad IM 3+ YRS 2015-12-24 00:00:00 Completed [facility] Influenza Virus Vaccine Quad IM 3+ YRS 2015-12-24 00:00:00 Completed [facility] Influenza Virus Vaccine Quad IM 3+ YRS 2015-12-24 00:00:00 Completed [facility] Influenza Virus Vaccine Quad IM 3+ YRS 2015-12-24 00:00:00 Completed [facility] Influenza Virus Vaccine Quad IM 3+ YRS 2015-12-24 00:00:00 Completed [facility] Influenza Virus Vaccine Quad IM 3+ YRS 2015-12-24 00:00:00 Completed [facility] Influenza Virus Vaccine Quad IM 3+ YRS 2015-12-24 00:00:00 Completed [facility] Influenza Virus Vaccine Quad IM 3+ YRS 2015-12-24 00:00:00 Completed [facility] Influenza Virus Vaccine Quad IM 3+ YRS 2015-12-24 00:00:00 Completed [facility] Influenza Virus Vaccine Quad IM 3+ YRS 2015-12-24 00:00:00 Completed [facility] Influenza Virus Vaccine Quad IM 3+ YRS 2015-12-24 00:00:00 Completed [facility] Influenza Virus Vaccine Quad IM 3+ YRS 2015-12-24 00:00:00 Completed [facility] Influenza Virus Vaccine Quad IM 3+ YRS 2015-12-24 00:00:00 Completed [facility] Influenza Virus Vaccine Quad IM 3+ YRS 2015-12-24 00:00:00 Completed [facility] Influenza Virus Vaccine Quad IM 3+ YRS 2015-12-24 00:00:00 Completed [facility] Influenza Virus Vaccine Quad IM 3+ YRS 2015-12-24 00:00:00 Completed [facility] Influenza Virus Vaccine Quad IM 3+ YRS 2015-12-24 00:00:00 Completed [facility] Influenza Virus Vaccine Quad IM 3+ YRS 2015-12-24 00:00:00 Completed [facility] Influenza Virus Vaccine Quad IM 3+ YRS 2015-12-24 00:00:00 Completed [facility] Influenza Virus Vaccine Quad IM 3+ YRS 2015-12-24 00:00:00 Completed [facility] Influenza Virus Vaccine Quad IM 3+ YRS 2015-12-24 00:00:00 Completed [facility] Influenza Virus Vaccine Quad IM 3+ YRS 2015-12-24 00:00:00 Completed [facility] Influenza Virus Vaccine Quad IM 3+ YRS 2015-12-24 00:00:00 Completed [facility] Influenza Virus Vaccine Quad IM 3+ YRS 2015-12-24 00:00:00 Completed [facility] Influenza Virus Vaccine Quad IM 3+ YRS 2015-12-24 00:00:00 Completed [facility] Influenza Virus Vaccine Quad IM 3+ YRS 2015-12-24 00:00:00 Completed [facility] Influenza Virus Vaccine Quad IM 3+ YRS 2015-12-24 00:00:00 Completed [facility] Influenza Virus Vaccine Quad IM 3+ YRS 2015-12-24 00:00:00 Completed [facility] Influenza Virus Vaccine Quad IM 3+ YRS 2015-12-24 00:00:00 Completed [facility] Influenza Virus Vaccine Quad IM 3+ YRS 2015-12-24 00:00:00 Completed [facility] Influenza Virus Vaccine Quad IM 3+ YRS 2015-12-24 00:00:00 Completed [facility] Influenza Virus Vaccine Quad IM 3+ YRS 2015-12-24 00:00:00 Completed [facility] Influenza Virus Vaccine Quad IM 3+ YRS 2015-12-24 00:00:00 Completed [facility] Influenza Virus Vaccine Quad IM 3+ YRS 2015-12-24 00:00:00 Completed [facility] Influenza Virus Vaccine Quad IM 3+ YRS 2015-12-24 00:00:00 Completed [facility] Influenza Virus Vaccine Quad IM 3+ YRS 2015-12-24 00:00:00 Completed [facility] Influenza Virus Vaccine Quad IM 3+ YRS 2015-12-24 00:00:00 Completed [facility] Influenza Virus Vaccine Quad IM 3+ YRS 2015-12-24 00:00:00 Completed [facility] Influenza Virus Vaccine Quad IM 3+ YRS 2015-12-24 00:00:00 Completed [facility] Influenza Virus Vaccine Quad IM 3+ YRS 2015-12-24 00:00:00 Completed [facility] Influenza Virus Vaccine Quad IM 3+ YRS 2015-12-24 00:00:00 Completed [facility] Influenza Virus Vaccine Quad IM 3+ YRS 2015-12-24 00:00:00 Completed [facility] Influenza Virus Vaccine Quad IM 3+ YRS 2015-12-24 00:00:00 Completed [facility] Influenza Virus Vaccine Quad IM 3+ YRS 2015-12-24 00:00:00 Completed [facility] Influenza Virus Vaccine Quad IM 3+ YRS 2015-12-24 00:00:00 Completed [facility] Influenza Virus Vaccine Quad IM 3+ YRS 2015-12-24 00:00:00 Completed [facility] Influenza Virus Vaccine Quad IM 3+ YRS 2015-12-24 00:00:00 Completed [facility] Influenza Virus Vaccine Quad IM 3+ YRS 2015-12-24 00:00:00 Completed [facility] Influenza Virus Vaccine Quad IM 3+ YRS 2015-12-24 00:00:00 Completed [facility] Influenza Virus Vaccine Quad IM 3+ YRS 2015-12-24 00:00:00 Completed [facility] Influenza Virus Vaccine Quad IM 3+ YRS 2015-12-24 00:00:00 Completed [facility] Influenza Virus Vaccine Quad IM 3+ YRS 2015-12-24 00:00:00 Completed [facility] Influenza Virus Vaccine Quad IM 3+ YRS 2015-12-24 00:00:00 Completed [facility] Influenza Virus Vaccine Quad IM 3+ YRS 2015-12-24 00:00:00 Completed [facility] Influenza Virus Vaccine Quad IM 3+ YRS 2015-12-24 00:00:00 Completed [facility] Influenza Virus Vaccine Quad IM 3+ YRS 2015-12-24 00:00:00 Completed [facility] Influenza Virus Vaccine Quad IM 3+ YRS 2015-12-24 00:00:00 Completed [facility] Influenza Virus Vaccine Quad IM 3+ YRS 2015-12-24 00:00:00 Completed [facility] Influenza Virus Vaccine Quad IM 3+ YRS 2015-12-24 00:00:00 Completed [facility] Influenza Virus Vaccine Quad IM 3+ YRS 2015-12-24 00:00:00 Completed [facility] Influenza Virus Vaccine Quad IM 3+ YRS 2015-12-24 00:00:00 Completed [facility] Influenza Virus Vaccine Quad IM 3+ YRS 2015-12-24 00:00:00 Completed [facility] Influenza Virus Vaccine Quad IM 3+ YRS 2015-12-24 00:00:00 Completed [facility] Influenza Virus Vaccine Quad IM 3+ YRS 2015-12-24 00:00:00 Completed [facility] Influenza Virus Vaccine Quad IM 3+ YRS 2015-12-24 00:00:00 Completed [facility] Influenza Virus Vaccine Quad IM 3+ YRS 2015-12-24 00:00:00 Completed [facility] Influenza Virus Vaccine Quad IM 3+ YRS 2015-12-24 00:00:00 Completed [facility] Influenza Virus Vaccine Quad IM 3+ YRS 2015-12-24 00:00:00 Completed [facility] Influenza Virus Vaccine Quad IM 3+ YRS 2015-12-24 00:00:00 Completed [facility] Influenza Virus Vaccine Quad IM 3+ YRS 2015-12-24 00:00:00 Completed [facility] Influenza Virus Vaccine Quad IM 3+ YRS 2015-12-24 00:00:00 Completed [facility] Influenza Virus Vaccine Quad IM 3+ YRS 2015-12-24 00:00:00 Completed [facility] Influenza Virus Vaccine Quad IM 3+ YRS 2015-12-24 00:00:00 Completed [facility] Influenza Virus Vaccine Quad IM 3+ YRS 2015-12-24 00:00:00 Completed [facility] Influenza Virus Vaccine Quad IM 3+ YRS 2015-12-24 00:00:00 Completed [facility] Influenza Virus Vaccine Quad IM 3+ YRS 2015-12-24 00:00:00 Completed [facility] Influenza Virus Vaccine Quad IM 3+ YRS 2015-12-24 00:00:00 Completed [facility] Influenza Virus Vaccine Quad IM 3+ YRS 2015-12-24 00:00:00 Completed [facility] Influenza Virus Vaccine Quad IM 3+ YRS 2015-12-24 00:00:00 Completed [facility] Influenza Virus Vaccine Quad IM 3+ YRS 2015-12-24 00:00:00 Completed [facility] Influenza Virus Vaccine Quad IM 3+ YRS 2015-12-24 00:00:00 Completed [facility] Influenza Virus Vaccine Quad IM 3+ YRS 2015-12-24 00:00:00 Completed [facility] Influenza Virus Vaccine Quad IM 3+ YRS 2015-12-24 00:00:00 Completed [facility] Influenza Virus Vaccine Quad IM 3+ YRS 2015-12-24 00:00:00 Completed [facility] Influenza Virus Vaccine Quad IM 3+ YRS 2015-12-24 00:00:00 Completed [facility] Influenza Virus Vaccine Quad IM 3+ YRS 2015-12-24 00:00:00 Completed [facility] Influenza Virus Vaccine Quad IM 3+ YRS 2015-12-24 00:00:00 Completed [facility] Influenza Virus Vaccine Quad IM 3+ YRS 2015-12-24 00:00:00 Completed [facility] Influenza Virus Vaccine Quad IM 3+ YRS 2015-12-24 00:00:00 Completed [facility] Influenza Virus Vaccine Quad IM 3+ YRS 2015-12-24 00:00:00 Completed [facility] Influenza Virus Vaccine Quad IM 3+ YRS 2015-12-24 00:00:00 Completed [facility] Influenza Virus Vaccine Quad IM 3+ YRS 2015-12-24 00:00:00 Completed [facility] Influenza Virus Vaccine Quad IM 3+ YRS 2015-12-24 00:00:00 Completed [facility] Influenza Virus Vaccine Quad IM 3+ YRS 2015-12-24 00:00:00 Completed [facility] Influenza Virus Vaccine Quad IM 3+ YRS 2015-12-24 00:00:00 Completed [facility] Influenza Virus Vaccine Quad IM 3+ YRS 2015-12-24 00:00:00 Completed [facility] Influenza Virus Vaccine Quad IM 3+ YRS 2015-12-24 00:00:00 Completed [facility] Influenza Virus Vaccine Quad IM 3+ YRS 2015-12-24 00:00:00 Completed [facility] Influenza Virus Vaccine Quad IM 3+ YRS 2015-12-24 00:00:00 Completed [facility] Influenza Virus Vaccine Quad IM 3+ YRS 2015-12-24 00:00:00 Completed [facility] Influenza Virus Vaccine Quad IM 3+ YRS 2015-12-24 00:00:00 Completed [facility] Influenza Virus Vaccine Quad IM 3+ YRS 2015-12-24 00:00:00 Completed [facility] Influenza Virus Vaccine Quad IM 3+ YRS 2015-12-24 00:00:00 Completed [facility] Influenza Virus Vaccine Quad IM 3+ YRS 2015-12-24 00:00:00 Completed [facility] Influenza Virus Vaccine Quad IM 3+ YRS 2015-12-24 00:00:00 Completed [facility] Influenza Virus Vaccine Quad IM 3+ YRS 2015-12-24 00:00:00 Completed [facility] Meningococcal Polysaccharide (groups A, C, Y and W-135) conjugate vaccine (MCV4P) 2012-07-29 00:00:00 Completed [facility] Meningococcal Polysaccharide (groups A, C, Y and W-135) conjugate vaccine (MCV4P) 2012-07-29 00:00:00 Completed [facility] Meningococcal Polysaccharide (groups A, C, Y and W-135) conjugate vaccine (MCV4P) 2012-07-29 00:00:00 Completed [facility] Meningococcal Polysaccharide (groups A, C, Y and W-135) conjugate vaccine (MCV4P) 2012-07-29 00:00:00 Completed [facility] Meningococcal Polysaccharide (groups A, C, Y and W-135) conjugate vaccine (MCV4P) 2012-07-29 00:00:00 Completed [facility] Meningococcal Polysaccharide (groups A, C, Y and W-135) conjugate vaccine (MCV4P) 2012-07-29 00:00:00 Completed [facility] Meningococcal Polysaccharide (groups A, C, Y and W-135) conjugate vaccine (MCV4P) 2012-07-29 00:00:00 Completed [facility] Meningococcal Polysaccharide (groups A, C, Y and W-135) conjugate vaccine (MCV4P) 2012-07-29 00:00:00 Completed [facility] Meningococcal Polysaccharide (groups A, C, Y and W-135) conjugate vaccine (MCV4P) 2012-07-29 00:00:00 Completed [facility] Meningococcal Polysaccharide (groups A, C, Y and W-135) conjugate vaccine (MCV4P) 2012-07-29 00:00:00 Completed [facility] Meningococcal Polysaccharide (groups A, C, Y and W-135) conjugate vaccine (MCV4P) 2012-07-29 00:00:00 Completed [facility] Meningococcal Polysaccharide (groups A, C, Y and W-135) conjugate vaccine (MCV4P) 2012-07-29 00:00:00 Completed [facility] Meningococcal Polysaccharide (groups A, C, Y and W-135) conjugate vaccine (MCV4P) 2012-07-29 00:00:00 Completed [facility] Meningococcal Polysaccharide (groups A, C, Y and W-135) conjugate vaccine (MCV4P) 2012-07-29 00:00:00 Completed [facility] Meningococcal Polysaccharide (groups A, C, Y and W-135) conjugate vaccine (MCV4P) 2012-07-29 00:00:00 Completed [facility] Meningococcal Polysaccharide (groups A, C, Y and W-135) conjugate vaccine (MCV4P) 2012-07-29 00:00:00 Completed [facility] Meningococcal Polysaccharide (groups A, C, Y and W-135) conjugate vaccine (MCV4P) 2012-07-29 00:00:00 Completed [facility] Meningococcal Polysaccharide (groups A, C, Y and W-135) conjugate vaccine (MCV4P) 2012-07-29 00:00:00 Completed [facility] Meningococcal Polysaccharide (groups A, C, Y and W-135) conjugate vaccine (MCV4P) 2012-07-29 00:00:00 Completed [facility] Meningococcal Polysaccharide (groups A, C, Y and W-135) conjugate vaccine (MCV4P) 2012-07-29 00:00:00 Completed [facility] Meningococcal Polysaccharide (groups A, C, Y and W-135) conjugate vaccine (MCV4P) 2012-07-29 00:00:00 Completed [facility] Meningococcal Polysaccharide (groups A, C, Y and W-135) conjugate vaccine (MCV4P) 2012-07-29 00:00:00 Completed [facility] Meningococcal Polysaccharide (groups A, C, Y and W-135) conjugate vaccine (MCV4P) 2012-07-29 00:00:00 Completed [facility] Meningococcal Polysaccharide (groups A, C, Y and W-135) conjugate vaccine (MCV4P) 2012-07-29 00:00:00 Completed [facility] Meningococcal Polysaccharide (groups A, C, Y and W-135) conjugate vaccine (MCV4P) 2012-07-29 00:00:00 Completed [facility] Meningococcal Polysaccharide (groups A, C, Y and W-135) conjugate vaccine (MCV4P) 2012-07-29 00:00:00 Completed [facility] Meningococcal Polysaccharide (groups A, C, Y and W-135) conjugate vaccine (MCV4P) 2012-07-29 00:00:00 Completed [facility] Meningococcal Polysaccharide (groups A, C, Y and W-135) conjugate vaccine (MCV4P) 2012-07-29 00:00:00 Completed [facility] Meningococcal Polysaccharide (groups A, C, Y and W-135) conjugate vaccine (MCV4P) 2012-07-29 00:00:00 Completed [facility] Meningococcal Polysaccharide (groups A, C, Y and W-135) conjugate vaccine (MCV4P) 2012-07-29 00:00:00 Completed [facility] Meningococcal Polysaccharide (groups A, C, Y and W-135) conjugate vaccine (MCV4P) 2012-07-29 00:00:00 Completed [facility] Meningococcal Polysaccharide (groups A, C, Y and W-135) conjugate vaccine (MCV4P) 2012-07-29 00:00:00 Completed [facility] Meningococcal Polysaccharide (groups A, C, Y and W-135) conjugate vaccine (MCV4P) 2012-07-29 00:00:00 Completed [facility] Meningococcal Polysaccharide (groups A, C, Y and W-135) conjugate vaccine (MCV4P) 2012-07-29 00:00:00 Completed [facility] Meningococcal Polysaccharide (groups A, C, Y and W-135) conjugate vaccine (MCV4P) 2012-07-29 00:00:00 Completed [facility] Meningococcal Polysaccharide (groups A, C, Y and W-135) conjugate vaccine (MCV4P) 2012-07-29 00:00:00 Completed [facility] Meningococcal Polysaccharide (groups A, C, Y and W-135) conjugate vaccine (MCV4P) 2012-07-29 00:00:00 Completed [facility] Meningococcal Polysaccharide (groups A, C, Y and W-135) conjugate vaccine (MCV4P) 2012-07-29 00:00:00 Completed [facility] Meningococcal Polysaccharide (groups A, C, Y and W-135) conjugate vaccine (MCV4P) 2012-07-29 00:00:00 Completed [facility] Meningococcal Polysaccharide (groups A, C, Y and W-135) conjugate vaccine (MCV4P) 2012-07-29 00:00:00 Completed [facility] Meningococcal Polysaccharide (groups A, C, Y and W-135) conjugate vaccine (MCV4P) 2012-07-29 00:00:00 Completed [facility] Meningococcal Polysaccharide (groups A, C, Y and W-135) conjugate vaccine (MCV4P) 2012-07-29 00:00:00 Completed [facility] Meningococcal Polysaccharide (groups A, C, Y and W-135) conjugate vaccine (MCV4P) 2012-07-29 00:00:00 Completed [facility] Meningococcal Polysaccharide (groups A, C, Y and W-135) conjugate vaccine (MCV4P) 2012-07-29 00:00:00 Completed [facility] Meningococcal Polysaccharide (groups A, C, Y and W-135) conjugate vaccine (MCV4P) 2012-07-29 00:00:00 Completed [facility] Meningococcal Polysaccharide (groups A, C, Y and W-135) conjugate vaccine (MCV4P) 2012-07-29 00:00:00 Completed [facility] Meningococcal Polysaccharide (groups A, C, Y and W-135) conjugate vaccine (MCV4P) 2012-07-29 00:00:00 Completed [facility] Meningococcal Polysaccharide (groups A, C, Y and W-135) conjugate vaccine (MCV4P) 2012-07-29 00:00:00 Completed [facility] Meningococcal Polysaccharide (groups A, C, Y and W-135) conjugate vaccine (MCV4P) 2012-07-29 00:00:00 Completed [facility] Meningococcal Polysaccharide (groups A, C, Y and W-135) conjugate vaccine (MCV4P) 2012-07-29 00:00:00 Completed [facility] Meningococcal Polysaccharide (groups A, C, Y and W-135) conjugate vaccine (MCV4P) 2012-07-29 00:00:00 Completed [facility] Meningococcal Polysaccharide (groups A, C, Y and W-135) conjugate vaccine (MCV4P) 2012-07-29 00:00:00 Completed [facility] Meningococcal Polysaccharide (groups A, C, Y and W-135) conjugate vaccine (MCV4P) 2012-07-29 00:00:00 Completed [facility] Meningococcal Polysaccharide (groups A, C, Y and W-135) conjugate vaccine (MCV4P) 2012-07-29 00:00:00 Completed [facility] Meningococcal Polysaccharide (groups A, C, Y and W-135) conjugate vaccine (MCV4P) 2012-07-29 00:00:00 Completed [facility] Meningococcal Polysaccharide (groups A, C, Y and W-135) conjugate vaccine (MCV4P) 2012-07-29 00:00:00 Completed [facility] Meningococcal Polysaccharide (groups A, C, Y and W-135) conjugate vaccine (MCV4P) 2012-07-29 00:00:00 Completed [facility] Meningococcal Polysaccharide (groups A, C, Y and W-135) conjugate vaccine (MCV4P) 2012-07-29 00:00:00 Completed [facility] Meningococcal Polysaccharide (groups A, C, Y and W-135) conjugate vaccine (MCV4P) 2012-07-29 00:00:00 Completed [facility] Meningococcal Polysaccharide (groups A, C, Y and W-135) conjugate vaccine (MCV4P) 2012-07-29 00:00:00 Completed [facility] Meningococcal Polysaccharide (groups A, C, Y and W-135) conjugate vaccine (MCV4P) 2012-07-29 00:00:00 Completed [facility] Meningococcal Polysaccharide (groups A, C, Y and W-135) conjugate vaccine (MCV4P) 2012-07-29 00:00:00 Completed [facility] Meningococcal Polysaccharide (groups A, C, Y and W-135) conjugate vaccine (MCV4P) 2012-07-29 00:00:00 Completed [facility] Meningococcal Polysaccharide (groups A, C, Y and W-135) conjugate vaccine (MCV4P) 2012-07-29 00:00:00 Completed [facility] Meningococcal Polysaccharide (groups A, C, Y and W-135) conjugate vaccine (MCV4P) 2012-07-29 00:00:00 Completed [facility] Meningococcal Polysaccharide (groups A, C, Y and W-135) conjugate vaccine (MCV4P) 2012-07-29 00:00:00 Completed [facility] Meningococcal Polysaccharide (groups A, C, Y and W-135) conjugate vaccine (MCV4P) 2012-07-29 00:00:00 Completed [facility] Meningococcal Polysaccharide (groups A, C, Y and W-135) conjugate vaccine (MCV4P) 2012-07-29 00:00:00 Completed [facility] Meningococcal Polysaccharide (groups A, C, Y and W-135) conjugate vaccine (MCV4P) 2012-07-29 00:00:00 Completed [facility] Meningococcal Polysaccharide (groups A, C, Y and W-135) conjugate vaccine (MCV4P) 2012-07-29 00:00:00 Completed [facility] Meningococcal Polysaccharide (groups A, C, Y and W-135) conjugate vaccine (MCV4P) 2012-07-29 00:00:00 Completed [facility] Meningococcal Polysaccharide (groups A, C, Y and W-135) conjugate vaccine (MCV4P) 2012-07-29 00:00:00 Completed [facility] Meningococcal Polysaccharide (groups A, C, Y and W-135) conjugate vaccine (MCV4P) 2012-07-29 00:00:00 Completed [facility] Meningococcal Polysaccharide (groups A, C, Y and W-135) conjugate vaccine (MCV4P) 2012-07-29 00:00:00 Completed [facility] Meningococcal Polysaccharide (groups A, C, Y and W-135) conjugate vaccine (MCV4P) 2012-07-29 00:00:00 Completed [facility] Meningococcal Polysaccharide (groups A, C, Y and W-135) conjugate vaccine (MCV4P) 2012-07-29 00:00:00 Completed [facility] Meningococcal Polysaccharide (groups A, C, Y and W-135) conjugate vaccine (MCV4P) 2012-07-29 00:00:00 Completed [facility] Meningococcal Polysaccharide (groups A, C, Y and W-135) conjugate vaccine (MCV4P) 2012-07-29 00:00:00 Completed [facility] Meningococcal Polysaccharide (groups A, C, Y and W-135) conjugate vaccine (MCV4P) 2012-07-29 00:00:00 Completed [facility] Meningococcal Polysaccharide (groups A, C, Y and W-135) conjugate vaccine (MCV4P) 2012-07-29 00:00:00 Completed [facility] Meningococcal Polysaccharide (groups A, C, Y and W-135) conjugate vaccine (MCV4P) 2012-07-29 00:00:00 Completed [facility] Meningococcal Polysaccharide (groups A, C, Y and W-135) conjugate vaccine (MCV4P) 2012-07-29 00:00:00 Completed [facility] Meningococcal Polysaccharide (groups A, C, Y and W-135) conjugate vaccine (MCV4P) 2012-07-29 00:00:00 Completed [facility] Meningococcal Polysaccharide (groups A, C, Y and W-135) conjugate vaccine (MCV4P) 2012-07-29 00:00:00 Completed [facility] Meningococcal Polysaccharide (groups A, C, Y and W-135) conjugate vaccine (MCV4P) 2012-07-29 00:00:00 Completed [facility] Meningococcal Polysaccharide (groups A, C, Y and W-135) conjugate vaccine (MCV4P) 2012-07-29 00:00:00 Completed [facility] Meningococcal Polysaccharide (groups A, C, Y and W-135) conjugate vaccine (MCV4P) 2012-07-29 00:00:00 Completed [facility] Meningococcal Polysaccharide (groups A, C, Y and W-135) conjugate vaccine (MCV4P) 2012-07-29 00:00:00 Completed [facility] Meningococcal Polysaccharide (groups A, C, Y and W-135) conjugate vaccine (MCV4P) 2012-07-29 00:00:00 Completed [facility] Meningococcal Polysaccharide (groups A, C, Y and W-135) conjugate vaccine (MCV4P) 2012-07-29 00:00:00 Completed [facility] Meningococcal Polysaccharide (groups A, C, Y and W-135) conjugate vaccine (MCV4P) 2012-07-29 00:00:00 Completed [facility] Meningococcal Polysaccharide (groups A, C, Y and W-135) conjugate vaccine (MCV4P) 2012-07-29 00:00:00 Completed [facility] Meningococcal Polysaccharide (groups A, C, Y and W-135) conjugate vaccine (MCV4P) 2012-07-29 00:00:00 Completed [facility] Meningococcal Polysaccharide (groups A, C, Y and W-135) conjugate vaccine (MCV4P) 2012-07-29 00:00:00 Completed [facility] Meningococcal Polysaccharide (groups A, C, Y and W-135) conjugate vaccine (MCV4P) 2012-07-29 00:00:00 Completed [facility] Meningococcal Polysaccharide (groups A, C, Y and W-135) conjugate vaccine (MCV4P) 2012-07-29 00:00:00 Completed [facility] Meningococcal Polysaccharide (groups A, C, Y and W-135) conjugate vaccine (MCV4P) 2012-07-29 00:00:00 Completed [facility] Meningococcal Polysaccharide (groups A, C, Y and W-135) conjugate vaccine (MCV4P) 2012-07-29 00:00:00 Completed [facility] Meningococcal Polysaccharide (groups A, C, Y and W-135) conjugate vaccine (MCV4P) 2012-07-29 00:00:00 Completed [facility] Meningococcal Polysaccharide (groups A, C, Y and W-135) conjugate vaccine (MCV4P) 2012-07-29 00:00:00 Completed [facility] Meningococcal Polysaccharide (groups A, C, Y and W-135) conjugate vaccine (MCV4P) 2012-07-29 00:00:00 Completed [facility] Meningococcal Polysaccharide (groups A, C, Y and W-135) conjugate vaccine (MCV4P) 2012-07-29 00:00:00 Completed [facility] Meningococcal Polysaccharide (groups A, C, Y and W-135) conjugate vaccine (MCV4P) 2012-07-29 00:00:00 Completed [facility] Meningococcal Polysaccharide (groups A, C, Y and W-135) conjugate vaccine (MCV4P) 2012-07-29 00:00:00 Completed [facility] Meningococcal Polysaccharide (groups A, C, Y and W-135) conjugate vaccine (MCV4P) 2012-07-29 00:00:00 Completed [facility] Meningococcal Polysaccharide (groups A, C, Y and W-135) conjugate vaccine (MCV4P) 2012-07-29 00:00:00 Completed [facility] Meningococcal Polysaccharide (groups A, C, Y and W-135) conjugate vaccine (MCV4P) 2012-07-29 00:00:00 Completed [facility] Meningococcal Polysaccharide (groups A, C, Y and W-135) conjugate vaccine (MCV4P) 2012-07-29 00:00:00 Completed [facility] Meningococcal Polysaccharide (groups A, C, Y and W-135) conjugate vaccine (MCV4P) 2012-07-29 00:00:00 Completed [facility] Meningococcal Polysaccharide (groups A, C, Y and W-135) conjugate vaccine (MCV4P) 2012-07-29 00:00:00 Completed [facility] Meningococcal Polysaccharide (groups A, C, Y and W-135) conjugate vaccine (MCV4P) 2012-07-29 00:00:00 Completed [facility] Meningococcal Polysaccharide (groups A, C, Y and W-135) conjugate vaccine (MCV4P) 2012-07-29 00:00:00 Completed [facility] Meningococcal Polysaccharide (groups A, C, Y and W-135) conjugate vaccine (MCV4P) 2012-07-29 00:00:00 Completed [facility] Meningococcal Polysaccharide (groups A, C, Y and W-135) conjugate vaccine (MCV4P) 2012-07-29 00:00:00 Completed [facility] Meningococcal Polysaccharide (groups A, C, Y and W-135) conjugate vaccine (MCV4P) 2012-07-29 00:00:00 Completed [facility] Meningococcal Polysaccharide (groups A, C, Y and W-135) conjugate vaccine (MCV4P) 2012-07-29 00:00:00 Completed [facility] Meningococcal Polysaccharide (groups A, C, Y and W-135) conjugate vaccine (MCV4P) 2012-07-29 00:00:00 Completed [facility] Meningococcal Polysaccharide (groups A, C, Y and W-135) conjugate vaccine (MCV4P) 2012-07-29 00:00:00 Completed [facility] Meningococcal Polysaccharide (groups A, C, Y and W-135) conjugate vaccine (MCV4P) 2012-07-29 00:00:00 Completed [facility] Meningococcal Polysaccharide (groups A, C, Y and W-135) conjugate vaccine (MCV4P) 2012-07-29 00:00:00 Completed [facility] Meningococcal Polysaccharide (groups A, C, Y and W-135) conjugate vaccine (MCV4P) 2012-07-29 00:00:00 Completed [facility] Meningococcal Polysaccharide (groups A, C, Y and W-135) conjugate vaccine (MCV4P) 2012-07-29 00:00:00 Completed [facility] Meningococcal Polysaccharide (groups A, C, Y and W-135) conjugate vaccine (MCV4P) 2012-07-29 00:00:00 Completed [facility] Meningococcal Polysaccharide (groups A, C, Y and W-135) conjugate vaccine (MCV4P) 2012-07-29 00:00:00 Completed [facility] Meningococcal Polysaccharide (groups A, C, Y and W-135) conjugate vaccine (MCV4P) 2012-07-29 00:00:00 Completed [facility] Meningococcal Polysaccharide (groups A, C, Y and W-135) conjugate vaccine (MCV4P) 2012-07-29 00:00:00 Completed [facility] Meningococcal Polysaccharide (groups A, C, Y and W-135) conjugate vaccine (MCV4P) 2012-07-29 00:00:00 Completed [facility] Meningococcal Polysaccharide (groups A, C, Y and W-135) conjugate vaccine (MCV4P) 2012-07-29 00:00:00 Completed [facility] Meningococcal Polysaccharide (groups A, C, Y and W-135) conjugate vaccine (MCV4P) 2012-07-29 00:00:00 Completed [facility] Meningococcal Polysaccharide (groups A, C, Y and W-135) conjugate vaccine (MCV4P) 2012-07-29 00:00:00 Completed [facility] Meningococcal Polysaccharide (groups A, C, Y and W-135) conjugate vaccine (MCV4P) 2012-07-29 00:00:00 Completed [facility] Meningococcal Polysaccharide (groups A, C, Y and W-135) conjugate vaccine (MCV4P) 2012-07-29 00:00:00 Completed [facility] Td 2008 00:00:00 Completed [facility] Td 2008 00:00:00 Completed [facility] Td 2008 00:00:00 Completed [facility] Td 2008 00:00:00 Completed [facility] Td 2008 00:00:00 Completed [facility] Td 2008 00:00:00 Completed [facility] Td 2008 00:00:00 Completed [facility] Td 2008 00:00:00 Completed [facility] Td 2008 00:00:00 Completed [facility] Td 2008 00:00:00 Completed [facility] Td 2008 00:00:00 Completed [facility] Td 2008 00:00:00 Completed [facility] Td 2008 00:00:00 Completed [facility] Td 2008 00:00:00 Completed [facility] Td 2008 00:00:00 Completed [facility] Td 2008 00:00:00 Completed [facility] Td 2008 00:00:00 Completed [facility] Td 2008 00:00:00 Completed [facility] Td 2008 00:00:00 Completed [facility] Td 2008 00:00:00 Completed [facility] Td 2008 00:00:00 Completed [facility] Td 2008 00:00:00 Completed [facility] Td 2008 00:00:00 Completed [facility] Td 2008 00:00:00 Completed [facility] Td 2008 00:00:00 Completed [facility] Td 2008 00:00:00 Completed [facility] Td 2008 00:00:00 Completed [facility] Td 2008 00:00:00 Completed [facility] Td 2008 00:00:00 Completed [facility] Td 2008 00:00:00 Completed [facility] Td 2008 00:00:00 Completed [facility] Td 2008 00:00:00 Completed [facility] Td 2008 00:00:00 Completed [facility] Td 2008 00:00:00 Completed [facility] Td 2008 00:00:00 Completed [facility] Td 2008 00:00:00 Completed [facility] Td 2008 00:00:00 Completed [facility] Td 2008 00:00:00 Completed [facility] Td 2008 00:00:00 Completed [facility] Td 2008 00:00:00 Completed [facility] Td 2008 00:00:00 Completed [facility] Td 2008 00:00:00 Completed [facility] Td 2008 00:00:00 Completed [facility] Td 2008 00:00:00 Completed [facility] Td 2008 00:00:00 Completed [facility] TD, NOS 2008 00:00:00 Completed [facility] TD, NOS 2008 00:00:00 Completed [facility] TD, NOS 2008 00:00:00 Completed [facility] Td 2008 00:00:00 Completed [facility] TD, NOS 2008 00:00:00 Completed [facility] TD, NOS 2008 00:00:00 Completed [facility] TD, NOS 2008 00:00:00 Completed [facility] Td 2008 00:00:00 Completed [facility] TD, NOS 2008 00:00:00 Completed [facility] TD, NOS 2008 00:00:00 Completed [facility] TD, NOS 2008 00:00:00 Completed [facility] TD, NOS 2008 00:00:00 Completed [facility] Td 2008 00:00:00 Completed [facility] TD, NOS 2008 00:00:00 Completed [facility] TD, NOS 2008 00:00:00 Completed [facility] Td 2008 00:00:00 Completed [facility] TD, NOS 2008 00:00:00 Completed [facility] TD, NOS 2008 00:00:00 Completed [facility] TD, NOS 2008 00:00:00 Completed [facility] TD, NOS 2008 00:00:00 Completed [facility] TD, NOS 2008 00:00:00 Completed [facility] Td 2008 00:00:00 Completed [facility] TD, NOS 2008 00:00:00 Completed [facility] Td 2008 00:00:00 Completed [facility] TD, NOS 2008 00:00:00 Completed [facility] TD, NOS 2008 00:00:00 Completed [facility] TD, NOS 2008 00:00:00 Completed [facility] Td 2008 00:00:00 Completed [facility] TD, NOS 2008 00:00:00 Completed [facility] TD, NOS 2008 00:00:00 Completed [facility] TD, NOS 2008 00:00:00 Completed [facility] TD, NOS 2008 00:00:00 Completed [facility] Td 2008 00:00:00 Completed [facility] TD, NOS 2008 00:00:00 Completed [facility] TD, NOS 2008 00:00:00 Completed [facility] TD, NOS 2008 00:00:00 Completed [facility] TD, NOS 2008 00:00:00 Completed [facility] Td 2008 00:00:00 Completed [facility] TD, NOS 2008 00:00:00 Completed [facility] TD, NOS 2008 00:00:00 Completed [facility] TD, NOS 2008 00:00:00 Completed [facility] Td 2008 00:00:00 Completed [facility] TD, NOS 2008 00:00:00 Completed [facility] TD, NOS 2008 00:00:00 Completed [facility] TD, NOS 2008 00:00:00 Completed [facility] TD, NOS 2008 00:00:00 Completed [facility] TD, NOS 2008 00:00:00 Completed [facility] TD, NOS 2008 00:00:00 Completed [facility] TD, NOS 2008 00:00:00 Completed [facility] TD, NOS 2008 00:00:00 Completed [facility] TD, NOS 2008 00:00:00 Completed [facility] TD, NOS 2008 00:00:00 Completed [facility] Td 2008 00:00:00 Completed [facility] TD, NOS 2008 00:00:00 Completed [facility] TD, NOS 2008 00:00:00 Completed [facility] TD, NOS 2008 00:00:00 Completed [facility] Td 2008 00:00:00 Completed [facility] Td 2008 00:00:00 Completed [facility] Td 2008 00:00:00 Completed [facility] Td 2008 00:00:00 Completed [facility] Td 2008 00:00:00 Completed [facility] Td 2008 00:00:00 Completed [facility] Td 2008 00:00:00 Completed [facility] Td 2008 00:00:00 Completed [facility] Td 2008 00:00:00 Completed [facility] Td 2008 00:00:00 Completed [facility] Td 2008 00:00:00 Completed [facility] Td 2008 00:00:00 Completed [facility] Td 2008 00:00:00 Completed [facility] Td 2008 00:00:00 Completed [facility] Td 2008 00:00:00 Completed [facility] Td 2008 00:00:00 Completed [facility] Td 2008 00:00:00 Completed [facility] Td 2008 00:00:00 Completed [facility] Td 2008 00:00:00 Completed [facility] Td 2008 00:00:00 Completed [facility] Td 2008 00:00:00 Completed [facility] Td 2008 00:00:00 Completed [facility] Td 2008 00:00:00 Completed [facility] Td 2008 00:00:00 Completed [facility] Td 2008 00:00:00 Completed [facility] Td 2008 00:00:00 Completed [facility] Td 2008 00:00:00 Completed [facility] Td 2008 00:00:00 Completed [facility] Td 2008 00:00:00 Completed [facility] Td 2008 00:00:00 Completed [facility] Td 2008 00:00:00 Completed [facility] Vital Signs Vital Name Observation Time Observation Value Comments S yohana Systolic blood pressure 2024-03-23 23:00:00 137 mm[Hg] [facility] Diastolic blood pressure 2024-03-23 23:00:00 100 mm[Hg] [facility] Respiratory rate 2024-03-23 23:00:00 16 /min [facility] Oxygen saturation in Arterial blood by Pulse oximetry 2024-03-23 23:00:00 99 /min [facility] Heart rate 2024-03-23 22:10:00 81 /min [facility] Body height 2024-03-23 15:28:00 160 cm [facility] Body weight 2024-03-23 15:28:00 84.823 kg [facility] BMI 2024-03-23 15:28:00 33.13 kg/m2 [facility] Body temperature 2024-03-23 15:00:00 36.72 Roshni [facility] Systolic blood pressure 2024-02-08 17:50:14 138 mm[Hg] [facility] Diastolic blood pressure 2024-02-08 17:50:14 92 mm[Hg] [facility] Heart rate 2024-02-08 17:50:14 76 /min [facility] Respiratory rate 2024-02-08 17:50:14 16 /min [facility] Body temperature 2024-02-08 15:04:00 37.22 Roshni [facility] Body height 2024-02-08 15:04:00 160 cm [facility] Body weight 2024-02-08 15:04:00 83.915 kg [facility] BMI 2024-02-08 15:04:00 32.77 kg/m2 [facility] Oxygen saturation in Arterial blood by Pulse oximetry 2024-02-08 15:04:00 99 /min [facility] Systolic blood pressure 2023-10-22 04:17:00 90 mm[Hg] [facility] Diastolic blood pressure 2023-10-22 04:17:00 61 mm[Hg] [facility] Heart rate 2023-10-22 04:17:00 77 /min [facility] Body temperature 2023-10-22 04:17:00 36.67 Roshni [facility] Respiratory rate 2023-10-22 04:17:00 17 /min [facility] Oxygen saturation in Arterial blood by Pulse oximetry 2023-10-22 04:17:00 100 /min [facility] Body height 2023-10-22 00:12:00 162.6 cm [facility] Body weight 2023-10-22 00:12:00 84.097 kg [facility] BMI 2023-10-22 00:12:00 31.82 kg/m2 [facility] Systolic blood pressure 2023-08-26 17:42:00 119 mm[Hg] [facility] Diastolic blood pressure 2023-08-26 17:42:00 84 mm[Hg] [facility] Heart rate 2023-08-26 17:42:00 71 /min [facility] Respiratory rate 2023-08-26 17:42:00 18 /min [facility] Body height 2023-08-26 17:42:00 162.6 cm [facility] Body weight 2023-08-26 17:42:00 83.915 kg [facility] BMI 2023-08-26 17:42:00 31.76 kg/m2 [facility] Oxygen saturation in Arterial blood by Pulse oximetry 2023-08-26 17:42:00 98 /min [facility] height 2023-08-20 16:00:00 64 [in_i] Commo n [facility] weight 2023-08-20 16:00:00 185.4 [lb_av] Co mmon [facility] temperature 2023-08-20 16:00:00 98.0 [degF] Com mon [facility] bmi 2023-08-20 16:00:00 31.82 kg/m2 Comm on [facility] oximetry 2023-08-20 16:00:00 98 % Commo n [facility] respiratory rate 2023-08-20 16:00:00 16 /min Common [facility] blood pressure systolic 2023-08-20 16:00:00 120 mm[Hg] Common [facility] blood pressure diastolic 2023-08-20 16:00:00 77 mm[Hg] [facility] Systolic blood pressure 2023-08-20 02:00:00 124 mm[Hg] [facility] Diastolic blood pressure 2023-08-20 02:00:00 88 mm[Hg] [facility] Body temperature 2023-08-20 02:00:00 36.11 Roshni [facility] Respiratory rate 2023-08-20 02:00:00 23 /min [facility] Oxygen saturation in Arterial blood by Pulse oximetry 2023-08-20 02:00:00 100 /min [facility] Heart rate 2023-08-20 01:30:00 72 /min [facility] Body height 2023-08-19 23:02:00 162.6 cm [facility] Body weight 2023-08-19 23:02:00 83.915 kg [facility] BMI 2023-08-19 23:02:00 31.76 kg/m2 [facility] Systolic blood pressure 2023-08-12 17:00:00 133 mm[Hg] [facility] Diastolic blood pressure 2023-08-12 17:00:00 88 mm[Hg] [facility] Heart rate 2023-08-12 17:00:00 87 /min [facility] Body temperature 2023-08-12 17:00:00 36.94 Roshni [facility] Respiratory rate 2023-08-12 17:00:00 18 /min [facility] Oxygen saturation in Arterial blood by Pulse oximetry 2023-08-12 17:00:00 97 /min [facility] Body height 2023-08-11 21:45:00 162.6 cm [facility] 2023-08-11 21:45:00 88.86 kg [facility] BMI 2023-08-11 21:45:00 33.63 kg/m2 [facility] Systolic blood pressure 2023-07-27 16:47:00 126 mm[Hg] [facility] [facility] Diastolic blood pressure 2023-07-27 16:47:00 85 mm[Hg] [facility] Heart rate 2023-07-27 16:47:00 76 /min [facility] Respiratory rate 2023-07-27 16:47:00 16 /min [facility] Body height 2023-07-27 16:47:00 162.6 cm [facility] Body weight 2023-07-27 16:47:00 83.235 kg [facility] BMI 2023-07-27 16:47:00 31.50 kg/m2 [facility] Oxygen saturation in Arterial blood by Pulse oximetry 2023-07-27 16:47:00 98 /min [facility] Systolic blood pressure 2023-07-05 13:47:00 117 mm[Hg] [facility] Diastolic blood pressure 2023-07-05 13:47:00 72 mm[Hg] [facility] Heart rate 2023-07-05 13:47:00 89 /min [facility] Body temperature 2023-07-05 13:47:00 36.94 Roshni [facility] Respiratory rate 2023-07-05 13:47:00 18 /min [facility] Body height 2023-07-05 13:47:00 162.6 cm [facility] Body weight 2023-07-05 13:47:00 84.687 kg [facility] BMI 2023-07-05 13:47:00 32.05 kg/m2 [facility] Oxygen saturation in Arterial blood by Pulse oximetry 2023-07-05 13:47:00 97 /min [facility] Systolic blood pressure 2023-06-24 20:53:00 138 mm[Hg] [facility] Diastolic blood pressure 2023-06-24 20:53:00 66 mm[Hg] [facility] Respiratory rate 2023-06-24 20:53:00 18 /min [facility] Heart rate 2023-06-24 20:35:00 77 /min [facility] Oxygen saturation in Arterial blood by Pulse oximetry 2023-06-24 20:35:00 97 /min [facility] Body height 2023-06-24 13:49:00 162.6 cm [facility] Body weight 2023-06-24 13:49:00 84.369 kg [facility] BMI 2023-06-24 13:49:00 31.93 kg/m2 [facility] Systolic blood pressure 2023-06-11 14:23:00 127 mm[Hg] [facility] Diastolic blood pressure 2023-06-11 14:23:00 84 mm[Hg] [facility] Heart rate 2023-06-11 14:23:00 75 /min [facility] Body height 2023-06-11 14:23:00 162.6 cm [facility] Body weight 2023-06-11 14:23:00 84.505 kg [facility] BMI 2023-06-11 14:23:00 31.98 kg/m2 [facility] Oxygen saturation in Arterial blood by Pulse oximetry 2023-06-11 14:23:00 99 /min [facility] Systolic blood pressure 2023-06-08 14:09:00 124 mm[Hg] [facility] Diastolic blood pressure 2023-06-08 14:09:00 79 mm[Hg] [facility] Heart rate 2023-06-08 14:09:00 81 /min [facility] Body temperature 2023-06-08 14:09:00 35.78 Roshni [facility] Body height 2023-06-08 14:09:00 162.6 cm [facility] Body weight 2023-06-08 14:09:00 83.915 kg [facility] BMI 2023-06-08 14:09:00 31.76 kg/m2 [facility] Oxygen saturation in Arterial blood by Pulse oximetry 2023-06-08 14:09:00 100 /min [facility] Systolic blood pressure 2023-05-27 20:15:00 117 mm[Hg] [facility] Diastolic blood pressure 2023-05-27 20:15:00 75 mm[Hg] [facility] Heart rate 2023-05-27 20:15:00 70 /min [facility] Body height 2023-05-27 20:15:00 162.6 cm [facility] Body weight 2023-05-27 20:15:00 80.468 kg [facility] BMI 2023-05-27 20:15:00 30.45 kg/m2 [facility] Oxygen saturation in Arterial blood by Pulse oximetry 2023-05-27 20:15:00 97 /min [facility] Systolic blood pressure 2023-05-27 15:05:00 129 mm[Hg] [facility] Diastolic blood pressure 2023-05-27 15:05:00 83 mm[Hg] [facility] Heart rate 2023-05-27 15:05:00 73 /min [facility] Body height 2023-05-27 15:05:00 162.6 cm [facility] Body weight 2023-05-27 15:05:00 80.695 kg [facility] BMI 2023-05-27 15:05:00 30.54 kg/m2 [facility] Oxygen saturation in Arterial blood by Pulse oximetry 2023-05-27 15:05:00 98 /min [facility] Systolic blood pressure 2023-04-26 20:30:00 123 mm[Hg] [facility] Diastolic blood pressure 2023-04-26 20:30:00 78 mm[Hg] [facility] Heart rate 2023-04-26 20:30:00 75 /min [facility] Respiratory rate 2023-04-26 20:30:00 16 /min [facility] Oxygen saturation in Arterial blood by Pulse oximetry 2023-04-26 20:30:00 94 /min [facility] Body temperature 2023-04-26 20:27:47 36.72 Roshni [facility] Systolic blood pressure 2023-04-13 03:47:00 136 mm[Hg] [facility] Diastolic blood pressure 2023-04-13 03:47:00 96 mm[Hg] [facility] Heart rate 2023-04-13 03:47:00 90 /min [facility] Respiratory rate 2023-04-13 03:47:00 15 /min [facility] Oxygen saturation in Arterial blood by Pulse oximetry 2023-04-13 03:47:00 96 /min [facility] Body temperature 2023-04-12 23:12:45 36.83 Roshni [facility] Body height 2023-04-12 20:44:00 160 cm [facility] Body weight 2023-04-12 20:44:00 77.111 kg [facility] BMI 2023-04-12 20:44:00 30.11 kg/m2 [facility] Systolic blood pressure 2023-03-07 23:22:00 117 mm[Hg] [facility] Diastolic blood pressure 2023-03-07 23:22:00 83 mm[Hg] [facility] Heart rate 2023-03-07 23:22:00 66 /min [facility] Respiratory rate 2023-03-07 23:22:00 16 /min [facility] Oxygen saturation in Arterial blood by Pulse oximetry 2023-03-07 23:22:00 100 /min [facility] Body temperature 2023-03-07 21:28:00 36.89 Roshni [facility] Body height 2023-03-07 21:28:00 162.6 cm [facility] Body weight 2023-03-07 21:28:00 77.111 kg [facility] BMI 2023-03-07 21:28:00 29.18 kg/m2 [facility] Systolic blood pressure 2022-10-22 18:07:00 126 mm[Hg] [facility] Diastolic blood pressure 2022-10-22 18:07:00 85 mm[Hg] [facility] Heart rate 2022-10-22 18:07:00 67 /min [facility] Body height 2022-10-22 18:07:00 160 cm [facility] Body weight 2022-10-22 18:07:00 72.576 kg [facility] BMI 2022-10-22 18:07:00 28.34 kg/m2 [facility] Oxygen saturation in Arterial blood by Pulse oximetry 2022-10-22 18:07:00 100 /min [facility] Systolic blood pressure 2022-10-12 20:59:00 113 mm[Hg] [facility] Diastolic blood pressure 2022-10-12 20:59:00 71 mm[Hg] [facility] Heart rate 2022-10-12 20:59:00 69 /min [facility] Body height 2022-10-12 20:59:00 160 cm [facility] Body weight 2022-10-12 20:59:00 76.204 kg [facility] BMI 2022-10-12 20:59:00 29.76 kg/m2 [facility] Oxygen saturation in Arterial blood by Pulse oximetry 2022-10-12 20:59:00 99 /min [facility] Systolic blood pressure 2022-10-09 13:59:00 136 mm[Hg] [facility] Diastolic blood pressure 2022-10-09 13:59:00 82 mm[Hg] [facility] Heart rate 2022-10-09 13:59:00 94 /min [facility] Respiratory rate 2022-10-09 13:59:00 15 /min [facility] Body weight 2022-10-09 13:59:00 76.885 kg [facility] BMI 2022-10-09 13:59:00 30.03 kg/m2 [facility] Oxygen saturation in Arterial blood by Pulse oximetry 2022-10-09 13:59:00 97 /min [facility] Systolic blood pressure 2022-09-30 02:09:00 110 mm[Hg] [facility] Diastolic blood pressure 2022-09-30 02:09:00 78 mm[Hg] [facility] Heart rate 2022-09-30 02:09:00 75 /min [facility] Respiratory rate 2022-09-30 02:09:00 18 /min [facility] Oxygen saturation in Arterial blood by Pulse oximetry 2022-09-30 02:09:00 99 /min [facility] Body temperature 2022-09-29 22:47:00 37.22 Roshni [facility] Body height 2022-09-29 22:47:00 160 cm [facility] Body weight 2022-09-29 22:47:00 73.936 kg [facility] BMI 2022-09-29 22:47:00 28.87 kg/m2 [facility] Systolic blood pressure 2022-07-10 16:50:00 110 mm[Hg] [facility] Diastolic blood pressure 2022-07-10 16:50:00 73 mm[Hg] [facility] Heart rate 2022-07-10 16:50:00 78 /min [facility] 2022-07-10 16:50:00 160 cm [facility] Body weight 2022-07-10 16:50:00 74.299 kg [facility] BMI 2022-07-10 16:50:00 29.02 kg/m2 [facility] Oxygen saturation in Arterial blood by Pulse oximetry 2022-07-10 16:50:00 98 /min [facility] Systolic blood pressure 2022-07-10 13:18:00 121 mm[Hg] [facility] Diastolic blood pressure 2022-07-10 13:18:00 86 mm[Hg] [facility] Heart rate 2022-07-10 13:18:00 88 /min [facility] 2022-07-10 13:18:00 18 /min [facility] Body height 2022-07-10 13:18:00 160 cm [facility] Body weight 2022-07-10 13:18:00 73.619 kg [facility] BMI 2022-07-10 13:18:00 28.75 kg/m2 [facility] Oxygen saturation in Arterial blood by Pulse oximetry 2022-07-10 13:18:00 99 /min [facility] Systolic blood pressure 2022-06-10 16:51:00 112 mm[Hg] [facility] Diastolic blood pressure 2022-06-10 16:51:00 81 mm[Hg] [facility] Heart rate 2022-06-10 16:51:00 83 /min [facility] Body height 2022-06-10 16:51:00 160 cm [facility] Body weight 2022-06-10 16:51:00 74.345 kg [facility] BMI 2022-06-10 16:51:00 29.03 kg/m2 [facility] Oxygen saturation in Arterial blood by Pulse oximetry 2022-06-10 16:51:00 98 /min [facility] Systolic blood pressure 2022-06-08 17:49:00 127 mm[Hg] [facility] Diastolic blood pressure 2022-06-08 17:49:00 89 mm[Hg] [facility] Heart rate 2022-06-08 17:49:00 79 /min [facility] Body temperature 2022-06-08 17:49:00 36.78 Roshni [facility] Respiratory rate 2022-06-08 17:49:00 18 /min [facility] Body weight 2022-06-08 17:49:00 73.936 kg [facility] BMI 2022-06-08 17:49:00 27.98 kg/m2 [facility] Oxygen saturation in Arterial blood by Pulse oximetry 2022-06-08 17:49:00 99 /min [facility] Systolic blood pressure 2022-06-04 13:58:00 116 mm[Hg] [facility] Diastolic blood pressure 2022-06-04 13:58:00 78 mm[Hg] [facility] Heart rate 2022-06-04 13:58:00 75 /min [facility] Respiratory rate 2022-06-04 13:58:00 12 /min [facility] Body height 2022-06-04 13:58:00 162.6 cm [facility] Body weight 2022-06-04 13:58:00 74.208 kg [facility] BMI 2022-06-04 13:58:00 28.08 kg/m2 [facility] Oxygen saturation in Arterial blood by Pulse oximetry 2022-06-04 13:58:00 100 /min [facility] Systolic blood pressure 2022-05-29 13:27:00 108 mm[Hg] [facility] Diastolic blood pressure 2022-05-29 13:27:00 69 mm[Hg] [facility] Heart rate 2022-05-29 13:27:00 78 /min [facility] Body temperature 2022-05-29 13:27:00 36.94 Roshni [facility] Body weight 2022-05-29 13:27:00 73.029 kg [facility] BMI 2022-05-29 13:27:00 27.64 kg/m2 [facility] Oxygen saturation in Arterial blood by Pulse oximetry 2022-05-29 13:27:00 99 /min [facility] Systolic blood pressure 2022-04-30 16:44:00 114 mm[Hg] [facility] Diastolic blood pressure 2022-04-30 16:44:00 75 mm[Hg] [facility] Heart rate 2022-04-30 16:44:00 79 /min [facility] Respiratory rate 2022-04-30 16:44:00 12 /min [facility] Body height 2022-04-30 16:44:00 162.6 cm [facility] Body weight 2022-04-30 16:44:00 71.668 kg [facility] BMI 2022-04-30 16:44:00 27.12 kg/m2 [facility] Oxygen saturation in Arterial blood by Pulse oximetry 2022-04-30 16:44:00 100 /min [facility] Systolic blood pressure 2022-04-29 20:35:00 122 mm[Hg] [facility] Diastolic blood pressure 2022-04-29 20:35:00 79 mm[Hg] [facility] Heart rate 2022-04-29 20:35:00 74 /min [facility] Respiratory rate 2022-04-29 20:35:00 18 /min [facility] Body height 2022-04-29 20:35:00 162.6 cm [facility] Body weight 2022-04-29 20:35:00 72.122 kg [facility] BMI 2022-04-29 20:35:00 27.29 kg/m2 [facility] Systolic blood pressure 2022-04-21 22:15:00 94 mm[Hg] [facility] Diastolic blood pressure 2022-04-21 22:15:00 62 mm[Hg] [facility] Heart rate 2022-04-21 22:15:00 85 /min [facility] Body temperature 2022-04-21 22:15:00 36.89 Roshni [facility] Body height 2022-04-21 22:15:00 162.6 cm [facility] Body weight 2022-04-21 22:15:00 68.947 kg [facility] BMI 2022-04-21 22:15:00 26.09 kg/m2 [facility] Oxygen saturation in Arterial blood by Pulse oximetry 2022-04-21 22:15:00 98 /min [facility] Systolic blood pressure 2022-03-26 03:00:00 127 mm[Hg] [facility] Diastolic blood pressure 2022-03-26 03:00:00 79 mm[Hg] [facility] Heart rate 2022-03-26 03:00:00 82 /min [facility] Respiratory rate 2022-03-26 03:00:00 16 /min [facility] Oxygen saturation in Arterial blood by Pulse oximetry 2022-03-26 03:00:00 100 /min [facility] Body temperature 2022-03-26 00:52:00 37.28 Roshni [facility] Body weight 2022-03-26 00:52:00 72.576 kg [facility] BMI 2022-03-26 00:52:00 27.46 kg/m2 [facility] Systolic blood pressure 2022-03-23 19:57:00 115 mm[Hg] [facility] Diastolic blood pressure 2022-03-23 19:57:00 76 mm[Hg] [facility] Heart rate 2022-03-23 19:57:00 77 /min [facility] Body temperature 2022-03-23 19:57:00 37 Roshni [facility] Body height 2022-03-23 19:57:00 162.6 cm [facility] Body weight 2022-03-23 19:57:00 72.122 kg [facility] BMI 2022-03-23 19:57:00 27.29 kg/m2 [facility] Oxygen saturation in Arterial blood by Pulse oximetry 2022-03-23 19:57:00 100 /min [facility] Systolic blood pressure 2021-12-11 22:27:00 113 mm[Hg] [facility] Diastolic blood pressure 2021-12-11 22:27:00 78 mm[Hg] [facility] Heart rate 2021-12-11 22:27:00 88 /min [facility] Body temperature 2021-12-11 22:27:00 36.83 Roshni [facility] Respiratory rate 2021-12-11 22:27:00 16 /min [facility] Body weight 2021-12-11 22:27:00 70.943 kg [facility] BMI 2021-12-11 22:27:00 27.71 kg/m2 [facility] Oxygen saturation in Arterial blood by Pulse oximetry 2021-12-11 22:27:00 97 /min [facility] Systolic blood pressure 2021-12-02 21:19:00 99 mm[Hg] [facility] Diastolic blood pressure 2021-12-02 21:19:00 65 mm[Hg] [facility] Heart rate 2021-12-02 21:19:00 87 /min [facility] Body temperature 2021-12-02 21:19:00 37.44 Roshni [facility] Body height 2021-12-02 21:19:00 160 cm [facility] Body weight 2021-12-02 21:19:00 69.854 kg [facility] BMI 2021-12-02 21:19:00 27.28 kg/m2 [facility] Oxygen saturation in Arterial blood by Pulse oximetry 2021-12-02 21:19:00 100 /min [facility] Systolic blood pressure 2021-08-04 05:00:00 123 mm[Hg] [facility] Diastolic blood pressure 2021-08-04 05:00:00 88 mm[Hg] [facility] Heart rate 2021-08-04 05:00:00 82 /min [facility] Respiratory rate 2021-08-04 05:00:00 20 /min [facility] Oxygen saturation in Arterial blood by Pulse oximetry 2021-08-04 05:00:00 98 /min [facility] Body temperature 2021-08-04 04:11:00 35.89 Roshni [facility] Body height 2021-08-04 04:11:00 157.5 cm [facility] Body weight 2021-08-04 04:11:00 68.04 kg [facility] BMI 2021-08-04 04:11:00 27.44 kg/m2 [facility] Systolic blood pressure 2021-07-27 21:00:00 120 mm[Hg] [facility] Diastolic blood pressure 2021-07-27 21:00:00 67 mm[Hg] [facility] Heart rate 2021-07-27 21:00:00 84 /min [facility] Respiratory rate 2021-07-27 21:00:00 16 /min [facility] Oxygen saturation in Arterial blood by Pulse oximetry 2021-07-27 21:00:00 98 /min [facility] Body temperature 2021-07-27 17:34:00 36.61 Roshni [facility] Body height 2021-07-27 17:34:00 162.6 cm [facility] Body weight 2021-07-27 17:34:00 71.215 kg [facility] BMI 2021-07-27 17:34:00 26.95 kg/m2 [facility] Systolic blood pressure 2021-03-09 21:11:00 112 mm[Hg] [facility] [facility] Diastolic blood pressure 2021-03-09 21:11:00 77 mm[Hg] [facility] Heart rate 2021-03-09 21:11:00 94 /min [facility] Body temperature 2021-03-09 21:11:00 36.94 Roshni [facility] Respiratory rate 2021-03-09 21:11:00 18 /min [facility] Body height 2021-03-09 21:11:00 162.6 cm [facility] Body weight 2021-03-09 21:11:00 71.578 kg [facility] BMI 2021-03-09 21:11:00 27.09 kg/m2 [facility] Oxygen saturation in Arterial blood by Pulse oximetry 2021-03-09 21:11:00 98 /min [facility] Systolic blood pressure 2021-03-08 23:22:00 113 mm[Hg] [place] [facility] Diastolic blood pressure 2021-03-08 23:22:00 66 mm[Hg] [facility] Heart rate 2021-03-08 23:22:00 90 /min [facility] Body temperature 2021-03-08 23:22:00 37.06 Roshni [facility] Respiratory rate 2021-03-08 23:22:00 18 /min [facility] Oxygen saturation in Arterial blood by Pulse oximetry 2021-03-08 23:22:00 100 /min [facility] Body weight 2021-03-08 20:58:00 71.215 kg [facility] BMI 2021-03-08 20:58:00 26.95 kg/m2 [facility] Systolic blood pressure 2021-03-07 15:55:00 131 mm[Hg] [facility] Diastolic blood pressure 2021-03-07 15:55:00 93 mm[Hg] [facility] Heart rate 2021-03-07 15:55:00 77 /min [facility] Body temperature 2021-03-07 15:55:00 37.17 Roshni [facility] Respiratory rate 2021-03-07 15:55:00 18 /min [facility] Body weight 2021-03-07 15:55:00 71.215 kg [facility] BMI 2021-03-07 15:55:00 26.95 kg/m2 [facility] Oxygen saturation in Arterial blood by Pulse oximetry 2021-03-07 15:55:00 99 /min [facility] Systolic blood pressure 2021-03-04 01:40:00 119 mm[Hg] [facility] Diastolic blood pressure 2021-03-04 01:40:00 84 mm[Hg] [facility] Heart rate 2021-03-04 01:40:00 84 /min [facility] Body temperature 2021-03-04 01:40:00 36.89 Roshni [facility] Respiratory rate 2021-03-04 01:40:00 17 /min [facility] Body height 2021-03-04 01:40:00 162.6 cm [facility] Body weight 2021-03-04 01:40:00 71.215 kg [facility] BMI 2021-03-04 01:40:00 26.95 kg/m2 [facility] Oxygen saturation in Arterial blood by Pulse oximetry 2021-03-04 01:40:00 100 /min [facility] Systolic blood pressure 2020-01-02 17:40:00 128 mm[Hg] [facility] Diastolic blood pressure 2020-01-02 17:40:00 84 mm[Hg] [facility] Heart rate 2020-01-02 17:40:00 63 /min [facility] Body temperature 2020-01-02 17:40:00 36.28 Roshni [facility] Oxygen saturation in Arterial blood by Pulse oximetry 2020-01-02 17:40:00 96 /min [facility] Respiratory rate 2020-01-02 17:30:00 22 /min [facility] Body height 2019-12-26 17:06:00 160 cm [facility] Body weight 2019-12-26 17:06:00 87.5 kg [facility] BMI 2019-12-26 17:06:00 34.18 kg/m2 [facility] Systolic blood pressure 2019-12-25 18:37:00 132 mm[Hg] [facility] Diastolic blood pressure 2019-12-25 18:37:00 90 mm[Hg] [facility] Heart rate 2019-12-25 18:35:00 69 /min [facility] Body temperature 2019-12-25 18:35:00 36.78 Roshni [facility] Respiratory rate 2019-12-25 18:35:00 18 /min [facility] Body height 2019-12-25 18:35:00 160 cm [facility] Body weight 2019-12-25 18:35:00 87.544 kg [facility] BMI 2019-12-25 18:35:00 34.19 kg/m2 [facility] Systolic blood pressure 2019-12-07 19:35:00 111 mm[Hg] [facility] Diastolic blood pressure 2019-12-07 19:35:00 72 mm[Hg] [facility] Heart rate 2019-12-07 19:35:00 68 /min [facility] Body temperature 2019-12-07 19:35:00 36.83 Roshni [facility] Respiratory rate 2019-12-07 19:35:00 16 /min [facility] Body height 2019-12-07 19:35:00 160 cm [facility] Body weight 2019-12-07 19:35:00 85.004 kg [facility] BMI 2019-12-07 19:35:00 33.20 kg/m2 [facility] Systolic blood pressure 2019-11-14 19:00:00 121 mm[Hg] [facility] Diastolic blood pressure 2019-11-14 19:00:00 79 mm[Hg] [facility] Heart rate 2019-11-14 19:00:00 86 /min [facility] Body temperature 2019-11-14 19:00:00 36.72 Roshni [facility] Respiratory rate 2019-11-14 19:00:00 16 /min [facility] Oxygen saturation in Arterial blood by Pulse oximetry 2019-11-14 19:00:00 96 /min [facility] Body height 2019-11-13 09:53:00 160 cm [facility] Body weight 2019-11-13 09:53:00 96.163 kg [facility] BMI 2019-11-13 09:53:00 37.55 kg/m2 [facility] Systolic blood pressure 2019-11-09 18:32:00 104 mm[Hg] [facility] Diastolic blood pressure 2019-11-09 18:32:00 68 mm[Hg] [facility] Heart rate 2019-11-09 18:32:00 98 /min [facility] Body temperature 2019-11-09 18:32:00 36.89 Roshni [facility] Respiratory rate 2019-11-09 18:32:00 18 /min [facility] Body height 2019-11-09 18:32:00 160 cm [facility] Body weight 2019-11-09 18:32:00 96.163 kg [facility] BMI 2019-11-09 18:32:00 37.55 kg/m2 [facility] Systolic blood pressure 2019-10-30 19:55:00 104 mm[Hg] [facility] Diastolic blood pressure 2019-10-30 19:55:00 67 mm[Hg] [facility] Heart rate 2019-10-30 19:55:00 95 /min [facility] Body temperature 2019-10-30 19:55:00 36.78 Roshni [facility] Respiratory rate 2019-10-30 19:55:00 18 /min [facility] Body height 2019-10-30 19:55:00 160 cm [facility] Body weight 2019-10-30 19:55:00 94.802 kg [facility] BMI 2019-10-30 19:55:00 37.02 kg/m2 [facility] Systolic blood pressure 2019-10-23 18:59:00 104 mm[Hg] [facility] Diastolic blood pressure 2019-10-23 18:59:00 73 mm[Hg] [facility] Heart rate 2019-10-23 18:59:00 91 /min [facility] Body temperature 2019-10-23 18:59:00 36.72 Roshni [facility] Respiratory rate 2019-10-23 18:59:00 18 /min [facility] Body height 2019-10-23 18:59:00 160 cm [facility] Body weight 2019-10-23 18:59:00 93.895 kg [facility] BMI 2019-10-23 18:59:00 36.67 kg/m2 [facility] Systolic blood pressure 2019-10-02 20:56:00 98 mm[Hg] [facility] Diastolic blood pressure 2019-10-02 20:56:00 67 mm[Hg] [facility] Heart rate 2019-10-02 20:56:00 113 /min [facility] Body temperature 2019-10-02 20:56:00 36.67 Roshni [facility] Respiratory rate 2019-10-02 20:56:00 18 /min [facility] Body height 2019-10-02 20:56:00 160 cm [facility] Body weight 2019-10-02 20:56:00 92.08 kg [facility] BMI 2019-10-02 20:56:00 35.96 kg/m2 [facility] Systolic blood pressure 2019-09-18 18:40:00 99 mm[Hg] [facility] Diastolic blood pressure 2019-09-18 18:40:00 71 mm[Hg] [facility] Heart rate 2019-09-18 18:40:00 99 /min [facility] Body temperature 2019-09-18 18:40:00 36.61 Roshni [facility] Respiratory rate 2019-09-18 18:40:00 18 /min [facility] Body height 2019-09-18 18:40:00 160 cm [facility] Body weight 2019-09-18 18:40:00 91.173 kg [facility] BMI 2019-09-18 18:40:00 35.61 kg/m2 [facility] Systolic blood pressure 2019-09-11 18:19:00 111 mm[Hg] [facility] Diastolic blood pressure 2019-09-11 18:19:00 76 mm[Hg] [facility] Heart rate 2019-09-11 18:19:00 102 /min [facility] Body temperature 2019-09-11 18:19:00 36.56 Roshni [facility] Respiratory rate 2019-09-11 18:19:00 18 /min [facility] Body height 2019-09-11 18:19:00 160 cm [facility] Body weight 2019-09-11 18:19:00 91.173 kg [facility] BMI 2019-09-11 18:19:00 35.61 kg/m2 [facility] Oxygen saturation in Arterial blood by Pulse oximetry 2019-09-11 18:19:00 97 /min [facility] Systolic blood pressure 2019-09-04 18:16:00 99 mm[Hg] [facility] Diastolic blood pressure 2019-09-04 18:16:00 64 mm[Hg] [facility] Heart rate 2019-09-04 18:16:00 105 /min [facility] Body temperature 2019-09-04 18:16:00 37.06 Roshni [facility] Respiratory rate 2019-09-04 18:16:00 18 /min [facility] Body height 2019-09-04 18:16:00 160 cm [facility] Body weight 2019-09-04 18:16:00 89.812 kg [facility] BMI 2019-09-04 18:16:00 35.07 kg/m2 [facility] Systolic blood pressure 2019-08-31 20:09:00 99 mm[Hg] [facility] Diastolic blood pressure 2019-08-31 20:09:00 66 mm[Hg] [facility] Heart rate 2019-08-31 20:09:00 102 /min [facility] Body temperature 2019-08-31 20:09:00 36.72 Roshni [facility] Respiratory rate 2019-08-31 20:09:00 16 /min [facility] Body height 2019-08-31 20:09:00 157.5 cm [facility] Body weight 2019-08-31 20:09:00 89.495 kg [facility] BMI 2019-08-31 20:09:00 36.09 kg/m2 [facility] Systolic blood pressure 2019-08-03 20:40:00 110 mm[Hg] [facility] Diastolic blood pressure 2019-08-03 20:40:00 70 mm[Hg] [facility] Heart rate 2019-08-03 20:40:00 112 /min [facility] Body temperature 2019-08-03 20:40:00 37.11 Roshni [facility] Respiratory rate 2019-08-03 20:40:00 18 /min [facility] Body height 2019-08-03 20:40:00 157.5 cm [facility] Body weight 2019-08-03 20:40:00 88.905 kg [facility] BMI 2019-08-03 20:40:00 35.85 kg/m2 [facility] Body height 2019-06-06 17:59:00 157.5 cm [facility] Systolic blood pressure 2019-05-09 20:13:00 105 mm[Hg] [facility] Diastolic blood pressure 2019-05-09 20:13:00 61 mm[Hg] [facility] Heart rate 2019-05-09 20:13:00 83 /min [facility] 2019-05-09 20:13:00 36.94 Roshni [facility] Respiratory rate 2019-05-09 20:13:00 18 /min [facility] Body height 2019-05-09 20:13:00 157.5 cm [facility] Body weight 2019-05-09 20:13:00 81.647 kg [facility] BMI 2019-05-09 20:13:00 32.92 kg/m2 [facility] Systolic blood pressure 2019-05-04 16:15:00 124 mm[Hg] [facility] Diastolic blood pressure 2019-05-04 16:15:00 74 mm[Hg] [facility] Heart rate 2019-05-04 16:15:00 94 /min [facility] Body temperature 2019-05-04 16:15:00 36.67 Roshni [facility] Respiratory rate 2019-05-04 16:15:00 16 /min [facility] Body height 2019-05-04 16:15:00 157.5 cm [facility] Body weight 2019-05-04 16:15:00 81.846 kg [facility] BMI 2019-05-04 16:15:00 33.00 kg/m2 [facility] Systolic blood pressure 2019-04-06 15:49:00 119 mm[Hg] [facility] Diastolic blood pressure 2019-04-06 15:49:00 65 mm[Hg] [facility] Heart rate 2019-04-06 15:49:00 88 /min [facility] Body temperature 2019-04-06 15:49:00 36.39 Roshni [facility] Respiratory rate 2019-04-06 15:49:00 16 /min [facility] Body height 2019-04-06 15:49:00 160 cm [facility] [place] Body weight 2019-04-06 15:49:00 81.449 kg [facility] [place] BMI 2019-04-06 15:49:00 31.81 kg/m2 [facility] [place] Systolic blood pressure 2019-04-11 22:00:00 118 mm[Hg] [facility] Diastolic blood pressure 2019-04-11 22:00:00 70 mm[Hg] [facility] Heart rate 2019-04-11 22:00:00 100 /min [facility] Respiratory rate 2019-04-11 22:00:00 18 /min [facility] Oxygen saturation in Arterial blood by Pulse oximetry 2019-04-11 22:00:00 98 /min [facility] Body temperature 2019-04-11 19:50:58 37.28 Roshni [facility] Body weight 2019-04-11 19:24:00 79.833 kg [facility] BMI 2019-04-11 19:24:00 31.18 kg/m2 [facility] Systolic blood pressure 2019-03-30 16:33:00 109 mm[Hg] [facility] Diastolic blood pressure 2019-03-30 16:33:00 71 mm[Hg] [facility] Heart rate 2019-03-30 16:33:00 84 /min [facility] Body temperature 2019-03-30 16:33:00 36.94 Roshni [facility] Respiratory rate 2019-03-30 16:33:00 16 /min [facility] Body height 2019-03-30 16:33:00 157.5 cm [facility] Body weight 2019-03-30 16:33:00 80.769 kg [facility] [place] BMI 2019-03-30 16:33:00 32.57 kg/m2 [facility] Systolic blood pressure 2024-03-23 23:00:00 137 mm[Hg] [facility] Diastolic blood pressure 2024-03-23 23:00:00 100 mm[Hg] [facility] Respiratory rate 2024-03-23 23:00:00 16 /min [facility] Oxygen saturation in Arterial blood by Pulse oximetry 2024-03-23 23:00:00 99 /min [facility] Heart rate 2024-03-23 22:10:00 81 /min [facility] Body height 2024-03-23 15:28:00 160 cm [facility] Body weight 2024-03-23 15:28:00 84.823 kg [facility] BMI 2024-03-23 15:28:00 33.13 kg/m2 [facility] Body temperature 2024-03-23 15:00:00 36.72 Roshni [facility] Procedures Procedure Date / Time Performed Performing Clinician Source IR ANGIOGRAM CEREBRAL 2024-03-23 18:34:00 Means, Allys on C. [facility] BASIC METABOLIC PANEL (NA, K, CL, CO2, GLUCOSE, BUN, CREATININE, CA) 2024-03-23 15:24:00 Crispin Jo [facility] CBC WITH DIFF 2024-03-23 15:24:00 Crispin Jo [facility] PROTHROMBIN TIME / INR 2024-03-23 15:24:00 Keely Jo [facility] VERIFYNOW ASPIRIN TEST 2024-03-23 15:24:00 Keely Jo [facility] PROTHROMBIN TIME / INR 2024-03-23 15:24:00 Keely Jo [facility] CBC WITH DIFF 2024-03-23 15:24:00 Crispin Jo [facility] BASIC METABOLIC PANEL (NA, K, CL, CO2, GLUCOSE, BUN, CREATININE, CA) 2024-03-23 15:24:00 [facility] VERIFYNOW PRUTEST (P2Y12) 2024-03-23 15:24:00 Crispin Jo [facility] CT CERVICAL SPINE WO CONTRAST 2024-02-08 16:50:00 Cyndi [facility] CT LUMBAR SPINE WO CONTRAST 2024-02-08 16:50:00 Cyndi [facility] CT THORACIC SPINE WO CONTRAST 2024-02-08 16:50:00 Cyndi [facility] CT LUMBAR SPINE WO CONTRAST 2024-02-08 16:50:00 Cyndi [facility] CT THORACIC SPINE WO CONTRAST 2024-02-08 16:50:00 Daniel Cantu [facility] CT CERVICAL SPINE WO CONTRAST 2024-02-08 16:50:00 Daniel Cantu [facility] POCT TEST 2023-10-22 01:19:00 Shanda Cao [facility] LIPASE 2023-10-22 01:15:00 Humphrey [facility] COMP. METABOLIC PANEL ([id number]) 2023-10-22 01:15:00 Humphrey Cao [facility] CBC WITH DIFF 2023-10-22 01:15:00 Humphrey Ca[facility] [place] URINALYSIS 2023-10-22 01:15:00 Humphrey Ca[facility] ENDOSCOPY PROCEDURE DOCUMENTATION 2023-08-25 16:48:04 Doctor Unassigned, [facility] POCT TEST 2023-08-19 23:56:00 Yesenia MonroeDick [facility] LIPASE 2023-08-19 23:55:00 [facility] TROPONIN I 2023-08-19 23:55:[address] [facility] HEPATIC FUNCTION PANEL ([id number]) (ALB,T.PRO,BILI T,BU/BC,ALT,AST,ALK PHOS) 2023-08-19 23:55:00 Yesenia [facility] BASIC METABOLIC PANEL (NA, K, CL, CO2, GLUCOSE, BUN, CREATININE, CA) 2023-08-19 23:55:00 Preet Monroe [facility] CBC WITH DIFF 2023-08-19 23:55:00 Preet Monroe [facility] URINALYSIS 2023-08-19 23:55:[address] [facility] N-TERMINAL PRO-BNP 2023-08-19 23:55:00 Osvaldo [facility] XR CHEST 2 VW 2023-08-19 23:52:19 Bharath [facility] TROPONIN I 2023-08-12 11:24:00 Celestine Paige [facility] BASIC METABOLIC PANEL (NA, K, CL, CO2, GLUCOSE, BUN, CREATININE, CA) 2023-08-12 11:24:00 Royal [facility] MAGNESIUM 2023-08-12 05:57:00 Celestine Paige [facility] TROPONIN I 2023-08-12 05:57:00 Royal [facility] BASIC METABOLIC PANEL (NA, K, CL, CO2, GLUCOSE, BUN, CREATININE, CA) 2023-08-12 05:57:00 Royal [facility] CBC WITH DIFF 2023-08-12 05:57:00 [facility] SPECIFIC GRAVITY URINE 2023-08-12 05:57:00 [facility] SODIUM, URINE RANDOM 2023-08-12 05:57:00 [facility] MRSA / MSSA SCREEN BY PCR, DUGLAS 2023-08-11 22:53:00 Sue Reyna [facility] IR EMBOLIZATION CENTRAL NERVOUS SYSTEM (PIPELINE SUPERINTENDENT DIVISION) PERMANENT 2023-08-11 21:00:29 Jimbo Ribera . [facility] POCT ACT LOW RANGE 2023-08-11 20:22:00 Michel Ribera on . [facility] POCT ACT LOW RANGE 2023-08-11 19:46:00 Michel Ribera on . [facility] POCT ACT LOW RANGE 2023-08-11 19:01:00 Michel Ribera on C. [facility] POCT ACT LOW RANGE 2023-08-11 18:44:00 Michel Ribera on C. [facility] POCT ACT LOW RANGE 2023-08-11 18:13:00 Michel Ribera on . [facility] TEST, SERUM 2023-08-11 14:17:00 Eve Goncalves Tru [facility] BASIC METABOLIC PANEL (NA, K, CL, CO2, GLUCOSE, BUN, CREATININE, CA) 2023-08-11 14:17:00 Eve Goncalveseshan [facility] CBC WITH DIFF 2023-08-11 14:17:00 SachaShahnaz Tru [facility] PROTHROMBIN TIME / INR 2023-08-11 14:17:00 Sacha Eve Tru [facility] VERIFYNOW ASPIRIN TEST 2023-08-11 14:17:00 SachaEve tenorio Tru [facility] HB ABO GROUPING 2023-08-11 14:10:00 Shahnaz Goncalves Tru [facility] COMP. METABOLIC PANEL ([id number]) 2023-06-24 14:02:00 SachaEve tenorio Tru [facility] CBC WITH DIFF 2023-06-24 14:02:00 SachaShahnaz tenorio Tru [facility] PROTHROMBIN TIME / INR 2023-06-24 14:02:00 Sacha Cuenca [facility] MR LUMBAR SPINE WO CONTRAST 2023-06-21 21:25:42 Balaji Cuellar [facility] POCT TEST 2023-04-26 19:25:00 Danielle Crabtree [facility] URINALYSIS 2023-04-26 19:21:00 Balta Crabtree [facility] CONSENT/REFUSAL FOR DIAGNOSIS AND TREATMENT 2023-04-26 17:31:20 Doctor Unassigned, [facility] URINALYSIS 2023-04-12 21:54:00 Jordyn Adams [facility] POCT TEST 2023-04-12 21:54:00 Jordyn Adams [facility] ASSIGNMENT OF BENEFITS 2023-04-12 21:43:03 Docto r Unassigned, [facility] CONSENT/REFUSAL FOR DIAGNOSIS AND TREATMENT 2023-04-12 20:37:51 Doctor Unassigned, [facility] CT ABDOMEN PELVIS W CONTRAST 2023-03-07 22:31:12 Елена Raymond [facility] COMP. METABOLIC PANEL ([id number]) 2023-03-07 22:03:00 Елена Raymond [facility] CBC WITH DIFF 2023-03-07 22:03:00 LiorcarolynnЕлена [facility]illa [facility] 2023-03-07 22:03:00 RamírezsarahЕлена bonilla [facility] [place] [facility]/REFUSAL FOR DIAGNOSIS AND TREATMENT 2023-03-07 21:22:50 Doctor Unassigned, [facility] MR BRAIN W WO CONTRAST WITH NEUROQUANT 2022-10-06 19:53:00 Neri Velez [facility] URINALYSIS 2022-09-30 00:44:00 Jordyn Adams [facility] COVID-19 (ID NOW RAPID TESTING) 2022-09-30 00:44:00 Jordyn Adams [facility] POCT TEST 2022-09-30 00:43:00 Jordyn Adams [facility] ASSIGNMENT OF BENEFITS 2022-09-30 00:03:11 Docto r Unassigned, [facility] CONSENT/REFUSAL FOR DIAGNOSIS AND TREATMENT 2022-09-29 22:33:15 Doctor Unassigned, [facility] XR CHEST 1 VW 2022-06-08 18:50:14 Mark [facility] TROPONIN I 2022-06-08 18:31:00 Bryan Flores [facility] COMP. METABOLIC PANEL ([id number]) 2022-06-08 18:31:00 Bryan Flores [facility] CBC WITH DIFF 2022-06-08 18:31:00 Bryan Flores [facility] N-TERMINAL PRO-BNP 2022-06-08 18:31:00 Mark [facility] CONSENT/REFUSAL FOR DIAGNOSIS AND TREATMENT 2022-06-08 17:43:08 Doctor Unassigned, [facility] CREATINE KINASE 2022-04-30 17:45:00 Gabriel Pelayo [facility] THYROID STIMULATING HORMONE 2022-04-30 17:45:00 Gabriel Pelayo [facility] COMP. METABOLIC PANEL ([id number]) 2022-04-30 17:45:00 Gabriel Pelayo [facility] SEDIMENTATION RATE 2022-04-30 17:45:00 Fernando Pelayo [facility] CBC WITH DIFF 2022-04-30 17:45:[address] [facility] URINALYSIS 2022-04-30 17:45:00 Gabriel [facility] [place] HEPATITIS B SURFACE ANTIGEN 2022-04-30 17:45:00 Gabriel Pelayo [facility] HCV ANTIBODY 2022-04-30 17:45:00 Gabriel Pelayo [facility] VITAMIN D, 25-OH 2022-04-30 17:45:00 Gabriel Pelayo [facility] C-REACTIVE PROTEIN 2022-04-30 17:45:00 PertusiFernando [facility] C4 COMPLEMENT 2022-04-30 17:45:[address] [facility] HCV ANTIBODY 2022-04-30 17:45:00 Gabriel Pelayo [facility] HIV 1/2 AG-AB WITH REFLEX 2022-04-29 22:27:00 Jean Marie Johnson [facility] PATIENT FINANCIAL POLICY 2022-04-29 19:43:17 Doctor Unassigned, [facility] LIPASE 2022-03-26 01:50:00 Charles Desouza [facility] MAGNESIUM 2022-03-26 01:50:00 Charles Desouza [facility] TROPONIN I 2022-03-26 01:50:00 Charles [facility]za [facility] COMP. METABOLIC PANEL ([id number]) 2022-03-26 01:50:00 Charles Desouza [facility] CBC WITH DIFF 2022-03-26 01:50:00 Charles Desouza [facility] N-TERMINAL PRO-BNP 2022-03-26 01:50:00 Charles Desouza [facility] XR CHEST 1 VW 2022-03-26 01:32:53 Charles Desouza [facility] [place] NOTICE OF PRIVACY PRACTICES 2022-03-26 00:44:10 Doctor Unassigned, [facility] CONSENT/REFUSAL FOR DIAGNOSIS AND TREATMENT 2022-03-26 00:42:02 Doctor Unassigned, [facility] AUTHORIZATION FOR RELEASE OF PHI 2022-02-24 06:01:00 Doctor Unassigned, [facility] POCT MOLECULAR FLU 2021-12-11 22:27:00 Unknown, Attend ing [facility] ASSIGNMENT OF BENEFITS 2021-12-11 22:05:12 Docto r Unassigned, [facility] POCT TEST 2021-12-02 22:10:[address] [facility] AUTHORIZATION FOR RELEASE OF PHI 2021-08-27 05:01:00 Doctor Unassigned, [facility] CT MAXILLOFACIAL/MANDIBLE WO CONTRAST 2021-08-04 05:11:06 Meek Chandler [facility] CONSENT/REFUSAL FOR DIAGNOSIS AND TREATMENT 2021-08-04 03:59:04 Doctor Unassigned, [facility] CT MAXILLOFACIAL/MANDIBLE WO CONTRAST 2021-07-27 18:46:31 Marla Hoffmann [facility] CT TRAUMA HEAD WO CONTRAST 2021-07-27 18:46:31 Marla Hoffmann [facility] CT TRAUMA CERVICAL SPINE WO CONTRAST 2021-07-27 18:46:31 Marla Hoffmann [facility] CONSENT/REFUSAL FOR DIAGNOSIS AND TREATMENT 2021-07-27 17:23:23 Doctor Unassigned, [facility] POCT GLUCOSE(AGE >30DAYS) 2021-03-08 23:56:00 Jordyn Adams [facility] POCT GLUCOSE (AUTOMATED) 2021-03-08 23:20:00 Radhika Adams [facility] POCT TEST 2021-03-08 21:58:00 Jordyn Adams [facility] RAPID STREP SCREEN FOR GROUP A 2021-03-08 21:57:00 Jordyn Adams [facility] RAPID INFLUENZA A/B 2021-03-08 21:57:00 Jordyn Adams [facility] COVID-19 (ID NOW RAPID TESTING) 2021-03-08 21:57:00 Jordyn Adams [facility] CONSENT/REFUSAL FOR DIAGNOSIS AND TREATMENT 2021-03-08 20:36:19 Doctor Unassigned, [facility] CONSENT/REFUSAL FOR DIAGNOSIS AND TREATMENT 2021-03-07 15:51:29 Doctor Unassigned, [facility] NOTICE OF PRIVACY PRACTICES 2021-03-07 15:51:15 Doctor Unassigned, [facility] POCT MOLECULAR FLU 2021-03-04 01:53:00 Felicitas Wilson [facility] ASSIGNMENT OF BENEFITS 2020-10-18 01:21:38 Docto r Unassigned, [facility] TOTAL BETA HCG ASSAY 2020-01-01 21:48:00 Nino Steward [facility] HB ABO GROUPING 2020-01-01 21:40:00 Nichelle [facility] COVID-19 (ID NOW RAPID TESTING) 2020-01-01 21:28:00 Nino Steward [facility] CONSENT/REFUSAL FOR DIAGNOSIS AND TREATMENT 2020-01-01 21:20:55 Doctor Unassigned, [facility] ASSIGNMENT OF BENEFITS 2020-01-01 21:20:43 Docto r Unassigned, [facility] DISCLOSURE AND CONSENT MEDICAL & SURGICAL PROCEDURES - FEMALM 2019-12-25 05:01:00 Doctor Unassigned, [facility] FLU VACC ([id number]), 6+ MONTHS, IM, QUAD 2019-12-07 19:53:54 Johnie West [facility] CBC WITH DIFF 2019-11-14 08:47:00 Nino Steward [facility] VENOUS CORD GAS 2019-11-13 18:21:00 Nino Steward [facility] CBC WITH DIFF 2019-11-13 10:02:00 Nino Steward [facility] HEPATITIS B SURFACE ANTIGEN 2019-11-13 10:02:00 Nino Steward [facility] ADC OR NIKOLE ONLY - RPR 2019-11-13 10:02:00 Nino Steward [facility] HIV 1/2 AG-AB WITH REFLEX 2019-11-13 10:02:00 [facility] 2019-11-13 09:55:00 NichelleNino [facility] RHO (D) IMMUNE GLOBULIN 2019-11-13 09:55:00 StewardNino [facility] HOSPITAL ADMISSION 2019-11-13 05:01:00 Doctor Un assigned, [facility] ASSIGNMENT OF BENEFITS 2019-11-10 19:47:27 Docto r Unassigned, [facility] CONSENT/REFUSAL FOR DIAGNOSIS AND TREATMENT 2019-11-09 19:31:44 Doctor Unassigned, [facility] ASSIGNMENT OF BENEFITS 2019-11-09 19:31:29 Docto r Unassigned, [facility] POCT URINALYSIS W/O SPECIFIC GRAVITY 2019-11-09 00:00:00 [facility] URINALYSIS W/O SPECIFIC GRAVITY 2019-10-30 00:00:00 Johnie West [facility] >14 WEEKS US LIMITED 2019-10-23 20:17:29 Nichelle [facility] DSU PRE-OP 2019-10-23 05:01:00 Doctor Unass igned, [facility] POCT URINALYSIS W/O SPECIFIC GRAVITY 2019-10-23 00:00:00 [facility] URINALYSIS W/O SPECIFIC GRAVITY 2019-10-02 00:00:00 Nichelle [facility] SECOND AND THIRD TRIMESTER ULTRASOUND 2019-09-29 18:37:00 Nichelle [facility] POCT URINALYSIS W/O SPECIFIC GRAVITY 2019-09-18 00:00:00 Nichelle [facility] HEPATIC FUNCTION PANEL ([id number]) (ALB,T.PRO,BILI T,BU/BC,ALT,AST,ALK PHOS) 2019-09-15 20:00:00 Nichelle [facility] TDAP VACCINE, >11 YRS, IM 2019-09-04 18:23:20 Steward, [facility] STERILIZATION CONSENT FORM 2019-09-04 05:01:00 Doctor Unassigned, [facility] POCT URINALYSIS W/O SPECIFIC GRAVITY 2019-09-04 00:00:00 Nino Steward [facility] POCT URINALYSIS W/O SPECIFIC GRAVITY 2019-08-03 00:00:00 Nino Steward [facility] TEST IN QUESTION- MISSING REQUIRED INFO-Q 2019-07-14 18:43:00 Nino Steward [facility] SECOND AND THIRD TRIMESTER ULTRASOUND 2019-06-30 20:43:00 Nichelle [facility] SECOND AND THIRD TRIMESTER ULTRASOUND 2019-06-30 20:36:00 Nichelle [facility] SCANNED LAB RESULTS 2019-05-11 05:01:00 Doctor Gerardo hernández, [facility] POCT URINALYSIS W/O SPECIFIC GRAVITY 2019-05-04 16:17:00 Brandon Hoffmann [facility] EKG-12 LEAD 2019-04-11 20:40:53 Remedios [facility]omax [facility] RAPID STREP SCREEN FOR GROUP A 2019-04-11 20:07:00 Remedios Lomax [facility] ADC,CLC OR LCC ONLY - INFLUENZA A & B DIRECT ANTIGEN 2019-04-11 20:07:00 Remedios Lomax [facility] LIPASE 2019-04-11 19:43:00 Bryan Flores [facility] MAGNESIUM 2019-04-11 19:43:00 Remedios [facility]omax [facility] COMP. METABOLIC PANEL ([id number]) 2019-04-11 19:43:00 Bryan Flores [facility] CBC WITH DIFFERENTIAL 2019-04-11 19:43:00 Zack Flores [facility] URINALYSIS 2019-04-11 19:43:00 Bryan Flores [facility] POCT TEST 2019-04-11 19:43:00 Julio Flores [facility] CONSENT/REFUSAL FOR DIAGNOSIS AND TREATMENT 2019-04-11 19:10:19 Doctor Unassigned, [facility] FREE T4 2019-04-06 16:30:00 [facility]erva [facility]IM[facility] HORMONE 2019-04-06 16:30:00 Eugene Minerva Henry [facility] BASIC METABOLIC PANEL (NA, K, CL, CO2, GLUCOSE, BUN, CREATININE, CA) 2019-04-06 16:30:00 Eugene Minerva Henry [facility] POCT URINALYSIS W/O SPECIFIC GRAVITY 2019-04-06 15:57:00 Brandon Hoffmann [facility] POCT TEST 2019-03-30 19:19:00 Watson Hoffmann [facility] HIGH RISK HPV-THIN PREP 2019-03-30 17:38:00 Brandon Hoffmann [facility] LAB ONLY PAP SMEAR-LIQUID BASED 2019-03-30 17:38:00 Brandon Hoffmann [facility] POCT URINALYSIS W/O SPECIFIC GRAVITY 2019-03-30 16:33:00 Brandon Hoffmann [facility] ASSIGNMENT OF BENEFITS 2019-03-30 15:47:07 Docto r Unassigned, [facility] Encounters Start Date/Time End Date/Time Encounter Type Admission Type Attending Clinicians Care Facility Care Department Encounter ID Source 2023-10-26 15:27:01 [id number] [facility] 2023-10-22 15:01:00 Outpatient Jaylan [facility]afox [facility] [id number] [facility] 2023-08-20 15:14[facility]00 [facility] [id number] [facility] 2022-04-07 15:50:46 Outpatient [facility] [id number] [facility] 2022-03-18 22:30:55 Outpatient [facility] [id number] [facility] 2022-03-17 10:16:49 Outpatient [facility] [id number] [facility] 2020-12-28 01:25:28 Outpatient NINO COLLIER [facility] [id number] [facility] 2020-12-27 16:54:46 Outpatient P [facility] DEL [id number] [facility] 2024-06-23 00:00:00 2024-06-23 11:33:43 Telephone Yaima García [facility] 1.2840.114 350.1.13.10 4.2.7.2.686 [id number] [facility] 2024-06-03 00:00:00 2024-06-05 13:25:38 Refill Polo Balaji [facility] 1.2840.114 350.1.13.10 4.2.7.2.686 [id number] [facility] 2024-04-26 00:00:00 2024-05-27 18:14:03 Patient Secure Msg Eve Goncalves [facility] 1.2840.114 350.1.13.10 4.2.7.2.686 [id number] [facility] 2024-04-26 00:00:00 2024-04-27 08:04:25 Refill Marcel Trevino [facility] 1.2840.114 350.1.13.10 4.2.7.2.686 [id number] [facility] 2024-04-26 00:00:00 2024-04-26 15:01:59 Refill Yaima García [facility] 1.2840.114 350.1.13.10 4.2.7.2.686 [id number] [facility] 2024-04-26 00:00:00 2024-04-26 08:24:53 Patient Secure Msg Balaji Cuellar [facility] 1.2840.114 350.1.13.10 4.2.7.2.686 [id number] [facility] 2024-04-26 00:00:00 2024-04-26 08:22:01 Refill Jimbo Hansen [facility] 1.2840.114 350.1.13.10 4.2.7.2.686 [id number] [facility] 2023-08-25 00:00:00 2024-04-15 07:26:36 Orders Only Doctor Unassigned, [facility] Doctor Unassigned, [facility] ([facility]AC[facility]) 1.2840.114 350.1.13.10 4.2.7.2.686 [id number] [facility] 2024-04-12 00:00:00 2024-04-12 00:00:00 Refill Tyrone Jimbo Torres 1.2.840.1 [id number] 3.104.2.7 .[id number] [facility] 2024-03-23 08:58:43 2024-03-23 23:59:00 Outpatient R JIMBO HANSEN ALLYSON [facility] [id number] [facility] 2024-03-23 08:58:43 2024-03-23 23:59:00 Hospital Encounter Jimbo Hansen Alysa Clancy, Connor L Guidry, Kayla R 1.2.840.1 [id number] 3.104.2.7 .[id number] [facility] 2024-03-09 00:00:00 2024-03-09 11:49:37 Telephone MeansJimbo 1.2.840.1 [id number] 3.104.2.7 .[id number] [facility] 2024-03-08 00:00:00 2024-03-09 10:10:25 Telephone Crispin Jo 1.2.840.1 [id number] 3.104.2.7 .[id number] [id number] [facility] 2024-03-08 00:00:00 2024-03-08 09:06:21 Telephone Polo Adrianmarilyn 1.2.840.1 [id number] 3.104.2.7 .[id number] .[id number] [facility] 2024-02-08 09:05:00 2024-02-08 12:13:00 Emergency X DANIEL CANTU [facility] ERT [id number] [facility] 2024-02-08 09:05:00 2024-02-08 12:13:00 Emergency Daniel Cantu 1.2.840.1 [id number] 3.104.2.7 .3.110387 .8 [id number] [facility] 2024-02-08 00:00:00 2024-02-08 00:00:00 Travel 1.2.840.1 [id number] 3.104.2.7 .3.972638 .8 1.2.840.114 350.1.13.10 4.2.7.3.698 084.8 [id number] [facility] 2023-12-20 00:00:00 2024-01-22 18:25:55 Patient Secure Msg Balaji Cuellar [facility] 1.2.840.114 350.1.13.10 4.2.7.2.686 [id number] [facility] 2023-11-18 15:00:00 2023-11-18 15:00:00 Outpatient GABRIEL CASTELLANOS [facility] [id number] [facility] 2023-11-05 09:30:00 2023-11-05 09:30:00 Outpatient R RAQUEL YAIMA [facility] [id number] [facility] 2023-10-22 00:00:00 2023-10-22 00:00:00 (TEL) STLMLC STLMLC [id number] [facility] 2023-10-21 19:15:00 2023-10-21 23:26:00 Emergency X HUMPHREY CAO LAWRENCEMAGDALENA HUMPHREY [facility] ERT [id number] [facility] 2023-10-21 19:15:00 2023-10-21 23:26:00 Emergency Humphrey Cao [facility] 1.2.840.114 350.1.13.10 4.2.7.2.686 [id number] 084 [id number] [facility] 2023-08-26 00:00:00 2023-10-02 18:25:39 Patient Secure Msg Doctor Unassigned, [place] [facility] 1.2.840.114 350.1.13.10 4.2.7.2.686 [id number] 019 [id number] [facility] 2023-08-26 00:00:00 2023-10-02 18:25:35 Patient Secure Msg Doctor Unassigned, [place] [facility] 1.2.840.114 350.1.13.10 4.2.7.2.686 [id number] [facility] 2023-08-18 00:00:00 2023-09-13 11:41:52 Telephone Yaima García [facility]Y [facility] MEDICAL OFFICE BUILDING 1.2840.114 350.1.13.10 4.2.7.2.686 [id number] 044 [id number] [facility] 2023-08-28 00:00:00 2023-08-28 11:15:34 Letter (Out) Jaylan Palafox [facility] 1.2840.114 350.1.13.10 4.2.7.2.686 [id number] [id number] [facility] 2023-08-26 15:45:00 2023-08-26 16:30:00 Office Visit Jimbo Ribera [facility] MEDICAL OFFICE BUILDING 1.2840.114 350.1.13.10 4.2.7.2.686 [id number] [id number] [facility] 2023-08-26 15:45:00 2023-08-26 15:45:00 Outpatient Titi JO [facility] [id number] [facility] 2023-08-16 00:00:00 2023-08-23 08:53:35 Patient Secure Yaima Roberson [facility] MED[facility] OFF[facility] 1.84.114 350.1.13.10 4.2.7.2.686 [id number] 044 [id number] [facility] 2023-08-20 00:00:00 2023-08-20 00:00:00 OFFICE VISIT NEW PT LEVEL 4 STLMLC STLMLC [id number] [facility] 2023-08-19 18:08:00 2023-08-19 21:28:00 Emergency X KRISSMA, MEEK CHANDLER, ULISESAUNG [facility] ERT [id number] [facility] 2023-08-19 18:08:00 2023-08-19 21:28:00 Emergency Bharath, Yesenia-Dick Chandler, Meek S [facility] 1.2840.114 350.1.13.10 4.2.7.2.686 [id number] [facility] 2023-08-19 00:00:00 2023-08-19 14:27:13 Nurse Triage [facility] 1.840.114 350.1.13.10 4.2.7.2.686 [id number] [facility] 2023-08-13 09:30:00 2023-08-13 09:30:00 Outpatient R POLOADRIANMARILYN [facility] [id number] [facility] 2023-08-11 16:19:00 2023-08-12 13:30:00 Hospital Encounter Alma Ceja, Angie Smith, Karissa Farnsworth [facility] ([facility]) 1.2.840.114 350.1.13.10 4.2.7.2.686 [id number] [facility] 2023-08-11 08:28:10 2023-08-12 13:30:00 Outpatient R ALMA CEJA [facility] [id number] [facility] 2023-08-12 00:00:00 2023-08-12 11:49:40 Clinic Assessment Sacha Cuenca [facility] ([facility]) 1.2.840.114 350.1.13.10 4.2.7.2.686 [id number] [facility] 2023-07-27 12:00:00 2023-07-27 12:45:00 Office Visit Huey [facility] MEDICAL OFFICE BUILDING 1.2.840.114 350.1.13.10 4.2.7.2.686 [id number] 092 [id number] [facility] 2023-07-27 12:00:00 2023-07-27 12:00:00 Outpatient R HUEY [facility] [id number] [facility] 2023-06-22 00:00:00 2023-07-24 18:06:55 [facility] 1.2.840.114 350.1.13.10 4.2.7.2.686 [id number] [facility] 2023-07-23 00:00:00 2023-07-23 09:39:32 Patient Secure Msg Doctor Unassigned, [place] [facility] ([facility]) 1..840.114 350.1.13.10 4.2.7.2.686 [id number] [facility] 2023-07-21 09:00:00 2023-07-21 09:00:00 Outpatient R RAJIV HAND FNU [facility] [id number] [facility] 2023-07-06 00:00:00 2023-07-06 15:49:57 Telephone Dayna Munoz 1..840.114 350.1.13.10 4.2.7.2.686 [id number] [id number] [facility] 2023-07-05 08:30:00 2023-07-05 09:02:05 Outpatient R YAIMA GARCÍA [facility] [id number] [facility] 2023-07-05 08:30:00 2023-07-05 09:02:05 Office Visit Yaima García [facility]SHAYY BABARJACEK MEDICAL OFFICE BUILDING 1.2.840.114 350.1.13.10 4.2.7.2.686 [id number] [id number] [facility] 2023-06-29 00:00:00 2023-06-29 00:00:00 Patient Outreach Medina Lester 1..840.114 350.1.13.10 4.2.7.2.686 [id number] [facility] 2023-06-24 10:30:00 2023-06-24 23:59:00 Outpatient R EVE GONCALVES MUHAMMAD [facility] [id number] [facility] 2023-06-24 08:36:43 2023-06-24 23:59:00 Hospital Encounter Eve Goncalves [facility] ([facility]) 1.2.840.114 350.1.13.10 4.2.7.2.686 [id number] [facility] 2023-06-21 15:31:36 2023-06-21 23:59:00 [facility] [id number] [facility] 2023-06-21 15:31:36 2023-06-21 23:59:00 Hospital Encounter Polo [facility] 1.2.840.114 350.1.13.10 4.2.7.2.686 [id number] [facility] 2023-06-15 00:00:00 2023-06-15 00:00:00 Patient Outreach Yaquelin Escalante 1.2.840.114 350.1.13.10 4.2.7.2.686 [id number] [facility] 2023-06-11 11:15:00 2023-06-11 11:30:00 Metallurgical Tester Visit FranciscoJ, [facility] Polo [facility] MEDICAL OFFICE BUILDING 1.2840.114 350.1.13.10 4.2.7.2.686 [id number] [facility] 2023-06-11 09:30:00 2023-06-11 10:12:15 [facility] [id number] [facility] 2023-06-11 09:30:00 2023-06-11 10:12:15 Office Visit Polo [facility] OFFICE BUILDING 1.2840.114 350.1.13.10 4.2.7.2.686 [id number] [facility] 2023-06-08 09:45:00 2023-06-08 10:00:00 Metallurgical Tester Visit Pcp-Marcel Guidry [facility] 1.2840.114 350.1.13.10 4.2.7.2.686 [id number] [facility] 2023-06-08 09:15:00 2023-06-08 09:35:24 Outpatient R MARCEL TREVINO LAURA [facility] [id number] [facility] 2023-06-08 09:15:00 2023-06-08 09:35:24 Office Visit Marcel Trevino [facility] 1.2840.114 350.1.13.10 4.2.7.2.686 [id number] [id number] [facility] 2023-06-08 00:00:00 2023-06-08 00:00:00 Patient Secure Msg Gabriel Pelayo [facility] 1.840.114 350.1.13.10 4.2.7.2.686 [id number] [id number] [facility] 2023-06-08 00:00:00 2023-06-08 00:00:00 Patient Secure Msg Marcel Trevino [facility] 1.2840.114 350.1.13.10 4.2.7.2.686 [id number] [id number] [facility] 2023-06-01 00:00:00 2023-06-01 00:00:00 Patient Secure Msg Vitaliy Goncalvesap Perezan [facility] MEDICAL OFFICE BUILDING 1.840.114 350.1.13.10 4.2.7.2.686 [id number] [facility] 2023-06-01 00:00:00 2023-06-01 00:00:00 Patient Outreach Medina Lester 1.840.114 350.1.13.10 4.2.7.2.686 [id number] [facility] 2023-05-27 15:00:00 2023-05-27 15:30:00 Office Visit Balaji Cuellar [facility] MEDICAL OFFICE BUILDING 1.2.840.114 350.1.13.10 4.2.7.2.686 [id number] [id number] [facility] 2023-05-27 15:00:00 2023-05-27 15:00:00 Outpatient R POLO [facility] [id number] [facility] 2023-05-27 10:00:00 2023-05-27 11:05:27 Office Visit Eve Goncalveseshan [facility] MEDICAL OFFICE BUILDING 1.2.840.114 350.1.13.10 4.2.7.2.686 [id number] [id number] [facility] 2023-05-27 00:00:00 2023-05-27 00:00:00 Telephone Balaji Cuellar [facility] MEDICAL OFFICE BUILDING 1.2.840.114 350.1.13.10 4.2.7.2.686 [id number] 092 [id number] [facility] 2023-05-12 00:00:00 2023-05-12 00:00:00 Telephone Gabriel Pelayo [facility] 1.2840.114 350.1.13.10 4.2.7.2.686 [id number] [id number] [facility] 2023-05-07 00:00:00 2023-05-07 00:00:00 Telephone Gabriel Pelayo [facility] 1.2840.114 350.1.13.10 4.2.7.2.686 [id number] [id number] [facility] 2023-04-26 11:36:00 2023-04-26 14:36:00 Emergency X BALTA CRABTREE [facility] ERT [id number] [facility] 2023-04-26 11:36:00 2023-04-26 14:36:00 Emergency Balta Crabtree [facility] 1.2840.114 350.1.13.10 4.2.7.2.686 [id number] [id number] [facility] 2023-04-19 00:00:00 2023-04-19 00:00:00 Patient Outreach Marcel Villa [facility]?SHAYY [facility] MEDICAL OFFICE BUILDING 1.20.114 350.1.13.10 4.2.7.2.686 [id number] [id number] [facility] 2023-04-13 00:00:00 2023-04-13 00:00:00 Telephone Salazarvalerie Yaima [facility]?SHAYY [facility] MEDICAL OFFICE BUILDING 1.0.114 350.1.13.10 4.2.7.2.686 [id number] [facility] 2023-04-12 14:44:00 2023-04-12 21:54:00 Emergency X MEEK CHANDLER [facility] ERT [id number] [facility] 2023-04-12 14:44:00 2023-04-12 21:54:00 Emergency Jordyn Adams Wakili S [facility] 1.20.114 350.1.13.10 4.2.7.2.686 [id number] [facility] 2023-03-07 15:31:00 2023-03-07 17:49:00 Emergency X ЕЛЕНА RAYMOND [facility] ERT [id number] [facility] 2023-03-07 15:31:00 2023-03-07 17:49:00 Emergency Елена Raymond [facility] 1.20.114 350.1.13.10 4.2.7.2.686 [id number] [facility] 2023-02-11 09:15:00 2023-02-11 09:15:00 Outpatient R ALICIA PATEL [facility] [id number] [facility] 2023-01-25 10:45:00 2023-01-25 10:45:00 Outpatient R [facility] [id number] [facility] 2023-01-07 15:00:00 2023-01-07 15:00:00 Outpatient R WELCH-ADITI S, KATARZYNA WELCH-ADITI S, KATARZYNA [facility] [id number] [facility] 2022-11-17 00:00:00 2022-11-17 00:00:00 Patient Outreach Beatriz Grayson [facility] NAL BUILDING 1.2.840.114 350.1.13.10 4.2.7.2.686 [id number] [id number] [facility] 2022-11-12 00:00:00 2022-11-12 00:00:00 Patient Secure Msg Yaima García [facility] MEDICAL OFFICE BUILDING 1.2.840.114 350.1.13.10 4.2.7.2.686 [id number] 044 [id number] [facility] 2022-11-12 00:00:00 2022-11-12 00:00:00 Patient Secure Msg Doctor Unassigned, [place] [facility] MEDICAL OFFICE BUILDING 1.2.840.114 350.1.13.10 4.2.7.2.686 [id number] [id number] [facility] 2022-10-22 13:00:00 2022-10-22 14:00:00 Office Visit SachaEve tenorio [facility] MEDICAL OFFICE BUILDING 1.2.840.114 350.1.13.10 4.2.7.2.686 [id number] [facility] 2022-10-22 13:00:00 2022-10-22 13:00:00 Outpatient R EVE GONCALVES MUHAMMAD [facility] [id number] [facility] 2022-10-12 15:30:00 2022-10-12 16:53:53 Outpatient R YAIMA GARCÍA [facility] [id number] [facility] 2022-10-12 15:30:00 2022-10-12 16:53:53 Office Visit Yaima García [facility] MEDICAL OFFICE BUILDING 1..840.114 350.1.13.10 4.2.7.2.686 [id number] [id number] [facility] 2022-10-12 00:00:00 2022-10-12 00:00:00 Letter (Out) Yaima García [facility]?SHAYY [facility] MEDICAL OFFICE BUILDING 1..840.114 350.1.13.10 4.2.7.2.686 [id number] [id number] [facility] 2022-10-12 00:00:00 2022-10-12 00:00:00 Patient Secure Msg Doctor Unassigned, [place] [facility] MEDICAL OFFICE BUILDING 1..840.114 350.1.13.10 4.2.7.2.686 [id number] [id number] [facility] 2022-10-09 08:40:00 2022-10-09 09:32:58 Outpatient R NERI VELEZ HOWARD [facility] [id number] [facility] 2022-10-09 08:40:00 2022-10-09 09:32:58 Office Visit Neri Velez [facility]Y [facility] MEDICAL OFFICE BUILDING 1..840.114 350.1.13.10 4.2.7.2.686 [id number] [id number] [facility] 2022-10-09 00:00:00 2022-10-09 00:00:00 Patient Secure Msg Doctor Unassigned, [place] [facility] MEDICAL OFFICE BUILDING 1.2.840.114 350.1.13.10 4.2.7.2.686 [id number] [facility] 2022-10-07 00:00:00 2022-10-07 00:00:00 Telephone Neri Velez [facility] MEDICAL OFFICE BUILDING 1..840.114 350.1.13.10 4.2.7.2.686 [id number] [id number] [facility] 2022-10-06 13:46:02 2022-10-06 23:59:00 Outpatient NERI LOERA NERI [facility] [id number] [facility] 2022-10-06 13:46:02 2022-10-06 23:59:00 Hospital Encounter Neri Velez [facility] 1..840.114 350.1.13.10 4.2.7.2.686 [id number] [facility] 2022-10-01 11:30:00 2022-10-01 11:30:00 Outpatient GABRIEL CASTELLANOS [facility] [id number] [facility] 2022-09-29 17:48:00 2022-09-29 21:10:00 Emergency X JORDYN ADAMS [facility] ERT [id number] [facility] 2022-09-29 17:48:00 2022-09-29 21:10:00 Emergency Jordyn Adams [facility] 1.2.840.114 350.1.13.10 4.2.7.2.686 [id number] [facility] 2022-08-28 09:00:00 2022-08-28 09:00:00 Outpatient YAIMA SEAY [facility] [id number] [facility] 2022-08-26 13:20:00 2022-08-26 13:20:00 Outpatient GAGE CARPENTER LEAH [facility] [id number] [facility] 2022-08-16 00:00:00 2022-08-16 00:00:00 Bhanu Akins [facility]?SHAYY [facility] MEDICAL OFFICE BUILDING 1.84.114 350.1.13.10 4.2.7.2.686 [id number] [facility] 2022-08-07 16:00:00 2022-08-07 16:00:00 Outpatient DARA FOSTER [facility] [id number] [facility] 2022-08-06 15:30:00 2022-08-06 15:30:00 Outpatient GABRIEL CASTELLANOS [facility] [id number] [facility] 2022-07-17 00:00:00 2022-07-17 00:00:00 Patient Secure Msg Doctor Unassigned, [place] [facility] 1.114 350.1.13.10 4.2.7.2.686 [id number] [facility] 2022-07-10 12:15:00 2022-07-10 12:30:00 Metallurgical Tester Visit Lab, Ang - Db Raquel [facility] MEDICAL OFFICE BUILDING 1.84.114 350.1.13.10 4.2.7.2.686 [id number] [facility] 2022-07-10 11:30:00 2022-07-10 12:06:54 Office Visit RaquelYaima [facility]?SHAYY [facility] MEDICAL OFFICE BUILDING 1.84.114 350.1.13.10 4.2.7.2.686 [id number] [id number] [facility] 2022-07-10 08:00:00 2022-07-10 09:21:36 Outpatient R NERI VELEZ HOWARD [facility] [id number] [facility] 2022-07-10 08:00:00 2022-07-10 09:21:36 Office Visit [facility]elez [facility] MEDICAL OFFICE BUILDING 1.840.114 350.1.13.10 4.2.7.2.686 [id number] [facility] 2022-06-11 00:00:00 2022-06-11 00:00:00 Patient Secure Msg Doctor Unassigned, [place] [facility] 1.840.114 350.1.13.10 4.2.7.2.686 [id number] [facility] 2022-06-10 11:30:00 2022-06-10 12:10:22 Outpatient R YAIMA GARCÍA [facility] [id number] [facility] 2022-06-10 11:30:00 2022-06-10 12:10:22 Office Visit Raquel Yaima [facility]?SHAYY [facility] MEDICAL OFFICE BUILDING 1.840.114 350.1.13.10 4.2.7.2.686 [id number] [id number] [facility] 2022-06-08 12:50:00 2022-06-08 15:42:00 Emergency X BRYAN FLORES [facility] ERT [id number] [facility] 2022-06-08 12:50:00 2022-06-08 15:42:00 Emergency Bryan Flores [facility] 1.840.114 350.1.13.10 4.2.7.2.686 [id number] [id number] [facility] 2022-06-08 00:00:00 2022-06-08 00:00:00 Patient Secure Msg SalazarYaima padilla [facility] MEDICAL OFFICE BUILDING 1.114 350.1.13.10 4.2.7.2.686 [id number] 044 [id number] [facility] 2022-06-04 09:00:00 2022-06-04 09:15:32 Outpatient R ARMANI GABRIEL [facility] [id number] [facility] 2022-06-04 09:00:00 2022-06-04 09:15:32 Office Visit Gabriel Pelayo [facility]PEC [facility] 1.114 350.1.13.10 4.2.7.2.686 [id number] [facility] 2022-05-29 08:30:00 2022-05-29 09:02:45 Outpatient R YAIMA GARCÍA [facility] [id number] [facility] 2022-05-29 08:30:00 2022-05-29 09:02:45 Office Visit Yaima García [facility] MEDICAL OFFICE BUILDING 1.84114 350.1.13.10 4.2.7.2.686 [id number] 044 [id number] [facility] 2022-05-26 14:40:00 2022-05-26 15:01:52 Outpatient R GAGE BAER LEAH [facility] [id number] [facility] 2022-05-26 14:40:00 2022-05-26 15:01:52 Office Visit Gage Baer [facility] MULTISPEC [facility] 1.114 350.1.13.10 4.2.7.2.686 [id number] [facility] 2022-05-26 00:00:00 2022-05-26 00:00:00 Patient Secure Msg Gabriel Pelayo [facility]PEC [facility] 1..114 350.1.13.10 4.2.7.2.686 [id number] [id number] [facility] 2022-05-26 00:00:00 2022-05-26 00:00:00 Telephone Gage Baer [facility] M[facility]PEC [facility] 1..114 350.1.13.10 4.2.7.2.686 [id number] [facility] 2022-05-25 13:30:00 2022-05-25 13:30:00 Outpatient MELYSSA CONTRERAS [facility] [id number] [facility] 2022-05-18 00:00:00 2022-05-18 00:00:00 Refill Yaima García [facility] JULEE CHANG?[facility]Y [facility] MEDICAL OFFICE BUILDING 1.114 350.1.13.10 4.2.7.2.686 [id number] [id number] [facility] 2022-05-03 00:00:00 2022-05-03 00:00:00 Patient Secure Msg Doctor Unassigned, [place] [facility] 1..114 350.1.13.10 4.2.7.2.686 [id number] [facility] 2022-04-30 12:30:00 2022-04-30 12:45:00 Metallurgical Tester Visit Lab, [facility] Gabriel Pelayo [facility] 1..114 350.1.13.10 4.2.7.2.686 [id number] [facility] 2022-04-30 12:00:00 2022-04-30 12:15:00 Metallurgical Tester Visit [facility] 1.114 350.1.13.10 4.2.7.2.686 [id number] [facility] 2022-04-30 11:00:00 2022-04-30 11:30:19 Outpatient R GABRIEL PELAYO [facility] [id number] [facility] 2022-04-30 11:00:00 2022-04-30 11:30:19 Office Visit ArmaniGabriel Georgina [facility] 1.0.114 350.1.13.10 4.2.7.2.686 [id number] [facility] 2022-04-29 16:30:00 2022-04-29 16:45:00 Metallurgical Tester Visit Lab, [facility] 1.840.114 350.1.13.10 4.2.7.2.686 [id number] [facility] 2022-04-29 14:30:00 2022-04-29 14:59:15 Outpatient R [facility] [id number] [facility] 2022-04-29 14:30:00 2022-04-29 14:59:15 Office Visit StephenJean Marie [facility] 1..114 350.1.13.10 4.2.7.2.686 [id number] [facility] 2022-04-29 00:00:00 2022-04-29 00:00:00 Orders Only Doctor Unassigned, [facility] 1..114 350.1.13.10 4.2.7.2.686 [id number] [facility] 2022-04-28 14:50:00 2022-04-28 14:50:00 Outpatient JYOTI ESTEBAN [facility] [id number] [facility] 2022-04-23 16:45:00 2022-04-23 17:00:00 Metallurgical Tester Visit Lab, Yaima Ray [facility] 1.2.84.114 350.1.13.10 4.2.7.2.686 [id number] [facility] 2022-04-23 16:45:00 2022-04-23 16:45:00 Outpatient R RAQUEL YAIMA [facility] [id number] [facility] 2022-04-22 00:00:00 2022-04-22 00:00:00 [facility]On [facility] 1.84.114 350.1.13.10 4.2.7.2.686 [id number] [facility] 2022-04-22 00:00:00 2022-04-22 00:00:00 Telephone [facility] 1.84.114 350.1.13.10 4.2.7.2.686 [id number] [facility] 2022-04-21 17:00:00 2022-04-21 17:15:00 Metallurgical Tester Visit Lab, Ilya García [facility] OFF[facility]ILD[facility] 1.84.114 350.1.13.10 4.2.7.2.686 [id number] [facility] 2022-04-21 16:00:00 2022-04-21 16:55:46 Outpatient R RAQUEL YAIMA [facility] [id number] [facility] 2022-04-21 16:00:00 2022-04-21 16:55:46 [facility] 1.84.114 350.1.13.10 4.2.7.2.686 [id number] [facility] 2022-04-20 14:30:00 2022-04-20 14:30:00 Outpatient R YAIMA GARCÍA [facility] [id number] [facility] 2022-04-06 00:00:00 2022-04-06 00:00:00 Telephone Yaima García [facility] 1.2.840.114 350.1.13.10 4.2.7.2.686 [id number] [facility] 2022-04-01 00:00:00 2022-04-01 00:00:00 Patient Secure Msg Airam Bueno [facility] 1.2840.114 350.1.13.10 4.2.7.2.686 [id number] [facility] 2022-03-31 00:00:00 2022-03-31 00:00:00 Patient Secure Msg Doctor Unassigned, [facility] 1.2840.114 350.1.13.10 4.2.7.2.686 [id number] [facility] 2022-03-27 00:00:00 2022-03-27 00:00:00 Telephone Yaima García [facility] 1.2.840.114 350.1.13.10 4.2.7.2.686 [id number] [facility] 2022-03-27 00:00:00 2022-03-27 00:00:00 Patient Secure Msg Yaima García [facility] 1.840.114 350.1.13.10 4.2.7.2.686 [id number] [facility] 2022-03-25 18:57:00 2022-03-25 21:48:00 Emergency X CHARLES DESOUZA [facility] ERT [id number] [facility] 2022-03-25 18:57:00 2022-03-25 21:48:00 Emergency Charles Desouza [facility] 1.2840.114 350.1.13.10 4.2.7.2.686 [id number] [facility] 2022-03-25 00:00:00 2022-03-25 00:00:00 Orders Only Doctor Unassigned, [place] 1.2840.114 350.1.13.10 4.2.7.2.686 [id number] [facility] 2022-03-23 14:45:00 2022-03-23 15:22:45 Outpatient R YAIMA GARCÍA [facility] [id number] [facility] 2022-03-23 14:45:00 2022-03-23 15:00:00 Metallurgical Tester Visit Lab, Ilya - Tejas García [facility] MED[facility] OFF[facility] BUILD[facility] 1.2840.114 350.1.13.10 4.2.7.2.686 [id number] [facility] 2022-03-23 13:30:00 2022-03-23 14:18:39 Office Visit Raquel Yaima [facility] MED[facility] OFF[facility] BUILD[facility] 1.2840.114 350.1.13.10 4.2.7.2.686 [id number] [facility] 2022-02-25 00:00:00 2022-02-25 00:00:00 Patient Secure Msg Raquel [facility] MEDICAL OFFICE BUILDING 1.2840.114 350.1.13.10 4.2.7.2.686 [id number] 044 [id number] [facility] 2022-02-24 00:00:00 2022-02-24 00:00:00 Orders Only Doctor Unassigned, [place] [facility] 1.2840.114 350.1.13.10 4.2.7.2.686 [id number] [id number] [facility] 2021-12-30 09:00:00 2021-12-30 09:00:00 Outpatient R REGINALD DUKE [facility] [id number] [facility] 2021-12-12 15:30:00 2021-12-12 15:30:00 Outpatient R YAIMA GARCÍA [facility] [id number] [facility] 2021-12-11 16:40:00 2021-12-11 17:00:00 Urgent Care Bhavya Lindsey Unknown, Attending [facility] MEDICAL OFF[facility] BUILDING 1.84114 350.1.13.10 4.2.7.2.686 [id number] [facility] 2021-12-11 16:40:00 2021-12-11 16:40:00 Outpatient R BHAVYA LINDSEY [facility] [id number] [facility] 2021-12-11 00:00:00 2021-12-11 00:00:00 Orders Only Doctor Unassigned, [place] [facility] 1.114 350.1.13.10 4.2.7.2.686 [id number] [facility] 2021-12-11 00:00:00 2021-12-11 00:00:00 Letter (Out) [facility] MEDICAL OFFICE BUILDING 1.84114 350.1.13.10 4.2.7.2.686 [id number] [facility] 2021-12-09 00:00:00 2021-12-09 00:00:00 Patient Secure Msg Yaima García [facility] MEDICAL OFF[facility] BUILDING 1.84114 350.1.13.10 4.2.7.2.686 [id number] [facility] 2021-12-05 00:00:00 2021-12-05 00:00:00 Telephone SalazarRadha padillaie [facility] N[facility] BU[facility] 1.2.840.114 350.1.13.10 4.2.7.2.686 [id number] [facility] 2021-12-03 16:00:00 2021-12-03 16:28:37 Outpatient R YAIMA GARCÍA [facility] [id number] [facility] 2021-12-03 16:00:00 2021-12-03 16:15:00 Metallurgical Tester Visit Lab, Ilya - Tejas García [facility] license [facility]ATAValerie [facility] OFFICE BUILDING 1.2.840.114 350.1.13.10 4.2.7.2.686 [id number] [facility] 2021-12-03 15:00:00 2021-12-03 15:00:00 Outpatient R SALAZARRADHA PadillaIE [facility] [id number] [facility] 2021-12-02 16:30:00 2021-12-02 17:09:36 Outpatient R RAQUEL YAIMA [facility] [id number] [facility] 2021-12-02 16:30:00 2021-12-02 17:09:36 Office Visit Raquel [facility] MEDICAL OFFICE BUILD[facility] 1..840.114 350.1.13.10 4.2.7.2.686 [id number] [facility] 2021-08-27 00:00:00 2021-08-27 00:00:00 Orders Only Doctor Unassigned, [place] [facility] 1.2.840.114 350.1.13.10 4.2.7.2.686 [id number] [facility] 2021-08-03 23:08:00 2021-08-04 01:15:00 Emergency X MEEK CHANDLER [facility] ERT [id number] [facility] 2021-08-03 23:08:00 2021-08-04 01:15:00 Emergency Meek Chandler [facility] [place] 1.20.114 350.1.13.10 4.2.7.2.686 [id number] [facility] 2021-07-27 12:39:00 2021-07-27 16:27:00 Emergency Carlotta MARLA HOFFMANN [facility] ERT [id number] [facility] 2021-07-27 12:39:00 2021-07-27 16:27:00 Emergency Marla Hoffmann [facility] 1.284.114 350.1.13.10 4.2.7.2.686 [id number] [facility] 2021-03-19 10:30:00 2021-03-19 10:30:00 Outpatient BURKE TOSCANO [facility] [id number] [facility] 2021-03-12 13:00:00 2021-03-12 13:00:00 Outpatient BRUKE TOSCANO [facility] [id number] [facility] 2021-03-12 00:00:00 2021-03-12 00:00:00 Patient Secure Msg Doctor Unassigned, [place] [facility] 1.114 350.1.13.10 4.2.7.2.686 [id number] [facility] 2021-03-10 00:00:00 2021-03-10 00:00:00 [address]iles [facility] [place] 1.2.114 350.1.13.10 4.2.7.2.686 [id number] [facility] 2021-03-10 00:00:00 2021-03-10 00:00:00 Patient Secure Msg Doctor Unassigned, [place] [facility] 1.2.114 350.1.13.10 4.2.7.2.686 [id number] [facility] 2021-03-09 15:00:00 2021-03-09 20:35:09 Outpatient R CALLI FROST [facility] [id number] [facility] 2021-03-09 15:00:00 2021-03-09 15:20:00 Urgent Care Calli Frost Unknown, Attending [facility] MEDICAL OFFICE BUILDING 1.840.114 350.1.13.10 4.2.7.2.686 [id number] [facility] 2021-03-08 14:59:00 2021-03-08 18:11:00 Emergency X JORDYN ADAMS [facility] ERT [id number] [facility] 2021-03-08 14:59:00 2021-03-08 18:11:00 Emergency Jordyn Adams G [facility] .840.114 350.1.13.10 4.2.7.2.686 [id number] [facility] 2021-03-07 09:56:00 2021-03-07 10:35:00 Emergency X MADELINE LINDA [facility] ERT [id number] [facility] 2021-03-07 09:56:00 2021-03-07 10:35:00 Emergency CorreaLinda R [facility] 1.840.114 350.1.13.10 4.2.7.2.686 [id number] [facility] 2021-03-03 19:40:00 2021-03-03 20:05:34 Outpatient Titi WILSON FELICITAS [facility] [id number] [facility] 2021-03-03 19:40:00 2021-03-03 20:05:34 Urgent Care Raciel Preston [facility] MEDICAL OFFICE BUILDING 1.114 350.1.13.10 4.2.7.2.686 [id number] [facility] 2021-02-24 14:45:00 2021-02-24 15:00:00 Laboratory Only Only, Ang Db Test [facility] CH[facility] MEDICAL OFFICE BUILDING 1.114 350.1.13.10 4.2.7.2.686 [id number] [facility] 2021-02-24 14:45:00 2021-02-24 14:45:00 Outpatient R [facility] [id number] [facility] 2020-10-19 00:00:00 2020-10-19 00:00:00 Letter (Out) Cass Carrillo [facility] 1.114 350.1.13.10 4.2.7.2.686 [id number] [facility] 2020-10-17 20:30:00 2020-10-17 20:30:00 Outpatient R CALLI FROST [facility] [id number] [facility] 2020-10-17 00:00:00 2020-10-17 00:00:00 Orders Only Doctor Unassigned, [place] [facility] 1.114 350.1.13.10 4.2.7.2.686 [id number] [facility] 2020-06-06 14:00:00 2020-06-06 14:00:00 Outpatient R JOHNIE WEST [facility] [id number] [facility] 2020-05-21 00:00:00 2020-05-21 00:00:00 Patient Outreach Mohamud Vallejo [facility] 1.114 350.1.13.10 4.2.7.2.686 [id number] [facility] 2020-01-16 15:00:00 2020-01-16 15:00:00 Outpatient R NINO STEWARD [facility] [id number] [facility] 2020-01-02 09:07:00 2020-01-02 11:53:00 Hospital Encounter Nino Steward [facility] 1.2.114 350.1.13.10 4.2.7.2.686 [id number] [facility] 2020-01-01 15:23:24 2020-01-01 15:38:24 Metallurgical Tester Visit Pob, Adc Lab Main Nino Steward [facility] 1.2.114 350.1.13.10 4.2.7.2.686 [id number] [facility] 2020-01-01 15:19:55 2020-01-01 15:34:55 Laboratory Only Only, Adc Test Nino Steward [facility] 1..114 350.1.13.10 4.2.7.2.686 [id number] [facility] 2020-01-01 15:00:00 2020-01-01 15:00:00 Outpatient R [facility] [id number] [facility] 2019-12-25 13:07:29 2019-12-26 11:28:31 Office Visit Nino Steward [facility] Building 1.284.114 350.1.13.10 4.2.7.2.686 [id number] [facility] 2019-12-25 13:00:00 2019-12-25 13:00:00 Outpatient R NINO STEWARD [facility] [id number] [facility] 2019-12-25 00:00:00 2019-12-25 00:00:00 Prep For Surgery Nino Steward [facility] 1.284.114 350.1.13.10 4.2.7.2.686 [id number] [facility] 2019-12-20 15:15:00 2019-12-20 15:15:00 Outpatient R NINO STEWARD [facility] [id number] [facility] 2019-12-07 15:10:26 2019-12-07 15:25:26 Metallurgical Tester Visit 2, [facility] 1.2.840.114 350.1.13.10 4.2.7.2.686 [id number] [facility] 2019-12-07 14:20:08 2019-12-07 14:35:08 Routine Visit Jenna [facility] 1.2840.114 350.1.13.10 4.2.7.2.686 [id number] [facility] 2019-12-07 14:30:00 2019-12-07 14:30:00 Outpatient R [facility]ENNA [facility] [id number] [facility] 2019-11-13 04:21:00 2019-11-14 17:00:00 Hospital Encounter Nino Steward [facility] 1.2840.114 350.1.13.10 4.2.7.2.686 [id number] [facility] 2019-11-13 00:00:00 2019-11-13 00:00:00 Orders Only Doctor Unassigned, [place] [facility] 1.2.840.114 350.1.13.10 4.2.7.2.686 [id number] [id number] [facility] 2019-11-10 14:47:13 2019-11-10 15:02:13 Laboratory Only Only, Adc Test Nino Steward [facility] 1.2840.114 350.1.13.10 4.2.7.2.686 [id number] [facility] 2019-11-10 14:30:00 2019-11-10 14:30:00 Outpatient R [facility] [id number] [facility] 2019-11-10 00:00:00 2019-11-10 00:00:00 Orders Only Doctor Unassigned, [place] [facility] 1.114 350.1.13.10 4.2.7.2.686 [id number] [facility] 2019-11-09 13:21:53 2019-11-09 13:36:53 Routine Visit Nino Steward [facility] 1.114 350.1.13.10 4.2.7.2.686 [id number] [facility] 2019-11-09 13:15:00 2019-11-09 13:15:00 Outpatient R NICHELLE NINO [facility] [id number] [facility] 2019-11-09 00:00:00 2019-11-09 00:00:00 Orders Only Doctor Unassigned, [place] [facility] 1.114 350.1.13.10 4.2.7.2.686 [id number] [id number] [facility] 2019-10-30 14:35:36 2019-10-30 15:18:08 [facility] 1.284.114 350.1.13.10 4.2.7.2.686 [id number] [facility] 2019-10-30 14:30:00 2019-10-30 14:30:00 [facility] [id number] 2019-10-23 14:42:21 2019-10-23 14:57:21 Metallurgical Tester Visit 2, Adc Lab StewardNino [facility] Building 1.2.840.114 350.1.13.10 4.2.7.2.686 [id number] [facility] 2019-10-23 13:40:06 2019-10-23 14:36:23 Routine Visit Nino Steward [facility] 1..114 350.1.13.10 4.2.7.2.686 [id number] 134 [id number] [facility] 2019-10-23 13:45:00 2019-10-23 13:45:00 Outpatient R NINO STEWARD [facility] [id number] [facility] 2019-10-23 00:00:00 2019-10-23 00:00:00 Orders Only Doctor Unassigned, [place] [facility] 1..114 350.1.13.10 4.2.7.2.686 [id number] [facility] 2019-10-16 14:30:00 2019-10-16 14:30:00 Outpatient R [facility] [id number] [facility] 2019-10-16 07:37:52 2019-10-16 08:07:52 Telemedici ne Visit Faculty, Raymundo Gomez [facility] 1..114 350.1.13.10 4.2.7.2.686 [id number] [facility] 2019-10-11 15:19:57 2019-10-11 16:52:13 [facility] [address] ..114 350.1.13.10 4.2.7.2.686 [id number] [facility] 2019-10-11 15:00:00 2019-10-11 15:00:00 Outpatient R NAYELI CORONADO [facility] [id number] [facility] 2019-10-05 11:30:00 2019-10-05 11:30:00 Outpatient R ANETA ALTMAN [facility] [id number] [facility] 2019-10-02 15:31:41 2019-10-02 16:12:49 Routine Visit Nino Steward [facility] 1..114 350.1.13.10 4.2.7.2.686 [id number] [facility] 2019-10-02 15:45:00 2019-10-02 15:45:00 Outpatient R NINO STEWARD [facility] [id number] [facility] 2019-09-29 12:42:55 2019-09-29 13:43:57 Metallurgical Tester Visit 1, [facility] Us Room [facility] 1.114 350.1.13.10 4.2.7.2.686 [id number] [facility] 2019-09-29 13:00:00 2019-09-29 13:00:00 Outpatient P [facility] [id number] [facility] 2019-09-26 00:00:00 2019-09-26 00:00:00 Telephone Lance Dang [facility] 1.114 350.1.13.10 4.2.7.2.686 [id number] [facility] 2019-09-25 00:00:00 2019-09-25 00:00:00 Patient Secure Msg Doctor Unassigned, [place] [facility] 1..114 350.1.13.10 4.2.7.2.686 [id number] [facility] 2019-09-25 00:00:00 2019-09-25 00:00:00 Patient Secure Msg Nino Steward [facility] BUILDING 1..114 350.1.13.10 4.2.7.2.686 [id number] 134 [id number] [facility] 2019-09-25 00:00:00 2019-09-25 00:00:00 Telephone Aneta Altman [facility] Medical Office Building 1.2.840.114 350.1.13.10 4.2.7.2.686 [id number] [id number] [facility] 2019-09-18 13:26:49 2019-09-22 12:44:17 Routine Visit Johnie West Nino Steward [facility] Building 1.2.840.114 350.1.13.10 4.2.7.2.686 [id number] 134 [id number] [facility] 2019-09-22 00:00:00 2019-09-22 00:00:00 Case Management Nino Steward [facility] Building 1.2.840.114 350.1.13.10 4.2.7.2.686 [id number] 134 [id number] [facility] 2019-09-18 13:15:00 2019-09-18 13:15:00 [id number] 2019-09-15 14:49:05 2019-09-15 15:04:05 Metallurgical Tester Visit 2, Adc Lab Nino Steward [facility] Building 1.2.840.114 350.1.13.10 4.2.7.2.686 [id number] [facility] 2019-09-15 14:30:00 2019-09-15 14:30:00 Outpatient R [facility] [id number] [facility] 2019-09-14 00:00:00 2019-09-14 00:00:[address] [facility] Building 1.2.840.114 350.1.13.10 4.2.7.2.686 [id number] 134 [id number] [facility] 2019-09-11 12:51:47 2019-09-11 15:14:27 Office Visit Agapito [facility] Medical Office Building 1.2.840.114 350.1.13.10 4.2.7.2.686 [id number] [facility] 2019-09-11 13:00:00 2019-09-11 13:00:[address] [facility] [id number] [facility] 2019-09-11 00:00:00 2019-09-11 00:00:00 Letter (Out) Agapito [facility] Medical Office Building 1.2.840.114 350.1.13.10 4.2.7.2.686 [id number] [facility] 2019-09-04 14:18:40 2019-09-04 14:33:40 Metallurgical Tester Visit 2, Adc Lab [facility] 1.2.840.114 350.1.13.10 4.2.7.2.686 [id number] [facility] 2019-09-04 13:01:09 2019-09-04 13:55:21 Routine Visit Johnie West [facility] Building 1.2.840.114 350.1.13.10 4.2.7.2.686 [id number] 134 [id number] [facility] 2019-09-04 13:00:00 2019-09-04 13:00:00 Outpatient R NICHELLE [facility] [id number] [facility] 2019-09-04 00:00:00 2019-09-04 00:00:00 Orders Only Doctor Unassigned, [place] [facility] 1.2.840.114 350.1.13.10 4.2.7.2.686 [id number] [facility] 2019-08-31 16:35:13 2019-08-31 16:50:13 Metallurgical Tester Visit [facility] Lance Dang [facility] 1.114 350.1.13.10 4.2.7.2.686 [id number] [facility] 2019-08-31 15:03:21 2019-08-31 16:38:13 Office Visit Clinic, [facility] Neurology Continuity Lance Dang [facility] 1.114 350.1.13.10 4.2.7.2.686 [id number] [facility] 2019-08-31 15:00:00 2019-08-31 15:00:00 Outpatient R [facility] [id number] [facility] 2019-08-31 00:00:00 2019-08-31 00:00:00 Patient Secure Msg Doctor Unassigned, [place] [facility] 1.114 350.1.13.10 4.2.7.2.686 [id number] [facility] 2019-08-16 14:00:00 2019-08-16 14:00:00 Outpatient R [facility] [id number] [facility] 2019-08-09 00:00:00 2019-08-09 00:00:00 Case Management Cielo Stewarden [facility] 1.84.114 350.1.13.10 4.2.7.2.686 [id number] 134 [id number] [facility] 2019-08-03 15:30:22 2019-08-03 16:13:20 Routine Visit Nino Steward [facility] Building 1..114 350.1.13.10 4.2.7.2.686 [id number] 134 [id number] [facility] 2019-08-03 15:30:00 2019-08-03 15:30:00 Outpatient R NINO STEWARD [facility] [id number] [facility] 2019-07-18 00:00:00 2019-07-18 00:00:00 Telephone Nino Steward [facility] Building 1.2.840.114 350.1.13.10 4.2.7.2.686 [id number] 134 [id number] [facility] 2019-07-17 00:00:00 2019-07-17 00:00:00 Telephone Nino Steward [facility] Building 1.2.840.114 350.1.13.10 4.2.7.2.686 [id number] 134 [id number] [facility] 2019-07-17 00:00:00 2019-07-17 00:00:00 Telephone Nino Steward [facility] 1.2.840.114 350.1.13.10 4.2.7.2.686 [id number] 134 [id number] [facility] 2019-07-14 13:30:00 2019-07-14 13:30:00 Outpatient R [facility] [id number] [facility] 2019-07-14 00:00:00 2019-07-14 00:00:00 Orders Only Nino Steward [facility] 1.2.840.114 350.1.13.10 4.2.7.2.686 [id number] [facility] 2019-07-13 00:00:00 2019-07-13 00:00:00 Telephone Nino Steward [facility] 1.2.840.114 350.1.13.10 4.2.7.2.686 [id number] 134 [id number] [facility] 2019-07-12 00:00:00 2019-07-12 00:00:00 Patient Secure Msg Nino Steward [facility] 1.2.840.114 350.1.13.10 4.2.7.2.686 [id number] 134 [id number] [facility] 2019-07-06 14:30:00 2019-07-06 14:30:00 Outpatient R [facility] [id number] [facility] 2019-07-06 08:22:33 2019-07-06 09:22:33 Telemedici ne Visit Clinic, [facility] Neurology Continuity Lance Dang [facility] 1.0.114 350.1.13.10 4.2.7.2.686 [id number] [facility] 2019-07-06 00:00:00 2019-07-06 00:00:[address] [facility] Building 1.20.114 350.1.13.10 4.2.7.2.686 [id number] 134 [id number] [facility] 2019-07-04 15:44:34 2019-07-04 16:59:27 Telemedici ne Visit Nino Steward [facility] Building 1.20.114 350.1.13.10 4.2.7.2.686 [id number] 134 [id number] [facility] 2019-07-04 16:00:00 2019-07-04 16:00:00 Outpatient R NINO STEWARD [facility] [id number] [facility] 2019-07-04 00:00:00 2019-07-04 00:00:[address] [facility] Building 1.20.114 350.1.13.10 4.2.7.2.686 [id number] 134 [id number] [facility] 2019-06-30 13:53:53 2019-07-03 15:00:16 Metallurgical Tester Visit 5, [facility] Usg Room Tamia Lawler [facility] 1.2.114 350.1.13.10 4.2.7.2.686 [id number] [facility] 2019-07-03 14:45:00 2019-07-03 14:45:00 Outpatient R [facility] [id number] [facility] 2019-06-30 14:00:00 2019-06-30 14:00:00 Outpatient P [facility] [id number] [facility] 2019-06-26 00:00:00 2019-06-26 00:00:00 Telephone Nino Steward [facility] 1.2.840.114 350.1.13.10 4.2.7.2.686 [id number] [facility] 2019-06-13 00:00:00 2019-06-13 00:00:00 Minerva Amaya [facility] 1.2.840.114 350.1.13.10 4.2.7.2.686 [id number] [facility] 2019-06-07 15:40:00 2019-06-07 15:40:00 Outpatient R KEVYN CERVANTES [facility] [id number] [facility] 2019-06-07 08:27:48 2019-06-07 08:47:48 Telemedici ne Visit Kevyn Cervantes [facility] 1.2.840.114 350.1.13.10 4.2.7.2.686 [id number] [facility] 2019-06-06 08:12:59 2019-06-06 13:52:45 Telemedici ne Visit Nino Steward [facility] 1.2.840.114 350.1.13.10 4.2.7.2.686 [id number] [facility] 2019-06-06 13:15:00 2019-06-06 13:15:00 Outpatient R NINO STEWADR [facility] [id number] [facility] 2019-06-06 00:00:00 2019-06-06 00:00:00 Telephone Lance Dang [facility] 1.2.840.114 350.1.13.10 4.2.7.2.686 [id number] [facility] 2019-06-02 10:00:00 2019-06-02 10:00:00 Outpatient R BRANDON HOFFMANN [facility] [id number] [facility] 2019-05-19 00:00:00 2019-05-19 00:00:00 Telephone Nino Steward [facility] 1.2.840.114 350.1.13.10 4.2.7.2.686 [id number] [facility] 2019-05-18 00:00:00 2019-05-18 00:00:00 Telephone Nino Steward [facility] 1.2.840.114 350.1.13.10 4.2.7.2.686 [id number] [facility] 2019-05-17 00:00:00 2019-05-17 00:00:00 Telephone Nino Steward [facility] Professio nal Building 1.2.840.114 350.1.13.10 4.2.7.2.686 [id number] [facility] 2019-05-11 12:17:33 2019-05-11 12:32:33 Metallurgical Tester Visit Pob, [facility] 1.2.840.114 350.1.13.10 4.2.7.2.686 [id number] [facility] 2019-05-11 12:30:00 2019-05-11 12:30:00 Outpatient R NINO STEWARD [facility] [id number] [facility] 2019-05-11 00:00:00 2019-05-11 00:00:00 Case Management Nichelle Nino [facility] 1.2840.114 350.1.13.10 4.2.7.2.686 [id number] [facility] 2019-05-11 00:00:00 2019-05-11 00:00:00 Orders Only Doctor Unassigned, [facility] 1.2840.114 350.1.13.10 4.2.7.2.686 [id number] [facility] 2019-05-09 14:41:30 2019-05-09 16:11:44 Initial Visit Nino Steward [facility] 1.284.114 350.1.13.10 4.2.7.2.686 [id number] [facility] 2019-05-09 14:30:00 2019-05-09 14:30:00 Outpatient R NINO STEWARD [facility] [id number] [facility] 2019-05-04 10:10:06 2019-05-04 10:48:19 Routine Visit Risk, Ang-Rmchp-N p/High María Elena Correa [facility] & [facility]ILD [facility] 1.84.114 350.1.13.10 4.2.7.2.686 [id number] [facility] 2019-05-04 10:00:00 2019-05-04 10:00:00 Outpatient R MARÍA ELENA CORREA [facility] [id number] [facility] 2019-04-14 00:00:00 2019-04-14 00:00:00 Telephone Risk, Ang-Rmchp-N p/High [facility] 1.84.114 350.1.13.10 4.2.7.2.686 [id number] 107 [id number] [facility] 2019-04-06 09:44:45 2019-04-13 10:09:18 Routine Visit Risk, Ang-Rmchp-N p/High Minerva Knight [facility] 1.2.840.114 350.1.13.10 4.2.7.2.686 [id number] [facility] 2019-04-11 13:25:41 2019-04-11 16:54:00 Emergency Remedios Lomax [facility] 1.2.840.114 350.1.13.10 4.2.7.2.686 [id number] [facility] 2019-04-11 00:00:00 2019-04-11 00:00:00 Telephone Brandon Hoffmann [facility] & CHILD [facility] 1.2.840.114 350.1.13.10 4.2.7.2.686 [id number] [facility] 2019-04-07 00:00:00 2019-04-07 00:00:00 Telephone Risk, Ang-Rmchp-N p/High [facility] 1.2.840.114 350.1.13.10 4.2.7.2.686 [id number] [facility] 2019-04-06 00:00:00 2019-04-06 00:00:00 Telephone Risk, Ang-Rmchp-N p/High [facility] & CHILD [facility] 1.2.840.114 350.1.13.10 4.2.7.2.686 [id number] [facility] 2019-03-30 10:12:30 2019-03-30 11:22:12 Initial Visit Brandon Hoffmann [facility] & CHILD [facility] 1.2.840.114 350.1.13.10 4.2.7.2.686 [id number] 107 [id number] [facility] 2019-03-30 00:00:00 2019-03-30 00:00:00 Orders Only Doctor Unassigned, [facility] 1.2.840.114 350.1.13.10 4.2.7.2.686 [id number] [facility] Results Test Description Test Time Test Comments Results Result Comments Source IR Angiogram cerebral 17:18:40 EXAMINATION: Cerebral angiogram. 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 She returns for follow-up angiographic evaluation. COMPARISON: ?Multiple cerebral arteriograms the most recent of 08/11/2023 ADMISSION DISCHARGE RN: Dr. Huey M.D. ACCESS SITE: ?Right common femoral artery/closure device/manualcompression. ANESTHESIA: ?Conscious/moderate sedation and local infiltration of thegroin using subcutaneous and subcuticular injection of 1% lidocaine. ESTIMATED BLOOD LOSS: ?Total of 5-8 cc. PROCEDURE: The procedure along with its indications, risks, benefits and alternativeswere discussed with the patient and her family. They were made aware of therisks including but not limited to stroke, systemic bleeding, renalfailure, x-ray hazards, allergic reaction, arterial damage and . Sheagreed to proceed with the angiogram and subsequently informed consent wasobtained. In the angiographic suite, under neuroleptic analgesia and strict steriletechniques, utilizing a micropuncture set with fluoroscopic guidance, a 5-Fsheath was inserted into the right common femoral artery. Through thesheath, a 4-F ISRRAEL-II catheter was then advanced over wire and the followingprocedure was performed: 1. Selective left common carotid arteriogram with biplane filming over thecommon carotid bifurcation. 2. Selective left internal carotid arteriogram with biplane filming andoblique views over the intracranial carotid circulation. 4. Selective left internal carotid arteriogram with three-dimensionalrotationa l views. The three-dimensional images were obtained to betterdelineate the underlying vascular abnormality. The rotational images werereconstructed on a dedicated workstation. 5. Selective right common femoral arteriogram with single plane filming. 6. Technically successful achievement of hemostasis at the right commonfemoral arteriotomy site using MynxGrip closure device and manualcompression. FINDINGS: ? The selective left common carotid arteriogram, obtained with biplanefilming over the cervical region, demonstrates none significantextracranial atherosclerotic disease. The selective left internal carotid arteriogram, obtained with biplaneoblique and three-dimensional rotational views, demonstrates intervalregression of the paraophthalmic left internal carotid artery aneurysm withtiny residual filling points superolaterally and measures about 2 mm. Thereis no in-stent stenosis or thrombosis with persistent antegrade flow intothe left middle cerebral and anterior cerebral arteries. The venous systemis unremarkable. The choroidal blush with patent left ophthalmic artery arenoted. The selective right common femoral arteriogram, obtained single plane view,shows suitable artery for closure device. Hemostasis of the right femoral puncture site was achieved using closuredevice. Patient tolerated the procedure well which was brief anduneventful. The attending physician was informed of the results at the end ofprocedure. [facility] (NA, K, CL, CO2, GLUCOSE, BUN, CREATININE, CA)2024-03-23 16:29:08* Test Item Value Reference Range Interpretation Comme nts NA (test code = 8995566341) 141 mmol/L 135-145 K (test code = 7471114577) 3.5 mmol/L 3.5-5.0 CL (test code = 5215139454) 104 mmol/L 98-108 CO2 TOTAL (test code = 0785053086) 28 mmol/L 23-31 AGAP (test code = 4767311478) 9 2-16 BUN (test code = 7464528313) 14 mg/dL 7-23 GLUCOSE (test code = 9973443043) 87 mg/dL 70-110 CREATININE (test code = 2160-0) 0.51 mg/dL 0.50-1.04 CALCIUM (test code = 8070285369) 8.9 mg/dL 8.6-10.6 eGFR (test code = 74724-0) 125.0 mL/min/1.73m2 CKD-EPI eGFR (20 21). Assuming creatinine has been stable day-to-day for at least three months, the eGFR indicates Category G1 (>= 90 mL/min/1.73 m2) [facility] Pr[facility] (P2Y12)2024-03-23 16:21:04* Test Item Value Reference Range Interpretation Comme nts VerifyNow PRUTest (P2Y12) (test code = 7275369596) 70 182-335 L KATHY (test code = KATHY) Off-drug PRU refer ence range is 180 - 376. Values less than 180 PRU suggest evidence of a P2Y12 inhibitor effect, which may be explained by P2Y12 receptor medications. ? ? P2Y12 Reaction Units (PRU) indicates the amount of ADP-mediated aggregation specific to the platelet P2Y12 receptor; a LOW PRU indicates a higher response to anti-platelet medication while a HIGH PRU indicates lower platelet inhibitive effect. Patients who have been treated with Glycoprotein IIb/IIIa inhibitor drugs should not be tested with the PRUtest until platelet function has recovered. The recovery period after drug administration is discontinued is approximately 14 days to abciximab (ReoPro) and up to 48 hours for eptifibatide (Integrilin) and tirofiban (Aggrastat). The time to recovery of platelet functions varies among individuals and is not affected by renal dysfunction. Patient with low platelet counts may not give consistent results. Results should be interpreted in conjunction with other laboratory and clinical data available to the clinician. Lab Interpretation (test code = 38178-5) Abnormal [facility] HospitalProthrombin Time / [id number] 15:57:46* Test Item Value Reference Range Interpretation Comme nts PROTIME PATIENT (test code = 5964-2) 10.7 10.1-12.6 INR (test code = 6301-6) 1.0 Normal INR <1.1; Warfarin Therapeutic range 2.0 to 3.0 or 2.5 to 3.5, depending upon the indications. Lab Interpretation (test code = 99225-3) Normal [facility] HospitalCbc with [id number] 15:47:05* Test Item Value Reference Range Interpretation Comme nts WBC (test code = 6690-2) 7.34 4.30-11.10 RBC (test code = 789-8) 4.91 3.93-5.25 HGB (test code = 718-7) 15.1 g/dL 11.6-15.0 H HCT (test code = 4544-3) 42.6 % 35.7-45.2 MCV (test code = 787-2) 86.8 fL 80.6-95.5 MCH (test code = 785-6) 30.8 pg 25.9-32.8 MCHC (test code = 786-4) 35.4 g/dL 31.6-35.1 H RDW-SD (test code = 43566-3) 42.3 fL 39.0-49.9 RDW-CV (test code = 788-0) 13.2 % 12.0-15.5 PLT (test code = 777-3) 281 166-358 MPV (test code = 42610-0) 10.6 fL 9.5-12.9 NRBC/100 WBC (test code = 6341691003) 0.0 0.0-10.0 NRBC x10^3 (test code = 8277126728) See_Comment [Automated messa ge] The system which generated this result transmitted reference range: 10*3/?L. The reference range was not used to interpret this result as normal/abnormal. GRAN MAT (NEUT) % (test code = 770-8) 63.1 % IMM GRAN % (test code = 0326764201) 0.30 % LYMPH % (test code = 736-9) 29.2 % MONO % (test code = 5905-5) 5.0 % EOS % (test code = 713-8) 1.9 % BASO % (test code = 706-2) 0.5 % GRAN MAT x10^3(ANC) (test code = 9780733685) 4.63 10*3/uL 1.88-7.09 IMM GRAN x10^3 (test code = 8191368259) 0.00-0.06 LYMPH x10^3 (test code = 731-0) 2.14 10*3/uL 1.32-3.29 MONO x10^3 (test code = 742-7) 0.37 10*3/uL 0.33-0.92 EOS x10^3 (test code = 711-2) 0.14 10*3/uL 0.03-0.39 BASO x10^3 (test code = 704-7) 0.04 10*3/uL 0.01-0.07 Lab Interpretation (test code = 76105-0) Abnormal [facility] Cervical spine wo [id number] 17:24:19Exam: CT CERVICAL SPINE WO CONTRAST, CT THORACIC SPINE WO CONTRAST, CTLUMBAR SPINE WO CONTRAST HISTORY: Chronic back pain. COMPARISON: CT cervical spine performed 07/27/2021. TECHNIQUE: Routine CTs ofthe cervical, thoracic, and lumbar spine wereperformed without intravenous contrast, and coronal and sagittalreformatted images were generated. FINDINGS: CT CERVICAL SPINE: The cervical curvature is normal. The craniocervical junction is intact. The vertebral bodies are normal in height and alignment. No facet fracture or subluxation is present. The prevertebral soft tissues are unremarkable. CT T HORACIC SPINE: The thoracic curvature is normal. The vertebral bodies are normal in height and in normal alignment. No facet fracture or subluxation is present. The prevertebral soft tissues are unremarkable. CT LUMBAR SPINE: The lumbar curvature is normal. The vertebral bodies are normal in heightand in normal alignment.No facet fracture or subluxation is present. The prevertebral soft tissues are unremarkable.[facility] Lumbar spine wo [id number] 17:24:19Exam: CT CERVICAL SPINE WO CONTRAST, CT THORACIC SPINE WO CONTRAST, CTLUMBAR SPINE WO CONTRAST HISTORY: Chronic back pain. COMPARISON: CT cervical spine performed 07/27/2021. TECHNIQUE: Routine CTs ofthe cervical, thoracic, and lumbar spine wereperformed without intravenous contrast, and coronal and sagittalreformatted images were generated. FINDINGS: CT CERVICAL SPINE: The cervical curvature is normal. The craniocervical junction is intact. The vertebral bodies are normal in height and alignment. No facet fracture or subluxation is present. The prevertebral soft tissues are unremarkable. CT T HORACIC SPINE: The thoracic curvature is normal. The vertebral bodies are normal in height and in normal alignment. No facet fracture or subluxation is present. The prevertebral soft tissues are unremarkable. CT LUMBAR SPINE: The lumbar curvature is normal. The vertebral bodies are normal in heightand in normal alignment.No facet fracture or subluxation is present. The prevertebral soft tissues are unremarkable.[facility] Thoracic spine wo [id number] 17:24:19Exam: CT CERVICAL SPINE WO CONTRAST, CT THORACIC SPINE WO CONTRAST, CTLUMBAR SPINE WO CONTRAST HISTORY: Chronic back pain. COMPARISON: CT cervical spine performed 07/27/2021. TECHNIQUE: Routine CTs ofthe cervical, thoracic, and lumbar spine wereperformed without intravenous contrast, and coronal and sagittalreformatted images were generated. FINDINGS: CT CERVICAL SPINE: The cervical curvature is normal. The craniocervical junction is intact. The vertebral bodies are normal in height and alignment. No facet fracture or subluxation is present. The prevertebral soft tissues are unremarkable. CT T HORACIC SPINE: The thoracic curvature is normal. The vertebral bodies are normal in height and in normal alignment. No facet fracture or subluxation is present. The prevertebral soft tissues are unremarkable. CT LUMBAR SPINE: The lumbar curvature is normal. The vertebral bodies are normal in heightand in normal alignment.No facet fracture or subluxation is present. The prevertebral soft tissues are unremarkable.[facility] Test 2023-10-22 01:19:00* Test Item Value Reference Range Interpretation Comme nts POCT PREG (test code = 1605) Negative On board controls acceptable with C Line (test code = 3574) Yes POCT PREG LOT # (test code = 3575) [id number] POCT PREG TEST DATE ( test code = 3576) 2025-01-10 Lab Interpretation (test cod e = 01979-8) Normal [facility] HospitalENDOSCOPY PROCEDURE [id number] 16:48:04Ordered by an unspecified provider.[facility] HospitalXR CHEST 2 [id number] 00:52:04Ordering physician: PERET MONROE Clinical indication: Chest pain Comparison: June 08, 2022 Technique: Chest, 2 views Technical quality: Adequate Findings: The lungs are clear. No pleural effusions are evident. Heart size isnormal. The superior mediastinal silhouette is unremarkable for age. Noacute bony abnormalities are evident.[facility] HospitalN-TERMINAL [id number] 00:48:02* Test Item Value Reference Range Interpretation Comme nts NT-proBNP (test code = 14529-5) <=125 Lab Interpretation (test cod e = 06945-2) Normal [facility] HospitalTROPONIN [id number] 00:35:50* Test Item Value Reference Range Interpretation Comme nts TROPONIN I (test code = 8843975062) 0.003 ng/mL <=0.034 KATHY (test code = KATHY) Reference (Normal) Range (defined by the 99th percentile reference limit): <= 0.034 ng/mL Note: Cardiac troponin begins to rise 3-4 hours after the onset of ischemia. Repeat in 4-6 hours if the sample was drawn within 3-4 hours of the onset of the symptom and found normal. Diagnosis of myocardial injury is made with acute changes in cTn concentrations with at least one serial sample above the 99th percentile upper reference limit (URL), taken together with the patient's clinical presentation. Biotin has been reported to cause a negative bias, interpret results relative to patient's use of biotin. Lab Interpretation (test code = 38486-1) Normal [facility] HospitalHEPATIC FUNCTION PANEL (63277) (ALB,T.PRO,BILI T,BU/BC,ALT,AST,ALK PHOS)2023-08-20 00:24:08* Test Item Value Reference Range Interpretation Comme nts TOTAL BILI (test code = 9671365553) 0.4 mg/dL 0.1-1.1 BILI UNCON (test code = 8727499522) 0.2 mg/dL 0.1-1.1 BILI CONJ (test code = 2675612892) 0.0 mg/dL 0.0-0.3 T PROTEIN (test code = 4197091347) 8.2 g/dL 6.3-8.2 ALBUMIN (test code = 4668677916) 4.7 g/dL 3.5-5.0 ALK PHOS (test code = 9757422859) 67 U/L 34-122 ALTv (test code = 1742-6) 19 U/L 5-35 AST(SGOT) (test code = 3206965648) 19 U/L 13-40 Lab Interpretation (test cod e = 11842-4) Normal [facility] HospitalBASIC METABOLIC PANEL (NA, K, CL, CO2, GLUCOSE, BUN, CREATININE, CA)2023-08-20 00:23:48* Test Item Value Reference Range Interpretation Comme nts NA (test code = 6320951375) 142 mmol/L 135-145 K (test code = 6548261087) 3.6 mmol/L 3.5-5.0 CL (test code = 6919044118) 106 mmol/L 98-108 CO2 TOTAL (test code = 7200856732) 27 mmol/L 23-31 AGAP (test code = 5080333821) 9 2-16 BUN (test code = 7156887153) 18 mg/dL 7-23 GLUCOSE (test code = 8760513723) 71 mg/dL 70-110 CREATININE (test code = 2160-0) 0.56 mg/dL 0.50-1.04 CALCIUM (test code = 7149921821) 9.2 mg/dL 8.6-10.6 eGFR (test code = 74713-6) 123.0 mL/min/1.73m2 CKD-EPI eGFR (20 21). Assuming creatinine has been stable day-to-day for at least three months, the eGFR indicates Category G1 (>= 90 mL/min/1.73 m2) [facility] HospitalLIPASE2024-06-21 00:23:48* Test Item Value Reference Range Interpretation Comme nts LIPASE (test code = 8993779641) 84 U/L 0-220 Lab Interpretation (test cod e = 69041-7) Normal [facility] HospitalCBC WITH [id number] 00:17:48* Test Item Value Reference Range Interpretation Comme nts WBC (test code = 6690-2) 7.51 4.30-11.10 RBC (test code = 789-8) 4.74 3.93-5.25 HGB (test code = 718-7) 14.8 g/dL 11.6-15.0 HCT (test code = 4544-3) 42.7 % 35.7-45.2 MCV (test code = 787-2) 90.1 fL 80.6-95.5 MCH (test code = 785-6) 31.2 pg 25.9-32.8 MCHC (test code = 786-4) 34.7 g/dL 31.6-35.1 RDW-SD (test code = 30024-6) 41.8 fL 39.0-49.9 RDW-CV (test code = 788-0) 12.6 % 12.0-15.5 PLT (test code = 777-3) 302 166-358 MPV (test code = 80750-6) 11.2 fL 9.5-12.9 NRBC/100 WBC (test code = 5091677395) 0.0 0.0-10.0 NRBC x10^3 (test code = 5682191589) See_Comment [Automated me ssage] The system which generated this result transmitted reference range: 10*3/?L. The reference range was not used to interpret this result as normal/abnormal. GRAN MAT (NEUT) % (test code = 770-8) 56.7 % IMM GRAN % (test code = 7570031432) 0.40 % LYMPH % (test code = 736-9) 32.8 % MONO % (test code = 5905-5) 7.3 % EOS % (test code = 713-8) 2.1 % BASO % (test code = 706-2) 0.7 % GRAN MAT x10^3(ANC) (test code = 2560216197) 4.26 10*3/uL 1.88-7.09 IMM GRAN x10^3 (test code = 4824893642) 0.03 10*3/uL 0.00-0.06 LYMPH x10^3 (test code = 731-0) 2.46 10*3/uL 1.32-3.29 MONO x10^3 (test code = 742-7) 0.55 10*3/uL 0.33-0.92 EOS x10^3 (test code = 711-2) 0.16 10*3/uL 0.03-0.39 BASO x10^3 (test code = 704-7) 0.05 10*3/uL 0.01-0.07 [facility] HospitalPOCT [id number] 23:56:00* Test Item Value Reference Range Interpretation Comme nts POCT PREG (test code = 1605) Negative On board controls acceptable with C Line (test code = 3574) Yes POCT PREG LOT # (test code = 3575) [id number] POCT PREG TEST DATE ( test code = 3576) 2024-07-02 Lab Interpretation (test cod e = 62956-8) Normal [facility] HospitalIR EMBOLIZATION CENTRAL NERVOUS SYSTEM (PIPELINE SUPERINTENDENT DIVISION) [id number] 23:34:56* * * * * * * * ORIGINAL REPORT * * * * * * * *EXAMINATION: Cerebral angiogram with embolization ofarterial aneurysm. CLINICAL HISTORY: ?32-year-old woman with paraophthalmic left internalcarotid wide neck aneurysm for which endovascular treatment was requested. COMPARISON: ?Cerebral arteriogram dated 06/24/2023 ADMISSION DISCHARGE RN: Dr. Huey M.D. PRINTED [employer] BOARDS INSPECTOR: Dr. Sacha Moran ACCESS SITE: ?Right common femoral artery/closure device. ANESTHESIA: General anesthesia. ESTIMATED BLOOD LOSS: ?Total of 5-8 cc. PROCEDURE: The procedure along with its indications, risks, benefits and alternativeswere discussed with the patient and her family. They were made aware of therisks including but notlimited to stroke, aneurysm rupture, subarachnoidhemorrhage, failure of procedure, in-stent stenosis or thrombosis, systemicbleeding, renal failure, x-ray hazards, allergic reaction, arterial damageand . She agreed to proceed with the embolization procedure andsubsequently informed consent wasobtained. In the angiographic suite, under general anesthesia and strict steriletechniques, utilizing a micropuncture set with fluoroscopic guidance, a 8-Fsheath was inserted into the right common fem oral artery. Through thesheath, following procedure was performed: 1. Pre- treatment selective left internal carotid arteriogram with biplanefilming and oblique views over the intracranial carotid circulation. 2. Pre-treatment selective left internal carotid arteriogram withthree-dimensional rotational views. The three-dimensional images wereobtained to better delineate the underlying vascular abnormality. Therotational images were reconstructed on a dedicated workstation. 3. Successful embolization of the left paraophthalmic ICA aneurysm usingFred X flow diverter. 4. Post treatment selective left internal carotid arteriogram with biplanefilming over the intracranial carotid circulation. 5. Post treatment selective left internal carotid arteriogram withthree-dimensional rotational views. The three-dimensional images wereobtained to better delineate the underlying vascular abnormality. The rotational images were reconstructed on a dedicated workstation. 6. Selective right common femoral arteriogram in single plane view. 7. Technically successful hemostasis of the right femoral access site usingclosure device and manual compression FINDINGS: ? The pretreatment selective left internal carotid arteriogram, obtained withbiplane oblique and three-dimensional rotational views, demonstrates thepreviously noted paraophthalmic left internal carotid aneurysm measures 5.2mm x 6.6 mm with relatively wide neck measures 6.2 mm. The aneurysm pointssuperolaterally and involves origin of the left ophthalmic artery at itsneck component. There is persistent antegrade flow into the left middlecer ebral and anterior cerebral arteries without major branch occlusion orsevere arterial stenosis. Thedeep cerebral veins and major venous sinusesare patent. Following the diagnostic arteriogram, undersystemic anticoagulation andvia left internal carotid approach, a neuronmax 6-F 0.88 guide was placedwithin the cervical segment. A 5-F [employer] EX intermediate support catheterwas utilized and placed within cavernous segment of the left internalcarotid artery. Subsequently, Headway 0.027 microcatheter was advanced overwire into the proximal left middle cerebral artery. Then Keven Xflow-diverter measures 4.5 mm in diameter and 20 mm in length wassuccessfully deployed within the supraclinoid/cavernous segments of theleft internal carotid artery across neck of the aneurysm. Post treatment selective left internal carotid arteriogram, obtained withbiplane, oblique and three-dimensional rotational views, shows noticeablecontrast stagnation within the aneurysm. There is good apposition of thestentto vessel wall without in-stent stenosis or thrombosis. Additionally,there is no major branch occlusion within the left middle cerebral andanterior cerebral arteries. Selective right common femoral arteriogram, obtained in single plane view,shows suitable artery for closure device. Hemostasis of the right femoral puncture site was achieved using closuredevice. Patient tolerated the procedure wellwhich was brief anduneventful. The attending physician was informed of the results at the end ofprocedure.[facility] HospitalRanjana [id number] 12:02:52* Test Item Value Reference Range Interpretation Comme nts TROPONIN I (test code = 0500107781) 0.004 ng/mL <=0.034 KATHY (test code = KATHY) Reference (Normal) Range (defined by the 99th percentile reference limit): <= 0.034 ng/mL Note: Cardiac troponin begins to rise 3-4 hours after the onset of ischemia. Repeat in 4-6 hours if the sample was drawn within 3-4 hours of the onset of the symptom and found normal. Diagnosis of myocardial injury is made with acute changes in cTn concentrations with at least one serial sample above the 99th percentile upper reference limit (URL), taken together with the patient's clinical presentation. Biotin has been reported to cause a negative bias, interpret results relative to patient's use of biotin. Lab Interpretation (test code = 80196-5) Normal [facility] HospitalTroponin [id number] 12:02:52* Test Item Value Reference Range Interpretation Comme nts TROPONIN I (test code = 0511914687) 0.004 ng/mL <=0.034 KATHY (test code = KATHY) Reference (Normal) Range (defined by the 99th percentile reference limit): <= 0.034 ng/mL Note: Cardiac troponin begins to rise 3-4 hours after the onset of ischemia. Repeat in 4-6 hours if the sample was drawn within 3-4 hours of the onset of the symptom and found normal. Diagnosis of myocardial injury is made with acute changes in cTn concentrations with at least one serial sample above the 99th percentile upper reference limit (URL), taken together with the patient's clinical presentation. Biotin has been reported to cause a negative bias, interpret results relative to patient's use of biotin. Lab Interpretation (test code = 83217-3) [facility] (NA, K, CL, CO2, GLUCOSE, BUN, CREATININE, CA)2023-08-12 11:51:11* Test Item Value Reference Range Interpretation Comme nts NA (test code = 9107192385) 138 mmol/L 135-145 K (test code = 8185730759) 3.4 mmol/L 3.5-5.0 L CL (test code = 9092635705) 110 mmol/L 98-108 H CO2 TOTAL (test code = 5412154981) 22 mmol/L 23-31 L AGAP (test code = 0198828654) 6 2-16 BUN (test code = 3938736325) 8 mg/dL 7-23 GLUCOSE (test code = 4946087835) 156 mg/dL 70-110 H CREATININE (test code = 2160-0) 0.43 mg/dL 0.50-1.04 L CALCIUM (test code = 8797622836) 8.4 mg/dL 8.6-10.6 L eGFR (test code = 52322-4) 131.1 mL/min/1.73m2 CKD-EPI eGFR (2020). Assuming creatinine has been stable day-to-day for at least three months, the eGFR indicates Category G1 (>= 90 mL/min/1.73 m2) Lab Interpretation (test code = 95894-8) Abnormal [facility] Metabolic Panel (NA, K, CL, CO2, GLUCOSE, BUN, CREATININE, CA)2023-08-12 11:51:11* Test Item Value Reference Range Interpretation Comme nts NA (test code = 2759489505) 138 mmol/L 135-145 K (test code = 9714810751) 3.4 mmol/L 3.5-5.0 L CL (test code = 4769406937) 110 mmol/L 98-108 H CO2 TOTAL (test code = 0496547867) 22 mmol/L 23-31 L AGAP (test code = 8968086692) 6 2-16 BUN (test code = 8377562927) 8 mg/dL 7-23 GLUCOSE (test code = 1922989952) 156 mg/dL 70-110 H CREATININE (test code = 2160-0) 0.43 mg/dL 0.50-1.04 L CALCIUM (test code = 3166513676) 8.4 mg/dL 8.6-10.6 L eGFR (test code = 68447-7) 131.1 mL/min/1.73m2 CKD-EPI eGFR (2020). Assuming creatinine has been stable day-to-day for at least three months, the eGFR indicates Category G1 (>= 90 mL/min/1.73 m2) Lab Interpretation (test code = 13796-2) [id number] 06:37:42* Test Item Value Reference Range Interpretation Comme nts TROPONIN I (test code = 7437322871) 0.003 ng/mL <=0.034 KATHY (test code = KATHY) Reference (Normal) Range (defined by the 99th percentile reference limit): <= 0.034 ng/mL Note: Cardiac troponin begins to rise 3-4 hours after the onset of ischemia. Repeat in 4-6 hours if the sample was drawn within 3-4 hours of the onset of the symptom and found normal. Diagnosis of myocardial injury is made with acute changes in cTn concentrations with at least one serial sample above the 99th percentile upper reference limit (URL), taken together with the patient's clinical presentation. Biotin has been reported to cause a negative bias, interpret results relative to patient's use of biotin. Lab Interpretation (test code = 42261-5) [facility] [id number] 06:37:42* Test Item Value Reference Range Interpretation Comme nts TROPONIN I (test code = 7392072649) 0.003 ng/mL <=0.034 KATHY (test code = KATHY) Reference (Normal) Range (defined by the 99th percentile reference limit): <= 0.034 ng/mL Note: Cardiac troponin begins to rise 3-4 hours after the onset of ischemia. Repeat in 4-6 hours if the sample was drawn within 3-4 hours of the onset of the symptom and found normal. Diagnosis of myocardial injury is made with acute changes in cTn concentrations with at least one serial sample above the 99th percentile upper reference limit (URL), taken together with the patient's clinical presentation. Biotin has been reported to cause a negative bias, interpret results relative to patient's use of biotin. Lab Interpretation (test code = 73688-4) [facility] (NA, K, CL, CO2, GLUCOSE, BUN, CREATININE, CA)2023-08-12 06:28:20* Test Item Value Reference Range Interpretation Comme nts NA (test code = 8789561816) 142 mmol/L 135-145 K (test code = 2016140178) 3.7 mmol/L 3.5-5.0 CL (test code = 3470310170) 112 mmol/L 98-108 H CO2 TOTAL (test code = 6869194017) 22 mmol/L 23-31 L AGAP (test code = 9195809011) 8 2-16 BUN (test code = 9206941947) 7 mg/dL 7-23 GLUCOSE (test code = 2888292415) 156 mg/dL 70-110 H CREATININE (test code = 2160-0) 0.46 mg/dL 0.50-1.04 L CALCIUM (test code = 2447661945) 8.6 mg/dL 8.6-10.6 eGFR (test code = 10491-9) 129.0 mL/min/1.73m2 CKD-EPI eGFR (2020). Assuming creatinine has been stable day-to-day for at least three months, the eGFR indicates Category G1 (>= 90 mL/min/1.73 m2) Lab Interpretation (test code = 63343-8) Abnormal [facility]2024-06-13 06:28:20* Test Item Value Reference Range Interpretation Comme nts MAGNESIUM (test code = 2003257788) 2.0 mg/dL 1.7-2.4 Lab Interpretation (test cod e = 80076-5) Normal [facility] Metabolic Panel (NA, K, CL, CO2, GLUCOSE, BUN, CREATININE, CA)2023-08-12 06:28:20* Test Item Value Reference Range Interpretation Comme nts NA (test code = 0555766135) 142 mmol/L 135-145 K (test code = 5391311457) 3.7 mmol/L 3.5-5.0 CL (test code = 0745577108) 112 mmol/L 98-108 H CO2 TOTAL (test code = 4463682649) 22 mmol/L 23-31 L AGAP (test code = 6235592560) 8 2-16 BUN (test code = 9123556259) 7 mg/dL 7-23 GLUCOSE (test code = 7436740872) 156 mg/dL 70-110 H CREATININE (test code = 2160-0) 0.46 mg/dL 0.50-1.04 L CALCIUM (test code = 1244294835) 8.6 mg/dL 8.6-10.6 eGFR (test code = 60859-2) 129.0 mL/min/1.73m2 CKD-EPI eGFR (2020). Assuming creatinine has been stable day-to-day for at least three months, the eGFR indicates Category G1 (>= 90 mL/min/1.73 m2) Lab Interpretation (test code = 85453-3) Abnormal [facility]2024-06-13 06:28:20* Test Item Value Reference Range Interpretation Comme nts MAGNESIUM (test code = 7127120212) 2.0 mg/dL 1.7-2.4 Lab Interpretation (test cod e = 14525-7) Normal [facility] with [id number] 06:17:23* Test Item Value Reference Range Interpretation Comme nts WBC (test code = 6690-2) 8.25 4.30-11.10 RBC (test code = 789-8) 4.55 3.93-5.25 HGB (test code = 718-7) 14.1 g/dL 11.6-15.0 HCT (test code = 4544-3) 38.9 % 35.7-45.2 MCV (test code = 787-2) 85.5 fL 80.6-95.5 MCH (test code = 785-6) 31.0 pg 25.9-32.8 MCHC (test code = 786-4) 36.2 g/dL 31.6-35.1 H RDW-SD (test code = 23926-1) 38.9 fL 39.0-49.9 L RDW-CV (test code = 788-0) 12.4 % 12.0-15.5 PLT (test code = 777-3) 257 166-358 MPV (test code = 39024-3) 10.6 fL 9.5-12.9 NRBC/100 WBC (test code = 1326560421) 0.0 0.0-10.0 NRBC x10^3 (test code = 7088099432) See_Comment [Automated messa ge] The system which generated this result transmitted reference range: 10*3/?L. The reference range was not used to interpret this result as normal/abnormal. GRAN MAT (NEUT) % (test code = 770-8) 82.7 % IMM GRAN % (test code = 7872058708) 0.20 % LYMPH % (test code = 736-9) 12.2 % MONO % (test code = 5905-5) 4.7 % EOS % (test code = 713-8) 0.0 % BASO % (test code = 706-2) 0.2 % GRAN MAT x10^3(ANC) (test code = 8622418125) 6.81 10*3/uL 1.88-7.09 IMM GRAN x10^3 (test code = 3945028347) 0.00-0.06 LYMPH x10^3 (test code = 731-0) 1.01 10*3/uL 1.32-3.29 L MONO x10^3 (test code = 742-7) 0.39 10*3/uL 0.33-0.92 EOS x10^3 (test code = 711-2) 0.03-0.39 L BASO x10^3 (test code = 704-7) 0.01-0.07 Lab Interpretation (test code = 83329-6) Abnormal [facility] with [id number] 06:17:23* Test Item Value Reference Range Interpretation Comme nts WBC (test code = 6690-2) 8.25 4.30-11.10 RBC (test code = 789-8) 4.55 3.93-5.25 HGB (test code = 718-7) 14.1 g/dL 11.6-15.0 HCT (test code = 4544-3) 38.9 % 35.7-45.2 MCV (test code = 787-2) 85.5 fL 80.6-95.5 MCH (test code = 785-6) 31.0 pg 25.9-32.8 MCHC (test code = 786-4) 36.2 g/dL 31.6-35.1 H RDW-SD (test code = 54835-7) 38.9 fL 39.0-49.9 L RDW-CV (test code = 788-0) 12.4 % 12.0-15.5 PLT (test code = 777-3) 257 166-358 MPV (test code = 64019-6) 10.6 fL 9.5-12.9 NRBC/100 WBC (test code = 7870243291) 0.0 0.0-10.0 NRBC x10^3 (test code = 9534408771) See_Comment [Automated messa ge] The system which generated this result transmitted reference range: 10*3/?L. The reference range was not used to interpret this result as normal/abnormal. GRAN MAT (NEUT) % (test code = 770-8) 82.7 % IMM GRAN % (test code = 6262497509) 0.20 % LYMPH % (test code = 736-9) 12.2 % MONO % (test code = 5905-5) 4.7 % EOS % (test code = 713-8) 0.0 % BASO % (test code = 706-2) 0.2 % GRAN MAT x10^3(ANC) (test code = 7528736307) 6.81 10*3/uL 1.88-7.09 IMM GRAN x10^3 (test code = 2121324750) 0.00-0.06 LYMPH x10^3 (test code = 731-0) 1.01 10*3/uL 1.32-3.29 L MONO x10^3 (test code = 742-7) 0.39 10*3/uL 0.33-0.92 EOS x10^3 (test code = 711-2) 0.03-0.39 L BASO x10^3 (test code = 704-7) 0.01-0.07 Lab Interpretation (test code = 74512-6) Abnormal [facility] ACT Low Dwydc4534-70-20 20:24:33* Test Item Value Reference Range Interpretation Comme nts ACTLR (test code = 7175128750) 146 89-169 Lab Interpretation (test cod e = 40480-3) [facility] Qkhur1933-60-05 20:24:33* Test Item Value Reference Range Interpretation Comme nts ACTLR (test code = 0150344175) 146 89-169 Lab Interpretation (test cod e = 88847-5) [facility] Jakvc0277-23-84 19:50:45* Test Item Value Reference Range Interpretation Comme nts ACTLR (test code = 2007633861) 237 89-169 H Lab Interpretation (test cod e = 69366-9) [facility] Owjpj7800-82-89 19:50:45* Test Item Value Reference Range Interpretation Comme nts ACTLR (test code = 9662056789) 237 89-169 H Lab Interpretation (test cod e = 47771-8) [facility] Hftvj7447-47-15 19:04:41* Test Item Value Reference Range Interpretation Comme nts ACTLR (test code = 1239786954) 250 89-169 H Lab Interpretation (test cod e = 84166-6) Abnormal [facility] ACT Low Ckdhc9239-74-41 19:04:41* Test Item Value Reference Range Interpretation Comme nts ACTLR (test code = 9909055925) 250 89-169 H Lab Interpretation (test cod e = 84281-8) Abnormal [facility] ACT Low Tqhui0156-82-51 18:48:01* Test Item Value Reference Range Interpretation Comme nts ACTLR (test code = 9142220283) 229 89-169 H Lab Interpretation (test cod e = 85055-5) Abnormal [facility] ACT Low Izwqm7192-02-16 18:48:01* Test Item Value Reference Range Interpretation Comme nts ACTLR (test code = 4086514565) 229 89-169 H Lab Interpretation (test cod e = 11975-4) Abnormal [facility] ACT Low Jtjrw5712-29-40 18:27:32* Test Item Value Reference Range Interpretation Comme nts ACTLR (test code = 3501897124) 144 89-169 Lab Interpretation (test cod e = 87391-2) Normal [facility] ACT Low Wnkoz7895-67-96 18:27:32* Test Item Value Reference Range Interpretation Comme nts ACTLR (test code = 4416343361) 144 89-169 Lab Interpretation (test cod e = 78972-2) Normal [facility] Metabolic Panel (NA, K, CL, CO2, GLUCOSE, BUN, CREATININE, CA)2023-08-11 15:19:00* Test Item Value Reference Range Interpretation Comme nts NA (test code = 9154623681) 141 mmol/L 135-145 K (test code = 2505477172) 3.9 mmol/L 3.5-5.0 CL (test code = 4986582065) 109 mmol/L 98-108 H CO2 TOTAL (test code = 9165946547) 25 mmol/L 23-31 AGAP (test code = 4674927584) 7 2-16 BUN (test code = 4909377484) 17 mg/dL 7-23 GLUCOSE (test code = 1327175823) 94 mg/dL 70-110 CREATININE (test code = 2160-0) 0.56 mg/dL 0.50-1.04 CALCIUM (test code = 7040369269) 8.8 mg/dL 8.6-10.6 eGFR (test code = 15265-2) 123.0 mL/min/1.73m2 CKD-EPI eGFR (2020). Assuming creatinine has been stable day-to-day for at least three months, the eGFR indicates Category G1 (>= 90 mL/min/1.73 m2) Lab Interpretation (test code = 59496-8) Abnormal [facility] Metabolic Panel (NA, K, CL, CO2, GLUCOSE, BUN, CREATININE, CA)2023-08-11 15:19:00* Test Item Value Reference Range Interpretation Comme nts NA (test code = 4041173319) 141 mmol/L 135-145 K (test code = 7472137000) 3.9 mmol/L 3.5-5.0 CL (test code = 5146891060) 109 mmol/L 98-108 H CO2 TOTAL (test code = 9324807357) 25 mmol/L 23-31 AGAP (test code = 8905301716) 7 2-16 BUN (test code = 1247729621) 17 mg/dL 7-23 GLUCOSE (test code = 2060161581) 94 mg/dL 70-110 CREATININE (test code = 2160-0) 0.56 mg/dL 0.50-1.04 CALCIUM (test code = 0096323616) 8.8 mg/dL 8.6-10.6 eGFR (test code = 26268-4) 123.0 mL/min/1.73m2 CKD-EPI eGFR (2020). Assuming creatinine has been stable day-to-day for at least three months, the eGFR indicates Category G1 (>= 90 mL/min/1.73 m2) Lab Interpretation (test code = 17732-2) [facility] Mhcl5845-37-82 14:57:50* Test Item Value Reference Range Interpretation Comme nts Ver[employer]Now Aspirin Test (test code = 3248276463) 350 See Comment ARU KATHY (test code = KATHY) < 550 ARU - Evidence of platelet dysfunction due to aspirin>= 550 ARU - No evidence of aspirin-induced platelet dysfunction The performance of Ver[employer]Now Aspirin test on patients with acquired non-drug induced platelet abnormalities is not known. Patients who have been treated with Glycoprotein IIb/IIIa inhibitor drugs should not be tested until platelet function has recovered. The recovery period after drug administration is discontinued is approximately 14 days for abciximab (ReoPro) and up to 48 hours for eptifibatide (Integrilin) and tirofiban (Aggrastat). The time to recovery of platelet functions varies among individuals and is longer for patients with renal dysfunction. Patient with low platelet counts may not give consistent results. Results should be interpreted in conjunction with other laboratory and clinical data available to the clinician. [facility] [id number] 14:57:50* Test Item Value Reference Range Interpretation Comme nts [employer]Now Aspirin Test (test code = 2869772165) 350 See Comment ARU KATHY (test code = KATHY) < 550 ARU - Evidence of platelet dysfunction due to aspirin>= 550 ARU - No evidence of aspirin-induced platelet dysfunction The performance of Ver[employer]Now Aspirin test on patients with acquired non-drug induced platelet abnormalities is not known. Patients who have been treated with Glycoprotein IIb/IIIa inhibitor drugs should not be tested until platelet function has recovered. The recovery period after drug administration is discontinued is approximately 14 days for abciximab (ReoPro) and up to 48 hours for eptifibatide (Integrilin) and tirofiban (Aggrastat). The time to recovery of platelet functions varies among individuals and is longer for patients with renal dysfunction. Patient with low platelet counts may not give consistent results. Results should be interpreted in conjunction with other laboratory and clinical data available to the clinician. [facility], Dejer1596-78-25 14:47:30* Test Item Value Reference Range Interpretation Comme nts PREG SERUM (test code = 7088975385) Negative KATHY (test code = KATHY) Less than 10 IU/L. ?If low titer or ectopic is suspected, resubmit specimen in 48-72 hours. [facility], [id number] 14:47:30* Test Item Value Reference Range Interpretation Comme nts PREG SERUM (test code = 7557442180) Negative KATHY (test code = KATHY) Less than 10 IU/L. ?If low titer or ectopic is suspected, resubmit specimen in 48-72 hours. [facility] / [id number] 14:43:20* Test Item Value Reference Range Interpretation Comme xi PROTIME PATIENT (test code = 5964-2) 11.0 10.1-12.6 INR (test code = 6301-6) 0.9 Normal INR <1.1; Warfarin Therapeutic range 2.0 to 3.0 or 2.5 to 3.5, depending upon the indications. Lab Interpretation (test code = 30147-4) Normal [facility] / [id number] 14:43:20* Test Item Value Reference Range Interpretation Comme nts PROTIME PATIENT (test code = 5964-2) 11.0 10.1-12.6 INR (test code = 6301-6) 0.9 Normal INR <1.1; Warfarin Therapeutic range 2.0 to 3.0 or 2.5 to 3.5, depending upon the indications. Lab Interpretation (test code = 18117-6) [facility] 14:39:47* Test Item Value Reference Range Interpretation Comme nts Ver[employer]Now PRUTest (P2Y12) (test code = 0837415705) 85 182-335 L KATHY (test code = KATHY) Off-drug PRU refer ence range is 180 - 376. Values less than 180 PRU suggest evidence of a P2Y12 inhibitor effect, which may be explained by P2Y12 receptor medications. ? ? P2Y12 Reaction Units (PRU) indicates the amount of ADP-mediated aggregation specific to the platelet P2Y12 receptor; a LOW PRU indicates a higher response to anti-platelet medication while a HIGH PRU indicates lower platelet inhibitive effect. Patients who have been treated with Glycoprotein IIb/IIIa inhibitor drugs should not be tested with the PRUtest until platelet function has recovered. The recovery period after drug administration is discontinued is approximately 14 days to abciximab (ReoPro) and up to 48 hours for eptifibatide (Integrilin) and tirofiban (Aggrastat). The time to recovery of platelet functions varies among individuals and is not affected by renal dysfunction. Patient with low platelet counts may not give consistent results. Results should be interpreted in conjunction with other laboratory and clinical data available to the clinician. Lab Interpretation (test code = 69677-2) [facility]12[facility]23-[facility]-11 14:39:47* Test Item Value Reference Range Interpretation Comme nts [facility]Now PRUTest (P2Y12) (test code = 1725428716) 85 182-335 L KATHY (test code = KATHY) Off-drug PRU refer ence range is 180 - 376. Values less than 180 PRU suggest evidence of a P2Y12 inhibitor effect, which may be explained by P2Y12 receptor medications. ? ? P2Y12 Reaction Units (PRU) indicates the amount of ADP-mediated aggregation specific to the platelet P2Y12 receptor; a LOW PRU indicates a higher response to anti-platelet medication while a HIGH PRU indicates lower platelet inhibitive effect. Patients who have been treated with Glycoprotein IIb/IIIa inhibitor drugs should not be tested with the PRUtest until platelet function has recovered. The recovery period after drug administration is discontinued is approximately 14 days to abciximab (ReoPro) and up to 48 hours for eptifibatide (Integrilin) and tirofiban (Aggrastat). The time to recovery of platelet functions varies among individuals and is not affected by renal dysfunction. Patient with low platelet counts may not give consistent results. Results should be interpreted in conjunction with other laboratory and clinical data available to the clinician. Lab Interpretation (test code = 26629-2) Abnormal [facility] with [id number] 14:22:16* Test Item Value Reference Range Interpretation Comme nts WBC (test code = 6690-2) 7.63 4.30-11.10 RBC (test code = 789-8) 4.58 3.93-5.25 HGB (test code = 718-7) 14.0 g/dL 11.6-15.0 HCT (test code = 4544-3) 40.1 % 35.7-45.2 MCV (test code = 787-2) 87.6 fL 80.6-95.5 MCH (test code = 785-6) 30.6 pg 25.9-32.8 MCHC (test code = 786-4) 34.9 g/dL 31.6-35.1 RDW-SD (test code = 48789-1) 39.8 fL 39.0-49.9 RDW-CV (test code = 788-0) 12.4 % 12.0-15.5 PLT (test code = 777-3) 230 166-358 MPV (test code = 62991-7) 11.0 fL 9.5-12.9 NRBC/100 WBC (test code = 2084607112) 0.0 0.0-10.0 NRBC x10^3 (test code = 9345709024) See_Comment [Automated me ssage] The system which generated this result transmitted reference range: 10*3/?L. The reference range was not used to interpret this result as normal/abnormal. GRAN MAT (NEUT) % (test code = 770-8) 58.1 % IMM GRAN % (test code = 7049542217) 0.30 % LYMPH % (test code = 736-9) 32.5 % MONO % (test code = 5905-5) 6.4 % EOS % (test code = 713-8) 2.2 % BASO % (test code = 706-2) 0.5 % GRAN MAT x10^3(ANC) (test code = 9280834644) 4.43 10*3/uL 1.88-7.09 IMM GRAN x10^3 (test code = 6257939797) 0.00-0.06 LYMPH x10^3 (test code = 731-0) 2.48 10*3/uL 1.32-3.29 MONO x10^3 (test code = 742-7) 0.49 10*3/uL 0.33-0.92 EOS x10^3 (test code = 711-2) 0.17 10*3/uL 0.03-0.39 BASO x10^3 (test code = 704-7) 0.04 10*3/uL 0.01-0.07 [facility] with [id number] 14:22:16* Test Item Value Reference Range Interpretation Comme nts WBC (test code = 6690-2) 7.63 4.30-11.10 RBC (test code = 789-8) 4.58 3.93-5.25 HGB (test code = 718-7) 14.0 g/dL 11.6-15.0 HCT (test code = 4544-3) 40.1 % 35.7-45.2 MCV (test code = 787-2) 87.6 fL 80.6-95.5 MCH (test code = 785-6) 30.6 pg 25.9-32.8 MCHC (test code = 786-4) 34.9 g/dL 31.6-35.1 RDW-SD (test code = 22463-4) 39.8 fL 39.0-49.9 RDW-CV (test code = 788-0) 12.4 % 12.0-15.5 PLT (test code = 777-3) 230 166-358 MPV (test code = 92210-1) 11.0 fL 9.5-12.9 NRBC/100 WBC (test code = 2685172321) 0.0 0.0-10.0 NRBC x10^3 (test code = 4808327272) See_Comment [Automated me ssage] The system which generated this result transmitted reference range: 10*3/?L. The reference range was not used to interpret this result as normal/abnormal. GRAN MAT (NEUT) % (test code = 770-8) 58.1 % IMM GRAN % (test code = 5150622259) 0.30 % LYMPH % (test code = 736-9) 32.5 % MONO % (test code = 5905-5) 6.4 % EOS % (test code = 713-8) 2.2 % BASO % (test code = 706-2) 0.5 % GRAN MAT x10^3(ANC) (test code = 0995989005) 4.43 10*3/uL 1.88-7.09 IMM GRAN x10^3 (test code = 8639119947) 0.00-0.06 LYMPH x10^3 (test code = 731-0) 2.48 10*3/uL 1.32-3.29 MONO x10^3 (test code = 742-7) 0.49 10*3/uL 0.33-0.92 EOS x10^3 (test code = 711-2) 0.17 10*3/uL 0.03-0.39 BASO x10^3 (test code = 704-7) 0.04 10*3/uL 0.01-0.07 [facility] Dywkwjz3277-56-16 14:22:00* Test Item Value Reference Range Interpretation Comme nts ABO & RH (test code = 20) A POSITIVE IAT (test code = 1185) Negative [facility] Cnkyedo7562-99-01 14:22:00* Test Item Value Reference Range Interpretation Comme nts ABO & RH (test code = 20) A POSITIVE IAT (test code = 1185) Negative [facility] Metabolic Panel (34106)2023-06-24 14:31:44* Test Item Value Reference Range Interpretation Comme nts NA (test code = 6173040971) 139 mmol/L 135-145 K (test code = 3951489487) 3.6 mmol/L 3.5-5.0 CL (test code = 2581569487) 106 mmol/L 98-108 CO2 TOTAL (test code = 4760296930) 28 mmol/L 23-31 AGAP (test code = 9253046016) 5 2-16 BUN (test code = 8276431932) 15 mg/dL 7-23 GLUCOSE (test code = 1311470429) 78 mg/dL 70-110 CREATININE (test code = 2160-0) 0.51 mg/dL 0.50-1.04 TOTAL BILI (test code = 9479313710) 0.7 mg/dL 0.1-1.1 CALCIUM (test code = 9855655339) 8.8 mg/dL 8.6-10.6 T PROTEIN (test code = 1762564390) 7.7 g/dL 6.3-8.2 ALBUMIN (test code = 9216496210) 4.4 g/dL 3.5-5.0 ALK PHOS (test code = 7672798731) 49 U/L 34-122 ALTv (test code = 1742-6) 14 U/L 5-35 AST(SGOT) (test code = 6289430225) 21 U/L 13-40 eGFR (test code = 72736-2) 125.8 mL/min/1.73m2 CKD-EPI eGFR (20 21). Assuming creatinine has been stable day-to-day for at least three months, the eGFR indicates Category G1 (>= 90 mL/min/1.73 m2) [facility] Metabolic Panel (79618)2023-06-24 14:31:44* Test Item Value Reference Range Interpretation Comme nts NA (test code = 5215398035) 139 mmol/L 135-145 K (test code = 4595824955) 3.6 mmol/L 3.5-5.0 CL (test code = 3263281766) 106 mmol/L 98-108 CO2 TOTAL (test code = 2431897253) 28 mmol/L 23-31 AGAP (test code = 8368102251) 5 2-16 BUN (test code = 7138589603) 15 mg/dL 7-23 GLUCOSE (test code = 8749570028) 78 mg/dL 70-110 CREATININE (test code = 2160-0) 0.51 mg/dL 0.50-1.04 TOTAL BILI (test code = 6878210046) 0.7 mg/dL 0.1-1.1 CALCIUM (test code = 6606328518) 8.8 mg/dL 8.6-10.6 T PROTEIN (test code = 9668503008) 7.7 g/dL 6.3-8.2 ALBUMIN (test code = 9156030897) 4.4 g/dL 3.5-5.0 ALK PHOS (test code = 9134487168) 49 U/L 34-122 ALTv (test code = 1742-6) 14 U/L 5-35 AST(SGOT) (test code = 6655743195) 21 U/L 13-40 eGFR (test code = 75589-0) 125.8 mL/min/1.73m2 CKD-EPI eGFR (20 21). Assuming creatinine has been stable day-to-day for at least three months, the eGFR indicates Category G1 (>= 90 mL/min/1.73 m2) [facility] / [id number] 14:23:43* Test Item Value Reference Range Interpretation Comme nts PROTIME PATIENT (test code = 5964-2) 11.6 10.1-12.6 INR (test code = 6301-6) 1.0 Normal INR <1.1; Warfarin Therapeutic range 2.0 to 3.0 or 2.5 to 3.5, depending upon the indications. Lab Interpretation (test code = 43304-7) Normal [facility] / [id number] 14:23:43* Test Item Value Reference Range Interpretation Comme nts PROTIME PATIENT (test code = 5964-2) 11.6 10.1-12.6 INR (test code = 6301-6) 1.0 Normal INR <1.1; Warfarin Therapeutic range 2.0 to 3.0 or 2.5 to 3.5, depending upon the indications. Lab Interpretation (test code = 26320-9) Normal [facility] Hospital[facility] with [id number] 14:14:40* Test Item Value Reference Range Interpretation Comme nts WBC (test code = 6690-2) 6.47 4.30-11.10 RBC (test code = 789-8) 4.67 3.93-5.25 HGB (test code = 718-7) 14.3 g/dL 11.6-15.0 HCT (test code = 4544-3) 41.0 % 35.7-45.2 MCV (test code = 787-2) 87.8 fL 80.6-95.5 MCH (test code = 785-6) 30.6 pg 25.9-32.8 MCHC (test code = 786-4) 34.9 g/dL 31.6-35.1 RDW-SD (test code = 28131-8) 39.8 fL 39.0-49.9 RDW-CV (test code = 788-0) 12.3 % 12.0-15.5 PLT (test code = 777-3) 241 166-358 MPV (test code = 03278-8) 10.8 fL 9.5-12.9 NRBC/100 WBC (test code = 5902388666) 0.0 0.0-10.0 NRBC x10^3 (test code = 4572695527) See_Comment [Automated me ssage] The system which generated this result transmitted reference range: 10*3/?L. The reference range was not used to interpret this result as normal/abnormal. GRAN MAT (NEUT) % (test code = 770-8) 53.4 % IMM GRAN % (test code = 7086479315) 0.20 % LYMPH % (test code = 736-9) 38.3 % MONO % (test code = 5905-5) 5.9 % EOS % (test code = 713-8) 1.7 % BASO % (test code = 706-2) 0.5 % GRAN MAT x10^3(ANC) (test code = 7923676595) 3.46 10*3/uL 1.88-7.09 IMM GRAN x10^3 (test code = 8201606269) 0.00-0.06 LYMPH x10^3 (test code = 731-0) 2.48 10*3/uL 1.32-3.29 MONO x10^3 (test code = 742-7) 0.38 10*3/uL 0.33-0.92 EOS x10^3 (test code = 711-2) 0.11 10*3/uL 0.03-0.39 BASO x10^3 (test code = 704-7) 0.03 10*3/uL 0.01-0.07 [facility] with [id number] 14:14:40* Test Item Value Reference Range Interpretation Comme nts WBC (test code = 6690-2) 6.47 4.30-11.10 RBC (test code = 789-8) 4.67 3.93-5.25 HGB (test code = 718-7) 14.3 g/dL 11.6-15.0 HCT (test code = 4544-3) 41.0 % 35.7-45.2 MCV (test code = 787-2) 87.8 fL 80.6-95.5 MCH (test code = 785-6) 30.6 pg 25.9-32.8 MCHC (test code = 786-4) 34.9 g/dL 31.6-35.1 RDW-SD (test code = 15857-4) 39.8 fL 39.0-49.9 RDW-CV (test code = 788-0) 12.3 % 12.0-15.5 PLT (test code = 777-3) 241 166-358 MPV (test code = 25049-7) 10.8 fL 9.5-12.9 NRBC/100 WBC (test code = 0409092544) 0.0 0.0-10.0 NRBC x10^3 (test code = 1992664565) See_Comment [Automated me ssage] The system which generated this result transmitted reference range: 10*3/?L. The reference range was not used to interpret this result as normal/abnormal. GRAN MAT (NEUT) % (test code = 770-8) 53.4 % IMM GRAN % (test code = 5442509047) 0.20 % LYMPH % (test code = 736-9) 38.3 % MONO % (test code = 5905-5) 5.9 % EOS % (test code = 713-8) 1.7 % BASO % (test code = 706-2) 0.5 % GRAN MAT x10^3(ANC) (test code = 5136764909) 3.46 10*3/uL 1.88-7.09 IMM GRAN x10^3 (test code = 3731561907) 0.00-0.06 LYMPH x10^3 (test code = 731-0) 2.48 10*3/uL 1.32-3.29 MONO x10^3 (test code = 742-7) 0.38 10*3/uL 0.33-0.92 EOS x10^3 (test code = 711-2) 0.11 10*3/uL 0.03-0.39 BASO x10^3 (test code = 704-7) 0.03 10*3/uL 0.01-0.07 [facility] LUMBAR SPINE WO [id number] 21:54:00 EXAM: MR LUMBAR SPINE WO CONTRAST HISTORY: 32 years-old Female; Provided indication: chronic low back pain /radiculopathy, decreased reflexes . COMPARISON: Lumbar spine radiograph 12/03/2021. TECHNIQUE: Multiplanar and multisequence MRI imaging of the lumbar spinewas obtained without contrast. FINDINGS: Normal lumbar lordosis is preserved. The vertebral bodies are normal inheight and in normal alignment. The conus medullaris terminates at the level of L1-L2. The cauda equinanerve roots are unremarkable. No significant disc dessication is seen. The background marrow signal isunremarkable. L1-L2: No significant spinal canal stenosis or neural foraminal narrowingis present. L2- L3: Diffuse disc bulge with broad-based central disc extrusion migratingcranially, this results in mild spinal canal stenosis and mild bilateralneural foraminal narrowing. L3-L4: Diffuse disc bulge with mild facet arthrosis and ligamentum flavumthickening, this results in mild bilateral right more than left neuralforamen narrowing and no significant central spinal canal stenosis. L4-L5: Shallow diffuse disc bulge with mild facet arthrosis and ligamentumflavum thickening, this results in mild bilateral neural foramen narrowingand no significant central spinal canal stenosis. Posterior annularfissure. L5-S1: Diffuse disc bulge with broad-based central disc protrusion,moderate facet arthrosis that results in mild bilateral neural foramennarrowing and mild spinal canal stenosis. There is mild bilateralsubarticular zone narrowing. The paraspinal soft tissues are unremarkable.[facility] [id number] 19:25:00* Test Item Value Reference Range Interpretation Comme nts POCT PREG (test code = 1605) Negative On board controls acceptable with C Line (test code = 3574) Yes POCT PREG LOT # (test code = 3575) [id number] POCT PREG TEST DATE ( test code = 3576) 04/05/2024 Lab Interpretation (test cod e = 93225-6) Normal [facility] [id number] 21:54:00* Test Item Value Reference Range Interpretation Comme nts POCT PREG (test code = 1605) Negative On board controls acceptable with C Line (test code = 3574) Yes Lab Interpretation (test cod e = 55906-4) Normal [facility] ABDOMEN PELVIS W [id number] 23:21:40ORDERING PHYSICIAN: ЕЛЕНА RAYMOND CLINICAL HISTORY: Abdominal pain COMPARISON: None available. TECHNIQUE: Helical CT images of the abdomen and pelvis obtained with IVcontrast. CT scan performed according to ALARA (As low as reasonablyachievable) principles. FINDINGS: Heart size is normal. Lowerlungs are clear. There are no effusions. Theliver, gallbladder, pancreas, spleen, and adrenals are unremarkable.Kidneys are unremarkable. Bladder is unremarkable. Uterus and adnexa areunremarkable. Patient status post appendectomy.[facility] [id number] 00:43:00* Test Item Value Reference Range Interpretation Comme nts POCT PREG (test code = 1605) Negative On board controls acceptable with C Line (test code = 3577) Yes POCT PREG LOT # (test code = 9316) [id number] POCT PREG TEST DATE ( test code = 3571) 02/11/2024 Lab Interpretation (test cod e = 16138-8) Normal [facility]. METABOLIC PANEL (69161)2022-06-08 19:24:14* Test Item Value Reference Range Interpretation Comme nts NA (test code = 5856389244) 138 mmol/L 135-145 K (test code = 2671483722) 4.1 mmol/L 3.5-5.0 CL (test code = 5794738559) 101 mmol/L 98-108 CO2 TOTAL (test code = 1869230801) 28 mmol/L 23-31 AGAP (test code = 2685521505) 9 2-16 BUN (test code = 7264091742) 13 mg/dL 7-23 GLUCOSE (test code = 5463918143) 84 mg/dL 70-110 CREATININE (test code = 8076181352) 0.48 mg/dL 0.50-1.04 L TOTAL BILI (test code = 9690837153) 0.5 mg/dL 0.1-1.1 CALCIUM (test code = 4994961648) 8.7 mg/dL 8.6-10.6 T PROTEIN (test code = 8275117158) 7.3 g/dL 6.3-8.2 ALBUMIN (test code = 0173374738) 4.5 g/dL 3.5-5.0 ALK PHOS (test code = 8684150728) 44 U/L 34-122 ALTv (test code = 1742-6) 22 U/L 5-35 AST(SGOT) (test code = 9001010317) 19 U/L 13-40 eGFR (test code = 6734370561) 148.9 mL/min/1.73m2 KATHY (test code = KATHY) Association of [...] or abnormalities in imaging tests). Lab Interpretation (test code = 64911-7) Abnormal [facility] HospitalTROPONIN [id number] 19:20:36* Test Item Value Reference Range Interpretation Comme nts TROPONIN I (test code = 1542018688) 0.001 ng/mL <=0.034 KATHY (test code = KATHY) Reference (Normal) Range (defined by the 99th percentile reference limit): <= 0.034 ng/mL Note: Cardiac troponin begins to rise 3-4 hours after the onset of ischemia. Repeat in 4-6 hours if the sample was drawn within 3-4 hours of the onset of the symptom and found normal. Diagnosis of myocardial injury is made with acute changes in cTn concentrations with at least one serial sample above the 99th percentile upper reference limit (URL), taken together with the patient's clinical presentation. Biotin has been reported to cause a negative bias, interpret results relative to patient's use of biotin. Lab Interpretation (test code = 24439-2) Normal [facility]MINAL [id number] 19:18:18* Test Item Value Reference Range Interpretation Comme nts NT-proBNP (test code = 7293431961) 77 pg/mL <=125 KATHY (test code = KATHY) Biotin has been reported to cause a negative bias, interpret results relative to patient's use of biotin. Lab Interpretation (test code = 85011-2) Normal [facility] WITH [id number] 18:58:30* Test Item Value Reference Range Interpretation Comme nts WBC (test code = 6690-2) 7.85 See_Comment [Automated [employer] ge] The system which generated this result transmitted reference range: 4.30 - 11.10 10*3/?L. The reference range was not used to interpret this result as normal/abnormal. RBC (test code = 789-8) 4.70 See_Comment [Automated [employer] ge] The system which generated this result transmitted reference range: 3.93 - 5.25 10*6/?L. The reference range was not used to interpret this result as normal/abnormal. HGB (test code = 718-7) 14.4 g/dL 11.6-15.0 HCT (test code = 4544-3) 41.6 % 35.7-45.2 MCV (test code = 787-2) 88.5 fL 80.6-95.5 MCH (test code = 785-6) 30.6 pg 25.9-32.8 MCHC (test code = 786-4) 34.6 g/dL 31.6-35.1 RDW-SD (test code = 92584-0) 41.8 fL 39.0-49.9 RDW-CV (test code = 788-0) 12.9 % 12.0-15.5 PLT (test code = 777-3) 268 See_Comment [Automated [employer]] The system which generated this result transmitted reference range: 166 - 358 10*3/?L. The reference range was not used to interpret this result as normal/abnormal. MPV (test code = 27376-3) 10.8 fL 9.5-12.9 NRBC/100 WBC (test code = 7815942946) 0.0 See_Comment [Automated [employer] ssage] The system which generated this result transmitted reference range: 0.0 - 10.0 /100 WBCs. The reference range was not used to interpret this result as normal/abnormal. NRBC x10^3 (test code = 0093228362) See_Comment [Automated me ssage] The system which generated this result transmitted reference range: 10*3/?L. The reference range was not used to interpret this result as normal/abnormal. GRAN MAT (NEUT) % (test code = 770-8) 61.6 % IMM GRAN % (test code = 8591033317) 0.40 % LYMPH % (test code = 736-9) 30.8 % MONO % (test code = 5905-5) 5.2 % EOS % (test code = 713-8) 1.4 % BASO % (test code = 706-2) 0.6 % GRAN MAT x10^3(ANC) (test code = 9547643935) 4.83 10*3/uL 1.88-7.09 IMM GRAN x10^3 (test code = 5111445803) 0.03 10*3/uL 0.00-0.06 LYMPH x10^3 (test code = 731-0) 2.42 10*3/uL 1.32-3.29 MONO x10^3 (test code = 742-7) 0.41 10*3/uL 0.33-0.92 EOS x10^3 (test code = 711-2) 0.11 10*3/uL 0.03-0.39 BASO x10^3 (test code = 704-7) 0.05 10*3/uL 0.01-0.07 [facility] [id number] 03:10:16* Test Item Value Reference Range Interpretation Comments TROPONIN I (test code = 5973450149) 0.003 ng/mL See_Comment [Automated message] The system which generated this result transmitted reference range: <=0.034. The reference range was not used to interpret this result as normal/abnormal. KATHY (test code = KATHY) Reference (Normal) Range (defined by the 99th percentile reference limit): <= 0.034 ng/mL Note: Cardiac troponin begins to rise 3-4 hours after the onset of ischemia. Repeat in 4-6 hours if the sample was drawn within 3-4 hours of the onset of the symptom and found normal. Diagnosis of myocardial injury is made with acute changes in cTn concentrations with at least one serial sample above the 99th percentile upper reference limit (URL), taken together with the patient's clinical presentation. Biotin has been reported to cause a negative bias, interpret results relative to patient's use of biotin. Lab Interpretation (test code = 18458-2) Normal [facility]AL [id number] 03:07:15* Test Item Value Reference Range Interpretation Comme nts NT-proBNP (test code = 1604442402) 81 pg/mL See_Comment [Automated message] The system which generated this result transmitted reference range: <=125. The reference range was not used to interpret this result as normal/abnormal. KATHY (test code = KATHY) Biotin has been reported to cause a negative bias, interpret results relative to patient's use of biotin. Lab Interpretation (test code = 76667-1) Normal [facility] HospitalMAGNESIUM2023-01-26 02:58:33* Test Item Value Reference Range Interpretation Comme nts MAGNESIUM (test code = 9654539000) 2.1 mg/dL 1.7-2.4 Lab Interpretation (test cod e = 51889-1) Normal [facility] HospitalCOMP. METABOLIC PANEL (88591)2022-03-26 02:58:13* Test Item Value Reference Range Interpretation Comme nts NA (test code = 4874407511) 139 mmol/L 135-145 K (test code = 0528018001) 3.9 mmol/L 3.5-5.0 CL (test code = 3629761162) 105 mmol/L 98-108 CO2 TOTAL (test code = 5617694576) 25 mmol/L 23-31 AGAP (test code = 4359257836) 2-16 BUN (test code = 7135354838) 13 mg/dL 7-23 GLUCOSE (test code = 0046760059) 91 mg/dL 70-110 CREATININE (test code = 8587164160) 0.46 mg/dL 0.50-1.04 L TOTAL BILI (test code = 7439548599) 0.4 mg/dL 0.1-1.1 CALCIUM (test code = 1528155746) 8.8 mg/dL 8.6-10.6 T PROTEIN (test code = 6446659613) 7.5 g/dL 6.3-8.2 ALBUMIN (test code = 2118850587) 4.7 g/dL 3.5-5.0 ALK PHOS (test code = 1269359016) 50 U/L 34-122 ALTv (test code = 1742-6) 15 U/L 5-35 AST(SGOT) (test code = 6719920411) 17 U/L 13-40 eGFR (test code = 9482425704) mL/min/1.73m2 KATHY (test code = KATHY) Association of [...] or abnormalities in imaging tests). Lab Interpretation (test code = 85715-7) [facility]normal [facility] HospitalLIPASE[facility]23-[facility] 02:58:13* Test Item Value Reference Range Interpretation Comme nts LIPASE (test code = 1384385936) 112 U/L 0-220 Lab Interpretation (test cod e = 31393-8) Normal [facility] WITH [id number] 02:45:31* Test Item Value Reference Range Interpretation Comme nts WBC (test code = 6690-2) See_Comment [Automated messa ge] The system which generated this result transmitted reference range: 4.30 - 11.10 10*3/?L. The reference range was not used to interpret this result as normal/abnormal. RBC (test code = 789-8) See_Comment [Automated messa ge] The system which generated this result transmitted reference range: 3.93 - 5.25 10*6/?L. The reference range was not used to interpret this result as normal/abnormal. HGB (test code = 718-7) 13.3 g/dL 11.6-15.0 HCT (test code = 4544-3) 38.3 % 35.7-45.2 MCV (test code = 787-2) 85.9 fL 80.6-95.5 MCH (test code = 785-6) 29.8 pg 25.9-32.8 MCHC (test code = 786-4) 34.7 g/dL 31.6-35.1 RDW-SD (test code = 57209-5) 38.7 fL 39.0-49.9 L RDW-CV (test code = 788-0) 12.4 % 12.0-15.5 PLT (test code = 777-3) See_Comment [Automated messa ge] The system which generated this result transmitted reference range: 166 - 358 10*3/?L. The reference range was not used to interpret this result as normal/abnormal. MPV (test code = 96722-2) 11.1 fL 9.5-12.9 NRBC/100 WBC (test code = 8448552518) See_Comment [Automated [employer] ssage] The system which generated this result transmitted reference range: 0.0 - 10.0 /100 WBCs. The reference range was not used to interpret this result as normal/abnormal. NRBC x10^3 (test code = 0924315890) See_Comment [Automated messa ge] The system which generated this result transmitted reference range: 10*3/?L. The reference range was not used to interpret this result as normal/abnormal. GRAN MAT (NEUT) % (test code = 770-8) 59.9 % IMM GRAN % (test code = 8315468104) 0.40 % LYMPH % (test code = 736-9) 32.8 % MONO % (test code = 5905-5) 5.2 % EOS % (test code = 713-8) 1.2 % BASO % (test code = 706-2) 0.5 % GRAN MAT x10^3(ANC) (test code = 5551866617) 4.58 10*3/uL 1.88-7.09 IMM GRAN x10^3 (test code = 7591175618) 0.03 10*3/uL 0.00-0.06 LYMPH x10^3 (test code = 731-0) 2.51 10*3/uL 1.32-3.29 MONO x10^3 (test code = 742-7) 0.40 10*3/uL 0.33-0.92 EOS x10^3 (test code = 711-2) 0.09 10*3/uL 0.03-0.39 BASO x10^3 (test code = 704-7) 0.04 10*3/uL 0.01-0.07 Lab Interpretation (test code = 60231-5) Abnormal [facility] MOLECULAR [id number] 22:33:27* Test Item Value Reference Range Interpretation Comme nts POCT Molecular FluA (test co de = 45232-9) Positive Negative A Lab Interpretation (test cod e = 56246-1) Abnormal [facility] [id number] 22:10:00* Test Item Value Reference Range Interpretation Comme nts POCT PREG (test code = 1605) Negative On board controls acceptable with C Line (test code = 3574) Yes POCT PREG LOT # (test code = 3575) POCT PREG TEST DATE ( test code = 3576) [facility] [id number] 22:10:00* Test Item Value Reference Range Interpretation Comme nts POCT PREG (test code = 1605) Negative On board controls acceptable with C Line (test code = 3574) Yes POCT PREG LOT # (test code = 3575) POCT PREG TEST DATE ( test code = 3576) [facility] GLUCOSE(AGE >30DAYS)2021-03-08 23:56:00* Test Item Value Reference Range Interpretation Comme nts POCT Glu (age>30days) (test code = 3342) 87 mg/dL 70-110 Lab Interpretation (test cod e = 69784-6) Normal [facility] GLUCOSE (AUTOMATED)2021-03-08 23:25:29* Test Item Value Reference Range Interpretation Comme nts POCT GLU (test code = 4944902624) 87 mg/dL 70-110 Lab Interpretation (test cod e = 61500-2) Normal [facility] [id number] 21:58:00* Test Item Value Reference Range Interpretation Comme nts POCT PREG (test code = 1605) negative On board controls acceptable with C Line (test code = 3574) present POCT PREG LOT # (test code = 3575) [id number] POCT PREG TEST DATE ( test code = 3576) Lab Interpretation (test cod e = 73594-1) Normal [facility] MOLECULAR [id number] 02:06:02* Test Item Value Reference Range Interpretation Comme nts POCT Molecular FluA (test co de = 36861-8) Negative Negative POCT Molecular FluB (test co de = 59760-5) Negative Negative Lab Interpretation (test cod e = 52791-2) Normal [facility]Type [facility] - The Type and Screen expires at midnight on the 3rd day after it was drawn. A current Type and Screen is required when RBCs are requested. For all other blood products, a Type and Scr een performed during the current hospitalizati...2020-01-02 00:20:51* Test Item Value Reference Range Interpretation Comme nts ABO & RH (test code = 20) A Positive Performed at [facility] Laboratory [facility] - [facility] Blood [address] [place], [place] [id number] Free: [phone] No. [id number] IAT (test code = 1185) Negative Performed at [facility] Laboratory [facility] Blood [address] [place] [id number] Free: [phone] No. [id number] [facility] HospitalTOTAL BETA HCG [id number] 23:02:00* Test Item Value Reference Range Interpretation Comme nts BETA HCG (test code = 0286037578) <2.39 See_Comment [Automated [employer] ge] The system which generated this result transmitted reference range: Non- female and male patients: <5 mIU/mL. The reference range was not used to interpret this result as normal/abnormal. KATHY (test code = KATHY) Gestational Age ?Range (mIU/mL) 1-10 ?Weeks ?55-56711030-20 Weeks ?61666-32270426-12 Weeks ?4693-57312564-16 Weeks ?5081-526059 Biotin has been reported to cause a negative bias, interpret results relative to patient's use of biotin. [facility]COVID[facility] (ID NOW RAPID TESTING)2020-01-01 22:43:00* Test Item Value Reference Range Interpretation Comme nts SARS-CoV-2 Rapid ID NOW (test code = 28972-0) Not Detected Not Detected KATHY (test code = KATHY) ID NOW COVID-19 As say is an isothermal nucleic acid amplification test intended for the qualitative detection of nucleic acid from SARS-CoV-2 viral RNA in nasopharyngeal (COMMUNITY PHARMACIST) specimens. It is used under Emergency Use [...] patient testing if clinically indicated. Lab Interpretation (test code = 12016-1) Normal [facility] with Skxxgwmkxeco1942-13-97 10:00:00* Test Item Value Reference Range Interpretation Comme nts WBC (test code = 6690-2) See_Comment [Automated messa ge] The system which generated this result transmitted reference range: 4.30 - 11.10 10*3/?L. The reference range was not used to interpret this result as normal/abnormal. RBC (test code = 789-8) See_Comment L [Automated messa ge] The system which generated this result transmitted reference range: 3.93 - 5.25 10*6/?L. The reference range was not used to interpret this result as normal/abnormal. HGB (test code = 718-7) 11.3 g/dL 11.6-15 L HCT (test code = 4544-3) 32.8 % 35.7-45.2 L MCV (test code = 787-2) 89.4 fL 80.6-95.5 MCH (test code = 785-6) 30.8 pg 25.9-32.8 MCHC (test code = 786-4) 34.5 g/dL 31.6-35.1 RDW-SD (test code = 07354-2) 45.1 fL 39-49.9 RDW-CV (test code = 788-0) 13.8 % 12-15.5 PLT (test code = 777-3) See_Comment [Automated messa ge] The system which generated this result transmitted reference range: 166 - 358 10*3/?L. The reference range was not used to interpret this result as normal/abnormal. MPV (test code = 08996-7) 11.3 fL 9.5-12.9 NRBC/100 WBC (test code = 6945691307) See_Comment [Automated [employer] ssage] The system which generated this result transmitted reference range: 0.0 - 10.0 /100 WBCs. The reference range was not used to interpret this result as normal/abnormal. NRBC x10^3 (test code = 1061550965) <0.01 See_Comment [Automated messa ge] The system which generated this result transmitted reference range: 10*3/?L. The reference range was not used to interpret this result as normal/abnormal. GRAN MAT (NEUT) % (test code = 770-8) 67.3 % IMM GRAN % (test code = 2993679015) 0.40 % LYMPH % (test code = 736-9) 25.8 % MONO % (test code = 5905-5) 5.0 % EOS % (test code = 713-8) 1.2 % BASO % (test code = 706-2) 0.3 % GRAN MAT x10^3(ANC) (test code = 8143087924) 7.22 10*3/uL 1.88-7.09 H IMM GRAN x10^3 (test code = 9319137976) 0.04 10*3/uL 0-0.06 LYMPH x10^3 (test code = 731-0) 2.77 10*3/uL 1.32-3.29 MONO x10^3 (test code = 742-7) 0.54 10*3/uL 0.33-0.92 EOS x10^3 (test code = 711-2) 0.13 10*3/uL 0.03-0.39 BASO x10^3 (test code = 704-7) 0.03 10*3/uL 0.01-0.07 Lab Interpretation (test code = 41319-4) Abnormal [facility] HospitalAD OR NIKOLE ONLY - [id number] 05:42:00* Test Item Value Reference Range Interpretation Comme nts RPR (Qualitative) (test code = 64562-7) Nonreactive Nonreactive Lab Interpretation (test cod e = 08844-6) Normal [facility] HospitalRHO (D) IMMUNE QSPWZSSC9553-09-66 20:12:19* Test Item Value Reference Range Interpretation Comme nts RHIG CANDIDATE? (test code = 5055) No- see comment Patient is not a candidate for RhIg- Patient is Rh Positive.Performed at [facility] Laboratory Services - [facility] Blood [address] [place] [id number] Free: [phone] No. [id number] [facility] HospitalVenous Cord Urx1677-39-12 18:31:00* Test Item Value Reference Range Interpretation Comme nts VENOUS BASE EXCESS, CORD (test code = 8896710286) mEq/L VENOUS PH, CORD (test code = 0584798600) 7.25-7.45 VENOUS PC02, CORD (test code = 0976317930) See_Comment [Automated messa ge] The system which generated this result transmitted reference range: 27 - 49 mmHg. The reference range was not used to interpret this result as normal/abnormal. VENOUS PO2, CORD (test code = 0914763741) See_Comment [Automated me ssage] The system which generated this result transmitted reference range: 17 - 41 mmHg. The reference range was not used to interpret this result as normal/abnormal. VENOUS BICARBONATE, CORD (test code = 2689835388) See_Comment [Automated messa ge] The system which generated this result transmitted reference range: 12 - 29 mEq/L. The reference range was not used to interpret this result as normal/abnormal. [facility] HospitalArterial Cord [id number] 18:29:00* Test Item Value Reference Range Interpretation Comme nts BASE EXCESS, CORD (test code = 9133773305) mEq/L AC PH, CORD (BEAKER) (test code = 3377458216) 7.18-7.38 PC02, CORD (test code = 8808836477) See_Comment [Automated messa ge] The system which generated this result transmitted reference range: 32 - 66 mmHg. The reference range was not used to interpret this result as normal/abnormal. PO2, CORD (test code = 4409593355) See_Comment [Automated messa ge] The system which generated this result transmitted reference range: 10 - 30 mmHg. The reference range was not used to interpret this result as normal/abnormal. BICARBONATE, CORD (test code = 9647672982) See_Comment [Automated messa ge] The system which generated this result transmitted reference range: 17 - 27 mEq/L. The reference range was not used to interpret this result as normal/abnormal. [facility] HospitalHepatitis B Surface [id number] 16:09:00 * Test Item Value Reference Range Interpretation Comme [facility] HBsAg Semi-Quantitative (guevara t code = 5195-3) Negative Negative [facility] HospitalHIV 1/2 AG-AB WITH [id number] 11:53:00* Test Item Value Reference Range Interpretation Comme nts HIV Semi-quantitative (test code = 72443-9) Negative Negative KATHY (test code = KATHY) Non-reactive for HIV-1 antigen and HIV-1/HIV-2 antibodies. ?No laboratory evidence of HIV infection. ?Repeat in 2-4 weeks if acute HIV infection is suspected. [facility] HospitalType and Screen - ONCE [id number] 11:45:14 * Test Item Value Reference Range Interpretation Comme nts ABO & RH (test code = 20) A Positive Performed at [facility] Laboratory [facility] Blood [address] [place], [place] [address]Toll Free: [phone] No. [id number] IAT (test code = 1185) Negative Performed at [facility] Laboratory [facility] Blood [address] [place], [place] [address]Toll Free: [phone] No. [id number] [facility] HospitalCBC with Dbofdvqlmqgr2558-68-04 11:01:00* Test Item Value Reference Range Interpretation Comme nts WBC (test code = 6690-2) See_Comment [Automated messa ge] The system which generated this result transmitted reference range: 4.30 - 11.10 10*3/?L. The reference range was not used to interpret this result as normal/abnormal. RBC (test code = 789-8) See_Comment [Automated messa ge] The system which generated this result transmitted reference range: 3.93 - 5.25 10*6/?L. The reference range was not used to interpret this result as normal/abnormal. HGB (test code = 718-7) 12.3 g/dL 11.6-15 HCT (test code = 4544-3) 35.1 % 35.7-45.2 L MCV (test code = 787-2) 88.4 fL 80.6-95.5 MCH (test code = 785-6) 31.0 pg 25.9-32.8 MCHC (test code = 786-4) 35.0 g/dL 31.6-35.1 RDW-SD (test code = 03778-5) 44.3 fL 39-49.9 RDW-CV (test code = 788-0) 13.7 % 12-15.5 PLT (test code = 777-3) See_Comment [Automated messa ge] The system which generated this result transmitted reference range: 166 - 358 10*3/?L. The reference range was not used to interpret this result as normal/abnormal. MPV (test code = 02311-2) 11.3 fL 9.5-12.9 NRBC/100 WBC (test code = 1780816251) See_Comment [Automated me ssage] The system which generated this result transmitted reference range: 0.0 - 10.0 /100 WBCs. The reference range was not used to interpret this result as normal/abnormal. NRBC x10^3 (test code = 9160854576) <0.01 See_Comment [Automated messa ge] The system which generated this result transmitted reference range: 10*3/?L. The reference range was not used to interpret this result as normal/abnormal. GRAN MAT (NEUT) % (test code = 770-8) 61.9 % IMM GRAN % (test code = 8662642822) 0.40 % LYMPH % (test code = 736-9) 27.4 % MONO % (test code = 5905-5) 8.7 % EOS % (test code = 713-8) 1.3 % BASO % (test code = 706-2) 0.3 % GRAN MAT x10^3(ANC) (test code = 4680105057) 5.63 10*3/uL 1.88-7.09 IMM GRAN x10^3 (test code = 1411747648) 0.04 10*3/uL 0-0.06 LYMPH x10^3 (test code = 731-0) 2.50 10*3/uL 1.32-3.29 MONO x10^3 (test code = 742-7) 0.79 10*3/uL 0.33-0.92 EOS x10^3 (test code = 711-2) 0.12 10*3/uL 0.03-0.39 BASO x10^3 (test code = 704-7) 0.03 10*3/uL 0.01-0.07 Lab Interpretation (test code = 33663-7) Abnormal [facility] URINALYSIS W/O SPECIFIC [id number] 18:36:00* Test Item Value Reference Range Interpretation Comme nts POCT PH U (test code = 3254) 6 mg/dl 5-8 POCT U LEUK EST (test code = 3263) + Negative - Negative POCT U NIT (test code = 3262) neg Negative - Negati ve POCT U PROT (test code = 3259) neg Negative - Negat joana POCT U GLU (test code = 3256) neg Negative - Negati ve POCT U KETONE (test code = 3258) neg Negative - Neg ative POCT U BLD (test code = 3257) neg Negative - Negati ve [facility] HospitalPOMT URINAL[facility] W/O SPECIFIC [id number] 20:54:00* Test Item Value Reference Range Interpretation Comme nts POCT PH U (test code = 3254) N/A 5-8 POCT U LEUK EST (test code = 3263) N/A Negative - Negative POCT U NIT (test code = 3262) N/A Negative - Negati ve POCT U PROT (test code = 3259) Negative Negative - Negat joana POCT U GLU (test code = 3256) Negative Negative - Negati ve POCT U KETONE (test code = 3258) N/A Negative - Neg ative POCT U BLD (test code = 3257) N/A Negative - Negati ve [facility]>14 WEEKS US [id number] 20:17:59Limited USG for Presentation: ?Cephalic Nino Steward MD ?10/23/2019 ?3:17 [facility] W/O SPECIFIC GRAVITY 2019-10-23 19:02:00* Test Item Value Reference Range Interpretation Comme nts POCT PH U (test code = 3254) N/A 5-8 POCT U LEUK EST (test code = 3263) N/A Negative - N egative POCT U NIT (test code = 3262) N/A Negative - Negati ve POCT U PROT (test code = 3259) NEG Negative - Negat joana POCT U GLU (test code = 3256) NEG Negative - Negati ve POCT U KETONE (test code = 3258) N/A Negative - Neg ative POCT U BLD (test code = 3257) N/A Negative - Negati ve [facility] W/O SPECIFIC [id number] 20:57:00* Test Item Value Reference Range Interpretation Comme nts POCT PH U (test code = 3254) n/a 5-8 POCT U LEUK EST (test code = 3263) n/a Negative - N egative POCT U NIT (test code = 3262) n/a Negative - Negati ve POCT U PROT (test code = 3259) neg Negative - Negat joana POCT U GLU (test code = 3256) neg Negative - Negati ve POCT U KETONE (test code = 3258) n/a Negative - Neg ative POCT U BLD (test code = 3257) n/a Negative - Negati ve Lab Interpretation (test cod e = 31705-1) Normal [facility] HospitalPOCT URINALYS[facility] W/O SPECIFIC [id number] 18:45:00* Test Item Value Reference Range Interpretation Comme nts POCT PH U (test code = 3254) n/a 5-8 POCT U LEUK EST (test code = 3263) n/a Negative - N egative POCT U NIT (test code = 3262) n/a Negative - Negati ve POCT U PROT (test code = 3259) neg Negative - Negat joana POCT U GLU (test code = 3256) neg Negative - Negati ve POCT U KETONE (test code = 3258) n/a Negative - Neg ative POCT U BLD (test code = 3257) n/a Negative - Negati ve [facility] HospitalPO[facility] UR[facility]AL[facility] W/O SPECIFIC [id number] 18:45:00* Test Item Value Reference Range Interpretation Comme nts POCT PH U (test code = 3254) n/a 5-8 POCT U LEUK EST (test code = 3263) n/a Negative - N egative POCT U NIT (test code = 3262) n/a Negative - Negati ve POCT U PROT (test code = 3259) neg Negative - Negat joana POCT U GLU (test code = 3256) neg Negative - Negati ve POCT U KETONE (test code = 3258) n/a Negative - Neg ative POCT U BLD (test code = 3257) n/a Negative - Negati ve [facility] HospitalHEPATIC FUNCTION PANEL (96970) (ALB,T.PRO,BILI T,BU/BC,ALT,AST,ALK PHOS)2019-09-15 21:56:00* Test Item Value Reference Range Interpretation Comme nts TOTAL BILI (test code = 9429509608) 0.3 mg/dL 0.1-1.1 BILI UNCON (test code = 9351503571) 0.5 mg/dL 0.1-1.1 BILI CONJ (test code = 3176685769) 0.0 mg/dL 0-0.3 T PROTEIN (test code = 4189729014) 7.1 g/dL 6.3-8.2 ALBUMIN (test code = 1819768771) 3.8 g/dL 3.5-5 ALK PHOS (test code = 9629284371) 71 U/L 34-122 ALTv (test code = 1742-6) 10 U/L 5-35 AST(SGOT) (test code = 6248947621) 17 U/L 13-40 Lab Interpretation (test cod e = 14826-8) Normal [facility] URINALYSIS W/O SPECIFIC [id number] 18:23:00* Test Item Value Reference Range Interpretation Comme nts POCT PH U (test code = 3254) n/a 5-8 POCT U LEUK EST (test code = 3263) n/a Negative - N egative POCT U NIT (test code = 3262) n/a Negative - Negati ve POCT U PROT (test code = 3259) neg Negative - Negat joana POCT U GLU (test code = 3256) neg Negative - Negati ve POCT U KETONE (test code = 3258) n/a Negative - Neg ative POCT U BLD (test code = 3257) n/a Negative - Negati ve Lab Interpretation (test cod e = 26133-9) Normal [facility] URINALYSIS W/O SPECIFIC [id number] 20:42:00* Test Item Value Reference Range Interpretation Comme nts POCT PH U (test code = 3254) n/a 5-8 POCT U LEUK EST (test code = 3263) n/a Negative - N egative POCT U NIT (test code = 3262) n/a Negative - Negati ve POCT U PROT (test code = 3259) neg Negative - Negat joana POCT U GLU (test code = 3256) neg Negative - Negati ve POCT U KETONE (test code = 3258) n/a Negative - Neg ative POCT U BLD (test code = 3257) n/a Negative - Negati ve Lab Interpretation (test cod e = 52140-5) Normal [facility] HospitalTEST IN QUESTION- MISSING REQUIRED INFO-Q 2019-07-17 12:00:00* Test Item Value Reference Range Interpretation Comme nts -Q (test code = 95473) SEE NOTE We are unable to complete the test(s) noted below due to missing required information. MISSING INFO:-Q (test code = 91578) NG 5059-MATERNAL SERUM AFPEthnic Origin:Maternal Weight:5059-MATERN AL SERUM AFPEthnic Origin:Maternal Weight:REPORT COMMENT:MATERNAL WEIGHT 190.2LBS KATHY (test code = KATHY) [facility]; [address] [place] [address]; ELIECER REYES MD [facility] HospitalPOCT URINALYSIS W/O SPECIFIC [id number] 16:17:00* Test Item Value Reference Range Interpretation Comme nts POCT PH U (test code = 3254) 7 mg/dl 5-8 POCT U LEUK EST (test code = 3263) trace Negative - Negative POCT U NIT (test code = 3262) neg Negative - Negati ve POCT U PROT (test code = 3259) trace Negative - Negat joana POCT U GLU (test code = 3256) neg Negative - Negati ve POCT U KETONE (test code = 3258) neg Negative - Neg ative POCT U BLD (test code = 3257) neg Negative - Negati ve Lab Interpretation (test cod e = 17158-5) Abnormal [facility] HospitalUrinalysis2020-02-11 20:55:00* Test Item Value Reference Range Interpretation Comme nts APPEARANCE (test code = 4191717826) Turbid Clear A COLOR (test code = 6537836104) Yellow Yellow PH (test code = 4720116726) 4.8-8.0 SP GRAVITY (test code = 3878518287) 1.003-1.030 GLU U QUAL (test code = 3415789917) Normal Normal BLOOD (test code = 1165674833) 1+ Negative A KETONES (test code = 1863836767) Negative Negative PROTEIN (test code = 2887-8) Negative Negative UROBILIN (test code = 6144517791) Normal Normal BILIRUBIN (test code = 5490827935) Negative Negative NITRITE (test code = 2482421461) Negative Negative LEUK MARIN (test code = 5351526856) 25/uL Negative A RBC/HPF (test code = 1274319566) See_Comment [Automated messa ge] The system which generated this result transmitted reference range: 0 - 3 HPF. The reference range was not used to interpret this result as normal/abnormal. WBC/HPF (test code = 8251320061) See_Comment [Automated messa ge] The system which generated this result transmitted reference range: 0 - 5 HPF. The reference range was not used to interpret this result as normal/abnormal. BACTERIA (test code = 0380034424) Negative Negative MUCOUS (test code = 4769750286) Marked Negative LPF A AMORPHOUS (test code = 2924128523) Many Rare HPF A SQ EPITH (test code = 2035089380) HPF Lab Interpretation (test code = 66666-3) Abnormal [facility] HospitalMAGNESIUM2020-02-11 20:40:00* Test Item Value Reference Range Interpretation Comme nts MAGNESIUM (test code = 6373446253) 1.8 mg/dL 1.7-2.4 Slight hemolysis Lab Interpretation (test code = 68449-3) Normal [facility] HospitalADC,CLC OR LCC ONLY - INFLUENZA A & B DIRECT [id number] 20:39:00* Test Item Value Reference Range Interpretation Comme nts Influenza A (test code = 87770-4) Negative Negative Influenza B (test code = 21264-8) Negative Negative Lab Interpretation (test cod e = 61181-9) Normal [facility] HospitalRAPID STREP SCREEN FOR GROUP [id number] 20:39:00* Test Item Value Reference Range Interpretation Comme nts Streptococcus pyogenes (grou p A) antigen (test code = 06769-3) Negative Negative Lab Interpretation (test cod e = 41723-5) Normal [facility] HospitalComplete Metabolic [id number] 20:04:00* Test Item Value Reference Range Interpretation Comme nts NA (test code = 8290011182) 135 mmol/L 135-145 K (test code = 5315763438) 4.1 mmol/L 3.5-5 CL (test code = 5558079100) 102 mmol/L 98-108 CO2 TOTAL (test code = 9067333698) 21 mmol/L 23-31 L AGAP (test code = 7193080251) 2-16 BUN (test code = 9692147142) 11 mg/dL 7-23 GLUCOSE (test code = 8403795035) 99 mg/dL 70-110 CREATININE (test code = 9006168368) 0.33 mg/dL 0.5-1.04 L TOTAL BILI (test code = 0471258881) 0.6 mg/dL 0.1-1.1 CALCIUM (test code = 4234970345) 8.8 mg/dL 8.6-10.6 T PROTEIN (test code = 2932380173) 8.1 g/dL 6.3-8.2 ALBUMIN (test code = 6539417506) 4.9 g/dL 3.5-5 ALK PHOS (test code = 2469501851) 48 U/L 34-122 ALTv (test code = 1742-6) 19 U/L 5-35 AST(SGOT) (test code = 6670908220) 34 U/L 13-40 eGFR Calculation (Non-) (test code = 3412529873) mL/min/1.73m2 eGFR Calculation () (test code = 6377418934) mL/min/1.73m2 KATHY (test code = KATHY) Association of [...] or abnormalities in imaging tests). Lab Interpretation (test code = 37041-3) Abnormal [facility] HospitalLipase, [id number] 20:04:00* Test Item Value Reference Range Interpretation Comme nts LIPASE (test code = 2740917312) 29 U/L 0-220 Lab Interpretation (test cod e = 63299-9) Normal [facility] HospitalCB WITH [id number] 19:58:00* Test Item Value Reference Range Interpretation Comme nts WBC (test code = 6690-2) See_Comment [33Across] The system which generated this result transmitted reference range: 4.30 - 11.10 10*3/?L. The reference range was not used to interpret this result as normal/abnormal. RBC (test code = 789-8) See_Comment [33Across] The system which generated this result transmitted reference range: 3.93 - 5.25 10*6/?L. The reference range was not used to interpret this result as normal/abnormal. HGB (test code = 718-7) 15.1 g/dL 11.6-15 H HCT (test code = 4544-3) 42.2 % 35.7-45.2 MCV (test code = 787-2) 84.9 fL 80.6-95.5 MCH (test code = 785-6) 30.4 pg 25.9-32.8 MCHC (test code = 786-4) 35.8 g/dL 31.6-35.1 H RDW-SD (test code = 83970-1) 37.8 fL 39-49.9 L RDW-CV (test code = 788-0) 12.3 % 12-15.5 PLT (test code = 777-3) See_Comment [Automated messa ge] The system which generated this result transmitted reference range: 166 - 358 10*3/?L. The reference range was not used to interpret this result as normal/abnormal. MPV (test code = 04992-1) 10.7 fL 9.5-12.9 NRBC/100 WBC (test code = 0254295857) See_Comment [Automated [employer] ssage] The system which generated this result transmitted reference range: 0.0 - 10.0 /100 WBCs. The reference range was not used to interpret this result as normal/abnormal. NRBC x10^3 (test code = 6563557806) <0.01 See_Comment [Automated messa ge] The system which generated this result transmitted reference range: 10*3/?L. The reference range was not used to interpret this result as normal/abnormal. GRAN MAT (NEUT) % (test code = 770-8) 94.0 % IMM GRAN % (test code = 4719977066) 0.30 % LYMPH % (test code = 736-9) 3.5 % MONO % (test code = 5905-5) 2.1 % EOS % (test code = 713-8) 0.0 % BASO % (test code = 706-2) 0.1 % GRAN MAT x10^3(ANC) (test code = 9005791923) 9.31 10*3/uL 1.88-7.09 H IMM GRAN x10^3 (test code = 4534127625) 0.03 10*3/uL 0-0.06 LYMPH x10^3 (test code = 731-0) 0.35 10*3/uL 1.32-3.29 L MONO x10^3 (test code = 742-7) 0.21 10*3/uL 0.33-0.92 L EOS x10^3 (test code = 711-2) <0.03 0.03-0.39 L BASO x10^3 (test code = 704-7) <0.03 0.01-0.07 Lab Interpretation (test code = 98565-6) Abnormal [facility] HospitalPOCT [id number] 19:43:00* Test Item Value Reference Range Interpretation Comme nts POCT PREG (test code = 1605) positive On board controls acceptable with C Line (test code = 3574) present POCT PREG LOT # (test code = 3575) [id number] POCT PREG TEST DATE ( test code = 3576) Lab Interpretation (test cod e = 79322-8) Normal [facility] HospitalTHYROID STIMULATING [id number] 07:17:00 * Test Item Value Reference Range Interpretation Comme nts TSH (test code = 5925962152) See_Comment [Automated messa ge] The system which generated this result transmitted reference range: 0.45 - 4.70 mIU/L. The reference range was not used to interpret this result as normal/abnormal. Lab Interpretation (test code = 64830-2) Normal [facility] HospitalTHYROID STIMULATING [id number] 07:17:00 * Test Item Value Reference Range Interpretation Comme nts TSH (test code = 7243295254) See_Comment [Automated messa ge] The system which generated this result transmitted reference range: 0.45 - 4.70 mIU/L. The reference range was not used to interpret this result as normal/abnormal. Lab Interpretation (test code = 84479-8) Normal [facility] [id number] 07:03:00* Test Item Value Reference Range Interpretation Comme nts FREE T4 (test code = 9190888616) See_Comment [Automated messa ge] The system which generated this result transmitted reference range: 0.78 - 2.20 ng/dL:. The reference range was not used to interpret this result as normal/abnormal. Lab Interpretation (test code = 76183-2) Normal [facility] [id number] 07:03:00* Test Item Value Reference Range Interpretation Comme nts FREE T4 (test code = 1549466443) See_Comment [Automated messa ge] The system which generated this result transmitted reference range: 0.78 - 2.20 ng/dL:. The reference range was not used to interpret this result as normal/abnormal. Lab Interpretation (test code = 69496-2) Normal [facility] METABOLIC PANEL (NA, K, CL, CO2, GLUCOSE, BUN, CREATININE, CA)2019-04-07 06:45:00* Test Item Value Reference Range Interpretation Comme nts NA (test code = 3868060759) 136 mmol/L 135-145 K (test code = 9190360006) 4.3 mmol/L 3.5-5 CL (test code = 6632937589) 100 mmol/L 98-108 CO2 TOTAL (test code = 1362500493) 28 mmol/L 23-31 AGAP (test code = 1860593612) 2-16 BUN (test code = 9365767564) 12 mg/dL 7-23 GLUCOSE (test code = 7987737017) 76 mg/dL 70-110 CREATININE (test code = 7937082710) 0.37 mg/dL 0.5-1.04 L CALCIUM (test code = 7822101925) 9.8 mg/dL 8.6-10.6 eGFR Calculation (Non-) (test code = 8291826678) mL/min/1.73m2 eGFR Calculation () (test code = 2419999878) mL/min/1.73m2 KATHY (test code = KATHY) Association of [...] or abnormalities in imaging tests). Lab Interpretation (test code = 94978-3) Abnormal [facility] METABOLIC PANEL (NA, K, CL, CO2, GLUCOSE, BUN, CREATININE, CA)2019-04-07 06:45:00* Test Item Value Reference Range Interpretation Comme nts NA (test code = 8851043027) 136 mmol/L 135-145 K (test code = 1835985732) 4.3 mmol/L 3.5-5 CL (test code = 3396117920) 100 mmol/L 98-108 CO2 TOTAL (test code = 6523623643) 28 mmol/L 23-31 AGAP (test code = 6651878441) 2-16 BUN (test code = 1416027456) 12 mg/dL 7-23 GLUCOSE (test code = 4202051756) 76 mg/dL 70-110 CREATININE (test code = 0890470877) 0.37 mg/dL 0.5-1.04 L CALCIUM (test code = 2193252746) 9.8 mg/dL 8.6-10.6 eGFR Calculation (Non-) (test code = 7527764231) mL/min/1.73m2 eGFR Calculation () (test code = 4094783055) mL/min/1.73m2 KATHY (test code = KATHY) Association of [...] or abnormalities in imaging tests). Lab Interpretation (test code = 26437-6) Abnormal [facility] URINALYSIS W/O SPECIFIC [id number] 15:57:00* Test Item Value Reference Range Interpretation Comme nts POCT PH U (test code = 3254) 8 mg/dl 5-8 POCT U LEUK EST (test code = 3263) trace Negative - Negative POCT U NIT (test code = 3262) negative Negative - Negati ve POCT U PROT (test code = 3259) 1+ Negative - Negat joana POCT U GLU (test code = 3256) negative Negative - Negati ve POCT U KETONE (test code = 3258) negative Negative - Neg ative POCT U BLD (test code = 3257) trace Negative - Negati ve [facility] URINALYSIS W/O SPECIFIC [id number] 15:57:00* Test Item Value Reference Range Interpretation Comme nts POCT PH U (test code = 3254) 8 mg/dl 5-8 POCT U LEUK EST (test code = 3263) trace Negative - Negative POCT U NIT (test code = 3262) negative Negative - Negati ve POCT U PROT (test code = 3259) 1+ Negative - Negat joana POCT U GLU (test code = 3256) negative Negative - Negati ve POCT U KETONE (test code = 3258) negative Negative - Neg ative POCT U BLD (test code = 3257) trace Negative - Negati ve [facility] URINALYSIS W/O SPECIFIC [id number] 15:57:00* Test Item Value Reference Range Interpretation Comme nts POCT PH U (test code = 3254) 8 mg/dl 5-8 POCT U LEUK EST (test code = 3263) trace Negative - Negative POCT U NIT (test code = 3262) negative Negative - Negati ve POCT U PROT (test code = 3259) 1+ Negative - Negat joana POCT U GLU (test code = 3256) negative Negative - Negati ve POCT U KETONE (test code = 3258) negative Negative - Neg ative POCT U BLD (test code = 3257) trace Negative - Negati ve [facility] URINALYSIS W/O SPECIFIC [id number] 15:57:00* Test Item Value Reference Range Interpretation Comme nts POCT PH U (test code = 3254) 8 mg/dl 5-8 POCT U LEUK EST (test code = 3263) trace Negative - Negative POCT U NIT (test code = 3262) negative Negative - Negati ve POCT U PROT (test code = 3259) 1+ Negative - Negat joana POCT U GLU (test code = 3256) negative Negative - Negati ve POCT U KETONE (test code = 3258) negative Negative - Neg ative POCT U BLD (test code = 3257) trace Negative - Negati ve [facility] [id number] 19:19:00* Test Item Value Reference Range Interpretation Comme nts POCT PREG (test code = 1605) Positive On board controls acceptable with C Line (test code = 3574) Yes POCT PREG LOT # (test code = 3575) POCT PREG TEST DATE ( test code = 3576) [facility] URINALYSIS W/O SPECIFIC [id number] 16:33:00* Test Item Value Reference Range Interpretation Comme nts POCT PH U (test code = 3254) 6 mg/dl 5-8 POCT U LEUK EST (test code = 3263) neg Negative - Negative POCT U NIT (test code = 3262) neg Negative - Negati ve POCT U PROT (test code = 3259) trace Negative - Negat joana POCT U GLU (test code = 3256) neg Negative - Negati ve POCT U KETONE (test code = 3258) neg Negative - Neg ative POCT U BLD (test code = 3257) neg Negative - Negati ve Lab Interpretation (test cod e = 71701-8) Abnormal [facility] History and Physical Notes Date/Time Note Provider Source 2024-03-23 10:00:00 NEUROENDOVASCULAR HISTORY AND PHYSICAL NOTE NEUROENDOVASCULAR SERVICE DATE OF SERVICE: 03/23/2024 CHIEF COMPLAINT: Cerebral Aneurysm HISTORY OF PRESENTING ILLNESS Felicitas Elliott is a 32 year old right handed woman with PMH of HTN, smoking hx, previous recreational dug use, possible fibromyalgia, anxiety, depression, migraine w/o aura, and obesity who presents for routine DSA s/p left para ophthalmic aneurysm embolization. Patient began experiencing multiple joints pain in 2021. She had positive CALOS but negative further rheumatological work-up. Because of migraine and pain episodes, she sought medical attention and was seen by Dr. Velez in June 2022. She received referral for MRI brain due to concern for possible MS. MRI done in 09/2022 which revealed an incidental left supraclinoid ICA aneurysm. She describes her headache episodes as intermittent, pain 8/10 w/ frontal localization associated with photophobia lasting few hours to a day and unresponsive to medication. She expresses anxiety regarding incidental aneurysm finding and denies any family history of brain aneurysm She was referred to Dr. 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 Patient underwent a successful and uncomplicated left para-ophthalmic artery aneurysm embolization on 08/11/2023. PAST MEDICAL HISTORY Past Medical History: Diagnosis Date Absence of menstruation 12/24/2015 Anxiety ongoing, self diagnosed, not taking medication ASCUS with positive high risk HPV cervical 03/29/2014 Brain aneurysm Depression ongoing, not taking medication Irregular menstrual cycle 11/21/2015 Positive CALOS (antinuclear antibody) 04/21/2022 Preoperative evaluation for tubal ligation 10/23/2019 STD (sexually transmitted disease) Chlamydia at 9 or 11 SURGICAL HISTORY Past Surgical History: Procedure Laterality Date APPENDECTOMY COLPOSCOPY 07/11/2014 ASCUS +HPV LAPAROSCOPIC SALPINGECTOMY Bilateral 01/02/2020 Surgeon: Nino Steward MD; [place] [facility] [place] FAMILY HIST[place] Family History Problem Relation Age of Onset Arthritis Mother unclear Diabetes Mother Hypertension Mother Arthritis Father unclear Hypertension Father No Significant Medical Problems Sister No Significant Medical Problems Brother Asthma NoFHx defects NoFHx Breast Cancer NoFHx Colon Cancer NoFHx Ovarian Cancer NoFHx Uterine Cancer NoFHx Cancer NoFHx Depression NoFHx Genetic NoFHx Heart NoFHx High cholesterol NoFHx Mental retardation NoFHx Neurological NoFHx Osteoporosis NoFHx Psychiatry NoFHx SOCIAL HISTORY Social History Socioeconomic History Marital status: Single Number of children: 3 Years of education: GED + Occupational History 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 Patient lives with children Pt states she has no mormonism she preference No pets MEDICATIONS (Not in a hospital admission) Current Outpatient Medications: meloxicam 7.5 mg tablet, Take 1 tablet by mouth once daily as needed for Pain (scale 4-6) or Pain (scale 7-10)., Disp: 30 tablet, Rfl: 0 methocarbamoL 750 mg tablet, Take 1 tablet by mouth 4 (four) times daily as needed for Pain (scale 1-3), Pain (scale 4-6) or Pain (scale 7-10)., Disp: 30 tablet, Rfl: 0 dicyclomine 10 mg capsule, Take 1 capsule by mouth 3 (three) times daily as needed for Abdominal pain., Disp: 15 capsule, Rfl: 0 ondansetron 4 mg disintegrating tablet, Take 1 tablet by mouth every 8 (eight) hours as needed for Nausea and Vomiting (N/V)., Disp: 15 tablet, Rfl: 0 DULoxetine 30 mg CDRS, Take 30 mg by mouth in the morning., Disp: , Rfl: acetaminophen-codeine 300-30 mg tablet, Take 1 tablet by mouth every 8 (eight) hours as needed for Pain (scale 4-6) for up to 10 doses. Indications: acute pain, Disp: 10 tablet, Rfl: 0 pantoprazole 40 mg EC tablet, Take 1 tablet by mouth every morning., Disp: 90 tablet, Rfl: 1 amitriptyline 10 mg tablet, Take 1 tablet by mouth at bedtime., Disp: 30 tablet, Rfl: 2 buspirone HCl (BUSPIRONE ORAL), Take by mouth., Disp: , Rfl: cyclobenzaprine 10 mg tablet, Take 1 tablet by mouth in the morning and 1 tablet at noon and 1 tablet in the evening., Disp: 90 tablet, Rfl: 0 magnesium oxide 400 mg magnesium Tab, Take 400 mg by mouth in the morning., Disp: 90 tablet, Rfl: 3 acetaminophen (TYLENOL ARTHRITIS PAIN) 650 mg CR tablet, Take 1 tablet by mouth every 8 (eight) hours as needed for Pain (MIGRAINE)., Disp: 60 tablet, Rfl: 0 ergocalciferol, vitamin D2, (VITAMIN D ORAL), Take by mouth., Disp: , Rfl: Vitamin C 100 mg tablet, Take 1 tablet by mouth in the morning., Disp: , Rfl: ALLERGIES Patient has no known allergies. REVIEW OF SYSTEMS General: (-) fever, (-) chills, (-) weight change, (-) dizziness, (-) fatigue, (-) change in appetite Skin: (-) rash, (-) lesion HEENT: (-) headache, (-) change in hearing, (-) change in vision, (-) nasal discharge, (-) sore throat Neck: (-) pain, (-) difficulty swallowing, (-) mass Heme: (-) bleeding disorder Resp: (-) cough, (-) shortness of breath, (-) dyspnea on exertion Cardio: (-) chest pain, (-) palpitations, (-) syncope GI: (-) abdominal pain, (-) nausea, (-) vomiting, (-) diarrhea, (-) constipation, (-) melena, (-) hematochezia, (-) hematemesis : (-) dysuria, (-) hematuria, (-) increased frequency, (-) difficulty urinating, (-) difficulty initiating Endo: (-) heat intolerance, (-) diabetes, (-) cold intolerance, (-) polyuria, (-) polydipsia, (-) renal insufficiency, (-) thyroid disease Neuro: (-) numbness, (-) tingling, (-) weakness Back: (-) pain, (-) spasms MARIA ELENA: (-) muscle pain, (-) joint pain, (-) claudication Psych: (-) anxiety, (-) depression, (-) psychiatric disorder PHYSICAL EXAM Vitals: 03/23/24 0900 BP: (!) 140/95 Resp: 18 Temp: 36.7 ?C (98.1 ?F) SpO2: 100% Body mass index is 33.13 kg/m?. 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 Not tested. II. Visual acuity grossly normal. FOV full to confrontation. III., IV., . Extraocular movements intact. No ptosis observed, no monocular or binocular diplopia. PERRL. V. Normal sensation in V1-3 distributions VII. No facial asymmetry observed. VIII. Hearing intact bilaterally to finger rubs IX., X. Palatal movements intact XI. Normal Strength of sternocleidomastoid and trapezius muscles bilaterally. XII. Tongue in midline. Motor: Muscle tone: normal, no rigidity, spasticity Muscle bulk: normal No abnormal spontaneous muscle activity; fasciculations: absent Tremor: absent MOTOR EXAMINATION: STRENGTH Right Left Deltoid 5 5 Biceps 5 5 Triceps 5 5 Wrist extensors 5 5 Interossei 5 5 Hip flexors 5 5 Knee flexors (hamstring) 5 5 Knee extensors (quadriceps) 5 5 Ankle dorsiflexors 5 5 Ankle plantar flexors 5 5 Reflexes: Deep Tendon Reflex R L Biceps 2+ 2+ Triceps 2+ 2+ Brachioradialis 2+ 2+ Patellar 2+ 2+ Achilles 1+ 1+ Pathologic reflexes and signs: Plantar reflex: down going bilaterally Cerebellar: Nystagmus: absent FTN:normal bilaterally Tremors: absent Sensory: LT: intact Temperature: intact PP: intact Vibration: intact Gait and station Deferred HEENT: oropharynx clear, moist mucous membranes Lungs: clear to auscultation bilaterally Cardio: S1, S2 normal Extremities:no cyanosis, clubbing or edema, pedal pulses 2+ bilaterally Neck: supple, no carotid bruit, no JVD Abdomen: soft, non-tender, non-distended LABS HGB A1C (%) Date Value 08/31/2019 4.4 No results found for: "LDL" No results found for: "CHOL" TSH (mIU/L) Date Value 04/30/2022 1.20 CBC BMP PT/INR WBC x10 3 (/CMM) Date Value 05/12/2010 8.4 WBC (10*3/?L) Date Value 10/21/2023 8.64 NA (mmol/L) Date Value 10/21/2023 140 No results found for: "PT" RBC x10 6 (/CMM) Date Value 05/12/2010 4.11 RBC (10*6/?L) Date Value 10/21/2023 4.93 K (mmol/L) Date Value 10/21/2023 3.6 INR (no units) Date Value 08/11/2023 0.9 PLT x10 3 (/CMM) Date Value 05/12/2010 233 PLT (10*3/?L) Date Value 10/21/2023 294 CALCIUM (mg/dL) Date Value 10/21/2023 8.4 (L) HGB Date Value 10/21/2023 15.2 g/dL (H) 05/12/2010 12.8 G/DL CL (mmol/L) Date Value 10/21/2023 104 aPTT HCT (%) Date Value 10/21/2023 44.5 05/12/2010 37.3 BUN (mg/dL) Date Value 10/21/2023 14 No results found for: "APTTPAT" ARU 350 from 08/11/2023 DOS shows therapeutic effect of asprin PRU 85 from 08/11/2023 DOS shows therapeutic effect of plavix RADIOLOGY/IMAGING I personally reviewed all images as follows: MRI brain 10/06/2022: Incidental 0.8 x 2.6 cm left supraclinoid ICA aneurysm, otherwise no acute intracranial abnormality. DSA 06/24/2023: 9 mm X 8 mm with wide-neck aneurysm arising from the ophthalmic segment left ICA. ASSESSMENT: Felicitas Elliott is a 32 year old right handed woman with PMH of HTN, smoking hx, previous recreational dug use, possible fibromyalgia, anxiety, depression, migraine w/o aura, and obesity who presents for routine DSA s/p left para ophthalmic aneurysm embolization. PLAN: -- Diagnostic cerebral angiogram with Dr. Jo today. Discussed procedure with patient and family, including risks versus benefits vs alternatives. Answered all questions. Consent signed and placed with IR RN -- Post diagnostic cerebral angiogram protocol -- Bedrest x6 hours -- Further plan post DSA Patient and plan of care was discussed with Dr. Jo, Neuro-Endovascular/Neurology faculty. Jimbo Ribera PA-C Physician Equipment Operator [employer] Neurology Department; Neuro-endovascular Division Pre-Procedure Sedation Evaluation H&P from 03/23/2024 reviewed. No changes noted.. Allergies were reviewed. NPO Status Solids: >8 hours Clear liquids: >2 hours History History of anesthesia/sedation complications: No History of difficult airway: No History of neck problems, craniofacial abnormalities, head/neck surgery: No Increased risk for airway obstruction, sleep apnea, morbid obesity: No Focused Physical Exam Heart: documented in H&P Normal Lung: documented in H&P Normal Airway Mallampati: II (full visibility of soft palate and part of uvula) Mouth opening: Normal Range of motion neck: Normal Dentition: Normal Assessment: ASA 2 Plan: Moderate sedation The risks, benefits, and treatment options of sedation were discussed with the patient/guardian and they desire to proceed. The consent form was completed and signed. IKA BUTT-PHYSICIAN CREATIVE WRITING ENGLISH PROFESSOR MIDLEVEL PROVIDER [facility] 2023-08-11 16:34:11 Images from the original note were not included. ICU H&P/Critical Care Consult Note - [facility] Yellow Team Date of Service: 08/11/2023 16:34 0 Code Status: Full Code SUBJECTIVE: CHIEF COMPLAINT: S/P left para-ophthalmic aneurysm s/p embolization using Keven-X HISTORY OF PRESENT ILLNESS: Felicitas Elliott is a 32 year old female with PMH of HTN, smoking hx, previous recreational drug use, possible fibromyalgia, anxiety, depression, migraine w/o aura, and obesity admitted to MICU from IR S/P left para-ophthalmic aneurysm s/p embolization using Keven-X . On admission to MICU patient is alert and oriented x 4. Moving all extremities. Not in acute distress. Right femoral site clean and dry. Right lower extremity pulses positive. SBP [id number]. PAST MEDICAL HISTORY Past Medical History: Diagnosis Date Absence of menstruation 12/24/2015 Anxiety ongoing, self diagnosed, not taking medication ASCUS with positive high risk HPV cervical 03/29/2014 Brain aneurysm Depression ongoing, not taking medication Irregular menstrual cycle 11/21/2015 Positive CALOS (antinuclear antibody) 04/21/2022 Preoperative evaluation for tubal ligation 10/23/2019 STD (sexually transmitted disease) Chlamydia at 9 or 11 PAST SURGICAL HISTORY Past Surgical History: Procedure Laterality Date APPENDECTOMY COLPOSCOPY 07/11/2014 ASCUS +HPV LAPAROSCOPIC SALPINGECTOMY Bilateral 01/02/2020 Surgeon: Nino Steward MD; [place] [facility] [place] FAMILY HIST[place] Family History Problem Relation Age of Onset Arthritis Mother unclear Diabetes Mother Hypertension Mother Arthritis Father unclear Hypertension Father No Significant Medical Problems Sister No Significant Medical Problems Brother Asthma NoFHx defects NoFHx Breast Cancer NoFHx Colon Cancer NoFHx Ovarian Cancer NoFHx Uterine Cancer NoFHx Cancer NoFHx Depression NoFHx Genetic NoFHx Heart NoFHx High cholesterol NoFHx Mental retardation NoFHx Neurological NoFHx Osteoporosis NoFHx Psychiatry NoFHx SOCIAL HISTORY Social History Socioeconomic History Marital status: Single Number of children: 3 Years of education: GED + Occupational History 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 Patient lives with children Pt states she has no mormonism she preference No pets ALLERGIES No Known Allergies REVIEW OF SYSTEMS Review of Systems Musculoskeletal: Positive for joint pain and myalgias. Neurological: Positive for headaches. OBJECTIVE: PHYSICAL EXAMINATION Vitals: 08/11/23 0846 08/11/23 1240 08/11/23 1600 08/11/23 1615 BP: (!) 135/91 105/64 134/89 (!) 126/91 Pulse: 72 78 78 71 Resp: Temp: 36.4 ?C (97.6 ?F) TempSrc: Axillary SpO2: 100% 97% 96% Weight: 183 lb (83 kg) Height: 5' 4" (1.626 m) Physical Exam Vitals reviewed. Constitutional: Appearance: She is well-developed. She is obese. HENT: Head: Normocephalic and atraumatic. Eyes: Extraocular Movements: Extraocular movements intact. Conjunctiva/sclera: Conjunctivae normal. Pupils: Pupils are equal, round, and reactive to light. Cardiovascular: Rate and Rhythm: Normal rate and regular rhythm. Pulses: Normal pulses. Heart sounds: Normal heart sounds. Pulmonary: Effort: Pulmonary effort is normal. Breath sounds: Normal breath sounds. Abdominal: General: Bowel sounds are normal. Palpations: Abdomen is soft. Musculoskeletal: Comments: Right femoral site clean.Pulses +ve Skin: General: Skin is warm and dry. Capillary Refill: Capillary refill takes less than 2 seconds. Neurological: Mental Status: She is alert and oriented to person, place, and time. GCS: GCS eye subscore is 4. GCS verbal subscore is 5. GCS motor subscore is 6. Psychiatric: Mood and Affect: Mood normal. Speech: Speech normal. REVIEW OF DATA LABS - reviewed pertinent labs as below: Recent Results (from the past 24 hour(s)) Type and Screen - STAT Routine Collection Time: 08/11/23 9:10 AM Result Value Ref Range ABO & RH A POSITIVE IAT Negative Basic Metabolic Panel (NA, K, CL, CO2, GLUCOSE, BUN, CREATININE, CA) Collection Time: 08/11/23 9:17 AM Result Value Ref Range NA 141 135 - 145 mmol/L K 3.9 3.5 - 5.0 mmol/L CL 109 (H) 98 - 108 mmol/L CO2 TOTAL 25 23 - 31 mmol/L AGAP 7 2 - 16 BUN 17 7 - 23 mg/dL GLUCOSE 94 70 - 110 mg/dL CREATININE 0.56 0.50 - 1.04 mg/dL CALCIUM 8.8 8.6 - 10.6 mg/dL eGFR 123.0 mL/min/1.73m2 Cbc with Diff Collection Time: 08/11/23 9:17 AM Result Value Ref Range WBC 7.63 4.30 - 11.10 10*3/?L RBC 4.58 3.93 - 5.25 10*6/?L HGB 14.0 11.6 - 15.0 g/dL HCT 40.1 35.7 - 45.2 % MCV 87.6 80.6 - 95.5 fL MCH 30.6 25.9 - 32.8 pg MCHC 34.9 31.6 - 35.1 g/dL RDW-SD 39.8 39.0 - 49.9 fL RDW-CV 12.4 12.0 - 15.5 % PLT 230 166 - 358 10*3/?L MPV 11.0 9.5 - 12.9 fL NRBC/100 WBC 0.0 0.0 - 10.0 /100 WBCs NRBC x10 3 <0.01 10*3/?L GRAN MAT (NEUT) % 58.1 % IMM GRAN % 0.30 % LYMPH % 32.5 % MONO % 6.4 % EOS % 2.2 % BASO % 0.5 % GRAN MAT x10 3 (ANC) 4.43 1.88 - 7.09 10*3/uL IMM GRAN x10 3 <0.03 0.00 - 0.06 10*3/uL LYMPH x10 3 2.48 1.32 - 3.29 10*3/uL MONO x10 3 0.49 0.33 - 0.92 10*3/uL EOS x10 3 0.17 0.03 - 0.39 10*3/uL BASO x10 3 0.04 0.01 - 0.07 10*3/uL Test, Serum Collection Time: 08/11/23 9:17 AM Result Value Ref Range PREG SERUM Negative Prothrombin Time / INR Collection Time: 08/11/23 9:17 AM Result Value Ref Range PROTIME PATIENT 11.0 10.1 - 12.6 Seconds INR 0.9 Verifynow Aspirin Test Collection Time: 08/11/23 9:17 AM Result Value Ref Range VerifyNow Aspirin Test 350 See Comment ARU Verifynow Prutest (P2Y12) Collection Time: 08/11/23 9:17 AM Result Value Ref Range VerifyNow PRUTest (P2Y12) 85 (L) 182 - 335 PRU POCT ACT Low Range Collection Time: 08/11/23 1:13 PM Result Value Ref Range ACTLR 144 89 - 169 Seconds POCT ACT Low Range Collection Time: 08/11/23 1:44 PM Result Value Ref Range ACTLR 229 (H) 89 - 169 Seconds POCT ACT Low Range Collection Time: 08/11/23 2:01 PM Result Value Ref Range ACTLR 250 (H) 89 - 169 Seconds POCT ACT Low Range Collection Time: 08/11/23 2:46 PM Result Value Ref Range ACTLR 237 (H) 89 - 169 Seconds POCT ACT Low Range Collection Time: 08/11/23 3:22 PM Result Value Ref Range ACTLR 146 89 - 169 Seconds IMAGING - reviewed, pertinent results as below: No results found for this visit on 08/11/23. RADIOLOGY No final results containing an impression from the past 30 days were found. MICROBIOLOGY None ANTIBIOTICS/ANTIFUNGALS/ANTIMIC ROBIALS None Lines/catheters: PIV x-2-08/11/2023 A-line-08/11/2023 La catheter-08/11/2023 ICU bundle: Sedation/Analgesia + RASS: [place]; RASS goal-0 Stress ulcer prophylaxis: PPI DVT prophylaxis: SCD's Nutrition: N.p.o. ASSESSMENT/PLAN: Felicitas Elliott is a 32 year old female admitted with Patient Active Problem List Diagnosis BMI 27.0-27.9,adult Well woman exam with routine gynecological exam Cervical high risk human papillomavirus (HPV) DNA test positive History of abnormal cervical Pap smear Multiparity Pain in both upper extremities Preoperative evaluation for tubal ligation Fatigue, unspecified type Lumbar pain Anxiety Depression, unspecified depression type Positive CALOS (antinuclear antibody) Acute pain of both knees Diarrhea, unspecified type Early satiety Vaginal dryness Allergy, initial encounter Chronic pain syndrome Cerebral aneurysm without rupture Dizziness Migraine headache without aura Aneurysm of internal carotid artery Active Problems: * No active hospital problems. * Resolved Problems: * No resolved hospital problems. * Cerebral aneurysm S/P left para-ophthalmic aneurysm s/p embolization using Keven-X Obesity PLAN/INTERVENTION -Admit to MICU -Continue to monitor neuro status/changes in neuro function every hour -Monitor femoral site for any bleeding/hematoma -Immobilizer in place for now -Pain management as needed -Fall precaution -HOB>30 Degrees -Continue to monitor respiratory status -Continue to monitor cardiac status with continuous tele monitoring. -SBP [id number] -Keep Mag->2.0, K+->4.0 -Diet: Clear liquid advance as tolerated -Bowel regimen PRN -Monitor I/Os, creatinine, and decreases in UOP -Avoid Nephrotoxins -Monitor signs for infection/leukocytosis/fevers/c hills. -Monitor for hypo/hyperglycemia events & follow protocol Family Updated: Yes Dispo: Admit to MICU Prognosis: Guarded I spent a total of 20 minutes on the floor or unit without overlapping minutes. The time spent for patient care includes: performing activities that directly relate to the treatment and management of this critically ill patient to include: Reviewing test results or imaging studies, Discussing the patient's care with other medical staff, Documenting critical care services in the medical record, Review of patient's condition, obtaining medical history, treatment, limitations of treatment or prognosis with family or surrogate decision makers, and Reviewing the patient's condition or prognosis The overlapping time with the physician was 10 min Sue Reyna.LOPEZAGACNP- Pulmonary Critical Care Associated attestation - Alma Ceja MD - 08/11/2023 6:18 PM CDT The patient was seen and examined with the ACNP. The clinical data was reviewed and discussed. I agree with the plan documented by the ACNP unless otherwise documented by me. Problem list: Left para-ophthalmic aneurysm s/p embolization using Keven-X Back pain Plan: - Bed rest per protocol - Strict blood pressure goal of SBP between 110-150 mmHg --> required pressors intra op but blood pressure better now - Can use pressors or cardene if needed - Multimodal pain management - Maintain la and A-line for tonight - Likely discharge in AM Alma Ceja MD Pulmonary & Critical Care Medicine, [facility]. Due to a high probability of clinically significant deterioration, the patient required my highest level of preparedness to intervene emergently and I personally spent 35 minutes of critical care time (which includes overlapping time with the LANA) directly and personally managing the patient. This critical care time included obtaining a history; examining the patient; pulse oximetry; ordering and review of studies; arranging urgent treatment with development of a management plan; evaluation of patient's response to treatment; frequent reassessment; and, discussions with other providers. I provided a substantive portion of the care of this patient. I personally provided more than half of the total time dedicated to the treatment of this patient. COMMUNITY PHARMACIST-ACUTE CARE MIDLEVEL PROVIDER [facility] 2023-08-11 10:00:00 NEUROENDOVASCULAR HISTORY AND PHYSICAL NOTE NEUROENDOVASCULAR SERVICE DATE OF SERVICE: 08/11/2023 10:46 CHIEF COMPLAINT: Cerebral Aneurysm HISTORY OF PRESENTING ILLNESS Felicitas Elliott is a 32 year old right handed woman with PMH of HTN, smoking hx, previous recreational dug use, possible fibromyalgia, anxiety, depression, migraine w/o aura, and obesity who presents for endovascular intervention for intracranial cerebral aneurysm. Patient began experiencing multiple joints pain in 2021. She had positive CALOS but negative further rheumatological work-up. Because of migraine and pain episodes, she sought medical attention and was seen by Dr. Velez in June 2022. She received referral for MRI brain due to concern for possible MS. MRI done in 09/2022 which revealed an incidental left supraclinoid ICA aneurysm. She describes her headache episodes as intermittent, pain 8/10 w/ frontal localization associated with photophobia lasting few hours to a day and unresponsive to medication. She expresses anxiety regarding incidental aneurysm finding and denies any family history of brain aneurysm She was referred to Dr. 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 She is seeing [facility] COMMUNITY PHARMACIST for her headaches and recently was started on amitriptyline 10mg daily. PAST MEDICAL HISTORY Past Medical History: Diagnosis Date Absence of menstruation 12/24/2015 Anxiety ongoing, self diagnosed, not taking medication ASCUS with positive high risk HPV cervical 03/29/2014 Brain aneurysm Depression ongoing, not taking medication Irregular menstrual cycle 11/21/2015 Positive CALOS (antinuclear antibody) 04/21/2022 Preoperative evaluation for tubal ligation 10/23/2019 STD (sexually transmitted disease) Chlamydia at 9 or 11 SURGICAL HISTORY Past Surgical History: Procedure Laterality Date APPENDECTOMY COLPOSCOPY 07/11/2014 ASCUS +HPV LAPAROSCOPIC SALPINGECTOMY Bilateral 01/02/2020 Surgeon: Nino Steward MD; [place] [facility] [place] FAMILY HISTORY Family History Problem Relation Age of Onset Arthritis Mother unclear Diabetes Mother Hypertension Mother Arthritis Father unclear Hypertension Father No Significant Medical Problems Sister No Significant Medical Problems Brother Asthma NoFHx defects NoFHx Breast Cancer NoFHx Colon Cancer NoFHx Ovarian Cancer NoFHx Uterine Cancer NoFHx Cancer NoFHx Depression NoFHx Genetic NoFHx Heart NoFHx High cholesterol NoFHx Mental retardation NoFHx Neurological NoFHx Osteoporosis NoFHx Psychiatry NoFHx SOCIAL HISTORY Social History Socioeconomic History Marital status: Single Number of children: 3 Years of education: GED + Occupational History 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 Patient lives with children Pt states she has no mormonism she preference No pets MEDICATIONS (Not in a hospital admission) Current Outpatient Medications: aspirin 325 mg Cap, Take 325 mg by mouth in the morning for 180 days., Disp: 90 capsule, Rfl: 1 clopidogreL (PLAVIX) 75 mg tablet, Take 1 tablet by mouth in the morning for 180 days., Disp: 90 tablet, Rfl: 1 pantoprazole 40 mg EC tablet, Take 1 tablet by mouth every morning., Disp: 90 tablet, Rfl: 1 amitriptyline 10 mg tablet, Take 1 tablet by mouth at bedtime., Disp: 30 tablet, Rfl: 2 buspirone HCl (BUSPIRONE ORAL), Take by mouth., Disp: , Rfl: cyclobenzaprine 10 mg tablet, Take 1 tablet by mouth in the morning and 1 tablet at noon and 1 tablet in the evening., Disp: 90 tablet, Rfl: 0 magnesium oxide 400 mg magnesium Tab, Take 400 mg by mouth in the morning., Disp: 90 tablet, Rfl: 3 acetaminophen (TYLENOL ARTHRITIS PAIN) 650 mg CR tablet, Take 1 tablet by mouth every 8 (eight) hours as needed for Pain (MIGRAINE)., Disp: 60 tablet, Rfl: 0 ergocalciferol, vitamin D2, (VITAMIN D ORAL), Take by mouth., Disp: , Rfl: Vitamin C 100 mg tablet, Take 1 tablet by mouth in the morning., Disp: , Rfl: ALLERGIES Patient has no known allergies. REVIEW OF SYSTEMS General: (-) fever, (-) chills, (-) weight change, (-) dizziness, (-) fatigue, (-) change in appetite Skin: (-) rash, (-) lesion HEENT: (+) headache, (-) change in hearing, (-) change in vision, (-) nasal discharge, (-) sore throat Neck: (-) pain, (-) difficulty swallowing, (-) mass Heme: (-) bleeding disorder Resp: (-) cough, (-) shortness of breath, (-) dyspnea on exertion Cardio: (-) chest pain, (-) palpitations, (-) syncope GI: (-) abdominal pain, (-) nausea, (-) vomiting, (-) diarrhea, (-) constipation, (-) melena, (-) hematochezia, (-) hematemesis : (-) dysuria, (-) hematuria, (-) increased frequency, (-) difficulty urinating, (-) difficulty initiating Endo: (-) heat intolerance, (-) diabetes, (-) cold intolerance, (-) polyuria, (-) polydipsia, (-) renal insufficiency, (-) thyroid disease Neuro: (-) numbness, (-) tingling, (-) weakness Back: (-) pain, (-) spasms MARIA ELENA: (-) muscle pain, (-) joint pain, (-) claudication Psych: (+) anxiety, (-) depression, (-) psychiatric disorder PHYSICAL EXAM Pulse: [72] Resp: [19] BP: (135)/(91) MAP (mmHg): [105] Body mass index is 31.41 kg/m?. 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 Not tested. II. Visual acuity grossly normal. FOV full to confrontation. III., IV., . Extraocular movements intact. No ptosis observed, no monocular or binocular diplopia. PERRL. V. Normal sensation in V1-3 distributions VII. No facial asymmetry observed. VIII. Hearing intact bilaterally to finger rubs IX., X. Palatal movements intact XI. Normal Strength of sternocleidomastoid and trapezius muscles bilaterally. XII. Tongue in midline. Motor: Muscle tone: normal, no rigidity, spasticity Muscle bulk: normal No abnormal spontaneous muscle activity; fasciculations: absent Tremor: absent MOTOR EXAMINATION: STRENGTH Right Left Deltoid 5 5 Biceps 5 5 Triceps 5 5 Wrist extensors 5 5 Interossei 5 5 Hip flexors 5 5 Knee flexors (hamstring) 5 5 Knee extensors (quadriceps) 5 5 Ankle dorsiflexors 5 5 Ankle plantar flexors 5 5 Reflexes: Deep Tendon Reflex R L Biceps 2+ 2+ Triceps 2+ 2+ Brachioradialis 2+ 2+ Patellar 2+ 2+ Achilles 1+ 1+ Pathologic reflexes and signs: Plantar reflex: down going bilaterally Cerebellar: Nystagmus: absent FTN:normal bilaterally Tremors: absent Sensory: LT: intact Temperature: intact PP: intact Vibration: intact Gait and station Deferred HEENT: oropharynx clear, moist mucous membranes Lungs: clear to auscultation bilaterally Cardio: S1, S2 normal Extremities:no cyanosis, clubbing or edema, pedal pulses 2+ bilaterally Neck: supple, no carotid bruit, no JVD Abdomen: soft, non-tender, non-distended LABS HGB A1C (%) Date Value 08/31/2019 4.4 No results found for: "LDL" No results found for: "CHOL" TSH (mIU/L) Date Value 04/30/2022 1.20 CBC BMP PT/INR WBC x10 3 (/CMM) Date Value 05/12/2010 8.4 WBC (10*3/?L) Date Value 08/11/2023 7.63 NA (mmol/L) Date Value 08/11/2023 141 No results found for: "PT" RBC x10 6 (/CMM) Date Value 05/12/2010 4.11 RBC (10*6/?L) Date Value 08/11/2023 4.58 K (mmol/L) Date Value 08/11/2023 3.9 INR (no units) Date Value 08/11/2023 0.9 PLT x10 3 (/CMM) Date Value 05/12/2010 233 PLT (10*3/?L) Date Value 08/11/2023 230 CALCIUM (mg/dL) Date Value 08/11/2023 8.8 HGB Date Value 08/11/2023 14.0 g/dL 05/12/2010 12.8 G/DL CL (mmol/L) Date Value 08/11/2023 109 (H) aPTT HCT (%) Date Value 08/11/2023 40.1 05/12/2010 37.3 BUN (mg/dL) Date Value 08/11/2023 17 No results found for: "APTTPAT" ARU 350 from 08/11/2023 DOS shows therapeutic effect of asprin PRU 85 from 08/11/2023 DOS shows therapeutic effect of plavix RADIOLOGY/IMAGING I personally reviewed all images as follows: MRI brain 10/06/2022: Incidental 0.8 x 2.6 cm left supraclinoid ICA aneurysm, otherwise no acute intracranial abnormality. DSA 06/24/2023: 9 mm X 8 mm with wide-neck aneurysm arising from the ophthalmic segment left ICA. ASSESSMENT: Felicitas Elliott is a 32 year old right handed woman with PMH of HTN, smoking hx, previous recreational dug use, possible fibromyalgia, anxiety, depression, migraine w/o aura, and obesity who presents for endovascular intervention for intracranial cerebral aneurysm. PLAN: -- Endovascular intervention with Dr. Jo today. Discussed procedure with patient and family, including risks versus benefits vs alternatives. Answered all questions. Consent signed and placed with IR RN -- Post endovascular intervention protocol -- ICU overnight -- Further plan post endovascular intervention Patient and plan of care was discussed with Dr. Jo, Neuro-Endovascular/Neurology faculty. Jimbo Ribera PA-C Physician Equipment Operator [employer] Neurology Department; Neuro-endovascular Division [facility] Procedure Notes Date/Time Note Provider Source 2024-03-23 10:00:00 VASCULAR AND INTERVENTIONAL RADIOLOGY PROCEDURE NOTE Pre-procedure diagnosis: Aneurysm Post-procedure diagnosis: Same Procedure: Cerebral angiogram Findings: No residual aneurysm Complications: None Condition: Stable Estimated blood loss: 5cc Full dictated note to follow in PACS. Post-Procedure Sedation Addendum Immediately prior to start of sedation, the patient was evaluated and there was no change from the pre-procedure evaluation. I was present and directed medical care. The patient underwent moderate sedation for the procedure. The medications administered were recorded in the MAR; oxygenation, ventilation and circulation were monitored continuously and were recorded in the EMR. I evaluated the patient after the procedure. The patient was evaluated immediately as recovering from sedation. Complications: None OT TIER RAD-VASCULAR & INTERVENTIONAL RADIOLOGY STAFF [facility] 2023-08-11 10:00:00 VASCULAR AND INTERVENTIONAL RADIOLOGY PROCEDURE NOTE Pre-procedure diagnosis: Aneurysm Post-procedure diagnosis: Aneurysm Procedure: Embolization of aneurysm Findings: Left para-ophthalmic aneurysm s/p embolization using Keven-X Complications: None Condition: Stable Estimated blood loss: 5cc Full dictated note to follow in PACS. [facility] Notes Date/Time Note Provider Source 2024-06-23 14:40:05 Attempt to contact pt, left voicemail to return clinics call Zulma Jimenez MA [facility] 2024-06-23 11:32:58 Did pt move to [place] received disability paperwork from that state [facility] 2024-04-27 08:04:22 Inform patient to request refills from PCP OT TIER [facility] 2024-04-26 15:01:08 Spoke with pt she will call back to schedule a follow up apt for med refills with Raquel. OT TIER Shannon Witt [facility] 2024-04-26 13:03:39 Images from the original note were not included. Pt.Lv 06/08/2023 Pt.Concern: Requested Renewals cyclobenzaprine 10 mg tablet Sig: Take 1 tablet by mouth in the morning and 1 tablet at noon and 1 tablet in the evening. Disp: 90 tablet Refills: 0 Start: 04/26/2024 Class: eRX For: Chronic pain syndrome Last ordered: 10 months ago (06/08/2023) by Marcel Trevino PA-C To be filled at: [facility] [address] [place] [address] Notes from Lv: Plan: - Trial of cyclobenzaprine 5-10 mg qhs, up to TID prn pain/muscle spasms -cyclobenzaprine 10 mg tablet Commonly known as: FLEXERIL For diagnoses: Chronic pain syndrome Quantity: 90 tablet Started by: Marcel Trevino PA-C Take 1 tablet by mouth in the morning and 1 tablet at noon and 1 tablet in the evening. Labs: Latest Reference Range & Units 03/23/24 09:24 PROTIME 10.1 - 12.6 Seconds 10.7 PT INR - 1.0 VerifyNow Aspirin Test See Comment ARU 350 VerifyNow PRUTest (P2Y12) 182 - 335 PRU 70 (L) WBC x10 3 4.30 - 11.10 10*3/?L 7.34 RBC x10 6 3.93 - 5.25 10*6/?L 4.91 HGB 11.6 - 15.0 g/dL 15.1 (H) HCT 35.7 - 45.2 % 42.6 MCV 80.6 - 95.5 fL 86.8 MCH 25.9 - 32.8 pg 30.8 MCHC 31.6 - 35.1 g/dL 35.4 (H) RDW-SD 39.0 - 49.9 fL 42.3 RDW-CV 12.0 - 15.5 % 13.2 PLT x10 3 166 - 358 10*3/?L 281 MPV 9.5 - 12.9 fL 10.6 NRBC /100 WBC 0.0 - 10.0 /100 WBCs 0.0 NRBC x10 3 10*3/?L <0.01 GRAN MAT (NEUT) % % 63.1 IMM GRAN % % 0.30 LYMPH% % 29.2 MONO % % 5.0 EOS % % 1.9 BASO % % 0.5 GRAN MAT x10 3 (ANC) 1.88 - 7.09 10*3/uL 4.63 IMM GRAN x10 3 0.00 - 0.06 10*3/uL <0.03 LYMPH x10 3 1.32 - 3.29 10*3/uL 2.14 MONO x10 3 0.33 - 0.92 10*3/uL 0.37 EOS x10 3 0.03 - 0.39 10*3/uL 0.14 BASO x10 3 0.01 - 0.07 10*3/uL 0.04 NA 135 - 145 mmol/L 141 K 3.5 - 5.0 mmol/L 3.5 CL 98 - 108 mmol/L 104 CO2 TOTAL 23 - 31 mmol/L 28 AGAP 2 - 16 9 BUN 7 - 23 mg/dL 14 GLUCOSE 70 - 110 mg/dL 87 CREATININE 0.50 - 1.04 mg/dL 0.51 eGFR mL/min/1.73m2 125.0 CALCIUM 8.6 - 10.6 mg/dL 8.9 (L): Data is abnormally low (H): Data is abnormally high Please advise,thank you. IKA Uriostegui LVN [facility] 2024-04-26 11:31:11 Images from the original note were not included. Pt needs office visit. Notes: 07/05/23 Last Refilled: [facility] - [address] [place] [address], [address] [place] [address] Recent Visits Date Type Provider Dept 07/05/23 Office Visit Yaima García FNP Ang-Db [facility] Med Showing recent visits within past 540 days with a meds authorizing provider and meeting all other requirements Future Appointments No visits were found meeting these conditions. Showing future appointments within next 150 days with a meds authorizing provider and meeting all other requirements Name from pharmacy: Pantoprazole Sodium 40 MG Oral Tablet Delayed Release Will file in chart as: PANTOPRAZOLE 40 mg EC tablet Sig: TAKE 1 TABLET BY MOUTH ONCE DAILY IN THE MORNING Disp: 90 tablet Refills: 0 Start: 04/26/2024 Class: eRX For: Chronic pain syndrome, Positive CALOS (antinuclear antibody), Nausea, Early satiety Last ordered: 9 months ago (07/05/2023) by FAY Vargas Last refill: 03/14/2024 Rx #: [id number] Gastroenterology: Antiulcer - Proton Pump Inhibitors [id number]/26/2024 06:22 AM Protocol Details Valid encounter within last 12 months To be filled at: [facility] [address] [place] [address] IKA Jimenez MA [facility] 2024-04-26 08:22:06 Prescription sent [facility] 2024-03-09 11:47:18 Scheduled DSA for 03/23/2023 at 10am in [place]. NPO after midnight. Arrive 9am. [facility] 2024-03-09 11:38:09 Felicitas Elliott is a 33 year old female. Pt calling to schedule appt. Pt states that she thought appt was for an angiogram. Pt states that provider said she needs angiogram after six months. Please advise. OT TIER Javier Washington [facility] 2024-03-09 10:09:29 I called the patient and left her a voicemail to please give me a call back to get scheduled with Dr Jo. IKA Ward [facility] 2024-03-08 09:05:42 Called pt and no answer. LVM stating to call [phone] to schedule for the EMG. IKA Ross RN [facility] 2024-03-08 09:00:50 Felicitas Elliott is a 33 year old female calling to schedule EMG testing, no order at this time. Please assist [phone] IKA Park [facility] 2024-03-08 08:56:55 Felicitas Elliott is a 33 year old female calling to request an appointment with MD Jo. [phone] IKA Park [facility] 2024-02-08 12:09:12 Pt given printed and verbal discharge instructions regarding back strain. Prescriptions provided Pt verbalized understanding of instructions, pt awake alert oriented, resp reg unlabored, skin w/d, color appropriate for race, moves all ext well,pt encouraged to follow up with neuro. Advised to seek medical attention for new/prolonged/worsening of symptoms. No adverse reaction to meds given in ER noted upon discharge Awake, alert oriented, resp reg unlabored, skin w/d, pt leaving amb with steady gait, in no apparent distress. IKA Burgos RN [facility] 2024-02-08 09:00:49 Patient complaints of full spinal pain. Also shooting mid back pain that radiates to neck. Has been going on for months but got worse. States that right arm and leg over the past few days felt numb and then returned to normal. Reports having imaging of back recently but has not followed up with neuro. No other neuro symptoms- denies dizziness, headache, incontinence, no trauma recently. Ambulatory with steady gait, vitally stable at triage. HX: chronic back pain. IKA Greenberg RN [facility] 2023-10-21 23:22:52 Images from the original note were not included. Pt given printed and verbal discharge instructions regarding generalized abdominal pain, diarrhea, nausea, cystitis Prescriptions provided dicyclomine 10 mg capsule Nitrofurantoin&Nit. Macrocryst 100 mg capsule ondansetron 4 mg disintegrating tablet Discussed antibiotic therapy and to take until all completed unless adverse reaction occurs - if occurs, discontinue medication and follow up with pcp/seek medical attention Pt verbalized understanding of instructions, pt awake alert oriented, resp reg unlabored, skin w/d, color appropriate for race, moves all ext well,pt encouraged to follow up with pcp Advised to seek medical attention for new/prolonged/worsening of symptoms No adverse reaction to meds given in ER noted upon discharge PIV d'cd, dressing to site, catheter in tact. Awake, alert oriented, resp reg unlabored, skin w/d, pt leaving amb with steady gait, in no apparent distress Carmen Ybarra RN [facility] 2023-10-21 19:14:49 Pt given urine cup and placed in the lobby, pt advice to notify nurse with any other concerns or if symptoms worsen. [facility] 2023-10-21 19:11:46 C/O upper abd pain with diarrhea and nausea X 4 days Agnes Jeronimo RN [facility] 2023-09-13 11:41:20 Patient is already been treated but another provider . Jazmin Rios [facility] 2023-08-23 08:12:43 I am not taking new patients V -FAMILY MEDICINE STAFF [facility] 2023-08-23 08:02:13 Walter Crouch D4 days ago CD Patient is following up on an post hospilation appointment with [facility]. Patient needs to be seen MIRIAM. Patient has been having chest pain an breathing problems. Patient recently had brain aneurism surgery Airam Bueno LVN [facility] 2023-08-20 13:46:04 Attempted to contact patient. No answer. Left message to call back. Airam Bueno LVN 08/20/2023 1:46 PM [facility] 2023-08-19 21:27:40 Pt discharged with diagnosis of other forms of angina pectoris. Printed and verbal instructions reviewed with and given to patient. Prescriptions given x 0. Patient verbalized understanding of teaching, and recommended follow-up. Denies questions or concerns at this time. Pt ambulatory at discharge. Appears in no apparent distress. No ataxia noted. Accompanied by self. Alyssia Reaglado RN [facility] 2023-08-19 20:55:24 [facility] ED Transfer of Care Note. Off-going Physician:Dr Monroe Time of Transfer of Care: 8:55 PM Summary: Felicitas Elliott is a 32 year old female presenting with chief complaint of chest pain. Pt has had recurrent chest pain for over one and a half years that she normally takes Buspar for, but recently since her Aneurysm surgery, chest pain has been more persistent, prompting ED eval. She was recently evaluated for same pain where work-up was reportedly negative Pending prior to disposition: Labs Current interventions: Medications aspirin tablet 325 mg (325 mg Oral Given 08/19/232022) Results: Labs Reviewed URINALYSIS - Abnormal; Notable for the following components: Result Value APPEARANCE Hazy (*) LEUK MARIN 250/uL (*) BACTERIA Few (*) MUCOUS Slight (*) YEAST BUD 7 (*) All other components within normal limits POCT TEST - Normal HEPATIC FUNCTION PANEL (14743) (ALB,T.PRO,BILI T,BU/BC,ALT,AST,ALK PHOS) - Normal LIPASE - Normal TROPONIN I - Normal Narrative: Reference (Normal) Range (defined by the 99th percentile reference limit): <= 0.034 ng/mL Note: Cardiac troponin begins to rise 3-4 hours after the onset of ischemia. Repeat in 4-6 hours if the sample was drawn within 3-4 hours of the onset of the symptom and found normal. Diagnosis of myocardial injury is made with acute changes in cTn concentrations with at least one serial sample above the 99th percentile upper reference limit (URL), taken together with the patient's clinical presentation. Biotin has been reported to cause a negative bias, interpret results relative to patient's use of biotin. N-TERMINAL PRO-BNP - Normal CBC WITH DIFF BASIC METABOLIC PANEL (NA, K, CL, CO2, GLUCOSE, BUN, CREATININE, CA) XR CHEST 2 VW Final Result Impression: No acute abnormalities evident. RL: 460 End of Report Procedures: Procedures Additional Notes: Diagnosis/Impression as of 08/19/23 2100 Other forms of angina pectoris Medical Decision Making Felicitas Elliott is a 32 year old female who presents to the ED with chest pain Problems Addressed: Other forms of angina pectoris: chronic illness or injury Details: ED evaluation and work-up unremarkable Will refer to Cardiology Amount and/or Complexity of Data Reviewed External Data Reviewed: labs, radiology, ECG and notes. Labs: ordered. Decision-making details documented in ED Course. Radiology: ordered. Decision-making details documented in ED Course. Risk OTC drugs. Risk Details: Will follow-up with Dr Cervantes Cardiology MIRIAM Disposition: Discharged Home Social Determinants of Health: None ED Disposition ED Disposition Disch - Home Condition Stable Comment -- Contact information for follow-up Jaylan Palafox Relationship: PCP - General [address] [facility] [address] Kevyn Cervantes MD Specialty: IM-CARDIOVASCULAR DISEASE [facility] [address] [facility] [address] [facility] [address] [employer] EMERGENC[facility] PHYSICIAN STAFF [facility] 2023-08-19 18:00:36 Pt present with c/o chest pain since surgery for aneurysm on . Pt also states she has been having low blood pressure and palpitations. Pt reports the chest pain is constant. Pt states it causes her to feel SOB and feels like a sharp pressure. VSS during triage. Lynn Mcleod RN [facility] 2023-08-19 17:49:00 [facility] Emergency Department Note Patient Name: Felicitas Elliott Date of : 1990 32 year old female Treatment Room: TR9/TR9 Primary Care Physician: Raquel Erwin Patient Escorted by: Self [9] Mode of Arrival: Personal means [1] EMS Treatment Prior to ED Arrival: TDP DISPLAYS ANALYST treatment: None Travel and Exposure Screening: Symptoms Does patient have any of these symptoms?: (not recorded) Exposure Screening Has patient had contact with someone with a communicable disease in the last month?: (not recorded) Diseases exposed to:: (not recorded) Is Patient ?: (not recorded) Exposure Date: (not recorded) Chief Complaint: Chief Complaint Patient presents with Chest Pain History of Present Illness: Patient here for on and off chest pain for 1 week. CP is midsternal and heaviness, 6/10. Patient had stenting of a brain aneurysm last Wednesday at [facility] and had some CP the next day and was prescribed Buspar by her doctors but it has not helped much. Denies DALY, dizziness, fevers, cough, SOB, abdominal pain, vomiting or diarrhea. + former smoker. Past Medical History/Immunizations: Past Medical History: Diagnosis Date Absence of menstruation 12/24/2015 Anxiety ongoing, self diagnosed, not taking medication ASCUS with positive high risk HPV cervical 03/29/2014 Brain aneurysm Depression ongoing, not taking medication Irregular menstrual cycle 11/21/2015 Positive CALOS (antinuclear antibody) 04/21/2022 Preoperative evaluation for tubal ligation 10/23/2019 STD (sexually transmitted disease) Chlamydia at 9 or 11 Tetanus received in last 5 years: Yes Allergies: No Known Allergies Past Social History: Tobacco Use Former; Cigarettes: 2016 - 2018 Passive Exposure: Past Smokeless Tobacco: Former user of smokeless tobacco. Comments: Vapes x 2 years Vaping Use Some days; Substances: Nicotine Alcohol Use No. Drug Use No. Sexual Activity Sexually active; Partners: Male; Control/Protection: Surgical. Comments: tubal Past Surgical History: Past Surgical History: Procedure Laterality Date APPENDECTOMY COLPOSCOPY 07/11/2014 ASCUS +HPV LAPAROSCOPIC SALPINGECTOMY Bilateral 01/02/2020 Surgeon: Nino Steward MD; Location: [facility] Location TUBAL LIGATION Review of Systems: Review of Systems Constitutional: Negative for activity change, appetite change, chills, diaphoresis, fatigue, fever, unexpected weight change, weight gain and weight loss. HENT: Negative for congestion, dental problem, drooling, ear discharge, ear pain, facial swelling, hearing loss, mouth sores, nosebleeds, postnasal drip, rhinorrhea, sinus pressure, sneezing, sore throat, tinnitus, trouble swallowing and voice change. Eyes: Negative for photophobia, pain, discharge, redness, itching and visual disturbance. Respiratory: Positive for chest tightness. Negative for apnea, cough, choking, shortness of breath, wheezing and stridor. Breasts: Negative for discharge, mass, pain and unequal size. Cardiovascular: Positive for chest pain. Negative for palpitations and leg swelling. Gastrointestinal: Negative for abdominal distention, abdominal pain, anal bleeding, blood in stool, constipation, diarrhea, nausea, rectal pain and vomiting. Genitourinary: Negative for bladder incontinence, dysuria, urgency, polyuria, frequency, hematuria, flank pain, decreased urine volume, vaginal bleeding, vaginal discharge, enuresis, difficulty urinating, genital sores, vaginal pain, menstrual problem, pelvic pain, dyspareunia and nocturia. Musculoskeletal: Negative for arthralgias, back pain, gait problem, joint swelling, myalgias, neck pain and neck stiffness. Skin: Negative for color change, pallor, rash and wound. Neurological: Negative for dizziness, tremors, seizures, syncope, facial asymmetry, speech difficulty, weakness, light-headedness, numbness and headaches. Psychiatric/Behavioral: Negative for agitation, behavioral problems, confusion, decreased concentration, dysphoric mood, hallucinations, self-injury, sleep disturbance and suicidal ideas. The patient is nervous/anxious. The patient is not hyperactive. Hematological: Negative for adenopathy, cold intolerance and heat intolerance. Does not bruise/bleed easily. Endocrine: Negative for goiter, hair loss, cold intolerance, heat intolerance, polydipsia, polyphagia, polyuria, weight gain and weight loss. Physical Exam: ED Triage Vitals [08/19/23 1802] Weight 83.9 kg (185 lb) Actual or estimated Height 1.626 m (5' 4") BP 121/88 Pulse 84 Resp 16 Temp 37 ?C (98.6 ?F) Temp src SpO2 100 % Measured on Room air Physical Exam Vitals and nursing note reviewed. Constitutional: General: She is not in acute distress. Appearance: Normal appearance. She is normal weight. She is not ill-appearing, toxic-appearing or diaphoretic. HENT: Head: Normocephalic and atraumatic. Right Ear: Tympanic membrane and ear canal normal. There is no impacted cerumen. Left Ear: Tympanic membrane and ear canal normal. There is no impacted cerumen. Nose: Nose normal. No congestion or rhinorrhea. Mouth/Throat: Mouth: Mucous membranes are moist. Pharynx: Oropharynx is clear. No oropharyngeal exudate or posterior oropharyngeal erythema. Eyes: General: No scleral icterus. Right eye: No discharge. Left eye: No discharge. Extraocular Movements: Extraocular movements intact. Conjunctiva/sclera: Conjunctivae normal. Pupils: Pupils are equal, round, and reactive to light. Neck: Vascular: No carotid bruit. Cardiovascular: Rate and Rhythm: Normal rate and regular rhythm. Pulses: Normal pulses. Heart sounds: Normal heart sounds. No murmur heard. No friction rub. No gallop. Pulmonary: Effort: Pulmonary effort is normal. No respiratory distress. Breath sounds: Normal breath sounds. No stridor. No wheezing, rhonchi or rales. Chest: Chest wall: Tenderness present. Abdominal: General: Abdomen is flat. Bowel sounds are normal. There is no distension. Palpations: Abdomen is soft. There is no mass. Tenderness: There is no abdominal tenderness. There is no right CVA tenderness, left CVA tenderness, guarding or rebound. Hernia: No hernia is present. Musculoskeletal: General: No swelling, tenderness, deformity or signs of injury. Normal range of motion. Cervical back: Normal range of motion and neck supple. No rigidity or tenderness. Right lower leg: No edema. Left lower leg: No edema. Lymphadenopathy: Cervical: No cervical adenopathy. Skin: General: Skin is warm and dry. Capillary Refill: Capillary refill takes less than 2 seconds. Coloration: Skin is not jaundiced or pale. Findings: No bruising, erythema, lesion or rash. Neurological: General: No focal deficit present. Mental Status: She is alert and oriented to person, place, and time. Mental status is at baseline. Cranial Nerves: No cranial nerve deficit. Sensory: No sensory deficit. Motor: No weakness. Coordination: Coordination normal. Gait: Gait normal. Deep Tendon Reflexes: Reflexes normal. Psychiatric: Mood and Affect: Mood normal. Behavior: Behavior normal. Thought Content: Thought content normal. Judgment: Judgment normal. Radiology: No orders to display Lab Results: Lab Results - No data to display EKG: If EKG completed, see Procedure Note. Orders and Treatments: No orders of the defined types were placed in this encounter. No orders of the defined types were placed in this encounter. First Provider Eval: ED Events Date/Time Event User Comments 08/19/231806 Medical Screening Begins YESENIA MONROE DO -- 08/19/231806 First Provider Evaluation YESENIA MONROE DO -- ED COURSE Diagnosis/Impression as of 08/19/231824 Other forms of angina pectoris Procedures: Procedures MDM: Medical Decision Making Patient here for on and off chest pain for 1 week. CP is midsternal and heaviness, 08/08. Patient had stenting of a brain aneurysm last Wednesday and had some CP the next day and was prescribed Buspar by her doctors but it has not helped much. Denies DALY, dizziness, fevers, cough, SOB, abdominal pain, vomiting or diarrhea. + former smoker. Amount and/or Complexity of Data Reviewed Labs: ordered. Radiology: ordered. ECG/medicine tests: ordered and independent interpretation performed. Details: NSR 82 bpm, no acute ST-T wave changes. Discussion of management or test interpretation with external provider(s): Patient is awaiting labs and imaging. Patient care and dispo transferred to Dr. Chandler. Risk OTC drugs. Flowsheet Documentation: Scoring Tools: No data recorded Dx: Chest pain. Disposition/Condition: Pending. Preet Monroe D.O. Physician RTI Billing ID #[id number] Preet Monroe DO 08/19/231827 Preet Monroe DO 08/19/231849 T [facility] 2023-08-19 14:05:37 Called Patient, No answer, Left message to call back. Tyra Frazier RN [facility] 2023-08-19 13:56:00 Regarding: Patient has chest pain and difficulty breathing x this morning. ----- Message from Walter Crouch sent at 08/19/2023 1:51 PM CDT ----- Patient has chest pain and difficulty breathing x this morning. Every 3 or four hours she gets this pain. Patient recently had surgery. Patient recently had brain aneurism surgery. Patient wants a call from a nurse. Avila Garcia RN [facility] 2023-08-19 13:56:00 Adult Triage Assessment Last Clinic Visit: 08/11/23, Hospital discharge- Aneurysm Primary Symptom: chest pain Onset / Duration: since surgery Location / Description: chest pressure across the chest, pain comes on every 3 hours and comes with difficulty breathing, lasting 15 minutes Pain / Severity: 7/10, lasting 15 minutes Associated Symptoms: deferred Fever / Method: deferred Hydration: deferred Treatment so far: deferred Effect on ADL's: deferred LMP: deferred Pre-existing condition / Immunocompromised: Past Medical History: Diagnosis Date Absence of menstruation 12/24/2015 Anxiety ongoing, self diagnosed, not taking medication ASCUS with positive high risk HPV cervical 03/29/2014 Brain aneurysm Depression ongoing, not taking medication Irregular menstrual cycle 11/21/2015 Positive CALOS (antinuclear antibody) 04/21/2022 Preoperative evaluation for tubal ligation 10/23/2019 STD (sexually transmitted disease) Chlamydia at 9 or 11 Felicitaskathy Elliott is a 32 year old female Calling today regarding chest pain since surgery that has progressively gotten worse, described as pressure like, rated 7/10, last >15 minutes with shortness of breath accompanying chest pain. Disposition and care advice per chest pain-adult protocol, Advised patient to call EMS for emergent evaluation of symptoms and possible transfer to ER. Patient acknowledges, plans to call relative to take her to [facility] ER, and has no further questions at this time. Advised patient on protocol recommendations, but it is her right to refuse. Call back information provided. Avila Garcia MSN, RN Registered Nurse [facility] Access Center Reason for Disposition [1] Chest pain lasts > 5 minutes AND [2] described as crushing, pressure-like, or heavy Protocols used: Chest Uuew-TVRHN-LH [facility] 2023-08-19 13:48:34 Patient is following up on an post hospilation appointment with [facility]. Patient needs to be seen MIRIMA. Patient has been having chest pain an breathing problems. Patient recently had brain aneurism surgery Walter Crouch [facility] 2023-08-19 11:15:14 Please let PSS know if Dr. Mcelroy would approve to see the patient [facility] 2023-08-18 13:32:04 Copied from [facility] #[id number]. Topic: Appointment - Appointment Request >> Aug 18, 2023 1:25 PM Patient Director Medical Safety wrote: Felicitas Elliott is a 32 year old female Pt is needing a hospital follow up with Dr. Mcelroy. Pt was in the hospital for a brain aneurysm Pt does not want to see Yaima García. She would like to see Dr. Mcelroy.Please advise. [phone](home) Pat Brown [facility] 2023-08-12 02:50:33 Problem: Falls, Risk of Goal: Absence of falls Outcome: Progressing as expected Problem: Pain Goal: Control of pain at or below patient's documented comfort goal Outcome: Progressing as expected Goal: Reduction in pain sensation Outcome: Progressing as expected Problem: Infection Risk Goal: Absence of infection Outcome: Progressing as expected Problem: Bleeding, Risk of Goal: Absence of impaired coagulation signs and symptoms Outcome: Progressing as expected Goal: Absence of active bleeding Outcome: Progressing as expected T [facility] 2023-08-11 18:19:34 Problem: Falls, Risk of Goal: Absence of falls Outcome: Progressing as expected Problem: Pain Goal: Control of pain at or below patient's documented comfort goal Outcome: Progressing as expected Goal: Reduction in pain sensation Outcome: Progressing as expected Problem: Infection Risk Goal: Absence of infection Outcome: Progressing as expected Problem: Bleeding, Risk of Goal: Absence of impaired coagulation signs and symptoms Outcome: Progressing as expected Goal: Absence of active bleeding Outcome: Progressing as expected [facility] 2023-08-11 15:45:00 PT TO PACU FROM IR VIA STRETCHER, WITH ANESTHESIA AND DR. SACHA SEGUNDO SITE CHECKED WITH PACU NURSE, SITE IS C/D/I, AREA SOFT TO TOUCH [facility] PALPABLE. PT TO GO TO ICU 4045 WHEN BED READY Angie Portillo RN [facility] 2023-07-27 11:00:00 [employer] message sent to patient to see if questions have been answered. T Divya Stoner RN [facility] 2023-07-23 09:37:27 Done [facility] 2023-07-06 15:49:20 OCA worked 5.6.24 post visit no additional orders needed at this time. 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 Tere Priest ARRANGING FUNERAL DIRECTOR [facility] 2023-06-11 17:11:41 Routed to [facility] for advisory. Tere Priest LVN [facility] 2023-06-11 11:15:00 Images from the original note were not included. Venipuncture collection performed by clean technique on the left anticubitus. Total of 2 attempts were made. Slight pressure and a bandage/dressing were applied to the site(s). The patient experienced no complications. The following specimens were processed according to instructions and sent to [facility] laboratories per lab order on 06/11/2023: LT BLUE SST 2 RED LAV PPT DK GREEN (LiHep) DK GREEN (SodH) BRYANT DK BLUE (K2) DK BLUE (S) ACD Blood Culture NIPT/NTD [facility] 2023-06-10 12:09:08 Marcel: I haven't seen her in over a year. I see you saw her a few days ago. Please address. IM-RHEUMATOLOGY STAFF [facility] 2023-06-10 11:53:42 Routed to for advisory. Tere Priest LVN [facility] 2023-06-08 09:45:00 Images from the original note were not included. Venipuncture collection performed by clean technique on the right anticubitus. Total of 1 attempts were made. Slight pressure and a bandage/dressing were applied to the site(s). The patient experienced no complications. The following specimens were processed according to instructions and sent to [facility] laboratories per lab order on 06/08/2023 : LT BLUE SST 1 RED LAV 1 PPT DK GREEN (LiHep) DK GREEN (SodH) BRYANT DK BLUE (K2) DK BLUE (S) ACD Blood Culture NIPT/NTD [facility] 2023-06-01 12:12:46 Courtesy call placed to patient. Advised patient to come down and gently stop the topiramate if she has agitation/anger/crying or any mood instability. We will need to clean up her medications the next time she comes. Advised patient duloxetine may be causing some amount of weight gain. Advised patient to start Depakote, given to her by Dr. Goncalves. May start half tablet at night for the first week and then have a full tablet the following week.. Thank you, FAY Choi [facility] 2023-05-27 15:41:24 Courtesy call placed to patient. Talked and discussed with patient about topiramate 25 mg. Patient states she is taking this medication and it works but she had several side effects and she is not sure whether the side effects are coming from. Did not admit to paresthesias or any irritability . Complain of aches and pains all over and related this to a positive CALOS. Advised patient I will send in higher doses of topiramate and when we follow-up at next visit we will discuss in detail on migraines. Do not start Depakote till our first appt. Also advised her I will send in magnesium oxide to help relax the blood vessels. Avoid triptans at all cost due to pending cerebral aneurysm. Patient in agreement. Thank you, FAY Choi [facility] 2023-05-14 16:46:50 Called patient scheduled her an appt with Marcel BUTT in [place] on 06/08/2023 and add her to the waitlist. Marla Warner [facility] 2023-05-12 18:17:59 Patient has history with MILTON Goncalves 10/22/22. Called patient and scheduled follow up visit for 05/27/23. Patient was due back to see provider in six months from original appointment. Patient aware of date/time/location Shannon Dacosta [facility] 2023-05-12 10:29:32 Patient is needing a stat appt. Please reference encounter on April. Please help schedule Jazmin Rios [facility] 2023-05-12 10:19:11 Contacted patient to schedule an appointment with Dr. Velez but patient stated she needed to be seen for aneurysm. Dr. Velez does not see for that but on the Neurology excel sheet it looks like Catina do . Do you have any appointment for patient to be seen sooner ? Jazmin Rios [facility] 2023-05-11 16:49:00 Patient provided with all information per MD notes. She states was told not to take Tylenol per Dr Goncalves and to instead take Naproxen. She states is currently taking it approx this every 4 hours. ER precautions provided and all was verbalized understanding. Please review and advise PSS please assist with scheduling with Neuro and to reschedule Rheumatology appt for a sooner date if available. Thank you Laxmi Knox LVN [facility] 2023-05-07 17:03:20 Please get pt scheduled with Neurology stat. ER precautions. I do not see where Neurology states not to take Tylenol , I would try Tylenol and see if it helps . OT TIER [facility] 2023-05-07 16:57:21 We haven't seen her in about a year. This sounds more like something her PCP or a neurologist would address. I'll copy her PCP on this note. OT TIER IM-RHEUMATOLOGY STAFF [facility] 2023-05-07 15:41:04 MILTON: 05/31/22 NOV:11/18/23 - Pt stated she is having cluster migraines -Pt stated Aneurisms were found at ED visit -Pt stated Topiramate is not working -OTC pain medications not working. -Neuro stated not to take Tylenol -At ER visit pt stated she was told to take Tylenol. -Pt stated she is stuck in between on what medications to take. -Pt stated she does not know if cluster migraines are associated with her being CALOS positive. -Pt stated would like sooner appointment than 11/18/23.Pt stated MD and location does not matter. -Pt currently on wait-list. -Labs reviewed from Hospital Encounter -Routed to MD for advisory -ER/ - Warnings Given. IKA Priest LVN [facility] 2023-05-07 13:08:47 Felicitas Elliott is a 32 year old female Pt is returning assessment call. Please advise IKA King [facility] 2023-05-07 11:52:57 Called and left pt VM to return call to clinic at [phone] [facility] 2023-05-07 10:47:16 Pt calling asking to schedule an appt. She states she is having cluster migraines and memory issues. She also states she had an aneurism. She is scheduled for the first available 11/17/23 and has been added to the wait list. Callback [phone] IKA Dodge [facility] 2023-04-26 14:34:00 Written/verbal d/c instructions, rx x6, pt alert resp even u/l, out of er with spouse IKA Galvan RN [facility] 2023-04-26 11:33:56 Patient states that she has been having headaches every other day. Reports that she has been referred to neurology but that she doesn't have [facility] and is trying to get on the indigent care program. States that the medications prescribed at the previous visit are not helping her. IKA Manuel RN [facility] - [facility] 2023-04-26 11:31:00 [facility] Emergency Department Note Patient Name: Felicitas Elliott Date of : 1990 32 year old female Treatment Room: [facility] ED [facility] Primary Care Physician: Raquel Erwin Patient Escorted by: Self [9] Mode of Arrival: Personal means [1] EMS Treatment Prior to ED Arrival: Travel and Exposure Screening: Symptoms Does patient have any of these symptoms?: (not recorded) Exposure Screening Has patient had contact with someone with a communicable disease in the last month?: (not recorded) Diseases exposed to:: (not recorded) Is Patient ?: (not recorded) Exposure Date: (not recorded) Chief Complaint: Chief Complaint Patient presents with Headache History of Present Illness: Patient states that she has been having headaches every other day. Reports that she has been referred to neurology but that she doesn't have [facility] and is trying to get on the indigent care program. 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 used: No Headache Pain location: Occipital and frontal Quality: Dull Radiates to: L neck and upper back (Left side of her face) Severity currently: 8/10 Severity at highest: 10/10 Onset quality: Gradual Duration: 6 weeks Timing: Intermittent Progression: Waxing and waning Chronicity: Recurrent Similar to prior headaches: yes Context comment: At rest Relieved by: Nothing Worsened by: Light, sound and activity Ineffective treatments: Prescription medications and acetaminophen Associated symptoms: neck pain and neck stiffness Associated symptoms: no abdominal pain, no congestion, no cough, no dizziness, no ear pain, no eye pain, no fatigue, no fever, no myalgias, no nausea, no numbness, no photophobia, no seizures, no sore throat, no vomiting and no weakness Risk factors: no anger, no family hx of SAH, does not have insomnia and lifestyle not sedentary Past Medical History/Immunizations: Past Medical History: Diagnosis Date Absence of menstruation 12/24/2015 Anxiety ongoing, self diagnosed, not taking medication ASCUS with positive high risk HPV cervical 03/29/2014 Brain aneurysm Depression ongoing, not taking medication Irregular menstrual cycle 11/21/2015 Positive CALOS (antinuclear antibody) 04/21/2022 Preoperative evaluation for tubal ligation 10/23/2019 STD (sexually transmitted disease) Chlamydia at 9 or 11 Allergies: No Known Allergies Past Social History: Tobacco Use Former; Cigarettes: Quit 2018 Smokeless Tobacco: Current user of smokeless tobacco. Comments: Vapes x 2 years Vaping Use Some days; Substances: Nicotine Alcohol Use No. Drug Use No. Sexual Activity Sexually active; Partners: Male; Control/Protection: Surgical. Comments: tubal Past Surgical History: Past Surgical History: Procedure Laterality Date APPENDECTOMY COLPOSCOPY 07/11/2014 ASCUS +HPV LAPAROSCOPIC SALPINGECTOMY Bilateral 01/02/2020 Surgeon: Nino Steward [place]; [place] [facility] [place] Review of Systems: Review of Systems Constitutional: Negative for activity change, appetite change, chills, diaphoresis, fatigue and fever. HENT: Negative for congestion, ear discharge, ear pain, rhinorrhea, sore throat and trouble swallowing. Eyes: Negative for photophobia, pain, discharge and redness. Respiratory: Negative for cough, chest tightness, shortness of breath and wheezing. Cardiovascular: Negative for chest pain, palpitations and leg swelling. Gastrointestinal: Negative for abdominal distention, abdominal pain, blood in stool, constipation, nausea and vomiting. Genitourinary: Negative for dysuria, urgency, polyuria, frequency, hematuria and flank pain. Musculoskeletal: Positive for neck pain and neck stiffness. Negative for arthralgias, joint swelling and myalgias. Skin: Negative for color change, rash and wound. Neurological: Positive for headaches. Negative for dizziness, seizures, syncope, facial asymmetry, weakness, light-headedness and numbness. Psychiatric/Behavioral: Negative for agitation, confusion, hallucinations and self-injury. The patient is not nervous/anxious. Hematological: Negative for adenopathy and cold intolerance. Does not bruise/bleed easily. Endocrine: Negative for cold intolerance, polydipsia and polyuria. Physical Exam: ED Triage Vitals [04/26/23 1134] Weight Actual or estimated Height BP 121/85 Pulse 102 Resp 22 Temp 36.5 ?C (97.7 ?F) Temp source Oral SpO2 100 % Measured on Room air Physical Exam Vitals and nursing note reviewed. Constitutional: General: She is awake. She is not in acute distress. Appearance: She is well-developed, well-groomed and overweight. She is not ill-appearing or diaphoretic. HENT: Head: Normocephalic and atraumatic. Right Ear: External ear normal. Left Ear: External ear normal. Nose: Nose normal. Mouth/Throat: Pharynx: No oropharyngeal exudate. Eyes: General: No scleral icterus. Right eye: No discharge. Left eye: No discharge. Conjunctiva/sclera: Conjunctivae normal. Pupils: Pupils are equal, round, and reactive to light. Neck: Thyroid: No thyromegaly. Vascular: No JVD. Trachea: No tracheal deviation. Meningeal: Brudzinski's sign and Kernig's sign absent. Cardiovascular: Rate and Rhythm: Normal rate and regular rhythm. Heart sounds: Normal heart sounds. No murmur heard. No friction rub. No gallop. Pulmonary: Effort: Pulmonary effort is normal. No respiratory distress. Breath sounds: Normal breath sounds. No stridor. No wheezing or rales. Chest: Chest wall: No tenderness. Abdominal: General: Bowel sounds are normal. There is no distension. Palpations: Abdomen is soft. There is no mass. Tenderness: There is no abdominal tenderness. There is no guarding or rebound. Musculoskeletal: General: No tenderness or deformity. Normal range of motion. Cervical back: Normal range of motion and neck supple. Muscular tenderness present. Normal range of motion. Lymphadenopathy: Cervical: No cervical adenopathy. Skin: General: Skin is warm and dry. Coloration: Skin is not pale. Findings: No erythema or rash. Neurological: Mental Status: She is alert and oriented to person, place, and time. Cranial Nerves: No cranial nerve deficit. Motor: No abnormal muscle tone. Coordination: Coordination normal. Deep Tendon Reflexes: Reflexes are normal and symmetric. Reflexes normal. Psychiatric: Behavior: Behavior normal. Thought Content: Thought content normal. Judgment: Judgment normal. Radiology: No orders to display Lab Results: Lab Results URINALYSIS - Abnormal Result Value Ref Range APPEARANCE Cloudy (*) Clear COLOR Yellow Yellow PH 5.0 4.8 - 8.0 SP GRAVITY 1.017 1.003 - 1.030 GLU U QUAL Normal Normal BLOOD 1+ (*) Negative KETONES Negative Negative PROTEIN Negative Negative UROBILIN Normal Normal BILIRUBIN Negative Negative NITRITE Negative Negative LEUK MARIN 500/uL (*) Negative RBC/HPF 40 (*) 0 - 3 HPF WBC/HPF 9 (*) 0 - 5 HPF BACTERIA Negative Negative MUCOUS Slight (*) Negative LPF SQ EPITH 3 HPF POCT TEST - Normal POCT PREG Negative On board controls acceptable with C Line Yes POCT PREG LOT # [id number] POCT PREG TEST DATE 04/05/2024 EKG: If EKG completed, see Procedure Note. Orders and Treatments: Orders Placed This Encounter Procedures POCT Test Urinalysis Orders Placed This Encounter Medications NaCl 0.9% (NS) bolus infusion 1,000 mL ketorolac (TORADOL) injection 30 mg dexamethasone sod phos PF injection 10 mg proCHLORperazine (COMPAZINE) 10 mg in NaCl 0.9% (NS) piggyback diazePAM (VALIUM) tablet 5 mg cefTRIAXone (ROCEPHIN) 1,000 mg in NaCl 0.9% (NS) 100 mL MINI-BAG cefpodoxime 100 mg tablet ketorolac 10 mg tablet proCHLORperazine 10 mg tablet magnesium glycinate 100 mg magnesium Cap benztropine 1 mg tablet acetaminophen (TYLENOL ARTHRITIS PAIN) 650 mg CR tablet First Provider Eval: ED Events Date/Time Event User Comments 04/26/237 Medical Screening Begins BALTA CRABTREE MD -- 04/26/23 120 First Provider Evaluation BALTA CRABTREE MD -- ED COURSE Diagnosis/Impression as of 04/26/23 1405 Intractable cluster headache syndrome, unspecified chronicity pattern Urinary tract infection without hematuria, site unspecified Procedures: Procedures MDM: Medical Decision Making Problems Addressed: Intractable cluster headache syndrome, unspecified chronicity pattern: chronic illness or injury with exacerbation, progression, or side effects of treatment that poses a threat to life or bodily functions Urinary tract infection without hematuria, site unspecified: complicated acute illness or injury with systemic symptoms that poses a threat to life or bodily functions Amount and/or Complexity of Data Reviewed Independent Historian: Details: at bed side provided additional information regarding her case External Data Reviewed: labs, radiology and notes. Details: From previous visits reviewed including her head CT Labs: ordered. Decision-making details documented in ED Course. Risk OTC drugs. Prescription drug management. Parenteral controlled substances. Drug therapy requiring intensive monitoring for toxicity. Flowsheet Documentation: Scoring Tools: No data recorded Disposition/Condition: ED Disposition ED Disposition Disch - Home Condition Stable Comment -- Discharge Medications: Patient's Medications START taking these medications ACETAMINOPHEN (TYLENOL ARTHRITIS PAIN) 650 MG CR TABLET Take 1 tablet by mouth every 8 (eight) hours as needed for Pain (MIGRAINE). BENZTROPINE 1 MG TABLET Take 1 tablet by mouth in the morning and 1 tablet in the evening. TAKE ONLY FOR MIGRAINE NOT RESPONDING TO THE COMBINED USE OF TORADOL+COMPAZINE+MAGNESIUM+ TYLENOL 650 CEFPODOXIME 100 MG TABLET Take 1 tablet by mouth in the morning and 1 tablet in the evening. KETOROLAC 10 MG TABLET Take 1 tablet by mouth every 6 (six) hours as needed for Pain (scale 4-6) or Pain (scale 7-10). MAGNESIUM GLYCINATE 100 MG MAGNESIUM CAP Take 200 capsules by mouth in the morning. PROCHLORPERAZINE 10 MG TABLET Take 1 tablet by mouth every 6 (six) hours as needed for Nausea and Vomiting (N/V) (Migraine, to take together with TORADOL). CONTINUE taking these medications which have NOT CHANGED OIMLRISCHX-ALGNSRGVVAXFM-AAL F 50-325-40 MG TABLET Take 1 tablet by mouth every 6 (six) hours as needed (Headache). DULOXETINE 60 MG CAPSULE Take 1 capsule by mouth in the morning. ERGOCALCIFEROL, VITAMIN D2, (VITAMIN D ORAL) Take by mouth. HYDROCORTISONE 25 MG SUPPOSITORY Insert 1 Suppository into rectum 2 (two) times daily as needed for Rectal itching/pain. IBUPROFEN 600 MG TABLET Take 1 tablet by mouth every 6 (six) hours as needed for Pain (scale 1-3) or Pain (scale 4-6). METHYLPREDNISOLONE 4 MG TABLETS Take by mouth SEE-INSTRUCTIONS. follow package directions PANTOPRAZOLE 40 MG EC TABLET TAKE 1 TABLET BY MOUTH IN THE MORNING TOPIRAMATE 25 MG TABLET Take 1 tablet by mouth in the morning. VITAMIN C 100 MG TABLET Take 1 tablet by mouth in the morning. START taking Modified Medications as Prescribed No medications on file STOP taking these medications No medications on file Follow-up: Electronically signed by: Balta Crabtree MD 04/26/23 1406 [facility] 2023-04-14 09:18:17 Pt stated she had no insurance and no money to pay for visit. I did give her the [facility] geriatric social worker phone number to see if she might qualify for the indigent program. She will call back to schedule. [facility] Shannon Chatterjee [facility] 2023-04-13 10:04:28 Felicitas Elliott is a 32 year old female Patient called stating that she was admitted in the ER on 04/12 For severe headaches patient states that she want to schedule for a post hospitalization but she wants to speak to the clinic about medical assistants because she does not have insurance so she needs help to help with the billing part in order to schedule appt. Patient states she is not working at the moment she would like advise Please advise Did notify patient that we do have [facility] Nadira Berumen [facility] 2023-04-12 21:51:15 Pt given printed and verbal discharge instructions regarding acute intractable headache, cerebral aneurysm without rupture Prescriptions provided START taking these medications creyjyrmdu-awdmrhqlfwszp-zor f 50-325-40 mg tablet Commonly known as: ESGIC Take 1 tablet by mouth every 6 (six) hours as needed (Headache). topiramate 25 mg tablet Commonly known as: TOPAMAX Take 1 tablet by mouth in the morning. Pt verbalized understanding of instructions, pt awake alert oriented, resp reg unlabored, skin w/d, color appropriate for race, moves all ext well,pt encouraged to follow up with pcp or neurology. Advised to seek medical attention for new/prolonged/worsening of symptoms, No adverse reaction to meds given in ER noted upon discharge PIV d'cd, dressing to site, catheter in tact. Awake, alert oriented, resp reg unlabored, skin w/d, pt leaving amb with steady gait, in no apparent distress. IKA Ybarra RN [facility] 2023-04-12 14:45:00 Patient's name and verified with patient. Chief Complaint Patient presents with Headache Patient ambulatory with steady gait with EC arrival. Patient is conscious and alert, with normal/unlabored breathing, and normal color/tone for ethnicity -oriented to name, time, place, and situation. GCS 15. Patient reports that she has been experiencing a migraine for ~3 weeks; mentions she has a history of migraines and that she used to get medications prescribed by neurologist. Has not seen neurologist in a long time and has not had medications recently. Patient denies nausea, vomiting, chest pain, shortness of breath, fever, chills and diarrhea. Past Medical History: Diagnosis Date Absence of menstruation 12/24/2015 Anxiety ongoing, self diagnosed, not taking medication ASCUS with positive high risk HPV cervical 03/29/2014 Brain aneurysm Depression ongoing, not taking medication Irregular menstrual cycle 11/21/2015 Positive CALOS (antinuclear antibody) 04/21/2022 Preoperative evaluation for tubal ligation 10/23/2019 STD (sexually transmitted disease) Chlamydia at 11 or 11 No known allergies. Vitals obtained. Assessment performed. IV in place and patent. Placed on continuous spo2/bp, HR 100 Bed low and locked, secured with two rails, call light within reach. Belongings at bedside. Patient aware of plan of care. Aislinn Smith RN IKA Smith RN [facility] 2023-04-12 14:43:15 Patient to ED for migraine on going x 3 weeks. Naproxen doesn't work any more. She used to take meds given to her from neurology but no longer sees doctor. IKA Gamez RN [facility] 2023-04-12 14:37:00 [facility] ED Transfer of Care Note. Off-going Physician:ISI Adams Time of Transfer of Care: 9:30 PM Summary: Felicitas Elliott is a 32 year old female presenting with chief complaint of headache. Pending prior to disposition: Imaging Current interventions: Medications topiramate (TOPAMAX) tablet 25 mg (has no administration in time range) NaCl 0.9% (NS) bolus infusion 1,000 mL (1,000 mL IV Infusion New Bag 04/12/231702) ketorolac (TORADOL) injection 30 mg (30 mg Slow IV Push Given 04/12/231703) diphenhydrAMINE (BENADRYL) injection 25 mg (25 mg Slow IV Push Given 04/12/231703) metoclopramide HCl (REGLAN) injection 10 mg (10 mg Slow IV Push Given 04/12/231704) magnesium sulfate in D5W 1 gram/100 mL RTU IV Piggyback 1 g (0 g IV Piggyback Stopped 04/12/231740) dexamethasone sod phos PF injection 10 mg (10 mg Slow IV Push Given 04/12/231703) iopamidol (ISOVUE 370-500 mL) injection 100 mL (100 mL Intravenous Given 04/12/232114) Results: Labs Reviewed URINALYSIS - Abnormal; Notable for the following components: Result Value APPEARANCE Hazy (*) MUCOUS Slight (*) All other components within normal limits POCT TEST - Normal CT STROKE ANGIOGRAM NECK Preliminary Result No high-grade stenosis or aneurysm in the intracranial or cervical vessels. 8 x 9 x 7 mm left supraclinoid ICA aneurysm. Hypoplastic distal left vertebral artery which terminates predominantly as PICA. 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 Preliminary Report Dictated by Resident: Raman Gagnon CT STROKE ANGIOGRAM HEAD Preliminary Result No high-grade stenosis or aneurysm in the intracranial or cervical vessels. 8 x 9 x 7 mm left supraclinoid ICA aneurysm. Hypoplastic distal left vertebral artery which terminates predominantly as PICA. 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 Preliminary Report Dictated by Resident: Raman Gagnon CT HEAD WO CONTRAST Preliminary Result No acute intracranial abnormalities. Preliminary Report Dictated by Resident: Giovana Patricia Additional Notes: ED Course as of 04/12/232131 Mon Apr 12, 20231930 Care transferred to Dr Chandler pending CT [PD] 1646 POCT PREG: Negative [PD] ED Course User Index [PD] Jordyn Adams NP Diagnosis/Impression as of 04/12/232131 Acute intractable headache, unspecified headache type Cerebral aneurysm without rupture - Chronic, Medical Decision Making Felicitas Elliott is a 32 year old female with hx of migraine presenting to the ED with migraine headache Problems Addressed: Acute intractable headache, unspecified headache type: acute illness or injury Cerebral aneurysm without rupture: chronic illness or injury Details: No rupture or change in size appreciated on imaging Amount and/or Complexity of Data Reviewed Labs: ordered. Decision-making details documented in ED Course. Radiology: ordered. Decision-making details documented in ED Course. Risk OTC drugs. Prescription drug management. Risk Details: Will refer to NEUROLOGIST FOR FURTHER EVALUATION PT WOULD LIKE TO TRY ESGIC. WILL PRESCRIBE A FEW UNTIL PT SEES HER NEUROLOGIST REFILLED TOPAMAX Disposition: Discharged Home Social Determinants of Health: none. Diagnoses that have been ruled out: None Diagnoses that are still under consideration: None Final diagnoses: Acute intractable headache, unspecified headache type Cerebral aneurysm without rupture ED Disposition ED Disposition Disch - Home Condition Stable Comment -- Contact information for follow-up Yaima García FNP Specialty: COMMUNITY PHARMACIST-FAMILY Relationship: PCP - General [facility] [address] [place] [id number] Eve Goncalves MD Specialty: PN-NEUROLOGY , RAD-DIAGNOSTIC RADIOLOGY [facility] [address] [facility] [address] [facility] [address] Meek Chandler MD 04/12/232131 [facility] 2023-03-07 17:44:05 PT D/C home. GCS15, VS stable. Given D/C paperwork. Pt ambulatory at time of discharge. Pt educated on med usage, follow up care, s/s worsening condition, need for hydration. Pt verbalized understanding. Pt ambulated from ED in NAD. OT TIER Lynn Mcleod RN [facility] 2023-03-07 15:26:40 CC: patient presents to the ER with complaints of rectal bleeding that began last night. Denies injury or intercourse. PMHx: see history Awake, alert, oriented, resp reg unlabored, skin warm and dry, color appropriate for race, moves all ext without difficulty, amb without complaints. Appears in no distress. OT TIER Elva Lopez RN [facility] 2022-11-17 11:26:14 Formatting of this n ote might be different from the original. Sent pt [employer]t message that referral for social work was already placed by Yaima García. Suzanne Timmons LVN [facility] 2022-11-13 10:26:23 Formatting of this n ote might be different from the original. I can put in a SW consult for you to see what assistance there is T [facility] 2022-11-13 09:29:24 Formatting of this n ote might be different from the original. Please review and advise T Laxmi Knox LVN [facility] 2022-10-22 13:00:00 Addended by: EVE ORTEGA on: 10/25/2022 02:44 PM Modules accepted: Orders [facility] 2022-10-22 13:00:00 Addended by: EVE ORTEGA on: 10/25/2022 02:46 PM Modules accepted: Level of Service [facility] 2022-10-12 09:45:38 Formatting of this n ote might be different from the original. Still unable to reach patient via phone. Will send another Mychart Heriberto Lino [facility] 2022-10-09 16:28:37 Formatting of this n ote might be different from the original. Felicitas Elliott is a 31 year old female Patient is calling to schedule appointment with Dr. Goncalves. Thanks! Erika Clement [facility] 2022-10-08 09:57:25 Formatting of this n ote might be different from the original. Attempted to call pt and phone says the customer isn't receiving calls at this time. Sent pt a Mychart message to call and schedule an appt for tomorrow morning, Wednesday10/09/22 to discuss MRI results. Per Dr. Velez, it is OK to overbook him for this appointment tomorrow morning. Suzanne Timmons LVN [facility] 2022-10-07 15:39:54 Formatting of this n ote might be different from the original. Felicitas Elliott is a 31 year old female. Patient is calling requesting to have result read last MRI done yesterday. Please call patient back to advise. Chio Yuan V [facility] 2022-09-29 21:10:17 Formatting of this n ote might be different from the original. Awake, alert oriented X4, respiratory even and unlabored,skin w/d color appropriate for race, moves all ext well, pt encouraged to follow up with pcp and or return as needed Pt given printed and verbal discharge instructions regarding Pain , patient verbralized understanding and signature obtained, patient denies any other concerns. Prescriptions provided Advised to seek medical attention for new/prolonged/worsening of symptoms, No adverse reaction to meds given in ER noted upon discharge Pt ambulated to [facility] with steady gait Agnes Jeronimo RN [facility] 2022-09-29 17:46:52 Formatting of this n ote might be different from the original. Generalized pain. Has chronic pain syndrome x1 year. Lanette Crowell RN [facility]
--- NOTE | 2024-10-09 02:38 | RAD REPORT ---
EXAM: CT Head Without Intravenous Contrast CLINICAL HISTORY: The patient is 33 years old and is Female; TRAUMA TECHNIQUE: Axial computed tomography images of the head/brain without intravenous contrast. Sagittal and cor onal reformatted images were created and reviewed. This CT exam was performed using one or more of the following dose reduction techniques: automated exposure control, adjustment of the mA and/or kV according to patient size, and/or use of iterative reconstruction technique. COMPARISON: No relevant prior studies available. FINDINGS: BRAIN: Unremarkable. The schroeder-white matter differentiation is preserved . No hemorrhage. No s ignificant white matter disease. No edema. No extra-axial fluid collections. VENTRICLES: Unremarkable. No ventriculomegaly. BONES/JOINTS: No acute fracture. SOFT TISSUES: Unremarkable. VASCULATURE: Evidence of a stent within the cavernous portion of the left ICA is noted. SINUSES: Unremarkable as visualized. No acute sinusitis. MASTOID AIR CELLS: Unremarkable as visualized. No mastoid effusion. ORBITS: Unremarkable as visualized. IMPRESSION: No acute intracranial findings. Electronically signed by: Migdalia Finley MD 10/09/2024 02:32 AM CDT Due to temporary technical issues with the [email or web address] reporting system, reports are being gina d by the in-house radiologist without review as a courtesy to ensure prompt reporting the interpreting radiologist is fully responsible for the content of the report. Transcribed Date/Time: 10/09/2024 2:38 AM
[2024-10-09] MEDS ORDERED: MORPHINE 4 MG/ML SYR ONE (03:04)
[2024-10-09] MEDS ORDERED: KETOROLAC 30 MG/ML INJ ONE (04:25)
--- NOTE | 2024-10-09 04:33 | EDPHYS ---
Physician Documentation [facility] Name: Melly Elliott Age: 33 yrs Sex: Female : 1990 Arrival Date: 10/09/2024 Time: 01:27 Bed 8 Private MD: ED Physician Ethan Richards HPI: 10/09 01:41 This 33 yrs old Female presents to ER via Ambulatory with complaints of Head ms3 Injury Without LOC-Adult, Pt has h/o cerebal aneurysm and states she had a stent put in approx 1 year ago. 01:41 33-year-old female with past medical history of brain presents to the emergency ms3 department 30 minutes to 1 hour status post fall in her bathroom water. Patient states she did have loss of consciousness and was found by her bpriat-ef-ten. Patient denies taking blood thinners or vomiting. Patient endorses left-sided headache and rates the discomfort as 7/10. She denies any alleviating or inciting factors. Patient is concerned as she had a brain aneurysm with a stent placed 1 year ago. 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 - Infectious Disease History:: Denies. - Immunization history: Last tetanus immunization: unknown. - Social history:: Smoking status: Patient denies any tobacco usage or history of. ROS: 01:41 Constitutional: Negative for fever, and chills. Cardiovascular: Negative for chest ms3 pain, and palpitations. Respiratory: Negative for shortness of breath, cough, wheezing, and pleuritic chest pain, Abdomen/GI: Negative for abdominal pain, nausea, vomiting, diarrhea, and constipation, :41 MS/extremity: Positive for pain, of the right lower leg, :41 Neuro: Positive for headache, Exam: :41 Constitutional: This is a well developed, well nourished patient who is awake, alert, ms3 and in no acute distress. Cardiovascular: Regular rate and rhythm with a normal S1 and S2. No gallops, murmurs, or rubs. Normal PMI, no JVD. No pulse deficits. Respiratory: Lungs have equal breath sounds bilaterally, clear to auscultation and percussion. No rales, rhonchi or wheezes noted. No increased work of breathing, no retractions or nasal flaring. Abdomen/GI: Soft, non-tender, with normal bowel sounds. No distension or tympany. No guarding or rebound. No evidence of tenderness throughout. Skin: Warm, dry with normal turgor. Normal color with no rashes, no lesions, and no evidence of cellulitis. MS/ Extremity: Pulses equal, no cyanosis. Neurovascular intact. Full, normal range of motion. 01:41 Musculoskeletal/extremity: Extremities: noted in the medial right lower leg: pain, tenderness, There is no evidence of contusion, swelling, Vital Signs: 01:36 BP 148 / 97; Pulse 108; Resp 16; Temp 96.9(TE); Pulse Ox 99% on R/A; Weight 73.94 kg; jb4 Height 5 ft. 3 in. (R); 04:00 BP 126 / 84; Pulse 81; Resp 18; Pulse Ox 99% ; cp4 04:53 BP 119 / 73; Pulse 78; Resp 17; Temp 98.1(O); Pulse Ox 98% ; Pain 5/10; kd4 01:36 Body Mass Index 28.87 (73.94 kg, 160.02 cm) jb4 04:53 Pain Scale: Adult kd4 Ce Coma Score: 02:29 Eye Response: spontaneous(4). Motor Response: obeys commands(6). Verbal Response: kd4 oriented(5). Total: 15. Trauma Score (Adult): 02:29 Eye Response: spontaneous(1); Verbal Response: oriented(1); Motor Response: obeys kd4 commands(2); Systolic BP: > 89 mm Hg(4); Respiratory Rate: 10 to 29 per min(4); Lebeau Score: 15; Trauma Score: 12 MDM: 01:40 Medical Screening Exam initiated ms3 01:41 Differential diagnosis: Contusion of Hematoma on Intracranial bleed- Concussion with ms3 LOC. 04:37 Data reviewed: vital signs, nurses notes, radiologic studies, and as a result, I will ms3 discharge patient. I considered the following discharge prescriptions or medication management in the emergency department Medications were administered in the Emergency Department. See MAR. Independent interpretation of the following test(s) in the Emergency Department X-Ray: My interpretation is Left tib/fib x-ray images review by me did not reveal fracture. Counseling: I had a detailed discussion with the patient and/or guardian regarding the historical points, exam findings, and any diagnostic results supporting the discharge/admit diagnosis, radiology results, the need for outpatient follow up, to return to the emergency department if symptoms worsen or persist or if there are any questions or concerns that arise at home. Special discussion: I discussed with the patient/guardian in detail that at this point there is no indication for admission to the hospital. It is understood, however, that if the symptoms persist or worsen the patient needs to return immediately for re-evaluation. ED course: Discussed imaging results with patient and her family. They understand agree with plan. All questions were answered. Return precautions discussed include worsening symptoms, or any other concerns.. 10/09 01:41 Order name: CT Head Brain wo Cont ms3 10/09 02:39 Order name: Tib Fib Left EDMS Administered Medications: 03:07 Drug: morphine IM 4 mg IM once Route: IM; Site: left ventrogluteal; cp4 04:40 Follow up: Response: No adverse reaction kd4 04:37 CANCELLED (Physician Discretion): [id number] mg IM once ms3 04:39 Drug: Ketorolac IM 15 mg IM once Route: IM; Site: left deltoid; kd4 04:40 Follow up: Response: No adverse reaction kd4 Disposition Summary: 10/09/24 04:32 Discharge Ordered Notes: Location: Home ms3 Condition: Stable ms3 Diagnosis - Fall on same level, unspecified ms3 - Headache ms3 - Pain in left lower leg ms3 Followup: ms3 - With: Geraldo Michael DO - When: 2 - 3 days - Reason: Recheck today's complaints Discharge Instructions: - Discharge Summary Sheet ms3 - Fall Prevention in the Home, Adult ms3 - Musculoskeletal Pain ms3 Forms: - Medication Reconciliation Form ms3 - Antibiotic Education ms3 - Prescription Opioid Use ms3 - Patient Portal Instructions ms3 - Leadership Thank You Letter ms3 Signatures: Dispatcher [employer] EDMS Olegario Javed, RN RN jb4 Ethan Richards DO DO ms3 Faith Lazaro cp4 Jen Mann RN RN kd4 Corrections: (The following items were deleted from the chart) 02:39 01:41 Tib Fib Right+RAD.RAD.BRZ ordered. EDMS EDMS 04:37 04:06 Ketorolac IM 15 mg IM once ordered. ms3 ms3
--- NOTE | 2024-10-09 04:33 | ER ---
Nurse's Notes [facility] Name: Melly Elliott Age: 33 yrs Sex: Female : 1990 Arrival Date: 10/09/2024 Time: 01:27 Bed 8 Private MD: Diagnosis: Fall on same level, unspecified;Headache;Pain in left lower leg Presentation: 10/09 01:36 Chief complaint: Patient states: I was in the bathroom and slipped and fell. I think I jb4 hit my head and left leg. I think I passed out. Coronavirus screen: At this time, the client does not indicate any symptoms associated with coronavirus-19. Ebola Screen: No symptoms or risks identified at this time. Initial Sepsis Screen: Does the patient meet any 2 criteria? HR > 90 bpm. Yes Does the patient have a suspected source of infection? No. Patient's initial sepsis screen is negative. Risk Assessment: Do you want to hurt yourself or someone else? Patient reports no desire to harm self or others. Onset of symptoms was October 09, 2024. Transition of care: patient was not received from another setting of care. 01:36 Method Of Arrival: Ambulatory jb4 01:36 Acuity: ELSIE 3 jb4 04:50 Care prior to arrival: None. Mechanism of Injury: Fall tripped and fall , hitting head kd4 on tub. Triage Assessment: 04:45 General: Appears uncomfortable, Behavior is calm. Pain: Complains of pain in head Pain kd4 currently is 5 out of 10 on a pain scale. Neuro: No deficits noted. Respiratory: No deficits noted. 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 - Infectious Disease History:: Denies. - Immunization history: Last tetanus immunization: unknown. - Social history:: Smoking status: Patient denies any tobacco usage or history of. Screenin:47 [facility] ED Fall Risk Assessment (Adult) History of falling in the last 3 months, kd4 including since admission Yes- single mechanical fall (1 pt) Confusion or Disorientation No (0 pts) Intoxicated or Sedated No (0 pts) Impaired Gait No (0 pts) Mobility Assist Device Used No (0 pt) Altered Elimination No (0 pt) Score/Fall Risk Level 0 - 2 = Low Risk Oriented to surroundings, Maintained a safe environment, Educated pt \T\ family on fall prevention, incl call for assistance when getting out of bed, Assessed \T\ reinforced patient's understanding of fall precautions. Abuse screen: Denies threats or abuse. Nutritional screening: No deficits noted. Tuberculosis screening: No symptoms or risk factors identified. Primary Survey: 04:41 NO uncontrolled hemorrhage observed. A: The client is awake and alert. The airway is kd4 patent. Breathing/Chest: Spontaneous respiratory effort, equal unlabored respirations, breath sounds clear bilaterally, regular pattern, symmetrical chest rise and fall. Circulation: No external hemorrhage present. Regular and strong central pulse, skin warm/dry/normal color. Disability Client is alert. Reassessment Alertness and Airway: Awake and alert. The airway is patent. 04:47 Exposure/Environment: A warming method has been applied: A warm blanket has been kd4 provided to the patient. Reassessment Breathing: Spontaneous respiratory effort, equal unlabored respirations, breath sounds clear bilaterally, regular pattern with symmetrical chest rise and fall. Circulation: No external hemorrhage noted. Regular and strong central pulse, skin warm/dry/normal color. Disability: Alert. Assessment: 02:29 Pain: Complains of pain in head Pain currently is 8 out of 10 on a pain scale. Neuro: kd4 No deficits noted. Respiratory: No deficits noted. Vital Signs: 01:36 BP 148 / 97; Pulse 108; Resp 16; Temp 96.9(TE); Pulse Ox 99% on R/A; Weight 73.94 kg; jb4 Height 5 ft. 3 in. (R); 04:00 BP 126 / 84; Pulse 81; Resp 18; Pulse Ox 99% ; cp4 04:53 BP 119 / 73; Pulse 78; Resp 17; Temp 98.1(O); Pulse Ox 98% ; Pain 5/10; kd4 01:36 Body Mass Index 28.87 (73.94 kg, 160.02 cm) jb4 04:53 Pain Scale: Adult kd4 King[place] Coma Score: 02:29 Eye Response: spontaneous(4). Motor Response: obeys commands(6). Verbal Response: kd4 oriented(5). Total: 15. Trauma Score (Adult): 02:29 Eye Response: spontaneous(1); Verbal Response: oriented(1); Motor Response: obeys kd4 commands(2); Systolic BP: > 89 mm Hg(4); Respiratory Rate: 10 to 29 per min(4); Ce Score: 15; Trauma Score: 12 ED Course: 01:28 Patient arrived in ED. jj6 01:29 Ethan Richards DO is Attending Physician. ms3 01:38 Triage completed. jb4 01:38 Arm band placed on right wrist. jb4 02:04 CT Head Brain wo Cont In Process Unspecified. EDMS 02:44 Tib Fib Left In Process Unspecified. EDMS 02:47 Patient has correct armband on for positive identification. Bed in low position. Call kd4 light in reach. Side rails up X2. 02:47 No provider procedures requiring assistance completed. kd4 04:31 Geraldo Michael DO is Referral Physician. ms3 04:47 Patient maintains SpO2 saturation greater than 95% on room air. kd4 04:52 Provided Education on: d/c instruction. Client placed on continuous cardiac and pulse kd4 oximetry monitoring. NIBP monitoring applied. manufacturing millwright on. Pulse ox on. NIBP on. 04:52 Thermoregulation: warm blanket given to patient. kd4 04:52 Patient did not have IV access during this emergency room visit. kd4 Administered Medications: 03:07 Drug: morphine IM 4 mg IM once Route: IM; Site: left ventrogluteal; cp4 04:40 Follow up: Response: No adverse reaction kd4 04:37 CANCELLED (Physician Discretion): [id number] mg IM once ms3 04:39 Drug: Ketorolac IM 15 mg IM once Route: IM; Site: left deltoid; kd4 04:40 Follow up: Response: No adverse reaction kd4 Medication: 04:53 VIS not applicable for this client. kd4 Output: 04:47 Urine: 0ml; Total: 0ml. kd4 Outcome: 04:32 Discharge ordered by MD. ms3 04:51 Discharged to home ambulatory, with family, kd4 04:51 Condition: stable 04:51 Discharge instructions given to patient, family, Demonstrated understanding of instructions, follow-up care, 04:52 Patient's length of stay in the Emergency Department was greater than [address] kd4 scanPatient's length of stay extended due to 05:01 Patient left the ED. kd4 Signatures: Dispatcher [employer] EDMS Olegario Javed, RN RN jb4 Ethan Richards DO DO ms3 Toney Greta jj6 Faith Lazaro cp4 Jen Mann RN RN kd4 Corrections: (The following items were deleted from the chart) 01:41 01:36 BP 148 / 97; Pulse 108bpm; Resp 16bpm; Pulse Ox 99% RA; Temp 96.9F Temporal; jb4 Height 5 ft. 3 in. Reported; jb4 04:46 04:45 LMP N/A - , Not kd4 kd4
[2024-10-09 05:40] VITALS: BP 119/73; TEMP 98.1; O2SAT 98
--- NOTE | 2024-10-09 06:01 | RAD REPORT ---
EXAM DESCRIPTION: Tib Fib Left CLINICAL HISTORY: PAIN COMPARISON: None. FINDINGS: 2 views of the left tibia/fibula. No acute fracture or dislocation. Normal osseous mineralization. No radiopaque foreign body. IMPRESSION: No acute fracture or dislocation. Electronically signed by: Case Carcamo DO 10/09/2024 04:23 AM CDT RP [id number] Due to temporary technical issues with the PACS/Third Age reporting system, reports are being gina d by the in-house radiologist without review as a courtesy to ensure prompt reporting the interpreting radiologist is fully responsible for the content of the report. Transcribed Date/Time: 10/09/2024 6:01 AM
== END 2024-10-09 05:01 | disposition home or self-care (01) ==
LOC: ER 01:27
DX: R51.9 Headache, unspecified (principal); M79.662 Pain in left lower leg; W18.30XA Fall on same level, unspecified, initial encounter; Z95.828 Presence of other vascular implants and grafts
CPT/HCPCS: 70450; 96372; 99284